=== PATIENT | female | born 1965 | race Caucasian/White ===

== ENCOUNTER 2017-03-02 12:41 | Emergency (ER) | payer OTHER ==
[~2017-03-02] VITALS: Ht 154.9 cm; Wt 59.0 kg
[~2017-03-02 12:41] MED LIST: ALBUAER19 INH; BENZ100C84 PO; LVQ500 PO
[2017-03-02 12:48] VITALS: TEMP 36.6; Ht 154.9 cm; Wt 59.0 kg
[2017-03-02] MEDS ORDERED: PRM625 PO (13:09)
[2017-03-02] MEDS ORDERED: HYDROCODONE/ACETAMOPHEN 5/325MG TAB PO ONE (14:00)
[2017-03-02] MEDS ORDERED: HYDR-5688 PO (14:25)
[2017-03-02] MEDS ORDERED: CYCL10TA6 PO (14:25)
[2017-03-02 14:40] VITALS: BP 118/82; PULSE 69; O2SAT 96
--- NOTE | 2017-03-02 21:21 | EMERGENCY ROOM VISIT NOTE ---
ED Visit Note First contact with patient: 13:39 Chief Complaint: Left shoulder pain. History of Present Illness: Ms. Yin is a 51-year-old white female who ambulates into the ED complaining of left shoulder pain over the scapular area. Patient reports she has been having posterior left shoulder pain for approximately 2-3 days. 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 She reports initially she was developing mild discomfort throughout the trapezius over the scapula. Her discomfort gradually increased in intensity. She reports last evening she was seen at a local urgent care center and reported x-rays were done and was reported as normal and was referred to physical therapy. Currently she describes her pain as a sharp and cramping discomfort. She rates her discomfort 7/10. Her pain is nonradiating. Her pain worsens with palpation throughout the trapezius muscle and movement of the shoulder. She has not identified any alleviating factors related to the pain. She has not taken any medications for pain prior to arrival at the hospital. She denies any associated headache, dizziness, lightheadedness, recent direct trauma, neck pain, thoracic back pain, upper respiratory tract symptoms, cough, wheezing, shortness of breath, abdominal pain, nausea, vomiting, upper extremity weakness/ numbness/tingling. Review of Systems: As noted above in history of present illness. 8 body systems were reviewed and found to be negative as noted above. Past Medical History: (1) Bipolar 1 disorder (2) Borderline personality disorder (3) Bronchitis (4) Crohn's disease, unspecified, without complications (5) External hemorrhoids (6) Hypothyroidism (7) Hypoxia Surgical Problems: (1) History of appendectomy (2) History of section (3) History of hysterectomy (4) History of tubal ligation Social History Problems: (1) Tobacco use Current Medications: Medications Dose Route/Sig Max Daily Dose Days Date Category Dose Instructions Ventolin Hfa (Albuterol) 200 Puffs/86865 Mcg Aers 2 Puffs INH Q4H PRN 03/02/17 Reported Premarin (Estrogens Conjugated) Unknown Strength Tab 1 Tab PO DAILY 03/02/17 Reported Singulair (Montelukast Sodium) 10 Mg Tab 10 Mg PO DAILY 03/02/17 Reported Naprosyn (Naproxen) 500 Mg Tab 500 Mg PO DAILY PRN 03/02/17 Reported Levofloxacin 500 Mg Tab 500 Mg PO DAILY@11 7 07/01/16 Rx Tessalon Perles (Benzonatate) 100 Mg Cap 1 Cap PO TID PRN 10 07/01/16 Rx Hydrochlorothiazide 25 Mg Tab 25 Mg PO DAILY PRN 06/28/16 Reported Lomotil (Diphenoxylate W/ Atropine) 1 Tab Tab 1 Tab PO DAILY PRN 06/28/16 Reported Symbicort 160/4.5 Inhaler (Budesonide/Formoterol Fumarate) 120 Puffs/ Aero 2 Puffs INH Q12 06/28/16 Reported Protonix (Pantoprazole Sodium) 40 Mg Tab 40 Mg PO DAILY PRN 04/16/16 Reported Bupropion HCl Xl (Bupropion HCl) 150 Mg Tabcr 150 Mg PO QPM 03/28/16 Reported Advil (Ibuprofen) 200 Mg Tab 400 Mg PO QPM PRN 03/28/16 Reported Levothyroxine Sodium 75 Mcg Tab 1 Tab PO DAILY 90 02/28/16 Reported Humira Pen (Adalimumab) 40 Mg/0.8 Ml Kit 1 Dose INJ Q2WKS 01/29/16 Reported Allergies to Medications: Oxycodone. Social History: Patient is currently employed; she feels safe in her home environment; she admits to tobacco use. Physical Examination: Vital Signs: Date Time Temp Pulse Resp B/P Pulse Ox O2 Delivery O2 Flow Rate FiO2 03/02/17 14:40 69 18 118/82 96 03/02/17 12:48 36.6 75 16 120/87 95 Room Air GENERAL: 51-year-old female in moderate distress due to pain, nontoxic-appearing , afebrile and hemodynamically stable. NEUROLOGICAL: Awake, alert and oriented to person, place and time. Answering questions appropriately and following commands. Normal gait. Good hand eye coordination. No focal motor or sensory deficits. SKIN: Warm, dry and pink. No soft tissue eruptions or trauma noted. HEENT: Atraumatic and normocephalic. BACK: No tenderness over the bony cervical and thoracic spine. Moderate tenderness over the mid left trapezius with palpable spasm. No CVA tenderness. THORAX: Lungs sounds are clear to auscultation and equal bilaterally with symmetrical chest wall. ABDOMEN: Flat, soft and nontender. Positive bowel sounds in all quadrants. No guarding, rigidity or organomegaly. LEFT UPPER EXTREMITY: No gross bony deformity. No bony tenderness, swelling or ecchymosis of the shoulder girdle or shoulder joint. As previously noted moderate tenderness throughout the trapezius associated with muscle spasm. She refused to do range of motion exercises due to pain. With the shoulder stabilize she does have full range of motion in flexion and extension of the elbow, pronation and supination of forearm and flexion, extension and radial and ulnar deviation of the wrist against resistance. pose. Distal sensation, distal pulses and capillary refill intact. Was not able to elicit deep tendon reflexes bilaterally. ED Course: Patient is assessed as noted above. Patient was given ice and one [place] 5/325 mg tablet by mouth for pain. Patient was offered additional x-rays or imaging studies and refused. Patient was placed in a sling. Patient was educated about tonight's findings and instructed on her treatment plan; she verbalizes understanding and agreement with this plan. Clinical Impression: Left shoulder pain. Left trapezius muscle spasm. Disposition: Patient discharged home in stable condition accompanied by male friend; prior to departure she was reassessed and subjectively reported she was feeling the same. Plan: Comfort measures were discussed with the patient including rest, sling use, ice , muscle relaxants; Flexeril, and a sliding pain medication scale including narcotics. Patient was given appropriate precautions for narcotic use. Additionally her name was reviewed in this state database and no red flags were noted. Patient was encouraged to follow-up with orthopedics if no better in 7-10 days. Patient was encouraged return the ED for worsening/uncontrolled pain, arm weakness/numbness/tingling or any new/concerning symptoms.
[2017-03-11] MEDS ORDERED: SYMIN160 INH (07:45)
[2017-09-16] MEDS ORDERED: NAPR-1169 PO (13:05)
[2017-09-16] MEDS ORDERED: MONT1TAB3 PO (13:09)
[2017-09-16] MEDS ORDERED: VNTHFA/IN INH (13:11)
[2017-09-16] MEDS ORDERED: LEVO75TA5 PO (13:57)
[2017-09-16] MEDS ORDERED: ESTR1TAB2 PO (14:40)
[2017-09-16] MEDS ORDERED: DPH/ PO (16:21)
[2017-09-16] MEDS ORDERED: PANT40TA PO (16:53)
[2017-09-19] MEDS ORDERED: FLVHFA44 INH (10:27)
[2017-09-19] MEDS ORDERED: AZIT500T3 PO (10:27)
[2017-09-19] MEDS ORDERED: PRED10TA PO (10:27)
== END 2017-03-02 14:42 | disposition home or self-care (01) ==
LOC: C.EDB 12:42 → C.EDD 14:42
DX: M25.512 Pain in left shoulder (principal); M62.838 Other muscle spasm; Z72.0 Tobacco use; F31.9 Bipolar disorder, unspecified; F60.3 Borderline personality disorder; K50.90 Crohn's disease, unspecified, without complications; E03.9 Hypothyroidism, unspecified; Z79.899 Other long term (current) drug therapy

== ENCOUNTER 2017-03-11 13:49 | Emergency (ER) | payer OTHER ==
[~2017-03-11] VITALS: Ht 154.9 cm; Wt 60.6 kg
[~2017-03-11 13:49] MED LIST changes: -ALBUAER19 INH; +CYCL10TA6 PO; +HYDR-5688 PO; +PRM625 PO; +SYMIN160 INH
[2017-03-11 13:51] VITALS: TEMP 36.6; Ht 154.9 cm; Wt 60.6 kg
--- NOTE | 2017-03-11 15:17 | DIAGNOSTIC IMAGING REPORT ---
CERVICAL SPINE 7 VIEWS HISTORY: Pain. Neuropathy. LEFT NECK PAIN RADIATING INTO L ARM, WEAKNESS COMPARISON: None. FINDINGS: The cervical spine is visualized from C1 through the superior endplate of T1. Evidence for an anterior fusion from C5 through C7. Disc spaces are present. Moderate reversal of normal cervical curvature presumably due to muscular spasm. Disc spaces are preserved. Prevertebral soft tissues and the atlantodens interval are intact. IMPRESSION: Moderate degenerative and postoperative change consistent with a fusion from C5 through C7. Reversal of cervical curvature presumably due to muscular spasm. Electronically signed by: Pacheco Gaitan M.D. 03/11/2017 3:16 PM Dictated Date/Time: 03/11/2017 3:14 PM
[2017-03-11] MEDS ORDERED: HYDR25TA5 PO (16:21)
[2017-03-11] MEDS ORDERED: WLLXL150 PO (19:00)
--- NOTE | 2017-03-11 19:01 | DIAGNOSTIC IMAGING REPORT ---
MRI OF THE CERVICAL SPINE WITHOUT IV CONTRAST CLINICAL HISTORY: Left neck pain radiating into the left upper extremity. Left arm weakness. COMPARISON STUDY: Radiographs of the cervical spine dated 03/11/2017. TECHNIQUE: MRI of the cervical spine is performed using various T1 and T2-weighted sequences in the axial and sagittal planes. IV contrast was not administered for this examination. Susceptibility artifact from spinal fusion hardware degrades the examination. FINDINGS: Cervical spine: Vertebral body height and alignment are maintained throughout the cervical spine. There is straightening of the cervical lordosis with reversal centered at C6. There are postoperative changes from anterior fusion seen from C5 to C7. The spinous processes are grossly intact. The atlantodental articulation appears maintained. No destructive bony lesion is seen. Intervertebral discs: There is evidence of discectomy at C5-C6 and C6-C7. Mild degenerative disc desiccation is seen in the remaining cervical levels. Mild to moderate disc space narrowing is seen at C7-T1. Spinal cord: The cervical spinal cord is normal in morphology and signal intensity. C2-C3: Facet arthropathy causes mild right greater than left neural foraminal stenosis. The central canal is clear. C3-C4: A posterior disc osteophyte complex effaces the ventral subarachnoid space. Uncovertebral and facet arthropathy cause mild to moderate right and minimal left neural foraminal stenosis. C4-C5: A posterior disc osteophyte complex abuts the ventral cord. Facet arthropathy causes minimal right sided neural foraminal stenosis. C5-C6: A posterior disc osteophyte complex effaces the ventral cord. The neural foramina are grossly clear. C6-C7: The central canal and neural foramina are grossly clear. C7-T1: A posterior disc bulge is seen eccentric to the left. This minimally effaces the ventral left aspect of the subarachnoid space and interrupts the left-sided neural frontal stenosis. This may impinge on the exiting C8 nerve root. Soft tissues: The prevertebral and paraspinous soft tissues are within normal limits. Brain parenchyma: Partially visualized brain parenchyma at the skull base is within normal limits. IMPRESSION: 1. There are postoperative changes from anterior fusion from C5 to C7. No destructive bony lesion is seen. 2. The cervical spinal cord is normal in morphology and signal intensity. 3. A posterior disc bulge eccentric to the left is seen at C7-T1. This mildly effaces the ventral subarachnoid space and contributes to left-sided neural foraminal stenosis. This may impinge on the exiting left C8 nerve root. 4. Multilevel cervical spondylosis at additional levels as detailed above. See discussion for level by level analysis. Dictated: 03/11/2017 6:45 PM Transcribed: 03/11/2017 7:00 PM [email or web address] Electronically signed by: Rc Lorenzo M.D. 03/11/2017 7:03 PM Dictated Date/Time: 03/11/2017 6:45 PM
--- NOTE | 2017-03-11 19:32 | EMERGENCY ROOM VISIT NOTE ---
History First contact with patient: 14:07 Chief Complaint: SHOULDER PAIN Stated Complaint: PAIN DOWN NECK INTO SHOULDER, WEAKNESS IN L ARM History of Present Illness Patient is a [id number] 51-year-old white female with past medical history significant for Crohn's disease, hypothyroidism, COPD, asthma/depression /anxiety and GERD, and status post C5 through C7 a CT/S in 2008, presents emergency department for evaluation of left-sided neck pain radiating into the left arm. She's had symptoms for almost 3 weeks. Patient reports that she began noticing pain in the posterior aspect of her left shoulder that radiated slightly to her neck and to her left upper arm about 2-1/2 weeks ago. On the fifth of this month she went to a walk-in facility in [place] and has shoulder x-rays which were reportedly unremarkable and physical therapy was recommended. The following day she presented here to our emergency department where it was felt that she was suffering from a spasm, and was prescribed Flexeril and [place]. Patient states that she tried using the Flexeril and the [place], but they did not help, so she stopped them. She had follow-up with her primary care provider on 03/08, who prescribed steroids, but the patient only took one dose because she could not tolerate the side effects. She states that the provider did not know if she could get an MRI authorized by her insurance. The patient now notes more severe pain in the midline of her neck, radiating into the posterior right shoulder and down the left arm below the elbow. She then reports a "funny feeling" in her hands and her fingers, and notes that she is having difficulty with fine movements like holding things and picking up small items like her medications. She states that her hand feels weak. She states that certain movements, including looking to the left exacerbates the pain and make it more sharp in nature. Her surgeon from [address] Luna. She has not tried to get into see him. She presently rates her pain a 3/10. She cannot relate any specific injury or direct trauma, but does state that she is active, cares for her young grandchildren, and rides horses. Review of Systems Review of systems as per HPI. All other systems reviewed were negative. 10 systems reviewed. Past Medical/Surgical History Medical Problems: (1) Acute allergic reaction (2) Allergic reaction, urticaria (3) Anxiety Disorder, Unspecified (4) Bipolar 1 disorder (5) Borderline personality disorder (6) Bronchitis (7) Bronchitis (8) COPD (chronic obstructive pulmonary disease) (9) COPD exacerbation (10) Crohn's disease, unspecified, without complications (11) Depression (12) External hemorrhoids (13) Failure of outpatient treatment (14) GERD (gastroesophageal reflux disease) (15) Hives (16) Hypothyroidism (17) Hypoxia (18) Left shoulder pain (19) Urticaria Surgical Problems: (1) H/O cervical spinal arthrodesis (2) History of appendectomy (3) History of section (4) History of hysterectomy (5) History of tubal ligation Social History Problems: (1) Tobacco use Electronic medical records are reviewed and summarized as above/below. See Problem List. Family History Diabetes mellitus FH: heart disease FHx: lung disease Hypertension Kidney stones Social History Smoking Status: Current Every Day Smoker Alcohol Use: occasionally Drug Use: none Marital Status: in relationship Housing Status: lives with family Occupation Status: unemployed Current/Historical Medications Scheduled Adalimumab (Humira Pen), 1 DOSE INJ Q2WKS Budesonide/Formoterol Fumarate (Symbicort 160/4.5 Inhaler), 2 PUFFS INH Q12 Bupropion HCl (Bupropion HCl Xl), 150 MG PO QPM Estradiol (Estrace), Unknown Dose PO DAILY Levothyroxine Sodium (Levothyroxine Sodium), 1 TAB PO DAILY Montelukast Sodium (Singulair), 10 MG PO DAILY Scheduled PRN Albuterol Hfa (Ventolin Hfa), 2 PUFFS INH Q4H PRN for SOB/Wheezing Benzonatate (Tessalon Perles), 1 CAP PO TID PRN for Cough Cyclobenzaprine Hcl (Flexeril), 10 MG PO Q8 PRN for Muscle Spasms Diphenoxylate W/ Atropine (Lomotil), 1 TAB PO DAILY PRN for Diarrhea Hydrochlorothiazide (Hydrochlorothiazide), 25 MG PO DAILY PRN for edema Ibuprofen (Advil), 400 MG PO QPM PRN for Pain Naproxen (Naprosyn), 500 MG PO DAILY PRN for Pain Pantoprazole (Protonix), 40 MG PO DAILY PRN for ACID REFLUX Allergies Coded Allergies: Oxycodone (Verified Allergy, Severe, FACE ITCHY, 03/11/17) 04/18/16: pt lists oxy-ir as home med? she presents with allergy sxs on [id number]. dr saldana is holding oxy-ir at this time. aj Physical Exam Vital Signs Date Time Temp Pulse Resp B/P Pulse Ox O2 Delivery O2 Flow Rate FiO2 03/11/17 19:43 74 20 118/75 98 03/11/17 17:53 75 20 125/87 96 Room Air 03/11/17 15:30 62 18 124/74 97 Room Air 03/11/17 13:51 36.6 77 18 120/81 99 Room Air Physical Exam CONSTITUTIONAL: Patient is an uncomfortable-appearing 51-year-old white female who is awake and alert and in no acute distress. EYES: Pupils equal, round, reactive to light and accommodation. EOMs intact without nystagmus. Sclera are anicteric. ENT: Tympanic membranes intact, with normal landmarks. External canals are clear. Oral and nasopharynx are clear. Mucous membranes are moist, no lesions , tongue and gums appear normal. NECK: No bruits auscultated. Supple without lymphadenopathy. No thyromegaly. No meningeal signs. Full active range of motion without discomfort. CARDIOVASCULAR: Regular rate and rhythm, with normal S1 and S2, no murmur or gallop or rub is heard. No carotid bruits auscultated. No JVD. Peripheral pulses easily palpable. RESPIRATORY: Breath sounds equal and clear to auscultation without wheezes, rales, or rhonchi heard. Full and equal chest expansion without accessory muscle use or retractions. INTEGUMENTARY: No lesions or rash, normal skin turgor. LYMPH: No lymphadenopathy. SPINE: Patient has a well-healed anterior neck surgical incision. She has mild discomfort over the spinous processes of the lower cervical spine, no paraspinous muscle tenderness or spasm, no spasm in the trapezius distribution. She has full cervical spine range of motion. There is no pain over the thoracic spinous processes or the rhomboid muscles. EXTREMITIES: Examination of the left arm does not demonstrate any obvious deformity, no erythema, swelling or discoloration. Radial and ulnar pulses are equal bilaterally. She has diminished solutions specialist strength, intrinsic hand strength and thumb opposition on the left, when compared to the right. Elbow flexion and extension and shoulder flexion and abduction are equal and symmetrical bilaterally. Biceps, triceps and brachioradialis DTRs are equal and symmetrical bilaterally. Medical Decision & Procedures ER Provider Diagnostic Interpretation: MRI OF THE CERVICAL SPINE WITHOUT IV CONTRAST CLINICAL HISTORY: Left neck pain radiating into the left upper extremity. Left arm weakness. COMPARISON STUDY: Radiographs of the cervical spine dated 03/11/2017. TECHNIQUE: MRI of the cervical spine is performed using various T1 and T2-weighted sequences in the axial and sagittal planes. IV contrast was not administered for this examination. Susceptibility artifact from spinal fusion hardware degrades the examination. FINDINGS: Cervical spine: Vertebral body height and alignment are maintained throughout the cervical spine. There is straightening of the cervical lordosis with reversal centered at C6. There are postoperative changes from anterior fusion seen from C5 to C7. The spinous processes are grossly intact. The atlantodental articulation appears maintained. No destructive bony lesion is seen. Intervertebral discs: There is evidence of discectomy at C5-C6 and C6-C7. Mild degenerative disc desiccation is seen in the remaining cervical levels. Mild to moderate disc space narrowing is seen at C7-T1. Spinal cord: The cervical spinal cord is normal in morphology and signal intensity. C2-C3: Facet arthropathy causes mild right greater than left neural foraminal stenosis. The central canal is clear. C3-C4: A posterior disc osteophyte complex effaces the ventral subarachnoid space. Uncovertebral and facet arthropathy cause mild to moderate right and minimal left neural foraminal stenosis. C4-C5: A posterior disc osteophyte complex abuts the ventral cord. Facet arthropathy causes minimal right sided neural foraminal stenosis. C5-C6: A posterior disc osteophyte complex effaces the ventral cord. The neural foramina are grossly clear. C6-C7: The central canal and neural foramina are grossly clear. C7-T1: A posterior disc bulge is seen eccentric to the left. This minimally effaces the ventral left aspect of the subarachnoid space and interrupts the left-sided neural frontal stenosis. This may impinge on the exiting C8 nerve root. Soft tissues: The prevertebral and paraspinous soft tissues are within normal limits. Brain parenchyma: Partially visualized brain parenchyma at the skull base is within normal limits. IMPRESSION: 1. There are postoperative changes from anterior fusion from C5 to C7. No destructive bony lesion is seen. 2. The cervical spinal cord is normal in morphology and signal intensity. 3. A posterior disc bulge eccentric to the left is seen at C7-T1. This mildly effaces the ventral subarachnoid space and contributes to left-sided neural foraminal stenosis. This may impinge on the exiting left C8 nerve root. 4. Multilevel cervical spondylosis at additional levels as detailed above. See discussion for level by level analysis. CERVICAL SPINE 7 VIEWS HISTORY: Pain. Neuropathy. LEFT NECK PAIN RADIATING INTO L ARM, WEAKNESS COMPARISON: None. FINDINGS: The cervical spine is visualized from C1 through the superior endplate of T1. Evidence for an anterior fusion from C5 through C7. Disc spaces are present. Moderate reversal of normal cervical curvature presumably due to muscular spasm. Disc spaces are preserved. Prevertebral soft tissues and the atlantodens interval are intact. IMPRESSION: Moderate degenerative and postoperative change consistent with a fusion from C5 through C7. Reversal of cervical curvature presumably due to muscular spasm. ED Course The patient was seen and evaluated as above. Her old records were reviewed. She had driven herself to the emergency department and did not have a ride and therefore declined any medication needs well in the emergency department. Given her history of fusion, cervical spine x-rays are obtained and were as noted above. Because of her radicular symptoms and left upper extremity weakness, MRI of the cervical spine was obtained. Findings were reviewed with the patient. Continued conservative care measures were discussed. The patient has narcotics at home that she can use. She is also provided a prescription for prednisone which she states that she only took one dose of because she could not tolerate the side effects. She was encouraged to finish the prednisone if she could tolerate it as it may provide her with some additional benefit to treat the radicular symptoms. She was advised that she would need to follow-up with her surgeon for further care and evaluation. The patient expressed understanding of this and was agreeable. She is discharged home in good condition. She rated her pain a 5/10 at discharge. MEDICAL DECISION MAKING: I do not suspect acute compression syndrome, diskitis , epidural abscess, hematoma or neurovascular compromise. Medical Decision See ED course Impression Primary Impression: Left cervical radiculopathy Departure Information Referrals Wade Gonzáles M.D. (PCP) Tu Luna M.D. Patient Instructions [facility] Additional Instructions Resume prednisone. Continue hydrocodone as prescribed. Use Benadryl if needed for itching. Ibuprofen(Motrin, Advil) may be used for fever or pain. Use 600mg every six hours as needed. Take with food. Avoid using more than 2400mg in a 24 hour period. Do not use 2400mg per day for more than three consecutive days without physician direction. Prolonged inappropriate use can lead to stomach upset or ulcers. This medication can be taken if you need to drive, work, or perform activities which may be dangerous when taking narcotic pain medication. (AND/OR) Acetaminophen(Tylenol) may be used for fever or pain. Use 1000mg every six hours as needed. Avoid using more than 3000mg in a 24 hour period. This medication can be taken if you need to drive, work, or perform activities which may be dangerous when taking narcotic pain medication. Continue current medications. Return to the ER immediately for any numbness, tingling, severe pain, loss of control of your bowels or bladder, inability to walk, or as needed. Follow up with Dr. Luna this week for recheck. Call tomorrow morning to make an appointment.
[2017-03-11 19:43] VITALS: BP 118/75; PULSE 74; O2SAT 98
[2017-09-16] MEDS ORDERED: NAPR-1169 PO (13:05)
[2017-09-16] MEDS ORDERED: MONT1TAB3 PO (13:09)
[2017-09-16] MEDS ORDERED: VNTHFA/IN INH (13:11)
[2017-09-16] MEDS ORDERED: LEVO75TA5 PO (13:57)
[2017-09-16] MEDS ORDERED: ESTR1TAB2 PO (14:40)
[2017-09-16] MEDS ORDERED: DPH/ PO (16:21)
[2017-09-16] MEDS ORDERED: PANT40TA PO (16:53)
[2017-09-19] MEDS ORDERED: PRED10TA PO (10:27)
[2017-09-19] MEDS ORDERED: FLVHFA44 INH (10:27)
[2017-09-19] MEDS ORDERED: AZIT500T3 PO (10:27)
== END 2017-03-11 19:44 | disposition home or self-care (01) ==
LOC: C.EDB 13:51
DX: M47.22 Other spondylosis with radiculopathy, cervical region (principal); M50.23 Other cervical disc displacement, cervicothoracic region; K50.90 Crohn's disease, unspecified, without complications; E03.9 Hypothyroidism, unspecified; J44.9 Chronic obstructive pulmonary disease, unspecified; J45.909 Unspecified asthma, uncomplicated; F32.9 Major depressive disorder, single episode, unspecified; F41.9 Anxiety disorder, unspecified; K21.9 Gastro-esophageal reflux disease without esophagitis; F31.9 Bipolar disorder, unspecified; F60.3 Borderline personality disorder; F17.200 Nicotine dependence, unspecified, uncomplicated; K64.4 Residual hemorrhoidal skin tags; Z90.710 Acquired absence of both cervix and uterus; Z83.3 Family history of diabetes mellitus; Z82.49 Family history of ischemic heart disease and other diseases of the circulatory system; Z84.1 Family history of disorders of kidney and ureter

== ENCOUNTER → 2017-05-07 | Outpatient (CLI) | payer OTHER ==
[~2017-05-07] MED LIST changes: +ADAL40KI INJ; -CYCL10TA6 PO; +DPH/ PO; +ESTR1TAB2 PO; -HYDR-5688 PO; +HYDR25TA5 PO; +IBUP-1050 PO; +LEVO75TA5 PO; -LVQ500 PO; +MONT1TAB3 PO; +NAPR-1169 PO; +PANT40TA PO; -PRM625 PO; +VNTHFA/IN INH; +WLLXL150 PO
--- NOTE | 2017-05-07 15:31 | DIAGNOSTIC IMAGING REPORT ---
TWO VIEW CHEST CLINICAL HISTORY: Cough. FINDINGS: PA and lateral chest radiographs are compared to study dated 08/16/2016. Correlation is made with chest CT dated 06/27/2016. The cardiomediastinal silhouette is unremarkable. The lungs and pleural spaces are clear. There is no pneumothorax. The bony thorax appears intact. Fusion hardware is seen in the lower cervical spine. IMPRESSION: No active disease in the chest. Electronically signed by: Rc Lorenzo M.D. 05/07/2017 3:29 PM Dictated Date/Time: 05/07/2017 3:28 PM
== END | disposition home or self-care (01) ==
LOC: C.RAD 15:11
PROVIDERS: ATTEND Physician Assistant
DX: R05 Cough (principal)

== ENCOUNTER 2017-09-16 17:01 | Inpatient (IN) | payer OTHER ==
[~2017-09-16] VITALS: Ht 157.5 cm; Wt 59.6 kg
[~2017-09-16 17:01] MED LIST changes: -ADAL40KI INJ; -IBUP-1050 PO
[2017-09-16] MEDS ORDERED: SODIUM CHLORIDE 0.9% 1000ML 1,000 ML IV STA (17:21)
[2017-09-16] MEDS ORDERED: ACETAMINOPHEN 500 MG TAB PO STA (17:21)
[2017-09-16] MEDS ORDERED: ALBUT/IPRATROP 3MG/0.5MG NEB 3 ML VIAL INH STA (17:21)
--- NOTE | 2017-09-16 17:31 | EMERGENCY ROOM VISIT NOTE ---
History Report prepared by Kourtneyibmaida: Chayito Cyr Under the Supervision of: Dr. Onesimo Elmore D.O. First contact with patient: 17:15 Chief Complaint: ILLNESS Stated Complaint: HEADACHE, HARD BREATHING, PAIN IN RIGHT SIDE,TEETH History of Present Illness The patient is a 52 year old female who presents to the Emergency Room with complaints of a persistent illness for the past few days. She reports she had her right upper and lower teeth extracted this past Saturday, 3 days MARINA PORTER. Since then, she has developed a headache, pain in the right side of her abdomen and difficulty breathing. She rates her discomfort as an 8/10 in severity. She admits to a history of COPD and chronic bronchitis, and follows with Uma Nelson of [facility]. She notes she saw Uma Nelson last week, and she called in an antibiotic for the patient as she found "some gunk in her lungs", but she has not started the antibiotic yet. She has been using her inhalers as needed for her breathing issues. The patient also admits to a history of Crohn' s disease and a bulging disc in her neck, for which she follows with Dr. Bernal of [facility]. She denies any recent rhinorrhea, nausea, vomiting , diarrhea or urinary symptoms. Source of History: patient Onset: past few days MARINA PORTER Position: other (global) Timing: other (persistent) Associated Symptoms: + headache, + SOB, + abdominal pain, No nausea, No vomiting, No diarrhea, No urinary symptoms Review of Systems See HPI for pertinent positives & negatives. A total of 10 systems reviewed and were otherwise negative. Past Medical & Surgical Medical Problems: (1) Acute allergic reaction (2) Allergic reaction, urticaria (3) Anxiety Disorder, Unspecified (4) Bipolar 1 disorder (5) Bipolar disorder (6) Borderline personality disorder (7) Bronchitis (8) Bronchitis (9) COPD (chronic obstructive pulmonary disease) (10) COPD exacerbation (11) Crohn's disease, unspecified, without complications (12) Crohns disease (13) Depression (14) External hemorrhoids (15) Failure of outpatient treatment (16) GERD (gastroesophageal reflux disease) (17) History of neck pain (18) Hives (19) Hypothyroidism (20) Hypothyroidism (21) Hypoxia (22) Left shoulder pain (23) Urticaria Surgical Problems: (1) H/O cervical spinal arthrodesis (2) History of appendectomy (3) History of bronchoscopy (4) History of section (5) History of hysterectomy (6) History of tubal ligation (7) Hx of colonoscopy (8) Hx of fusion of cervical spine (9) Hx of hysterectomy Social History Problems: (1) Tobacco use Family History Diabetes mellitus FH: heart disease FHx: lung disease Hypertension Kidney stones Social History Smoking Status: Current Every Day Smoker Alcohol Use: occasionally Drug Use: none Marital Status: in relationship Housing Status: lives with family Occupation Status: disabled Current/Historical Medications Scheduled Adalimumab (Humira Pen), 40 MG SC Q2WKS Bupropion HCl (Bupropion HCl Sr), 150 MG PO DAILY Cyclobenzaprine Hcl (Flexeril), 10 MG PO TID Estradiol (Estrace), 1 MG PO DAILY Ipratropium [place] (Atrovent Hfa), 2 PUFFS INH QID Levothyroxine Sodium (Levothyroxine Sodium), 75 MCG PO DAILY Mesalamine (Lialda), 4 TAB PO DAILY Montelukast Sodium (Singulair), 10 MG PO DAILY Pantoprazole (Protonix), 40 MG PO DAILY Tiotropium [place] (Spiriva Respimat), 2 PUFF INH DAILY Scheduled PRN Albuterol Hfa (Ventolin Hfa), 2 PUFFS INH Q4H PRN for SOB/Wheezing Diphenoxylate W/ Atropine (Lomotil), 1 TAB PO DAILY PRN for Diarrhea Ibuprofen (Advil), 400 MG PO Q6H PRN for Pain Lorazepam (Ativan), 0.5 MG PO TID PRN for Anxiety Naproxen (Naprosyn), 500 MG PO BID PRN for Pain Allergies Coded Allergies: Oxycodone (Verified Allergy, Severe, FACE ITCHY, 03/11/17) 04/18/16: pt lists oxy-ir as home med? she presents with allergy sxs on [id number]. dr saldana is holding oxy-ir at this time. aj Physical Exam Vital Signs Date Time Temp Pulse Resp B/P (MAP) Pulse Ox O2 Delivery O2 Flow Rate FiO2 09/16/17 19:03 93 22 122/56 94 Nasal Cannula 3.0 09/16/17 17:57 96 09/16/17 17:51 96 Room Air 09/16/17 17:07 39.1 103 20 129/80 92 Room Air Physical Exam GENERAL: Patient is awake, alert, in no acute distress, patient is resting comfortably and showing no signs of anxiety EYES: The conjunctivae are clear. The pupils are round and reactive. EARS, NOSE, MOUTH AND THROAT: The nose is without any evidence of any deformity. Mucous membranes are moist tongue is midline NECK: The neck is nontender and supple. RESPIRATORY: Lung sounds diminished throughout, expiratory wheezing in all lung jacques, no conversational dyspnea CARDIOVASCULAR: Regular rate and rhythm noted there no murmurs rubs or gallops normal S1 normal S2 GASTROINTESTINAL: The abdomen is soft. Bowel sounds are present in all quadrants. Abdomen is nontender MUSCULOSKELETAL/EXTREMITIES: There is no evidence of gross deformity full range of motion is noted in the hips and shoulders SKIN: There is no obvious evidence of any rash. There are no petechiae, pallor or cyanosis noted. NEUROLOGIC: Patient is awake alert and oriented x3 Medical Decision & Procedures ER Provider Diagnostic Interpretation: See HPI for pertinent positives & negatives. A total of 10 systems reviewed and were otherwise negative. CHEST ONE VIEW PORTABLE CLINICAL HISTORY: Evaluate Fever/Sepsis dyspnea COMPARISON STUDY: 05/07/2017 FINDINGS: The bones soft tissues and hemidiaphragms are normal. The cardiomediastinal silhouette is normal. The lungs are clear. The pulmonary vasculature is normal. IMPRESSION: Negative chest. The above report was generated using voice recognition software. It may contain grammatical, syntax or spelling errors. Electronically signed by: Pacheco Gaitan M.D. 09/16/2017 5:34 PM Laboratory Results 09/16/17 17:35 Red Blood Count 3.82, Mean Corpuscular Volume 93.2, Mean Corpuscular Hemoglobin 32.5, Mean Corpuscular Hemoglobin Concent 34.8, Mean Platelet Volume 9.9, Neutrophils (%) (Auto) 68.0, Lymphocytes (%) (Auto) 22.2, Monocytes (%) (Auto) 9.2, Eosinophils (%) (Auto) 0.2, Basophils (%) (Auto) 0.2, Neutrophils # (Auto) 8.46, Lymphocytes # (Auto) 2.76, Monocytes # (Auto) 1.15, Eosinophils # (Auto) 0.03, Basophils # (Auto) 0.03 Test 09/16/17 17:35 09/16/17 18:48 09/16/17 19:00 09/16/17 19:20 White Blood Count 12.46 K/uL (4.8-10.8) Red Blood Count 3.82 M/uL (4.2-5.4) Hemoglobin 12.4 g/dL (12.0-16.0) Hematocrit 35.6 % (37-47) Mean Corpuscular Volume 93.2 fL (80-100) Mean Corpuscular Hemoglobin 32.5 pg (25-34) Mean Corpuscular Hemoglobin Concent 34.8 g/dl (32-36) Platelet Count 250 K/uL (130-400) Mean Platelet Volume 9.9 fL (7.4-10.4) Neutrophils (%) (Auto) 68.0 % Lymphocytes (%) (Auto) 22.2 % Monocytes (%) (Auto) 9.2 % Eosinophils (%) (Auto) 0.2 % Basophils (%) (Auto) 0.2 % Neutrophils # (Auto) 8.46 K/uL (1.4-6.5) Lymphocytes # (Auto) 2.76 K/uL (1.2-3.4) Monocytes # (Auto) 1.15 K/uL (0.11-0.59) Eosinophils # (Auto) 0.03 K/uL (0-0.5) Basophils # (Auto) 0.03 K/uL (0-0.2) RDW Standard Deviation 44.0 fL (36.4-46.3) RDW Coefficient of Variation 12.9 % (11.5-14.5) Immature Granulocyte % (Auto) 0.2 % Immature Granulocyte # (Auto) 0.03 K/uL (0.00-0.02) Erythrocyte Sedimentation Rate 21 mm/hr (0-21) Est Creatinine Clear Calc Drug Dose 53.1 ml/min Troponin I < 0.015 ng/ml (0-0.045) C-Reactive Protein 3.15 mg/dl (0-0.29) Bedside Lactic Acid Venous 0.52 mmol/L (0.90-1.70) Urine Color YELLOW Urine Appearance CLEAR (CLEAR) Urine pH 7.0 (4.5-7.5) Urine Specific [place] 1.010 (1.000-1.030) Urine Protein NEG (NEG) Urine Glucose (UA) NEG (NEG) Urine Ketones NEG (NEG) Urine Occult Blood NEG (NEG) Urine Nitrite NEG (NEG) Urine Bilirubin NEG (NEG) Urine Urobilinogen NEG (NEG) Urine Leukocyte Esterase NEG (NEG) Test 09/16/17 19:34 Laboratory results per my review. Medications Administered Medications (Trade) Dose Ordered Sig/Nando Route Start Time Stop Time Status Last Admin Dose Admin Sodium Chloride 1,000 ml @ 999 mls/hr Q1H1M STAT IV 09/16/17 17:21 09/16/17 18:21 DC 09/16/17 19:02 999 MLS/HR Albuterol/ Ipratropium (Duoneb) 3 ml NOW STAT INH 09/16/17 17:21 09/16/17 17:25 DC 09/16/17 17:46 3 ML Acetaminophen (Tylenol Tab) 1,000 mg NOW STAT PO 09/16/17 17:21 09/16/17 17:25 DC 09/16/17 17:47 1,000 MG Ceftriaxone Sodium (Rocephin Inj) 1 gm NOW STAT IV 09/16/17 18:29 09/16/17 18:30 DC 09/16/17 19:01 1 GM Azithromycin 500 mg/Dextrose 255 ml @ 125 mls/hr ONE ONCE IV 09/16/17 18:30 09/16/17 20:32 09/16/17 19:23 125 MLS/HR Methylprednisolone Sodium Succinate (Solu-Medrol IV) 125 mg NOW STAT IV 09/16/17 18:29 09/16/17 18:30 DC 09/16/17 19:01 125 MG ECG Indication: SOB/dyspnea Rate (beats per minute): 100 Rhythm: normal sinus Findings: no ectopy, other (No acute ST segments) Change: no significant change (No change from June 28, 2016) ED Course 1718: The patient was evaluated in room B11. A complete history and physical examination were performed. 1721: Acetaminophen 1000 mg PO, DuoNeb 3 ml INH, NSS 1000 ml @ 999 mls/hr IV. 1829: Solu-Medrol 125 mg IM, Rocephin 1 gm IV. 1830: Azithromycin 500 mg/Dextrose 255 ml @ 125 mls/hr IV. 1830: Nursing informed me the patients Oxygen saturation has dropped after a DuoNeb. 1841: I discussed the patients case with Winsome Pitts. The patient will be further evaluated. Medical Decision Prior records/ancillary studies reviewed. Triage Nursing notes reviewed. Additional history obtained from the family. The patient's history was concerning for respiratory difficulties. Differential diagnosis: Etiologies such as infections, reactive airway disease, pneumonia, pneumothorax , COPD, CHF, cardiac ischemia, pulmonary embolism, musculoskeletal, gastrointestinal, as well as others were entertained. The patient is a 52-year-old female who presented to the emergency department for evaluation of cough. The patient had a fever. The patient's chest x-ray did not show any definite pneumonia however her history and physical exam could be consistent with a COPD exacerbation with a clinical pneumonia or a bronchitis. The patient was treated with Dilantin therapy as well as IV fluids IV steroids and IV antibiotics. I discussed the patient's laboratory and radiographic studies with her. On subsequent reevaluation she was feeling better but her oxygen saturation started to drop. She was placed on supplemental oxygen. It significantly improved her condition. I [facility] his [facility] They've agreed to evaluate the patient in the emergency department for further management and disposition. Medication Reconcilliation Current Medication List: was personally reviewed by me Blood Pressure Screening Patient's blood pressure: Normal blood pressure Blood pressure disposition: Did not require urgent referral Consults Time Called: 1839 Consulting Physician: Winsome Pitts Returned Call: 1841 I discussed the patients case with Winsome Pitts. The patient will be further evaluated. Impression Primary Impression: Bronchitis Additional Impressions: Fever Hypoxia Scribe Attestation The scribe's documentation has been prepared under my direction and personally reviewed by me in its entirety. I confirm that the note above accurately reflects all work, treatment, procedures, and medical decision making performed by me. Departure Information Dispostion Being Evaluated By Hospitalist Referrals Wade Gonzáles M.D. (PCP) Patient Instructions My [facility] Problem Qualifiers Additional Impressions: Fever Fever type: unspecified Qualified Codes: R50.9 - Fever, unspecified
--- NOTE | 2017-09-16 17:35 | DIAGNOSTIC IMAGING REPORT ---
CHEST ONE VIEW PORTABLE CLINICAL HISTORY: Evaluate Fever/Sepsis dyspnea COMPARISON STUDY: 05/07/2017 FINDINGS: The bones soft tissues and hemidiaphragms are normal. The cardiomediastinal silhouette is normal. The lungs are clear. The pulmonary vasculature is normal. IMPRESSION: Negative chest. The above report was generated using voice recognition software. It may contain grammatical, syntax or spelling errors. Electronically signed by: Pacheco Gaitan M.D. 09/16/2017 5:34 PM Dictated Date/Time: 09/16/2017 5:34 PM
[2017-09-16] MEDS ORDERED: SPRIN/30 INH (17:57)
[2017-09-16] MEDS ORDERED: ATRIN INH (17:57)
[2017-09-16] MEDS ORDERED: LORA-741 PO (17:57)
[2017-09-16] MEDS ORDERED: WLLSR150 PO (17:57)
[2017-09-16 17:58] LABS: BASO % 0.2 %; BASO ABS # 0.03 K/uL (0-0.2); COMPLETE YES; EOS % 0.2 %; HEMATOCRIT 35.6 % (37-47); IG% 0.2 %; LYMPH % 22.2 %; LYMPH ABS # 2.76 K/uL (1.2-3.4); MEAN CELL VOLUME 93.2 fL (80-100); MEAN CORPUSCULAR HEMOGLOBIN 32.5 pg (25-34); MEAN CORPUSCULAR HGB CONC 34.8 g/dl (32-36); MEAN PLATELET VOLUME 9.9 fL (7.4-10.4); MONO % 9.2 %; PLATELET COUNT 250 K/uL (130-400); RED BLOOD COUNT 3.82 M/uL (4.2-5.4); WHITE BLOOD COUNT 12.46 K/uL (4.8-10.8)
[2017-09-16] MEDS ORDERED: BENZ100C84 PO (18:00)
[2017-09-16] MEDS ORDERED: ADAL40KI SC (18:22)
[2017-09-16 18:26] LABS: BLOOD UREA NITROGEN 13 mg/dl (7-18); BUN/CREATININE RATIO 13.4 (10-20); CALCIUM 8.3 mg/dl (8.5-10.1); CARBON DIOXIDE 26 mmol/L (21-32); CHLORIDE 104 mmol/L (98-107); CREATININE 0.97 mg/dl (0.60-1.20); GLUCOSE 96 mg/dl (70-99); SODIUM 138 mmol/L (136-145)
[2017-09-16] MEDS ORDERED: CEFTRIAXONE SOD INJ 1 GM ADDVIAL IV STA (18:29)
[2017-09-16] MEDS ORDERED: METHYLPREDNISOLONE 125 MG VIAL IV STA (18:29)
[2017-09-16] MEDS ORDERED: AZITHROMYCIN IV 500 MG in DEXTROSE 5% 250ML 250 ML IV ONE (18:30)
[2017-09-16 18:33] LABS: C-REACTIVE PROTEIN 3.15 mg/dl (0-0.29)
[2017-09-16] MEDS ORDERED: IBUP-1050 PO (18:58)
[2017-09-16 19:21] LABS: MANUAL MICROSCOPIC REQUIRED? NO; URINE APPEARANCE CLEAR (CLEAR); URINE BILIRUBIN NEG (NEG); URINE COLOR YELLOW; URINE NITRITE NEG (NEG); UROBILINOGEN NEG (NEG)
[2017-09-16 19:24] LABS: REVIEW REQ? NO
[2017-09-16] MEDS ORDERED: ONDANSETRON INJ 2 MG/ML 2 ML VIAL IV PRN (19:45)
[2017-09-16] MEDS ORDERED: MESA1.2T PO (19:54)
[2017-09-16] MEDS ORDERED: TIOT1SPR INH (19:54)
[2017-09-16] MEDS ORDERED: CYCL10TA6 PO (19:54)
[2017-09-16] MEDS: ALBUT/IPRATROP 3MG/0.5MG NEB 3 ML VIAL INH SCH (20:00)
--- NOTE | 2017-09-16 20:41 | History and Physical ---
History & Physical Date & Time of Service: Sep 16, 2017 at 19:39 Chief Complaint: Headache, Hard Breathing, Pain In Right Side,Teeth Primary Care Physician: Wade Gonzáles M.D. History of Present Illness Source: patient Pt is 52 y/o F with PMH COPD, Crohn's on Humira Q 2 wks, bipolar, anxiety, chronic neck pain, hypothyroidism who presented to ER with c/o cough, SOB, illness. C/O generalized myalgias, [place], chills and sweats past 2-3 days. Hasn't taken temperature. Also c/o cough "but can't cough anything out". Hx COPD on spiriva and uses albuterol and atrovent inhaler prn. States past 2 days needing to use albuterol 2-3 times a day. Denies recent steroid use. Pt states had routine f/u with [facility] last week and pt reports "junk in lungs" and was instructed to start using nebulizer however pt states didn't as that usually causes her palpitations. She reports was also given antibiotic to use if no improvement of symptoms but pt did not use. Denies influenza vaccine this season. Reports side effect from pneumonia vaccine in past and since hasn't gotten influenza vaccines. Pt reports 3 days ago had R upper and lower molar extractions. States areas seem to be healing well, still a little discomfort. Denies gingival discharge or bleeding or facial edema. Reports took Roxicodone after extraction for pain and past 2 days with constipation. Hx Crohn's - follows with Dr King. States in past when taken pain meds has gotten some abdominal discomfort. Reports some mild intermittent abdominal aching. Denies N/ V/D, melena, hematochezia, dizziness, syncope, vision changes, CP, orthopnea, hemoptysis, sore throat, choking, otalgia, rhinorrhea, paresthesias, weakness, extremity weakness, extremity edema, rashes, urinary symptoms. In ER: Temp: 39.1C. WBC: 12.4. Negative troponin. Negative CXR. Reported after duoneb pt had desat to 85% on RA. Started on O2 NC. Given Rocephin and azithromycin. Past Medical/Surgical History Medical Problems: (1) Acute allergic reaction Status: Resolved (2) Allergic reaction, urticaria Status: Resolved (3) Anxiety Disorder, Unspecified Status: Chronic (4) Bipolar disorder Status: Chronic (5) Borderline personality disorder Status: Chronic (6) Bronchitis Status: Resolved (7) COPD (chronic obstructive pulmonary disease) Status: Chronic (8) COPD exacerbation Status: Resolved (9) Crohn's disease, unspecified, without complications Status: Chronic (10) Crohns disease Status: Chronic (11) Depression Status: Chronic (12) External hemorrhoids Status: Chronic (13) Failure of outpatient treatment Status: Resolved (14) GERD (gastroesophageal reflux disease) Status: Chronic (15) History of neck pain Status: Chronic (16) Hives Status: Resolved (17) Hypothyroidism Status: Chronic (18) Hypothyroidism Status: Chronic (19) Hypoxia Status: Resolved (20) Left cervical radiculopathy Status: Chronic (21) Left shoulder pain Status: Resolved (22) Urticaria Status: Resolved Surgical Problems: (1) H/O cervical spinal arthrodesis Status: Resolved (2) History of appendectomy Status: Resolved (3) History of bronchoscopy Permanent Comment: 2016 for hypoxia Status: Resolved (4) History of section Status: Resolved (5) History of hysterectomy Status: Resolved (6) History of tubal ligation Status: Resolved (7) Hx of colonoscopy Permanent Comment: 2017 - Dr King - non-thrombosed hemorrhoids, normal colon Status: Resolved Social History Problems: (1) Tobacco use Status: Chronic Family History Diabetes mellitus FATHER MOTHER GRANDFATHER FH: heart disease MOTHER ([place] in 60's) FHx: lung disease Hypertension FATHER MOTHER Kidney stones Social History Smoking Status: Current Every Day Smoker (1ppd x 31 years) Smokeless Tobacco Use: No Alcohol Use: none (sober since 2012, hx DUI 2010) Drug Use: none Marital Status: in relationship Housing status: lives with significant other Occupational Status: disabled Immunizations History of Influenza Vaccine: No History of Tetanus Vaccine?: Yes History of Pneumococcal: No History of Hepatitis B Vaccine: Yes Allergies Coded Allergies: Oxycodone (Verified Allergy, Severe, FACE ITCHY, 03/11/17) 04/18/16: pt lists oxy-ir as home med? she presents with allergy sxs on [id number]. dr saldana is holding oxy-ir at this time. aj Home Medications Scheduled Adalimumab (Humira Pen), 40 MG SC Q2WKS Bupropion HCl (Bupropion HCl Sr), 150 MG PO DAILY Cyclobenzaprine Hcl (Flexeril), 10 MG PO TID Estradiol (Estrace), 1 MG PO DAILY Ipratropium [place] (Atrovent Hfa), 2 PUFFS INH QID Levothyroxine Sodium (Levothyroxine Sodium), 75 MCG PO DAILY Mesalamine (Lialda), 4 TAB PO DAILY Montelukast Sodium (Singulair), 10 MG PO DAILY Pantoprazole (Protonix), 40 MG PO DAILY Tiotropium [place] (Spiriva Respimat), 2 PUFF INH DAILY Scheduled PRN Albuterol Hfa (Ventolin Hfa), 2 PUFFS INH Q4H PRN for SOB/Wheezing Diphenoxylate W/ Atropine (Lomotil), 1 TAB PO DAILY PRN for Diarrhea Ibuprofen (Advil), 400 MG PO Q6H PRN for Pain Lorazepam (Ativan), 0.5 MG PO TID PRN for Anxiety Naproxen (Naprosyn), 500 MG PO BID PRN for Pain Review of Systems Constitutional: + problem reported (See HPI), No weight loss Eyes: No eye pain, No redness, No discharge ENT: No unusual epistaxis, No nasal symptoms, No tinnitus Respiratory: + problem reported (see HPI) Cardiovascular: + problem reported (See HPI), No edema Abdomen: + problem reported (see HPI) Musculoskeletal: + problem reported (See HPI) Neurologic: No weakness, No numbness/tingling, No vertigo Endocrine: No excessive thirst, No excessive urination Integumentary: No rash Physical Exam Vital Signs Date Time Temp Pulse Resp B/P (MAP) Pulse Ox O2 Delivery O2 Flow Rate FiO2 09/16/17 19:03 93 22 122/56 94 Nasal Cannula 3.0 09/16/17 17:57 96 09/16/17 17:51 96 Room Air 09/16/17 17:07 39.1 103 20 129/80 92 Room Air General Appearance: WD/WN, no apparent distress Head: normocephalic, atraumatic Eyes: normal inspection, PERRL, EOMI, sclerae normal ENT: hearing grossly normal, TMs normal, pharynx normal, + pertinent finding ( no rhinorrhea, mucous membranes moist, right upper molar and right lower molar extraction sites without discharge/bledding or ginigval edema. no facial swelling) Neck: supple, no JVD, trachea midline, + adenopathy present (R submandibular adenopathy, tender to palpation ) Respiratory/Chest: no respiratory distress, no accessory muscle use, + decreased breath sounds (throughout), + rhonchi (bases bilaterally), + wheezing (scattered throughout), + pertinent finding (speaks in full sentences. ) Cardiovascular: regular rate, rhythm, no murmur, normal peripheral pulses Abdomen/GI: normal bowel sounds, soft, + tenderness (mild tenderness to palpation LLQ without rebound or guarding) Extremities/Musculoskelatal: normal inspection, normal capillary refill, no pedal edema, normal range of motion, non-tender Neurologic/Psych: alert, normal mood/affect, oriented x 3 Skin: normal color, warm/dry, no rash Diagnostics Laboratory Results Results Past 24 Hours Test 09/16/17 17:35 09/16/17 18:48 09/16/17 19:00 09/16/17 19:20 Range/Units White Blood Count 12.46 4.8-10.8 K/uL Red Blood Count 3.82 4.2-5.4 M/uL Hemoglobin 12.4 12.0-16.0 g/dL Hematocrit 35.6 37-47 % Mean Corpuscular Volume 93.2 80-100 fL Mean Corpuscular Hemoglobin 32.5 25-34 pg Mean Corpuscular Hemoglobin Concent 34.8 32-36 g/dl Platelet Count 250 130-400 K/uL Mean Platelet Volume 9.9 7.4-10.4 fL Neutrophils (%) (Auto) 68.0 % Lymphocytes (%) (Auto) 22.2 % Monocytes (%) (Auto) 9.2 % Eosinophils (%) (Auto) 0.2 % Basophils (%) (Auto) 0.2 % Neutrophils # (Auto) 8.46 1.4-6.5 K/uL Lymphocytes # (Auto) 2.76 1.2-3.4 K/uL Monocytes # (Auto) 1.15 0.11-0.59 K/uL Eosinophils # (Auto) 0.03 0-0.5 K/uL Basophils # (Auto) 0.03 0-0.2 K/uL RDW Standard Deviation 44.0 36.4-46.3 fL RDW Coefficient of Variation 12.9 11.5-14.5 % Immature Granulocyte % (Auto) 0.2 % Immature Granulocyte # (Auto) 0.03 0.00-0.02 K/uL Erythrocyte Sedimentation Rate 21 0-21 mm/hr Sodium Level 138 136-145 mmol/L Potassium Level 3.5-5.1 mmol/L Chloride Level 104 98-107 mmol/L Carbon Dioxide Level 26 21-32 mmol/L Anion Gap 8.0 3-11 mmol/L Blood Urea Nitrogen 13 7-18 mg/dl Creatinine 0.97 0.60-1.20 mg/dl Est Creatinine Clear Calc Drug Dose 53.1 ml/min Estimated GFR () 77.3 Estimated GFR (Non- 66.7 BUN/Creatinine Ratio 13.4 10-20 Random Glucose 96 70-99 mg/dl Calcium Level 8.3 8.5-10.1 mg/dl Troponin I < 0.015 0-0.045 ng/ml C-Reactive Protein 3.15 0-0.29 mg/dl Bedside Lactic Acid Venous 0.52 0.90-1.70 mmol/L Urine Color YELLOW Urine Appearance CLEAR CLEAR Urine pH 7.0 4.5-7.5 Urine Specific [place] 1.010 1.000-1.030 Urine Protein NEG NEG Urine Glucose (UA) NEG NEG Urine Ketones NEG NEG Urine Occult Blood NEG NEG Urine Nitrite NEG NEG Urine Bilirubin NEG NEG Urine Urobilinogen NEG NEG Urine Leukocyte Esterase NEG NEG Test 09/16/17 19:34 Range/Units Microbiology Results 09/16/17 Blood Culture, Received Pending 09/16/17 Blood Culture, Received Pending Diagnostic Radiology CXR: IMPRESSION: Negative chest. EKG EKG: rate 100, sinus, no ST changes noted Impression Assessment and Plan HYPOXIA/BRONCHITIS HX COPD Pt febrile, myalgias, cough, SOB, hypoxia noted in ER to 85% on RA. Pulse:103. Pt with hx COPD and is not home O2 dependent. Negative CXR. WBC: 12.4. negative POC lactate. DDX: influenza, CAP although none seen on CXR at this time, COPD exacerbation -will continue Rocephin and Azithromycin at this time -pending influenza swab -pending blood cultures -sputum culture -NSS 100ml/hr -solumedrol 125mg IV Q8H -O2 per protocol -continue singulair -continue spiriva -duonebs Q4H and Q2H prn -cbc, prp in am -repeat CXR in am -may consider pulmonology consult if needed CROHN'S Hx Humira Q 2 weeks. Pt with constipation past 2 days s/p narcotic use after dental extraction. Pt reports passing gas. no signs of bowel obstruction at this time. No melena/hematochezia -Will continue to monitor -may consider bowel regimen if constipation continues -consider abdominal imaging if worsening/continue abdominal pain -continue mesalamine HYPOTHYROIDISM -TSH ordered -continue levothyroxine BIPOLAR/ANXIETY -continue Wellbutrin -continue Ativan prn CHRONIC NECK PAIN -continue naproxen prn GERD -continue protonix DVT PROPHYLAXIS -Lovenox SQ DISPOSITION -admit med/surg -Full Code as per discussion with pt -Follows with Dr Hernandez for routine care Pt was seen with Dr Marroquin. See addendum Attending Physician Dr. Marroquin, addendum I have seen and examined the patient with out hospitalist team physician medical receptionist medical assistant and agree with her assessment and plan as above and would like to comment Lung physical exam without crackles or wheezing. Breathing on nasal cannula. Presence of cough. Tachycardiac without irregular beats. No gross exudates from nose or oropharynx. No cervical lymph nodes appreciated. Abdomen soft, nontender , + bowel sounds. Lower extremities nontender and no edema. Patient awake and alert and speaking comfortably in full sentences. This is is a 52 year old who meets SIRS criteria with respiratory symptoms and cough however no clear signs of infiltrates on the chest x rays . Possible fever from upper respiratory source such as a bronchitis. Flu swab ordered as patient reports that she does not get annual flu vaccinations. Will give ceftriaxone and azithromycin to empirically treat for possible underlying pneumonia. Will order CXR in the morning with procalcitonin levels and if these tests are negative and if patient clinically stable or improves then would suggest that antibiotics be de-escalated. Level of Care Med/Surg Resuscitation Status FULL RESUSCITATION VTE Prophylaxis VTE Risk Assessment Done? Y/N: Yes Risk Level: Moderate Given or contraindicated: Enoxaparin (Lovenox)SQ Additional Copies To Wade Gonzáles M.D.
[2017-09-16 21:00] VITALS: BP 109/55; PULSE 83; TEMP 37; O2SAT 93; Ht 157.5 cm; Wt 59.6 kg
[2017-09-16 21:24] LABS: INFLUENZA A PCR Neg for Influ A (NEG); INFLUENZA B PCR Neg for Influ B (NEG)
[2017-09-16] MEDS: SODIUM CHLORIDE 0.9% 1000ML 1,000 ML IV SCH (21:30)
[2017-09-16] MEDS: MONTELUKAST SOD 10 MG TAB PO SCH (21:37)
[2017-09-16] MEDS: NAPROXEN 250 MG TAB PO PRN (21:38)
[2017-09-16] MEDS ORDERED: hydrOXYzine HCL 25 MG TAB PO STA (22:02)
[2017-09-16 22:13] LABS: PROTHROMBIN TIME (PATIENT) 10.5 SECONDS (9.0-12.0)
[2017-09-16 22:20] LABS: BUN/CREATININE RATIO 9.4 (10-20); CALCIUM 8.3 mg/dl (8.5-10.1); CREATININE 1.09 mg/dl (0.60-1.20); POTASSIUM 3.3 mmol/L (3.5-5.1)
[2017-09-16] MEDS ORDERED: POTASSIUM CHLORIDE 20 MEQ TABCR PO STA (22:23)
[2017-09-16] MEDS: LORAZEPAM 0.5 MG TAB PO PRN (23:33)
[2017-09-16 23:40] VITALS: BP 100/63; PULSE 76; TEMP 36.9; O2SAT 94
[2017-09-17] VITALS (7 sets, daily range): BP systolic 108–114; BP diastolic 62–67; PULSE 72–103; TEMP 36.6–37.1; O2SAT 93–97
[2017-09-17] MEDS: METHYLPREDNISOLONE IV 125 MG in SYRINGE 0 ML IV SCH ×2 (02:18→06:00)
[2017-09-17] MEDS: LEVOTHYROXINE 75 MCG TAB PO SCH (06:00)
[2017-09-17] MEDS: ALBUT/IPRATROP 3MG/0.5MG NEB 3 ML VIAL INH SCH ×3 (07:15→15:29)
[2017-09-17 07:28] LABS: COMPLETE YES; HEMATOCRIT 33.8 % (37-47); IG% 0.3 %; LYMPH % 10.4 %; LYMPH ABS # 0.81 K/uL (1.2-3.4); MEAN CELL VOLUME 94.2 fL (80-100); MEAN CORPUSCULAR HEMOGLOBIN 32.3 pg (25-34); MEAN CORPUSCULAR HGB CONC 34.3 g/dl (32-36); MEAN PLATELET VOLUME 9.6 fL (7.4-10.4); MONO % 0.6 %; NEUT % 88.7 %; PLATELET COUNT 213 K/uL (130-400); RED BLOOD COUNT 3.59 M/uL (4.2-5.4); WHITE BLOOD COUNT 7.79 K/uL (4.8-10.8)
[2017-09-17] MEDS: BuPROPion SR 150 MG TABCR PO SCH (07:49)
[2017-09-17] MEDS: PANTOprazole SOD 40 MG TAB PO SCH (07:50)
[2017-09-17] MEDS: SODIUM CHLORIDE 0.9% 1000ML 1,000 ML IV SCH (07:51)
[2017-09-17] MEDS: ENOXAPARIN 40 MG/0.4 ML SYR SQ SCH (07:51)
[2017-09-17] MEDS: TIOTROPIUM BROMIDE 5 PUFF/90 MCG INH INH SCH (07:53)
[2017-09-17 08:23] LABS: BUN/CREATININE RATIO 17.6 (10-20); CALCIUM 8.2 mg/dl (8.5-10.1); CREATININE 0.78 mg/dl (0.60-1.20)
--- NOTE | 2017-09-17 09:20 | DIAGNOSTIC IMAGING REPORT ---
CHEST 2 VIEWS ROUTINE CLINICAL HISTORY: SOB, fever COMPARISON STUDY: 09/16/2017 FINDINGS: The cardiac and mediastinal contours remain stable. There is no lobar consolidation. There is no failure. There are no pleural effusions. There is an 11 mm left infrahilar soft tissue nodule. This appears to localize to the lingula on the lateral view. There are postsurgical changes present within the cervical spine. There is an old right clavicular fracture. IMPRESSION: 11 mm nodule within the lingula. Given the history of fever, this may be inflammatory. Short-term radiographic follow-up subsequent to antibiotic therapy is recommended. Electronically signed by: Isreal Miller M.D. 09/17/2017 9:19 AM Dictated Date/Time: 09/17/2017 9:16 AM
[2017-09-17] MEDS ORDERED: METHYLPREDNISOLONE IV 125 MG in SYRINGE 0 ML IV SCH (10:00)
--- NOTE | 2017-09-17 10:59 | Progress Note ---
Medicine Progress Note Date & Time of Visit: Sep 17, 2017 at 10:59 . Subjective No documented fever during the night, but had some sweats. Persistent cough and dyspnea. No chest pain. No nausea, vomiting, diarrhea. No urinary symptoms. . Objective Last 8 Hrs Date Time Temp Pulse Resp B/P (MAP) Pulse Ox O2 Delivery O2 Flow Rate FiO2 09/17/17 09:33 Nasal Cannula 2.0 09/17/17 08:01 36.7 77 18 114/67 (83) 93 2.0 09/17/17 07:17 72 12 93 Nasal Cannula 2.0 Physical Exam: General- lying in bed, somewhat tachypneic Neck- no JVD Lungs- scattered rhonchi, diffuse wheezing Heart- RRR, no murmur or gallop appreciated Abdomen- + BS, soft, nontender Extremities- no pretibial edema or calf tenderness Neuro- alert Skin- warm and dry . Laboratory Results: Last 24 Hours Test 09/16/17 17:35 09/16/17 18:48 09/16/17 19:00 09/16/17 19:35 White Blood Count 12.46 K/uL Red Blood Count 3.82 M/uL Hemoglobin 12.4 g/dL Hematocrit 35.6 % Mean Corpuscular Volume 93.2 fL Mean Corpuscular Hemoglobin 32.5 pg Mean Corpuscular Hemoglobin Concent 34.8 g/dl Platelet Count 250 K/uL Mean Platelet Volume 9.9 fL Neutrophils (%) (Auto) 68.0 % Lymphocytes (%) (Auto) 22.2 % Monocytes (%) (Auto) 9.2 % Eosinophils (%) (Auto) 0.2 % Basophils (%) (Auto) 0.2 % Neutrophils # (Auto) 8.46 K/uL Lymphocytes # (Auto) 2.76 K/uL Monocytes # (Auto) 1.15 K/uL Eosinophils # (Auto) 0.03 K/uL Basophils # (Auto) 0.03 K/uL RDW Standard Deviation 44.0 fL RDW Coefficient of Variation 12.9 % Immature Granulocyte % (Auto) 0.2 % Immature Granulocyte # (Auto) 0.03 K/uL Erythrocyte Sedimentation Rate 21 mm/hr Sodium Level 138 mmol/L Potassium Level mmol/L Chloride Level 104 mmol/L Carbon Dioxide Level 26 mmol/L Anion Gap 8.0 mmol/L Blood Urea Nitrogen 13 mg/dl Creatinine 0.97 mg/dl Est Creatinine Clear Calc Drug Dose 53.1 ml/min Estimated GFR () 77.3 Estimated GFR (Non- 66.7 BUN/Creatinine Ratio 13.4 Random Glucose 96 mg/dl Calcium Level 8.3 mg/dl Troponin I < 0.015 ng/ml C-Reactive Protein 3.15 mg/dl Bedside Lactic Acid Venous 0.52 mmol/L Urine Color YELLOW Urine Appearance CLEAR Urine pH 7.0 Urine Specific [place] 1.010 Urine Protein NEG Urine Glucose (UA) NEG Urine Ketones NEG Urine Occult Blood NEG Urine Nitrite NEG Urine Bilirubin NEG Urine Urobilinogen NEG Urine Leukocyte Esterase NEG Influenza Type A (RT-PCR) Neg for Influ A Influenza Type A Antigen Neg for Influ A Influenza Type B Antigen Neg for Influ B Influenza Type B (RT-PCR) Neg for Influ B Test 09/16/17 21:36 09/17/17 07:18 Prothrombin Time 10.5 SECONDS Prothromb Time International Ratio 1.0 Sodium Level 138 mmol/L 143 mmol/L Potassium Level 3.3 mmol/L 4.0 mmol/L Chloride Level 104 mmol/L 110 mmol/L Carbon Dioxide Level 25 mmol/L 25 mmol/L Anion Gap 9.0 mmol/L 8.0 mmol/L Blood Urea Nitrogen 10 mg/dl 14 mg/dl Creatinine 1.09 mg/dl 0.78 mg/dl Est Creatinine Clear Calc Drug Dose 47.2 ml/min 66.0 ml/min Estimated GFR () 67.1 100.6 Estimated GFR (Non- 57.9 86.8 BUN/Creatinine Ratio 9.4 17.6 Random Glucose 219 mg/dl 163 mg/dl Calcium Level 8.3 mg/dl 8.2 mg/dl Thyroid Stimulating Hormone (TSH) 0.815 uIu/ml White Blood Count 7.79 K/uL Red Blood Count 3.59 M/uL Hemoglobin 11.6 g/dL Hematocrit 33.8 % Mean Corpuscular Volume 94.2 fL Mean Corpuscular Hemoglobin 32.3 pg Mean Corpuscular Hemoglobin Concent 34.3 g/dl Platelet Count 213 K/uL Mean Platelet Volume 9.6 fL Neutrophils (%) (Auto) 88.7 % Lymphocytes (%) (Auto) 10.4 % Monocytes (%) (Auto) 0.6 % Eosinophils (%) (Auto) 0.0 % Basophils (%) (Auto) 0.0 % Neutrophils # (Auto) 6.91 K/uL Lymphocytes # (Auto) 0.81 K/uL Monocytes # (Auto) 0.05 K/uL Eosinophils # (Auto) 0.00 K/uL Basophils # (Auto) 0.00 K/uL RDW Standard Deviation 43.3 fL RDW Coefficient of Variation 12.6 % Immature Granulocyte % (Auto) 0.3 % Immature Granulocyte # (Auto) 0.02 K/uL Procalcitonin < 0.05 ng/ml Date/Time Source Procedure Growth Status 09/16/17 18:37 Blood Blood Culture Pending Received 09/16/17 17:35 Blood Blood Culture Pending Received Assessment & Plan EXACERBATION OF COPD Presented with fever, cough, dyspnea. No infiltrates on chest x-ray. [employer] swab for influenza A/B per PCR negative. Probable exacerbation of COPD secondary to bronchitis. Treated with IV steroids, azithromycin, ceftriaxone, nebs. Transition from IV methylprednisolone to oral prednisone Transition from IV azithromycin to oral. PULMONARY NODULE 11 mm nodule noted in lingula. Significant smoking history. Followed by Uma Avila PA-C and Dr. Noland for Pulmonary Medicine. Consult Pulmonary for recommendations. CROHN'S DISEASE Quiescent. Hold adalimumab until current infection resolves. VTE PROPHYLAXIS SQ enoxaparin Ambulate. DISPOSITION Expected discharge to home. Family Medicine follow-up with Dr. Gonzáles. Pulmonary Medicine follow-up with Uma Avila PA-C and Dr. Noland. . Current Inpatient Medications: Current Inpatient Medications Medications (Trade) Dose Ordered Sig/Nando Route Start Time Stop Time Status Last Admin Dose Admin Enoxaparin Sodium (Lovenox Inj) 40 mg Q24H SQ 09/17/17 09:00 10/17/17 08:59 09/17/17 07:51 40 MG Acetaminophen (Tylenol Tab) 650 mg Q4H PRN PO 09/16/17 19:45 10/16/17 19:44 Ondansetron HCl (Zofran Inj) 4 mg Q6H PRN IV 09/16/17 19:45 10/16/17 19:44 Albuterol/ Ipratropium (Duoneb) 3 ml QIDR INH 09/16/17 20:00 10/16/17 19:59 09/17/17 07:15 3 ML Sodium Chloride 1,000 ml @ 100 mls/hr Q10H IV 09/16/17 21:00 09/17/17 16:59 09/17/17 07:51 100 MLS/HR Bupropion HCl (Wellbutrin-Sr Tab) 150 mg DAILY PO 09/17/17 09:00 10/17/17 08:59 09/17/17 07:49 150 MG Levothyroxine Sodium (Synthroid Tab) 75 mcg DAILYBB PO 09/17/17 06:30 10/17/17 06:59 09/17/17 06:00 75 MCG Lorazepam (Ativan Tab) 0.5 mg TID PRN PO 09/16/17 20:00 10/16/17 19:59 09/16/17 23:33 0.5 MG Montelukast Sodium (Singulair Tab) 10 mg HS PO 09/16/17 21:00 10/16/17 20:59 09/16/17 21:37 10 MG Pantoprazole Sodium (Protonix Tab) 40 mg DAILY PO 09/17/17 09:00 10/17/17 08:59 09/17/17 07:50 40 MG Miscellaneous Information (Order Awaiting Action) 1 ea QS N/A 09/16/17 22:45 10/16/17 22:44 Tiotropium [place] (Spiriva Handihaler Inhaler) 1 puff DAILY INH 09/17/17 09:00 10/17/17 08:59 09/17/17 07:53 1 PUFF Ceftriaxone Sodium 1 gm/ Dextrose 50 ml @ 100 mls/hr Q24H IV 09/17/17 18:00 09/23/17 17:59 Azithromycin 500 mg/Dextrose 255 ml @ 125 mls/hr Q24H IV 09/17/17 19:00 09/23/17 18:59 Naproxen (Naprosyn Tab) 500 mg BID PRN PO 09/16/17 20:45 10/16/17 20:44 09/16/17 21:38 500 MG Methylprednisolone Sodium Succinate 125 mg/Syringe 2 ml @ 1.5 mls/min Q8H IV 09/17/17 10:00 10/17/17 02:59 09/17/17 10:18 1.5 MLS/MIN
[2017-09-17] MEDS ORDERED: GUAIFENESIN 600 MG TABCR PO ONE (11:15)
[2017-09-17] MEDS: AZITHROMYCIN 250 MG TAB PO SCH (15:34)
[2017-09-17] MEDS: NAPROXEN 250 MG TAB PO PRN (16:46)
[2017-09-17] MEDS ORDERED: LEVALBUTEROL 0.63MG/3 ML NEB INH PRN (17:15)
[2017-09-17] MEDS: CEFTRIAXONE SOD INJ 1 GM in DEXTROSE 5% ADD-VANTAGE 50ML 50 ML IV SCH (18:19)
[2017-09-17] MEDS ORDERED: AZITHROMYCIN IV 500 MG in DEXTROSE 5% 250ML 250 ML IV SCH (19:00)
[2017-09-17] MEDS: IPRATROPIUM BROMIDE NEB SOLN 0.02% 2.5 ML VIAL INH SCH (19:32)
[2017-09-17] MEDS: LEVALBUTEROL 1.25MG/0.5ML NEB INH SCH (19:32)
[2017-09-17] MEDS: POLYETHYLENE (MIRALAX) 17 GM PACK PO SCH (20:35)
[2017-09-17] MEDS: MONTELUKAST SOD 10 MG TAB PO SCH (20:35)
[2017-09-17] MEDS: GUAIFENESIN 600 MG TABCR PO SCH (20:35)
[2017-09-17] MEDS: ACETAMINOPHEN 325 MG TAB PO PRN (20:39)
[2017-09-17] MEDS: LORAZEPAM 0.5 MG TAB PO PRN (21:38)
[2017-09-17] MEDS ORDERED: METHYLPREDNISOLONE IV 20 MG in SYRINGE 0 ML IV ONE (22:00)
[2017-09-17] MEDS ORDERED: NURSING VERBAL MED ORDER ONE (23:30)
[2017-09-17] MEDS ORDERED: hydrOXYzine HCL 25 MG TAB PO ONE (23:45)
[2017-09-18] VITALS (9 sets, daily range): BP systolic 111–112; BP diastolic 65–69; PULSE 78–89; TEMP 36.8–36.9; O2SAT 90–97
[2017-09-18] MEDS: LEVOTHYROXINE 75 MCG TAB PO SCH (06:18)
[2017-09-18] MEDS: LEVALBUTEROL 1.25MG/0.5ML NEB INH SCH ×4 (07:26→19:40)
[2017-09-18] MEDS: IPRATROPIUM BROMIDE NEB SOLN 0.02% 2.5 ML VIAL INH SCH ×4 (07:26→19:40)
[2017-09-18 08:00] LABS: CALCIUM 8.3 mg/dl (8.5-10.1); CREATININE 0.79 mg/dl (0.60-1.20); POTASSIUM 3.8 mmol/L (3.5-5.1)
[2017-09-18] MEDS: ACETAMINOPHEN 325 MG TAB PO PRN ×3 (08:31→20:50)
[2017-09-18] MEDS: TIOTROPIUM BROMIDE 5 PUFF/90 MCG INH INH SCH (08:31)
[2017-09-18] MEDS: BuPROPion SR 150 MG TABCR PO SCH (08:31)
[2017-09-18] MEDS: POLYETHYLENE (MIRALAX) 17 GM PACK PO SCH ×2 (08:32→20:50)
[2017-09-18] MEDS: PANTOprazole SOD 40 MG TAB PO SCH (08:33)
[2017-09-18] MEDS: ENOXAPARIN 40 MG/0.4 ML SYR SQ SCH (08:33)
[2017-09-18] MEDS: GUAIFENESIN 600 MG TABCR PO SCH ×2 (08:33→20:51)
[2017-09-18] MEDS: AZITHROMYCIN 250 MG TAB PO SCH (08:33)
--- NOTE | 2017-09-18 13:44 | Pulmonary Consultation ---
History General Date of Service: Sep 18, 2017. Stated Complaint: Bronchitis, Hypoxia HPI The patient is a 52 year old female who presents to [facility] with complaints of Bronchitis, Hypoxia. The patient's primary care provider is Wade Gonzáles M.D.. Ms. Yin is a 51-year-old female with past medical history of asthma/COPD overlap syndrome, current tobacco use disorder, hypothyroidism, esophageal reflux disease, hypothyroidism, Crohn's disease on Humira who presented to the ER on 09/16/2017 with 1 week history of lethargy and fatigue. She states on she had teeth extracted. Since then she has not been feeling herself. She had headache, chills, sore throat, mild abdominal pain, nonproductive cough , shortness of breath, generalized weakness and fatigue. She states that over the weekend, tried to rest but her symptoms persisted and drove herself to the hospital on 09/16/2017 for further evaluation. She denies any episodes of nausea, vomiting and diarrhea or genitourinary symptoms. She has occasional nonproductive dry cough she denies any hemoptysis or weight loss. She does have history of allergic rhinitis and GERD. She takes Flonase nasal spray as well as Singulair and PPI for GERD. She denies any dyspnea on exertion or at rest, she denies any lower extremity edema, paroxysmal nocturnal dyspnea or orthopnea. She denies any changes in exercise tolerance and is able to perform all activities of daily living. She is a current tobacco user of about three- quarter pack to 1 pack daily for the last 50 years. She states that she usually has respiratory symptoms mainly at night associated with chest tightness or wheezing. She also notes that she smokes morning and night as well. She follows up with Dr. Bautista and Uma Nelson at the [facility]. Last seen in August and was prescribed azithromycin and prednisone taper. Her respiratory medications include Symbicort 160/4.52 puffs twice a day, ipratropium/albuterol nebulizer every 4 hours, Combivent Respimat 20/100 g one puff 4 times a day and Spiriva Respimat 2 puffs once daily. Albuterol has caused palpitations. Her respiratory symptoms initially started in April 2016, and associated with a yearly bronchitis. Her course was complicated by hypoxemic respiratory failure secondary to pneumonia and C. difficile colitis. CT chest from February 2016 showed tree-in-bud changes with mucus plugging. Later in May 2016 she had persistent cough associated with fever and dyspnea. A repeat CT chest at that time showed right upper lobe opacities with progressive opacities in the right middle lobe with right lower lobe and lingula mucus plugging. Bronchoscopy was performed in June 2016. The BAL was positive for Haemophilus influenza as well as strep pneumo. Postprocedure was complicated by hypoxemia with a PO2 of 55 mmHg. At that time she was discharged on a steroid taper, Levaquin PPI Combivent and Symbicort 160/4.5. PFT was done post hospital discharge in 06/27/2016 : FVC: 2.13/74% (8% change), FEV1: 1.26/53% (12% change), FEV1/FVC: 70%, FEF 25-75%: 0.56/21% (23% change), VC: 2.13/74%, T.82/128%, RV: 3.69/229%, DLCO: 64%. Vital signs on arrival to the ER were temperature 39.1, pulse 103, respiratory rate of 20, blood pressure 129/80 saturating 92% on room air. Laboratory data showed a white blood cell count of 12, hemoglobin of 12. Chemistry was significant for potassium 3.3. Troponin was less than 0.015. CRP 3.15, ESR 21. Influenza A and B PCR is negative. Chest x-ray showed cardiopulmonary disease. Patient condition. Episode of hypoxia in ER with desaturations to about 85%. She was started on 2 L nasal cannula and ceftriaxone and azithromycin were as he is he is given. She was admitted for COPD exacerbation and started on IV steroids, azithromycin , ceftriaxone and Xopenex/ipratropium nebulizers every 4-6 hours. Blood cultures from 09/16/2017 are negative to date, sputum cultures from 1121 are pending. She had a repeat chest x-ray which was done on 09/17/2017 which showed a new 1.1 cm nodule in the lingula, which was not seen on chest x-ray 1 day prior. Pulmonary was consulted for evaluation of pulmonary nodule with history of significant smoking. Historian: patient Review of Systems Constitutional: reports: as stated in HPI Eyes: reports: as stated in HPI ENT: reports: as stated in HPI Cardiovascular: reports: as stated in HPI Respiratory: reports: as stated in HPI Gastrointestinal: reports: as stated in HPI Genitourinary - Female: reports: as stated in HPI Musculoskeletal: reports: as stated in HPI Integumentary: reports: as stated in HPI Neurologic: reports: as stated in HPI Psychiatric: reports: as stated in HPI Endocrine: as stated in HPI Hematologic / Lymphatic: as stated in HPI Allergic / Immunologic: as stated in HPI All Other Symptoms All Other Systems: Reviewed and Negative Past Medical History Past Medical History: Active Problems 1. Abnormal CAT scan (R93.8) 2. Alcohol abuse (F10.10) 3. Asthma (J45.909) 4. Benign neoplasm of colon (D12.6) 5. Bipolar disorder (F31.9) 6. Bronchiolitis (J21.9) 7. Chronic pain (G89.29) 8. COPD, moderate (J44.9) 9. Cough (R05) 10. Hypothyroidism (E03.9) 11. Pharyngitis (J02.9) 12. Pneumonia (J18.9) 13. Regional enteritis (K50.90) 14. Tobacco use disorder (F17.200) Past Medical History 1. History of restrictive lung disease (Z87.09) 2. 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 History of Anal Fissurectomy 2. History of Appendectomy 3. History of Arthrodesis Cervical 4. History of Section 5. History of Hysterectomy 6. History of Neuroplasty Decompression Median Nerve At Carpal Tunnel 7. History of Tubal Ligation Family History Diabetes mellitus FATHER MOTHER GRANDFATHER FH: heart disease MOTHER ([place] in 60's) FHx: lung disease Hypertension FATHER MOTHER Kidney stones Family History 1. Family history of chronic obstructive pulmonary disease (Z82.5) She has 2 daughters and 3 grandchildren Social History Social History Current every day smoker (F17.200) No alcohol use Hx Tobacco Use In Past Year?: Yes Smoking Status: Current Every Day Smoker Marital status: in relationship Housing status: lives with significant other Occupational Status: disabled Immunizations History of Influenza Vaccine: No History of Tetanus Vaccine?: Yes History of Pneumococcal: No History of Hepatitis B Vaccine: Yes Allergies Coded Allergies: Oxycodone (Verified Allergy, Severe, FACE ITCHY, 03/11/17) 04/18/16: pt lists oxy-ir as home med? she presents with allergy sxs on [id number]. dr saldana is holding oxy-ir at this time. aj Current Medications Reported Home Medications Medications Dose Route/Sig Max Daily Dose Days Date Category Dose Instructions Lialda (Mesalamine) 1.2 Gm Tab 4 Tab PO DAILY 30 09/16/17 Reported Flexeril (Cyclobenzaprine Hcl) 10 Mg Tab 10 Mg PO TID 09/16/17 Reported Spiriva Respimat (Tiotropium [place]) 2.5 Mcg/Act Spr 2 Puff INH DAILY 09/16/17 Reported Atrovent Hfa (Ipratropium [place]) 200 Puffs/3400 Mcg Aers 2 Puffs INH QID 09/16/17 Reported Ativan (Lorazepam) 0.5 Mg Tab 0.5 Mg PO TID PRN 09/16/17 Reported Bupropion HCl Sr (Bupropion HCl) 150 Mg Tabcr 150 Mg PO DAILY 09/16/17 Reported Estrace (Estradiol) 1 Mg Tab 1 Mg PO DAILY 03/11/17 Reported TAKE ONE TABLET DAILY FOR 21 DAYS THEN STOP FOR 7 DAYS AND RESTART DIRECTED Ventolin Hfa (Albuterol) 200 Puffs/74929 Mcg Aers 2 Puffs INH Q4H PRN 03/02/17 Reported Singulair (Montelukast Sodium) 10 Mg Tab 10 Mg PO DAILY 03/02/17 Reported Naprosyn (Naproxen) 500 Mg Tab 500 Mg PO BID PRN 03/02/17 Reported TAKE THIS MEDICATION WITH FOOD Lomotil (Diphenoxylate W/ Atropine) 1 Tab Tab 1 Tab PO DAILY PRN 06/28/16 Reported Protonix (Pantoprazole Sodium) 40 Mg Tab 40 Mg PO DAILY 04/16/16 Reported Advil (Ibuprofen) 200 Mg Tab 400 Mg PO Q6H PRN 03/28/16 Reported Levothyroxine Sodium 75 Mcg Tab 75 Mcg PO DAILY 02/28/16 Reported Humira Pen (Adalimumab) 40 Mg/0.8 Ml Kit 40 Mg SC Q2WKS 01/29/16 Reported Physical Physical Exam Vital Signs: Date Time Temp Pulse Resp B/P (MAP) Pulse Ox O2 Delivery O2 Flow Rate FiO2 09/18/17 11:17 80 16 97 Room Air 2.0 09/18/17 09:45 96 Room Air 09/18/17 09:00 Nasal Cannula 2.0 09/18/17 08:45 90 Room Air 09/18/17 07:31 36.9 78 18 112/65 (81) 97 2.0 09/18/17 07:26 89 16 95 Room Air 2.0 09/18/17 00:00 Nasal Cannula 2.0 09/17/17 23:50 36.6 94 20 108/62 (77) 93 Room Air 09/17/17 19:32 103 16 96 Nasal Cannula 2.0 09/17/17 15:45 37.1 96 16 111/62 (78) 97 Nasal Cannula 2.0 09/17/17 15:35 Nasal Cannula 2.0 Humidified Oxygen 09/17/17 15:29 103 16 95 Nasal Cannula 2.0 General Appearance: WELL-APPEARING, WD/WN, NO APPARENT DISTRESS Head: NORMOCEPHALIC, ATRAUMATIC Eyes: PERRLA, NO DISCHARGE, EOMI, SCLERAE NORMAL ENT: poor dentition Neck: NORMAL RANGE OF MOTION, TRACHEA MIDLINE, NO STRIDOR, midline tenderness Respiratory: BREATH SOUNDS NORMAL, CLEAR TO AUSCULTATION, CLEAR TO PERCUSSION Cardiovasular: REGULAR RATE/RHYTHM, NORMAL S1S2, NO M/G/R Abdomen: NON TENDER, NORMAL BOWEL SOUNDS, other (mildly tender to palpation) Back: NORMAL INSPECTION, NO MIDLINE TENDERNESS, other (tattoos on back) Upper Extremities: NO EDEMA, NO DEFORMITY, NORMAL ROM Lower Extremities: NO EDEMA, NO DEFORMITY, NORMAL ROM, other (tattoos a right lower extremity) Pulses: dorsalis pedis (R), dorsalis pedis (L) (2+) Neuro: ALERT, ORIENTED x 3, NORMAL MOTOR EXAM Psychiatric: NORMAL AFFECT, NO SUICIDAL IDEATION, CONTRACTS FOR SAFETY Diagnostics Labs Results Past 24 Hours Test 09/18/17 07:01 Range/Units Sodium Level 144 136-145 mmol/L Potassium Level 3.8 3.5-5.1 mmol/L Chloride Level 111 98-107 mmol/L Carbon Dioxide Level 26 21-32 mmol/L Anion Gap 7.0 3-11 mmol/L Blood Urea Nitrogen 17 7-18 mg/dl Creatinine 0.79 0.60-1.20 mg/dl Est Creatinine Clear Calc Drug Dose 65.2 ml/min Estimated GFR () 99.1 Estimated GFR (Non- 85.5 BUN/Creatinine Ratio 22.0 10-20 Random Glucose 125 70-99 mg/dl Calcium Level 8.3 8.5-10.1 mg/dl Microbiology Results 09/17/17 Gram Stain - Final, Resulted 09/17/17 Sputum Culture, Resulted Pending Diagnostic Radiology CHEST 2 VIEWS ROUTINE 09/17/2017 CLINICAL HISTORY: SOB, fever COMPARISON STUDY: 09/16/2017 FINDINGS: The cardiac and mediastinal contours remain stable. There is no lobar consolidation. There is no failure. There are no pleural effusions. There is an 11 mm left infrahilar soft tissue nodule. This appears to localize to the lingula on the lateral view. There are postsurgical changes present within the cervical spine. There is an old right clavicular fracture. IMPRESSION: 11 mm nodule within the lingula. Given the history of fever, this may be inflammatory. Short-term radiographic follow-up subsequent to antibiotic therapy is recommended. CHEST ONE VIEW PORTABLE 09/16/2017 CLINICAL HISTORY: Evaluate Fever/Sepsis dyspnea COMPARISON STUDY: 05/07/2017 FINDINGS: The bones soft tissues and hemidiaphragms are normal. The cardiomediastinal silhouette is normal. The lungs are clear. The pulmonary vasculature is normal. IMPRESSION: Negative chest. Impression Assessment and Plan Asthma/COPD overlap syndrome Pulmonary nodule Tobacco use disorder Ms. Yin is a 52-year-old female with past medical history of COPD/asthma overlap syndrome. She is a current tobacco user who presents with several day history of fever, generalized fatigue and malaise associated with worsening shortness of breath and intermittent cough. Initial chest x-ray was negative for any cardiopulmonary disease however on repeat showed a 1.1 cm density area within the lingula. This density/nodule most likely around presents a inflammatory versus infectious etiology. Less likely represents malignancy as it was not seen in prior imaging. On review of previous CT she does have episodes of groundglass opacities which have resolved with antibiotic therapy. Sputum cultures negative to date. She does have some mild mucus plugging, but this is most likely secondary to underlying asthma. Recommendations At the current time I feel that she should have a repeat CT to evaluate this new lingular nodule. Continue with antibiotic therapy as well as prednisone taper, bronchodilators and inhaled corticosteroids. We can repeat a CT in about 6-8 weeks to assess for interval resolution. If this nodule persists, further workup may be warranted. Continue with flutter valve. Continue with Flonase for rhinitis as well as PPI for GERD. She is on Humira which is a biologic and put her can put her at risk for developing mycobacteria. I feel that TB is less likely in this situation, I will send B 1,3 D- glucan and galactomannan. Smoking cessation counseling given. Nicotine patch offered however she declined. I am patient is currently refusing Lovenox for anticoagulation. Encouraged ambulation. I appreciate the consult. She should follow-up with Dr. Bautista/Uma Nelson in 1-2 weeks post hospital discharge. Please contact me any further questions or concerns.
--- NOTE | 2017-09-18 14:58 | DIAGNOSTIC IMAGING REPORT ---
(CHEST) THORAX WITHOUT CLINICAL HISTORY: Pulmonary nodule COMPARISON STUDY: 06/27/2016 , chest x-ray dated 09/17/2017 CT DOSE: 609.79 mGycm TECHNIQUE: CT of the thorax was performed from the thoracic inlet to the lung bases. Images are reviewed in the axial, sagittal, and coronal planes. IV contrast was not administered for this examination. A dose lowering technique was utilized adhering to the principles of ALARA. FINDINGS: Thyroid: Imaged portions of the thyroid gland are normal in appearance. Thoracic aorta: The thoracic aorta is normal in course and caliber, noting standard 3 vessel arch anatomy. Heart: The heart is normal in size and configuration, without pericardial effusion. Lungs and pleural spaces: No pleural effusions are visualized. There is a 6 mm right lower lobe opacity, similar to the preceding study favoring an area of postinflammatory scarring. There is tree-in-bud nodularity within the right lung apex, likely secondary to a bronchiolitis. There is an 18 mm right lingular opacity with adjacent micronodularity.. This is likely inflammatory/atelectatic. As was stated on the chest x-ray report, short-term follow-up subsequent antibiotic therapy is recommended. Mediastinum: There is no mediastinal lymphadenopathy. Diana: There is no evidence of pathologic hilar adenopathy given the limitations of a noncontrast study Axilla: There is no evidence of pathologic axillary lymphadenopathy Upper abdomen: Partially visualized upper abdominal viscera is within normal limits. Skeletal structures: There are no lytic or blastic osseous lesions. IMPRESSION: 1. Interval resolution of (when compared the prior May 2016 study) of the multifocal mucous plugging and multifocal airspace opacities 2. Residual 6 mm right lower lobe opacity, likely representing postinflammatory scarring 3. Tree-in-bud opacities within the right lung apex, likely secondary to a bronchiolitis 4. 18 mm lingular opacity with associated micronodularity. This is likely inflammatory/atelectatic. As was stated the prior chest x-ray report, short-term follow-up subsequent antibiotic therapy is recommended. 5. No evidence of pathologic adenopathy on this noncontrast study Electronically signed by: Isreal Miller M.D. 09/18/2017 2:57 PM Dictated Date/Time: 09/18/2017 2:47 PM
--- NOTE | 2017-09-18 15:00 | DIAGNOSTIC IMAGING REPORT ---
CERVICAL SPINE CT CT DOSE: 419.41 mGycm HISTORY: neck pain TECHNIQUE: Multiaxial CT images of the cervical spine were performed and reformatted in the sagittal and coronal plane without the use of contrast. A dose lowering technique was utilized adhering to the principles of ALARA. COMPARISON: None. FINDINGS: There is anterior cervical discectomy and fusion from C5 through C7. The hardware appears intact. There is reversal of the normal lordotic curvature of the cervical spine. Disc spaces are preserved for age. No fracture or subluxation. Prevertebral soft tissues and the C1-C2 interval are intact. Mild left-sided neural foraminal narrowing at C5-C6. IMPRESSION: 1. No fractures within the cervical spine. 2. Reversal of the normal lordotic curvature. 3. C5-C7 ACDF. The hardware appears intact. Electronically signed by: Sergei Hill M.D. 09/18/2017 2:59 PM Dictated Date/Time: 09/18/2017 2:53 PM
--- NOTE | 2017-09-18 17:30 | Progress Note ---
Medicine Progress Note Date & Time of Visit: Sep 18, 2017 at 17:30 . Subjective Persistent cough, wheezing, dyspnea. No fever. No chest pain. No nausea, vomiting, diarrhea. No urinary symptoms. Ambulating. . Objective Last 8 Hrs Date Time Temp Pulse Resp B/P (MAP) Pulse Ox O2 Delivery O2 Flow Rate FiO2 09/18/17 15:44 36.8 88 18 111/69 (83) 93 Room Air 09/18/17 15:17 87 16 94 Room Air 09/18/17 11:17 80 16 97 Room Air 2.0 09/18/17 09:45 96 Room Air Physical Exam: General- lying in bed, no distress ENT- no oral thrush Neck- no JVD Lungs- scattered rhonchi, diffuse wheezing Heart- RRR, no murmur or gallop appreciated Abdomen- + BS, soft, nontender Extremities- no pretibial edema or calf tenderness Neuro- alert Skin- warm and dry . Laboratory Results: Last 24 Hours Test 09/18/17 07:01 09/18/17 14:08 Sodium Level 144 mmol/L Potassium Level 3.8 mmol/L Chloride Level 111 mmol/L Carbon Dioxide Level 26 mmol/L Anion Gap 7.0 mmol/L Blood Urea Nitrogen 17 mg/dl Creatinine 0.79 mg/dl Est Creatinine Clear Calc Drug Dose 65.2 ml/min Estimated GFR () 99.1 Estimated GFR (Non- 85.5 BUN/Creatinine Ratio 22.0 Random Glucose 125 mg/dl Calcium Level 8.3 mg/dl Assessment & Plan EXACERBATION OF COPD Presented with fever, cough, dyspnea. No infiltrates on chest x-ray. ECOLOGY PROFESSOR swab for influenza A/B per PCR negative. Probable exacerbation of COPD secondary to bronchitis. Treated with IV steroids, azithromycin, ceftriaxone, nebs. Transitioned from IV methylprednisolone to oral prednisone Transitioned from IV azithromycin to oral. PULMONARY NODULE 11 mm nodule noted in lingula. Significant smoking history. Followed by Uma Avila PA-C and Dr. Noland for Pulmonary Medicine. Pulmonary Medicine consulted for recommendations. CT impression: 1. Interval resolution of (when compared the prior May 2016 study) of the multifocal mucous plugging and multifocal airspace opacities 2. Residual 6 mm right lower lobe opacity, likely representing postinflammatory scarring 3. Tree-in-bud opacities within the right lung apex, likely secondary to a bronchiolitis 4. 18 mm lingular opacity with associated micronodularity. This is likely inflammatory/atelectatic. As was stated the prior chest x-ray report, short- term follow-up subsequent antibiotic therapy is recommended. 5. No evidence of pathologic adenopathy on this noncontrast study Will need f/u with Pulmonary Medicine. CROHN'S DISEASE Quiescent. Hold adalimumab until current infection resolves. VTE PROPHYLAXIS SQ enoxaparin Ambulate. DISPOSITION Expected discharge to home. Family Medicine follow-up with Dr. Gonzáles. Pulmonary Medicine follow-up with Uma Avila PA-C and Dr. Noland. . Current Inpatient Medications: Current Inpatient Medications Medications (Trade) Dose Ordered Sig/Nando Route Start Time Stop Time Status Last Admin Dose Admin Enoxaparin Sodium (Lovenox Inj) 40 mg Q24H SQ 09/17/17 09:00 10/17/17 08:59 09/17/17 07:51 40 MG Acetaminophen (Tylenol Tab) 650 mg Q4H PRN PO 09/16/17 19:45 10/16/17 19:44 09/18/17 15:26 650 MG Ondansetron HCl (Zofran Inj) 4 mg Q6H PRN IV 09/16/17 19:45 10/16/17 19:44 Bupropion HCl (Wellbutrin-Sr Tab) 150 mg DAILY PO 09/17/17 09:00 10/17/17 08:59 09/18/17 08:31 150 MG Levothyroxine Sodium (Synthroid Tab) 75 mcg DAILYBB PO 09/17/17 06:30 10/17/17 06:59 09/18/17 06:18 75 MCG Lorazepam (Ativan Tab) 0.5 mg TID PRN PO 09/16/17 20:00 10/16/17 19:59 09/17/17 21:38 0.5 MG Montelukast Sodium (Singulair Tab) 10 mg HS PO 09/16/17 21:00 10/16/17 20:59 09/17/17 20:35 10 MG Pantoprazole Sodium (Protonix Tab) 40 mg DAILY PO 09/17/17 09:00 10/17/17 08:59 09/18/17 08:33 40 MG Miscellaneous Information (Order Awaiting Action) 1 ea QS N/A 09/16/17 22:45 10/16/17 22:44 Tiotropium [place] (Spiriva Handihaler Inhaler) 1 puff DAILY INH 09/17/17 09:00 10/17/17 08:59 09/18/17 08:31 1 PUFF Ceftriaxone Sodium 1 gm/ Dextrose 50 ml @ 100 mls/hr Q24H IV 09/17/17 18:00 09/23/17 17:59 09/17/17 18:19 100 MLS/HR Naproxen (Naprosyn Tab) 500 mg BID PRN PO 09/16/17 20:45 10/16/17 20:44 09/17/17 16:46 500 MG Guaifenesin (Mucinex Contr Rel Tab) 600 mg Q12 PO 09/17/17 21:00 10/17/17 20:59 09/18/17 08:33 600 MG Azithromycin (Zithromax Tab) 500 mg QAM PO 09/17/17 16:00 09/23/17 08:59 09/18/17 08:33 500 MG Prednisone (PredniSONE TAB) 40 mg DAILY PO 09/18/17 09:00 10/18/17 08:59 09/18/17 08:32 40 MG Polyethylene (Miralax Powder Packet) 17 gm BID PO 09/17/17 21:00 10/17/17 20:59 09/18/17 08:32 17 GM Ipratropium [place] (Atrovent 0.02% 0.5MG/2.5ML Neb) 0.5 mg QIDR INH 09/17/17 20:00 10/17/17 19:59 09/18/17 15:16 0.5 MG Levalbuterol (Xopenex 1.25MG/ 0.5ML Neb) 1.25 mg QIDR INH 09/17/17 20:00 10/17/17 19:59 09/18/17 15:16 1.25 MG Levalbuterol (Xopenex 0.63 Mg/ 3 Ml Neb) 0.63 mg Q2H PRN INH 09/17/17 17:15 10/17/17 17:14
[2017-09-18] MEDS: CEFTRIAXONE SOD INJ 1 GM in DEXTROSE 5% ADD-VANTAGE 50ML 50 ML IV SCH (18:14)
[2017-09-18] MEDS ORDERED: NURSING VERBAL MED ORDER ONE (20:00)
[2017-09-18] MEDS ORDERED: hydrOXYzine HCL 25 MG TAB PO ONE (20:00)
[2017-09-18] MEDS: MONTELUKAST SOD 10 MG TAB PO SCH (20:51)
[2017-09-18] MEDS: LORAZEPAM 0.5 MG TAB PO PRN (22:21)
[2017-09-19 01:22] VITALS: BP 115/70; PULSE 84; TEMP 37; O2SAT 97
[2017-09-19] MEDS: LEVOTHYROXINE 75 MCG TAB PO SCH (06:22)
[2017-09-19 07:16] VITALS: PULSE 77; O2SAT 97
[2017-09-19] MEDS: LEVALBUTEROL 1.25MG/0.5ML NEB INH SCH (07:16)
[2017-09-19] MEDS: IPRATROPIUM BROMIDE NEB SOLN 0.02% 2.5 ML VIAL INH SCH (07:16)
[2017-09-19 07:33] VITALS: BP 144/80; PULSE 80; TEMP 36.7; O2SAT 94
[2017-09-19] MEDS: ENOXAPARIN 40 MG/0.4 ML SYR SQ SCH (09:00)
[2017-09-19] MEDS: POLYETHYLENE (MIRALAX) 17 GM PACK PO SCH (09:00)
[2017-09-19] MEDS: BuPROPion SR 150 MG TABCR PO SCH (09:08)
[2017-09-19] MEDS: PANTOprazole SOD 40 MG TAB PO SCH (09:08)
[2017-09-19] MEDS: GUAIFENESIN 600 MG TABCR PO SCH (09:08)
[2017-09-19] MEDS: AZITHROMYCIN 250 MG TAB PO SCH (09:09)
[2017-09-19] MEDS: TIOTROPIUM BROMIDE 5 PUFF/90 MCG INH INH SCH (09:10)
[2017-09-19] MEDS: ACETAMINOPHEN 325 MG TAB PO PRN (09:15)
--- NOTE | 2017-09-19 10:18 | Progress Note ---
Medicine Progress Note Date & Time of Visit: Sep 19, 2017 at 10:17 . Subjective Doing well. Cough and dyspnea improved No nausea, vomiting, diarrhea. Ambulating. Oxygenating well on RA. . Objective Last 8 Hrs Date Time Temp Pulse Resp B/P (MAP) Pulse Ox O2 Delivery O2 Flow Rate FiO2 09/19/17 07:37 Nasal Cannula 2.0 09/19/17 07:33 36.7 80 20 144/80 (101) 94 Room Air 09/19/17 07:16 77 16 97 Room Air Physical Exam: General- no distress Neck- no JVD Lungs- few scattered rhonchi, diffuse mild wheezing Heart- RRR, no murmur or gallop appreciated Abdomen- + BS, soft, nontender Extremities- no pretibial edema or calf tenderness Neuro- alert Skin- warm and dry . Laboratory Results: Last 24 Hours Test 09/18/17 14:08 Assessment & Plan EXACERBATION OF COPD Presented with fever, cough, dyspnea. No infiltrates on chest x-ray. HAND TUBE BENDER swab for influenza A/B per PCR negative. Probable exacerbation of COPD secondary to bronchitis. Treated with IV steroids, azithromycin, ceftriaxone, nebs. Transitioned from IV methylprednisolone to oral prednisone Transitioned from IV azithromycin to oral. Discharge on azithromycin and prednisone to complete courses of therapy. Flovent added to pulmonary regimen. PULMONARY NODULE 11 mm nodule noted in lingula on chest x-ray. Significant smoking history. Followed by Uma Avila PA-C and Dr. Noland for Pulmonary Medicine. Pulmonary Medicine consulted for recommendations. CT impression: 1. Interval resolution of (when compared the prior May 2016 study) of the multifocal mucous plugging and multifocal airspace opacities 2. Residual 6 mm right lower lobe opacity, likely representing postinflammatory scarring 3. Tree-in-bud opacities within the right lung apex, likely secondary to a bronchiolitis 4. 18 mm lingular opacity with associated micronodularity. This is likely inflammatory/atelectatic. As was stated the prior chest x-ray report, short- term follow-up subsequent antibiotic therapy is recommended. 5. No evidence of pathologic adenopathy on this noncontrast study Will need f/u with Pulmonary Medicine. CROHN'S DISEASE Quiescent. Continue adalimumab. VTE PROPHYLAXIS SQ enoxaparin Ambulate. DISPOSITION Discharge to home. Family Medicine follow-up with Dr. Pilgram. Pulmonary Medicine follow-up with Uma Avila PA-C and Dr. Bautista. . Current Inpatient Medications: Current Inpatient Medications Medications (Trade) Dose Ordered Sig/Nando Route Start Time Stop Time Status Last Admin Dose Admin Enoxaparin Sodium (Lovenox Inj) 40 mg Q24H SQ 09/17/17 09:00 10/17/17 08:59 09/17/17 07:51 40 MG Acetaminophen (Tylenol Tab) 650 mg Q4H PRN PO 09/16/17 19:45 10/16/17 19:44 09/19/17 09:15 650 MG Ondansetron HCl (Zofran Inj) 4 mg Q6H PRN IV 09/16/17 19:45 10/16/17 19:44 Bupropion HCl (Wellbutrin-Sr Tab) 150 mg DAILY PO 09/17/17 09:00 10/17/17 08:59 09/19/17 09:08 150 MG Levothyroxine Sodium (Synthroid Tab) 75 mcg DAILYBB PO 09/17/17 06:30 10/17/17 06:59 09/19/17 06:22 75 MCG Lorazepam (Ativan Tab) 0.5 mg TID PRN PO 09/16/17 20:00 10/16/17 19:59 09/18/17 22:21 0.5 MG Montelukast Sodium (Singulair Tab) 10 mg HS PO 09/16/17 21:00 10/16/17 20:59 09/18/17 20:51 10 MG Pantoprazole Sodium (Protonix Tab) 40 mg DAILY PO 09/17/17 09:00 10/17/17 08:59 09/19/17 09:08 40 MG Miscellaneous Information (Order Awaiting Action) 1 ea QS N/A 09/16/17 22:45 10/16/17 22:44 Tiotropium [place] (Spiriva Handihaler Inhaler) 1 puff DAILY INH 09/17/17 09:00 10/17/17 08:59 09/19/17 09:10 1 PUFF Ceftriaxone Sodium 1 gm/ Dextrose 50 ml @ 100 mls/hr Q24H IV 09/17/17 18:00 09/23/17 17:59 09/18/17 18:14 100 MLS/HR Naproxen (Naprosyn Tab) 500 mg BID PRN PO 09/16/17 20:45 10/16/17 20:44 09/17/17 16:46 500 MG Guaifenesin (Mucinex Contr Rel Tab) 600 mg Q12 PO 09/17/17 21:00 10/17/17 20:59 09/19/17 09:08 600 MG Azithromycin (Zithromax Tab) 500 mg QAM PO 09/17/17 16:00 09/23/17 08:59 09/19/17 09:09 500 MG Prednisone (PredniSONE TAB) 40 mg DAILY PO 09/18/17 09:00 10/18/17 08:59 09/19/17 09:08 40 MG Polyethylene (Miralax Powder Packet) 17 gm BID PO 09/17/17 21:00 10/17/17 20:59 09/18/17 08:32 17 GM Ipratropium [place] (Atrovent 0.02% 0.5MG/2.5ML Neb) 0.5 mg QIDR INH 09/17/17 20:00 10/17/17 19:59 09/19/17 07:16 0.5 MG Levalbuterol (Xopenex 1.25MG/ 0.5ML Neb) 1.25 mg QIDR INH 09/17/17 20:00 10/17/17 19:59 09/19/17 07:16 1.25 MG Levalbuterol (Xopenex 0.63 Mg/ 3 Ml Neb) 0.63 mg Q2H PRN INH 09/17/17 17:15 10/17/17 17:14
[2017-09-19] MEDS ORDERED: AZIT500T3 PO (10:27)
[2017-09-19] MEDS ORDERED: FLVHFA44 INH (10:27)
[2017-09-19] MEDS ORDERED: PRED10TA PO (10:27)
--- NOTE | 2017-09-19 10:35 | Discharge Instructions ---
Discharge Instructions Date of Service Sep 19, 2017. Admission Reason for Admission: cough, trouble breathing . Discharge Discharge Diagnosis / Problem: worsening COPD, bronchitis Discharge Goals Goal(s): Improve disease control Activity Recommendations Activity Limitations: resume your previous activity . Instructions / Follow-Up Instructions / Follow-Up APPOINTMENTS: FAMILY MEDICINE Office will contact you with appointment to see Dr. Gonzáles or one of his colleagues next week. PULMONARY MEDICINE Please call [facility] Pulmonary Medicine for follow-up appointment with Uma Avila PA-C in about 2 weeks. ORTHOPEDICS Please call Dr. Beranl's office for follow-up appointment. Report for your CT of the neck will be faxed to his office. OTHER INSTRUCTIONS: Take azithromycin (Zithromax) 500 mg daily for 4 days. Take prednisone 40 mg daily for 4 days (no need to taper). Take your usual inhalers as before. Start Flovent inhaler 2 puffs twice a day. Please do not smoke. Discuss further with Dr. Gonzáles or Uma Avila if you need assistance. Pulmonary Medicine will schedule follow-up CT scan of your chest to follow the small spots in your lungs. Seek medical attention if you have: * temperature above 101 * chest pain or trouble breathing * abdominal pain, nausea, vomiting * diarrhea, dark stools or bloody stools * any unanswered questions or concerns Call 911 if symptoms are severe. Call if you have any questions or problems. My cell # is [phone]. You can also reach a [facility] hospitalist on duty at [facility] 24 hours a day by calling [phone]. Please take good care of yourself. Víctor Tirado . Current Hospital Diet Patient's current hospital diet: Regular Diet Discharge Diet Recommended Diet: Regular Diet Procedures Procedures Performed: CT chest- very small spot in right lung, small spot in left lung CT neck Pending Studies Studies pending at discharge: no Medical Emergencies . Who to Call and When: Medical Emergencies: If at any time you feel your situation is an emergency, please call 911 immediately. . Non-Emergent Contact Non-Emergency issues call your: Primary Care Provider, Hospital Doctor, L D Rn . . "Provider Documentation" section prepared by Víctor Tirado. . VTE Core Measure Inpt VTE Proph given/why not?: Enoxaparin (Lovenox)SQ
[2017-09-19 11:00] VITALS: BP 144/80; PULSE 80; TEMP 36.7; O2SAT 94
--- NOTE | 2017-09-20 15:03 | Discharge Summary ---
Discharge Summary Date of Service Sep 20, 2017. Discharge Summary Admission Date: Sep 16, 2017 at 19:34 Discharge Date: Sep 19, 2017 Discharge Disposition: Home Principal Diagnosis: exacerbation of COPD secondary to bronchitis OTHER ACUTE DIAGNOSES: 18 mm density lingula . Secondary Diagnoses/Problems: Chronic and Resolved Medical Problems: Allergic reaction, urticaria Anxiety Disorder, Unspecified Bipolar disorder Borderline personality disorder COPD (chronic obstructive pulmonary disease) Crohns disease Depression GERD (gastroesophageal reflux disease) Hypothyroidism Left cervical radiculopathy Urticaria Status: Resolved Surgical Problems: (1) H/O cervical spinal arthrodesis Status: Resolved (2) History of appendectomy Status: Resolved (3) History of bronchoscopy Permanent Comment: 2015 for hypoxia Status: Resolved (4) History of section Status: Resolved (5) History of hysterectomy Status: Resolved (6) History of tubal ligation Status: Resolved (7) Hx of colonoscopy Permanent Comment: 2016 - Dr King - non-thrombosed hemorrhoids, normal colon Status: Resolved . Procedures: IV meds CT chest CT cervical spine . Consultations: Pulmonary Medicine Dr. Bustillo. . Pending Studies/Follow-Up: Follow-up pulmonary nodule to be arranged by Pulmonary Medicine. . Medication Reconciliation New Medications: Azithromycin (Azithromycin) 500 Mg Tab 500 MG PO DAILY, #4 TAB Fluticasone Propionate (Flovent Hfa) 120 Puffs/5280 Mcg Aero 2 PUFFS INH BID, #1 INHALER 5 Refills Prednisone Tab (Prednisone) 10 Mg Tab 40 MG PO DAILY, #16 TAB Continued Medications: Adalimumab (Humira Pen) 40 Mg/0.8 Ml Kit 40 MG SC Q2WKS Albuterol Hfa (Ventolin Hfa) 200 Puffs/11146 Mcg Aers 2 PUFFS INH Q4H PRN for SOB/Wheezing, INHALER Bupropion HCl (Bupropion HCl Sr) 150 Mg Tabcr 150 MG PO DAILY Cyclobenzaprine Hcl (Flexeril) 10 Mg Tab 10 MG PO TID for Muscle Spasms, #21 TAB Diphenoxylate W/ Atropine (Lomotil) 1 Tab Tab 1 TAB PO DAILY PRN for Diarrhea, TAB Estradiol (Estrace) 1 Mg Tab 1 MG PO DAILY, TAB TAKE ONE TABLET DAILY FOR 21 DAYS THEN STOP FOR 7 DAYS AND RESTART DIRECTED Ibuprofen (Advil) 200 Mg Tab 400 MG PO Q6H PRN for Pain, TAB Ipratropium [place] (Atrovent Hfa) 200 Puffs/3400 Mcg Aers 2 PUFFS INH QID, GM Levothyroxine Sodium (Levothyroxine Sodium) 75 Mcg Tab 75 MCG PO DAILY, TAB Lorazepam (Ativan) 0.5 Mg Tab 0.5 MG PO TID PRN for Anxiety, TAB Mesalamine (Lialda) 1.2 Gm Tab 4 TAB PO DAILY for 30 Days, #120 TAB 11 Refills Montelukast Sodium (Singulair) 10 Mg Tab 10 MG PO DAILY, TAB Naproxen (Naprosyn) 500 Mg Tab 500 MG PO BID PRN for Pain, TAB TAKE THIS MEDICATION WITH FOOD Pantoprazole (Protonix) 40 Mg Tab 40 MG PO DAILY, TAB Tiotropium [place] (Spiriva Respimat) 2.5 Mcg/Act Spr 2 PUFF INH DAILY, INHALER Admission Information HPI (per Admitting provider): Pt is 52 y/o F with PMH COPD, Crohn's on Humira Q 2 wks, bipolar, anxiety, chronic neck pain, hypothyroidism who presented to ER with c/o cough, SOB, illness. C/O generalized myalgias, LECHUGA, chills and sweats past 2-3 days. Hasn't taken temperature. Also c/o cough "but can't cough anything out". Hx COPD on spiriva and uses albuterol and atrovent inhaler prn. States past 2 days needing to use albuterol 2-3 times a day. Denies recent steroid use. Pt states had routine f/u with [facility] pulm last week and pt reports "junk in lungs" and was instructed to start using nebulizer however pt states didn't as that usually causes her palpitations. She reports was also given antibiotic to use if no improvement of symptoms but pt did not use. Denies influenza vaccine this season. Reports side effect from pneumonia vaccine in past and since hasn't gotten influenza vaccines. Pt reports 3 days ago had R upper and lower molar extractions. States areas seem to be healing well, still a little discomfort. Denies gingival discharge or bleeding or facial edema. Reports took Roxicodone after extraction for pain and past 2 days with constipation. Hx Crohn's - follows with Dr King. States in past when taken pain meds has gotten some abdominal discomfort. Reports some mild intermittent abdominal aching. Denies N/ V/D, melena, hematochezia, dizziness, syncope, vision changes, CP, orthopnea, hemoptysis, sore throat, choking, otalgia, rhinorrhea, paresthesias, weakness, extremity weakness, extremity edema, rashes, urinary symptoms. In ER: Temp: 39.1C. WBC: 12.4. Negative troponin. Negative CXR. Reported after duoneb pt had desat to 85% on RA. Started on O2 NC. Given Rocephin and azithromycin. Physical Exam (per Admitting): General Appearance: WD/WN, no apparent distress Head: normocephalic, atraumatic Eyes: normal inspection, PERRL, EOMI, sclerae normal ENT: hearing grossly normal, TMs normal, pharynx normal, + pertinent finding (no rhinorrhea, mucous membranes moist, right upper molar and right lower molar extraction sites without discharge/bledding or ginigval edema. no facial swelling) Neck: supple, no JVD, trachea midline, + adenopathy present (R submandibular adenopathy, tender to palpation ) Respiratory/Chest: no respiratory distress, no accessory muscle use, + decreased breath sounds (throughout), + rhonchi (bases bilaterally), + wheezing (scattered throughout), + pertinent finding (speaks in full sentences. ) Cardiovascular: regular rate, rhythm, no murmur, normal peripheral pulses Abdomen/GI: normal bowel sounds, soft, + tenderness (mild tenderness to palpation LLQ without rebound or guarding) Extremities/Musculoskelatal: normal inspection, normal capillary refill, no pedal edema, normal range of motion, non-tender Neurologic/Psych: alert, normal mood/affect, oriented x 3 Skin: normal color, warm/dry, no rash Hospital Course EXACERBATION OF COPD Presented with fever, cough, dyspnea. No infiltrates on chest x-ray. LEAD PERFORMANCE SUPPORT ANALYST swab for influenza A/B per PCR negative. Probable exacerbation of COPD secondary to bronchitis. Treated with IV steroids, azithromycin, ceftriaxone, nebs. Transitioned from IV methylprednisolone to oral prednisone Transitioned from IV azithromycin to oral. Discharge on azithromycin and prednisone to complete courses of therapy. Flovent added to pulmonary regimen. PULMONARY NODULE 11 mm nodule noted in lingula on chest x-ray. Significant smoking history. Followed by Uma Avila PA-C and Dr. Noland for Pulmonary Medicine. Pulmonary Medicine consulted for recommendations. CT impression: 1. Interval resolution of (when compared the prior May 2016 study) of the multifocal mucous plugging and multifocal airspace opacities 2. Residual 6 mm right lower lobe opacity, likely representing postinflammatory scarring 3. Tree-in-bud opacities within the right lung apex, likely secondary to a bronchiolitis 4. 18 mm lingular opacity with associated micronodularity. This is likely inflammatory/atelectatic. As was stated the prior chest x-ray report, short- term follow-up subsequent antibiotic therapy is recommended. 5. No evidence of pathologic adenopathy on this noncontrast study Will need f/u with Pulmonary Medicine. CROHN'S DISEASE Quiescent. Continue adalimumab. VTE PROPHYLAXIS SQ enoxaparin Ambulate. DISPOSITION Discharge to home. Family Medicine follow-up with Dr. Gonzáles. Pulmonary Medicine follow-up with Uma Avila PA-C and Dr. Bautista. . Total time spent on discharge = 40 min. This includes examination of the patient, discharge planning, medication reconciliation, and communication with other providers. . Discharge Instructions Date of Service Sep 19, 2017. Admission Reason for Admission: cough, trouble breathing . Discharge Discharge Diagnosis / Problem: worsening COPD, bronchitis Discharge Goals Goal(s): Improve disease control Activity Recommendations Activity Limitations: resume your previous activity . Instructions / Follow-Up Instructions / Follow-Up APPOINTMENTS: FAMILY MEDICINE Office will contact you with appointment to see Dr. Gonzáles or one of his colleagues next week. PULMONARY MEDICINE Please call [facility] Pulmonary Medicine for follow-up appointment with Uma Avila PA-C in about 2 weeks. ORTHOPEDICS Please call Dr. Bernal's office for follow-up appointment. Report for your CT of the neck will be faxed to his office. OTHER INSTRUCTIONS: Take azithromycin (Zithromax) 500 mg daily for 4 days. Take prednisone 40 mg daily for 4 days (no need to taper). Take your usual inhalers as before. Start Flovent inhaler 2 puffs twice a day. Please do not smoke. Discuss further with Dr. Gonzáles or Uma Avila if you need assistance. Pulmonary Medicine will schedule follow-up CT scan of your chest to follow the small spots in your lungs. Seek medical attention if you have: * temperature above 101 * chest pain or trouble breathing * abdominal pain, nausea, vomiting * diarrhea, dark stools or bloody stools * any unanswered questions or concerns Call 911 if symptoms are severe. Call if you have any questions or problems. My cell # is [phone]. You can also reach a [facility] hospitalist on duty at [facility] 24 hours a day by calling [phone]. Please take good care of yourself. Víctor Tirado . Current Hospital Diet Patient's current hospital diet: Regular Diet Discharge Diet Recommended Diet: Regular Diet Procedures Procedures Performed: CT chest- very small spot in right lung, small spot in left lung CT neck Pending Studies Studies pending at discharge: no Medical Emergencies . Who to Call and When: Medical Emergencies: If at any time you feel your situation is an emergency, please call 911 immediately. . Non-Emergent Contact Non-Emergency issues call your: Primary Care Provider, Hospital Doctor, Shopfitter . . "Provider Documentation" section prepared by Víctor Tirado. . VTE Core Measure Inpt VTE Proph given/why not?: Enoxaparin (Lovenox)SQ . Additional Copies To Uma Avila PA-C; Wade Gonzáles M.D.; Onesimo Bautista M.D.
== END 2017-09-19 11:15 | disposition home or self-care (01) | DRG 191 ==
LOC: C.EDB 17:03 → C.MS2W 19:34 → ENRESERV 20:17
PROVIDERS: ADMIT Hospitalist; ATTEND Hospitalist
DX: J44.1 Chronic obstructive pulmonary disease with (acute) exacerbation (principal); K50.90 Crohn's disease, unspecified, without complications; J40 Bronchitis, not specified as acute or chronic; K21.9 Gastro-esophageal reflux disease without esophagitis; E03.9 Hypothyroidism, unspecified; F31.9 Bipolar disorder, unspecified; M54.2 Cervicalgia; G89.29 Other chronic pain; R91.1 Solitary pulmonary nodule; F17.200 Nicotine dependence, unspecified, uncomplicated; Z79.899 Other long term (current) drug therapy; Z82.5 Family history of asthma and other chronic lower respiratory diseases

== ENCOUNTER → 2017-11-11 | Outpatient (CLI) | payer OTHER ==
[~2017-11-11] MED LIST changes: +ADAL40KI SC; +ALBINS/ INH; +ATRIN INH; +BACITRACIN 50000 UNIT VIAL ONE; +BENZ100C18 PO; -BENZ100C84 PO; +BUPIVACAINE/EPINEPHRINE 0.5% MPF 1:200,000 30 ML VIAL ONE; +FLVHFA44 INH; +GELATIN SPONGE SZ 100 ONE; +HYDR-4383 PO; -HYDR25TA5 PO; +IBUP1TAB55 PO; +IPRA1AER2 INH; +LORA-741 PO; +MESA1.2T PO; +PRENTAB26 PO; -SYMIN160 INH; +THROMBIN FOR SOLN 20000 UNIT KIT ONE; +TIOT1SPR INH; +WLLSR150 PO; -WLLXL150 PO
--- NOTE | 2017-11-11 13:32 | DIAGNOSTIC IMAGING REPORT ---
(CHEST) THORAX WITHOUT CT DOSE: 190.38 mGy.cm CLINICAL HISTORY: 52 years-old Female with PULMONARY NODULE. Follow-up study to assess pulmonary nodule TECHNIQUE: Multiaxial CT images of the chest were performed without contrast. A dose lowering technique was utilized adhering to the principles of ALARA. COMPARISON: Chest CT 09/18/2017, 02/28/2016. FINDINGS: No dominant thyroid nodule or pathologic adenopathy identified. Heart is normal in size without pericardial effusion. Coronary arterial calcifications are present. Thoracic aorta appears normal in both course and caliber. No pneumothorax, pleural effusion or focal airspace consolidation. There is resolution of the previously described bibasilar bronchial wall thickening with associated tree-in-bud and groundglass opacities. 2 mm calcified granuloma is seen within the lateral basal segment left lower lobe. No suspicious pulmonary nodules identified. Minimal groundglass opacities noted within the inferior segment lingula within the area of prior 1.8 cm consolidation suggesting possible residual scarring/atelectasis The central airways are patent. No acute abnormality of the imaged upper abdomen. Fusion hardware of the lower cervical spine partially imaged. Bones appear intact. IMPRESSION: 1. Resolution of the previously noted bilateral bronchial wall thickening, tree-in-bud and groundglass opacities. Minimal residual groundglass opacity noted within the inferior segment lingula in the area of prior focal consolidation suggesting area of scarring/atelectasis. No suspicious pulmonary nodules identified. 2. Coronary arterial disease. 3. No pathologic adenopathy. Electronically signed by: Konrad Hunter M.D. 11/11/2017 1:31 PM Dictated Date/Time: 11/11/2017 1:22 PM
== END | disposition home or self-care (01) ==
LOC: C.CTS 13:05
PROVIDERS: ATTEND Physician Assistant
DX: R91.1 Solitary pulmonary nodule (principal); I25.10 Atherosclerotic heart disease of native coronary artery without angina pectoris; R93.8 Abnormal findings on diagnostic imaging of other specified body structures

== ENCOUNTER 2017-11-14 05:17 | Observation (INO) | payer OTHER ==
[2017-10-30 10:03] VITALS: BMI 24.0
--- NOTE | 2017-10-30 10:38 | PAT Medication Instructions ---
Service Date Oct 30, 2017. Current Home Medication List Adalimumab (Humira Pen), 40 MG SC Q2WKS Albuterol Hfa (Ventolin Hfa), 2 PUFFS INH Q4H PRN for SOB/Wheezing Albuterol Sulf (Proventil 0.083% 2.5MG/3ML), 2.5 MG INH QID PRN for PRN Benzonatate (Tessalon Perles), 100 MG PO BID PRN for RN Bupropion HCl (Bupropion HCl Sr), 150 MG PO QPM Diphenoxylate W/ Atropine (Lomotil), 1 TAB PO DAILY PRN for Diarrhea Estradiol (Estrace), 1 MG PO QAM Fluticasone Propionate (Flovent Hfa), 2 PUFFS INH BID Ibuprofen-Diphenhydramine Citr (Ibuprofen Pm), 2 TAB PO HS Ipratropium [place] (Atrovent Hfa), 2 PUFFS INH QID Ipratropium-Albuterol (Combivent Respimat), 2 PUFFS INH BID Levothyroxine Sodium (Levothyroxine Sodium), 75 MCG PO QAM Lorazepam (Ativan), 0.5 MG PO TID PRN for Anxiety Mesalamine (Lialda), 2 TAB PO BID Montelukast Sodium (Singulair), 10 MG PO HS Multivit/Min/Iron/Fol Ac/Pren ( Vitamin), 1 TAB PO QAM Naproxen (Naprosyn), 500 MG PO BID PRN for Pain Pantoprazole (Protonix), 40 MG PO QAM Tiotropium [place] (Spiriva Respimat), 2 PUFF INH QAM Medication Instructions For Your Scheduled Surgery - Check with surgeon for instructions: Naproxen (Naprosyn), 500 MG PO BID PRN for Pain Ibuprofen-Diphenhydramine Citr (Ibuprofen Pm), 2 TAB PO HS Estradiol (Estrace), 1 MG PO QAM - Check with prescribing physician for instructions: Mesalamine (Lialda), 2 TAB PO BID Adalimumab (Humira Pen), 40 MG SC Q2WKS - Hold the following medications the morning of surgery: Benzonatate (Tessalon Perles), 100 MG PO BID PRN for RN Diphenoxylate W/ Atropine (Lomotil), 1 TAB PO DAILY PRN for Diarrhea Multivit/Min/Iron/Fol Ac/Pren ( Vitamin), 1 TAB PO QAM - Take the following medications the morning of surgery with a sip of water: Tiotropium [place] (Spiriva Respimat), 2 PUFF INH QAM Pantoprazole (Protonix), 40 MG PO QAM Ipratropium-Albuterol (Combivent Respimat), 2 PUFFS INH BID Levothyroxine Sodium (Levothyroxine Sodium), 75 MCG PO QAM Lorazepam (Ativan), 0.5 MG PO TID PRN for Anxiety (if needed) Ipratropium [place] (Atrovent Hfa), 2 PUFFS INH QID Fluticasone Propionate (Flovent Hfa), 2 PUFFS INH BID Albuterol Hfa (Ventolin Hfa), 2 PUFFS INH Q4H PRN for SOB/Wheezing (if needed) Albuterol Sulf (Proventil 0.083% 2.5MG/3ML), 2.5 MG INH QID PRN for PRN (if needed) - Take the following medications as scheduled the night before surgery: Montelukast Sodium (Singulair), 10 MG PO HS Ipratropium-Albuterol (Combivent Respimat), 2 PUFFS INH BID Lorazepam (Ativan), 0.5 MG PO TID PRN for Anxiety (if needed) Ipratropium [place] (Atrovent Hfa), 2 PUFFS INH QID Fluticasone Propionate (Flovent Hfa), 2 PUFFS INH BID Diphenoxylate W/ Atropine (Lomotil), 1 TAB PO DAILY PRN for Diarrhea (if needed) Bupropion HCl (Bupropion HCl Sr), 150 MG PO QPM Benzonatate (Tessalon Perles), 100 MG PO BID PRN for RN (if needed) Albuterol Hfa (Ventolin Hfa), 2 PUFFS INH Q4H PRN for SOB/Wheezing (if needed) Albuterol Sulf (Proventil 0.083% 2.5MG/3ML), 2.5 MG INH QID PRN for PRN (if needed) If you have any questions please call us at [phone] or [phone] or [phone]
--- NOTE | 2017-10-30 11:19 | DIAGNOSTIC IMAGING REPORT ---
CHEST 2 VIEWS ROUTINE CLINICAL HISTORY: Preoperative chest COMPARISON STUDY: 09/17/2017 FINDINGS: The cardiac and mediastinal contours are normal. There is no evidence of focal pulmonary consolidation. There is no evidence of failure. No pleural effusions are visualized.[ The previously identified lingular nodule is no longer visualized. There is an old right clavicular deformity. Postsurgical changes are present within the cervical spine. IMPRESSION: No active disease in the chest. Electronically signed by: Isreal Miller M.D. 10/30/2017 11:18 AM Dictated Date/Time: 10/30/2017 11:17 AM
[2017-10-30 11:35] LABS: PTT PATIENT 25.6 SECONDS (21.0-31.0)
--- NOTE | 2017-11-13 12:02 | HISTORY & PHYSICAL EXAMINATION ---
DATE OF ADMISSION: 11/14/2017 The procedure will be an anterior cervical discectomy at C4-5, revision arthrodesis C5-C6, removable plate C5-6 - C6-C7 with right iliac crest bone graft. CHIEF COMPLAINT: Neck pain, arm pain, trapezius pain, associated weakness. HISTORY OF PRESENT ILLNESS: Adriel is a pleasant young lady. She is fairly compromised here today with her neck and upper extremities. She has been worked up for spinal cord compression along with nerve root compression. PAST MEDICAL HISTORY: Positive for chronic cough, early COPD, anxiety, numbness. No cardiac issues. Hypothyroidism, some GI issues. SOCIAL HISTORY: One-half a day cigarette smoker for 30 years. Alcohol negative. Drugs negative. PAST SURGICAL HISTORY: , carpal tunnel, rectal surgery, hysterectomy, appendectomy. ALLERGIES: PERCOCET. MEDICATIONS: Are numerous. They are in the patient inquiry. To be concise I am holding off on the dictation of all these medicines as they are tabulated. REVIEW OF SYSTEMS: Denies any blurred vision, double vision, tinnitus, vertigo. Does have neck pain, trapezius pain, upper arm pain. No chest pain, shortness of breath. Does have some asthma, wheezing and occasional nausea, no vomiting. No urgency, frequency or loss of bowel or bladder function. Her major complaint is neck and upper extremity difficulties, numbness, tingling. OBJECTIVE: VITAL SIGNS: Blood pressure, pulse, all taken at the hospital. HEAD, EYES, EARS, NOSE, AND THROAT: Examination is essentially normal. Vascular structures intact. Pupils react to light and accommodation. No apparent adenopathy. CARDIAC: Normal S1, S2. LUNGS: Clear. ABDOMEN: Soft, nontender. MUSCULOSKELETAL: She has a positive Spurling maneuver with rotation and side bending causing her pain. No gross deficits. Adequate strength to the extremities. Slight weakness of biceps function, deltoid function. Triceps and ordnance engineer satisfactory. Images were evaluated. 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 PLAN: Includes an ACDF cervical spine C4-C5, revision arthrodesis C5-C6, removal of plate C5-C7 with iliac crest bone graft on the right.
[~2017-11-14] VITALS: Ht 157.5 cm; Wt 61.2 kg
[2017-11-14] VITALS (16 sets, daily range): BP systolic 104–127; BP diastolic 61–74; PULSE 65–87; TEMP 36.4–36.7; O2SAT 96–100; Ht 157.5 cm; Wt 61.2 kg
[~2017-11-14 05:17] MED LIST changes: -BACITRACIN 50000 UNIT VIAL ONE; -BUPIVACAINE/EPINEPHRINE 0.5% MPF 1:200,000 30 ML VIAL ONE; -GELATIN SPONGE SZ 100 ONE; -HYDR-4383 PO; -THROMBIN FOR SOLN 20000 UNIT KIT ONE
[2017-11-14] MEDS ORDERED: NSS 1000ML IV SCH (06:00)
[2017-11-14] MEDS ORDERED: LACTATED RINGER'S 1000ML 1,000 ML IV SCH ×2 (06:00)
[2017-11-14] MEDS ORDERED: CEFAZOLIN 2000MG IV PUSH 10 ML IV SCH (06:00)
[2017-11-14] MEDS ORDERED: MIDAZOLAM HCL 1 MG/ML 2ML VIAL ONE (06:35)
[2017-11-14] MEDS ORDERED: FENTANYL CITRATE INJ 50 MCG/1 ML 2 ML VIAL ONE ×5 (06:35→09:36)
--- NOTE | 2017-11-14 07:11 | History & Physical Bridge Note ---
H&P Re-Evaluation Bridge Note: I have examined the patient, reviewed the History & Physical and in the interval since the performance of the History & Physical I have noted the following changes of clinical significance: No changes noted
[2017-11-14] MEDS ORDERED: BUPIVACAINE/EPINEPHRINE 0.5% MPF 1:200,000 30 ML VIAL ONE ×2 (07:30→08:56)
[2017-11-14] MEDS ORDERED: HYDROmorphone INJ 2 MG/ML SYR/VIAL ONE ×2 (08:15→10:03)
[2017-11-14] MEDS ORDERED: GELATIN SPONGE SZ 100 ONE (08:54)
[2017-11-14] MEDS ORDERED: THROMBIN FOR SOLN 20000 UNIT KIT ONE (08:55)
[2017-11-14] MEDS ORDERED: BACITRACIN 50000 UNIT VIAL ONE (08:55)
[2017-11-14] MEDS ORDERED: FLUMAZENIL 0.1 MG/1 ML 10 ML VIAL IV PRN (09:30)
[2017-11-14] MEDS ORDERED: HYDROmorphone INJ 1 MG/ML SYR IV PRN (09:30)
[2017-11-14] MEDS ORDERED: ATROPINE SULFATE 0.1 MG/ML 5ML SYR IV PRN (09:30)
[2017-11-14] MEDS ORDERED: LABETALOL HCL IV 5 MG/ML 20ML IV PRN (09:30)
[2017-11-14] MEDS ORDERED: EpHEDrine SULFATE INJ 50 MG/ML AMP IV PRN (09:30)
[2017-11-14] MEDS ORDERED: PROMETHAZINE HCL INJ 12.5 MG in SODIUM CHLORIDE 0.9% 50ML 50 ML IV PRN (09:30)
[2017-11-14] MEDS ORDERED: NALOXONE HCL 0.4 MG/1 ML VIAL/CARP IV PRN ×2 (09:30→10:15)
[2017-11-14] MEDS ORDERED: ONDANSETRON INJ 2 MG/ML 2 ML VIAL IV PRN ×2 (09:30→10:15)
[2017-11-14] MEDS ORDERED: ROCURONIUM BROMIDE 10 MG/ML 5 ML VIAL IV ONE (09:58)
[2017-11-14] MEDS ORDERED: DEXAMETHASONE SOD INJ 4 MG/ML VIAL ONE (09:58)
[2017-11-14] MEDS ORDERED: PROPOFOL IV EMULSION 10 MG/ML 20 ML VIAL IV ONE (09:58)
[2017-11-14] MEDS ORDERED: LIDOCAINE HCL 2% 2 ML VIAL (20MG/ML) ONE (09:58)
[2017-11-14] MEDS ORDERED: ONDANSETRON INJ 2 MG/ML 2 ML VIAL ONE (10:05)
[2017-11-14] MEDS ORDERED: NEOSTIGMINE METHYLSULFATE 1 MG/ML 10ML VIAL ONE (10:05)
[2017-11-14] MEDS ORDERED: GLYCOPYRROLATE INJ 0.2 MG/ML VIAL ONE (10:05)
[2017-11-14] MEDS ORDERED: EpHEDrine SULFATE 50MG/5ML SYR ONE (10:05)
[2017-11-14] MEDS ORDERED: DIPHENOXYLATE/ATROPINE 2.5/0.025MG TAB PO PRN (10:15)
[2017-11-14] MEDS ORDERED: RACEPINEPHRINE 2.25% NEBU SOLN 0.5 ML VIAL INH PRN (10:15)
[2017-11-14] MEDS ORDERED: ALBUTEROL 0.083% NEBU SOLN 3 ML VIAL INH PRN (10:15)
[2017-11-14] MEDS ORDERED: LORAZEPAM 0.5 MG TAB PO PRN (10:15)
[2017-11-14] MEDS ORDERED: ACETAMINOPHEN IV 1,000 MG in EMPTY BAG 0 ML IV PRN (10:15)
[2017-11-14] MEDS ORDERED: BENZONATATE 100MG CAP PO PRN (10:15)
[2017-11-14] MEDS ORDERED: ALBUTEROL HFA 8 GM INHALER INH PRN (10:15)
[2017-11-14] MEDS ORDERED: MAGNESIUM HYDROXIDE SUSP 30 ML UDC PO PRN (10:15)
[2017-11-14] MEDS ORDERED: LORAZEPAM INJ 0.5 MG in SYRINGE 0.75 ML IV PRN (10:15)
[2017-11-14] MEDS ORDERED: HYDROmorphone INJ 0.5 MG/0.5 ML SYR IV PRN (10:15)
[2017-11-14] MEDS ORDERED: DEXAMETHASONE INJ 8 MG in SYRINGE 0 ML IV PRN (10:15)
--- NOTE | 2017-11-14 10:19 | [facility] Post Operative Brief Note ---
Immediate Operative Summary Operative Date Nov 14, 2017. Pre-Operative Diagnosis CERVICAL DISC HERNIATION AND INSTABILITY C4-C5 CERVICAL SPINE, NONUNION C5-C6 CERVICAL SPINE Post-Operative Diagnosis SAME PREOP Procedure(s) Performed ANTERIOR CERVICAL DISCECTOMY AND FUSION C4-C7, REVISION ARTHRODEDSIS C5-C6, REMOVAL PLATE C5-C6, C6-C7, WITH RIGHT ILLIAC CREST BONE GRAFT Surgeon DR. Anne-Marie MUÑIZ Child Nutrition Assistant Surgeon(s) CORWIN HARPER Estimated Blood Loss 10ml Findings instability and compression Specimens REMOVED CERVICAL HARDWARE Complication(s) None Disposition Recovery Room / PACU
--- NOTE | 2017-11-14 10:22 | DIAGNOSTIC IMAGING REPORT ---
SPINE ONE VIEW, ANY LEVEL HISTORY: 52 years-old Female C4-C5 ACDF, C5-C6 Revision arthordesis history of prior anterior plate and screw fusion and discectomy at C5-C7. COMPARISON: Cervical spine CT 09/18/2017 TECHNIQUE: 3 spot fluoroscopic images of the cervical spine were obtained utilizing 10.3 seconds fluoroscopy time FINDINGS: The lower cervical spine levels are not well-seen secondary to overlying soft tissue. Anterior plate and screw fusion hardware is seen extending from what appears to be the C4-C7 levels. Discectomy changes are seen at C6-C7. Follow-up dedicated radiographs of the cervical spine recommended to confirm exact vertebral body levels. Anterior soft tissue romana are noted. IMPRESSION: Fluoroscopic assistance as above. Please see operative report for further details. The above report was generated using voice recognition software. It may contain grammatical, syntax or spelling errors. Electronically signed by: Konrad Hunter M.D. 11/14/2017 10:21 AM Dictated Date/Time: 11/14/2017 10:17 AM
--- NOTE | 2017-11-14 10:31 | OPERATIVE REPORT ---
DATE OF OPERATION: 11/14/2017 PREOPERATIVE DIAGNOSIS: Instability cervical spine, nonunion cervical spine, C5-C6, instability at C4-5, disc herniation C4-5. POSTOPERATIVE DIAGNOSIS: Same. PROCEDURE: 1. Anterior cervical approach to the cervical spine, removal of an old plate that spanned from cervical 5 down to cervical 7. 2. Removal of the implant between 5 and 6 of the cervical spine, it was a PEEK implant. This was removed in the C5-C6 interspace. 3. Complete discectomy C4-C5 of the cervical spine. 4. Anterior plating from 4-7 of the cervical spine. 5. Right iliac crest bone graft. SURGEON: Víctor Bernal DO. MAT ROLLER: Jim Krishnan PA-C. COMPLICATIONS: Zero. BLOOD LOSS: Less than 15 mL. DESCRIPTION OF PROCEDURE: The patient was taken to the operating room and general intubated anesthetic provided to the patient, kept supine, scrubbed and prepped, draped sterile. We prepped out her right iliac crest. We made a transverse skin incision in the cervical spine region, a classic approach roughly over the C5-C6 interspace. We dissected the soft tissue and came down on the anterior plate from the old surgery. We dissected this free of obstruction. We removed the old plate with relative ease. In my opinion, there was a fairly good union at the C6-C7 interval. I felt that there was a nonunion at C5-C6 and I felt there was a disc herniation at C4-5 cervical spine. We took down the nonunion first removing the iliac bone using osteotomes and curets getting this free of obstruction and then this was removed. We then went up to the C4-C5 interval, did a complete discectomy. We were back to the PLL with good foraminotomies, partial facetectomies cleaning all conceivably disc material. We then went to the right iliac crest. I was able to make a skin incision, fascial incision, harvested 2 nice pieces of structural autograft for the vacated discectomy sites. The bones measured approximately 7 mm in height tapered to 6 and approximately 14 mm in length and approximately 12-13 mm left to right. These were placed into the discectomy areas at C4-C5 and C5-6 of the cervical spine. I then plated the construct. I was able to safely get a plate up 4 down to 7, fixed with varied size cortical screws. Some rescue screws from the Fonix, some regular screws varied buried in size from 14 mm to 12 mm. We irrigated both areas thoroughly. We closed the right iliac crest with #1 Vicryl, 2-0 and 3-0 nylon. The cervical spine was closed in the routine sterile manner. Steri-Strips applied. Sterile dressings applied. A collar applied. The patient returned to PACU stable. Sponge and needle count correct at the close of the procedure. IMPLANTS USED: By the Fonix. No apparent complications. I attest to the content of the Intraoperative Record and any orders documented therein. Any exceptions are noted below. [facility]
--- NOTE | 2017-11-14 11:36 | Anesthesiology Progress Note ---
Anesthesia Post Op Note Date & Time Nov 14, 2017 at 11:35 Vital Signs Pain Intensity: 3 Vital Signs Past 12 Hours Date Time Temp Pulse Resp B/P (MAP) Pulse Ox O2 Delivery O2 Flow Rate FiO2 11/14/17 11:30 36.2 77 12 126/92 100 Nasal Cannula 4 11/14/17 11:20 81 18 137/77 100 Nasal Cannula 4 11/14/17 11:10 80 12 130/75 98 Nasal Cannula 4 11/14/17 11:00 77 17 144/73 100 Nasal Cannula 4 11/14/17 10:50 77 11 143/70 100 Nasal Cannula 4 11/14/17 10:40 100 13 139/74 98 Nasal Cannula 4 11/14/17 10:30 99 25 140/71 91 Nasal Cannula 4 11/14/17 10:22 36.0 96 16 128/70 99 Nasal Cannula 4 11/14/17 05:40 36.6 66 18 123/69 97 Room Air Notes Mental Status: alert / awake / arousable, participated in evaluation Pt Amnestic to Procedure: Yes Nausea / Vomiting: adequately controlled Pain: adequately controlled Airway Patency, RR, SpO2: stable & adequate BP & HR: stable & adequate Hydration State: stable & adequate Anesthetic Complications: no major complications apparent neurologically intact
[2017-11-14] MEDS ORDERED: IPRATROPIUM BROMIDE HFA INHALER INH PRN (13:00)
[2017-11-14] MEDS: HYDROmorphone INJ 1 MG/ML SYR IV PRN ×3 (13:18→22:48)
[2017-11-14] MEDS ORDERED: NURSING VERBAL MED ORDER ONE (14:45)
[2017-11-14] MEDS ORDERED: IV FLUIDS COMPLETED PRN (15:15)
[2017-11-14] MEDS: CEFAZOLIN IV 1,000 MG in SYRINGE 0 ML IV SCH ×2 (16:48→23:38)
[2017-11-14] MEDS: NICOTINE 21 MG/24 HR TDSY TD SCH (16:50)
[2017-11-14] MEDS: DEXAMETHASONE INJ 6 MG in SYRINGE 0 ML IV SCH (21:14)
[2017-11-14] MEDS: FLUTICASONE PROP HFA INH 44 MCG INHALER INH SCH (21:15)
[2017-11-14] MEDS: DOCUSATE SODIUM 100 MG CAP PO SCH (21:18)
[2017-11-14] MEDS: MONTELUKAST SOD 10 MG TAB PO SCH (21:18)
[2017-11-14] MEDS: BuPROPion SR 150 MG TABCR PO SCH (21:18)
[2017-11-14] MEDS: IPRATROPIUM BROMIDE/ALBUTEROL respimat INH INH SCH (21:19)
[2017-11-14] MEDS ORDERED: COUGH DROP (SUGAR FREE) LOZ 24 LOZ/1 BOX LOZ PRN (23:00)
[2017-11-15] VITALS (16 sets, daily range): BP systolic 101–124; BP diastolic 57–73; PULSE 70–91; TEMP 36.8–37; O2SAT 92–99
[2017-11-15] MEDS: SODIUM CHLORIDE 0.9% 1000ML 1,000 ML IV SCH ×2 (00:09→01:45)
[2017-11-15] MEDS: HYDROmorphone INJ 1 MG/ML SYR IV PRN ×2 (01:48→13:05)
[2017-11-15] MEDS: DEXAMETHASONE INJ 6 MG in SYRINGE 0 ML IV SCH ×2 (01:51→09:32)
[2017-11-15] MEDS ORDERED: NURSING VERBAL MED ORDER ONE (02:15)
[2017-11-15] MEDS: LEVOTHYROXINE 75 MCG TAB PO SCH (05:47)
[2017-11-15] MEDS: CEFAZOLIN IV 1,000 MG in SYRINGE 0 ML IV SCH (07:52)
--- NOTE | 2017-11-15 08:02 | Anesthesiology Progress Note ---
Anesthesia Post Op Note Date & Time Nov 15, 2017 at 08:01 Vital Signs Vital Signs Past 12 Hours Date Time Temp Pulse Resp B/P (MAP) Pulse Ox O2 Delivery O2 Flow Rate FiO2 11/15/17 07:40 36.9 77 16 103/66 94 Room Air 11/15/17 07:17 83 16 97 Nasal Cannula 11/15/17 05:40 Room Air 11/15/17 05:40 36.9 91 16 113/65 (81) 94 Room Air 11/15/17 03:40 71 16 94 Nasal Cannula 1.0 11/15/17 03:40 37.0 86 15 102/61 (75) 96 Nasal Cannula 1.0 Humidified Oxygen 11/15/17 01:40 36.8 84 15 101/57 (72) 97 Nasal Cannula 1.0 Humidified Oxygen 11/14/17 23:40 Nasal Cannula 1.0 Humidified Oxygen 11/14/17 23:40 36.7 82 15 117/71 (86) 96 Nasal Cannula 1.0 Humidified Oxygen 11/14/17 23:22 73 14 98 Nasal Cannula 2.0 11/14/17 21:40 36.5 75 15 120/74 98 Nasal Cannula 3.0 Humidified Oxygen Notes Mental Status: alert / awake / arousable, participated in evaluation Pt Amnestic to Procedure: Yes Nausea / Vomiting: adequately controlled Pain: adequately controlled Airway Patency, RR, SpO2: stable & adequate BP & HR: stable & adequate Hydration State: stable & adequate Anesthetic Complications: no major complications apparent
--- NOTE | 2017-11-15 08:11 | ORTHOPEDICS PROGRESS NOTE ---
DATE: 11/15/2017 DATE: 11/15/2017 SUBJECTIVE: Adriel is doing well today. No shortness of breath, chest pain and/or confusion. OBJECTIVE: Vital signs stable, afebrile. Moves all extremities, some hoarseness, mild shortness of breath, mild anxiety. ASSESSMENT: Reconstructive cervical spine surgery, now out 20 hours. DISPOSITION: Instructions, precautions given today and education to her and nursing staff. Will get her up and ambulatory, change her dressing tomorrow. Hopefully, home tomorrow.
[2017-11-15] MEDS: IPRATROPIUM BROMIDE/ALBUTEROL respimat INH INH SCH ×2 (09:00→22:04)
[2017-11-15] MEDS: TIOTROPIUM BROMIDE 5 PUFF/90 MCG INH INH SCH (09:03)
[2017-11-15] MEDS: NICOTINE 21 MG/24 HR TDSY TD SCH (09:04)
[2017-11-15] MEDS: DOCUSATE SODIUM 100 MG CAP PO SCH ×2 (09:05→22:05)
[2017-11-15] MEDS: PANTOprazole SOD 40 MG TAB PO SCH (09:05)
[2017-11-15] MEDS: PRENATAL VITAMIN TAB PO SCH (09:05)
[2017-11-15] MEDS: FLUTICASONE PROP HFA INH 44 MCG INHALER INH SCH ×2 (09:06→22:04)
[2017-11-15] MEDS: ESTRADIOL 1 MG TAB PO SCH (09:06)
[2017-11-15] MEDS: HYDROCODONE/ACETAMOPHEN 5/325MG TAB PO PRN ×4 (09:07→22:12)
[2017-11-15] MEDS: BuPROPion SR 150 MG TABCR PO SCH (22:05)
[2017-11-15] MEDS: MONTELUKAST SOD 10 MG TAB PO SCH (22:05)
[2017-11-16] VITALS (7 sets, daily range): BP systolic 98–109; BP diastolic 58–71; PULSE 69–84; TEMP 36.6–36.8; O2SAT 92–96
[2017-11-16] MEDS ORDERED: BISACODYL 10 MG SUPP PR PRN (06:00)
[2017-11-16] MEDS ORDERED: BISACODYL 5 MG TABEC PO PRN (06:00)
[2017-11-16] MEDS: LEVOTHYROXINE 75 MCG TAB PO SCH (06:37)
[2017-11-16] MEDS: FLUTICASONE PROP HFA INH 44 MCG INHALER INH SCH (08:27)
[2017-11-16] MEDS: IPRATROPIUM BROMIDE/ALBUTEROL respimat INH INH SCH (08:27)
[2017-11-16] MEDS: TIOTROPIUM BROMIDE 5 PUFF/90 MCG INH INH SCH (08:28)
[2017-11-16] MEDS: ESTRADIOL 1 MG TAB PO SCH (08:29)
[2017-11-16] MEDS: PANTOprazole SOD 40 MG TAB PO SCH (08:29)
[2017-11-16] MEDS: NICOTINE 21 MG/24 HR TDSY TD SCH (08:30)
[2017-11-16] MEDS: DOCUSATE SODIUM 100 MG CAP PO SCH (09:17)
[2017-11-16] MEDS: PRENATAL VITAMIN TAB PO SCH (09:17)
[2017-11-16] MEDS ORDERED: HYDR-4383 PO ×2 (09:40)
--- NOTE | 2017-11-16 10:20 | DISCHARGE SUMMARY ---
DATE OF DISCHARGE: 11/16/2017 SUBJECTIVE: She is alert, oriented. Minimal complaints of pain, no chest pain, shortness of breath or confusion. OBJECTIVE: Vital signs stable. Wound clean. ASSESSMENT: Two days post major reconstructive spinal surgery, doing well, still short run. DISPOSITION: Instructions, precautions today. Discharged home today. Follow up in the office in approximately 10 days. A prescription is on her chart. Instructions have been given here and from the office.
[2017-11-16] MEDS: HYDROCODONE/ACETAMOPHEN 5/325MG TAB PO PRN (10:58)
== END 2017-11-16 12:43 | disposition home or self-care (01) ==
LOC: C.ACU 05:17 → C.3E 07:00 → EDBEDREQ 11:09 → ENRESERV 12:16
PROVIDERS: ADMIT Orthopaedic Surgery Orthopaedic Surgery of the Spine; ATTEND Orthopaedic Surgery Orthopaedic Surgery of the Spine
DX: M50.222 Other cervical disc displacement at C5-C6 level (principal); M50.221 Other cervical disc displacement at C4-C5 level; S12.4 Fracture of fifth cervical vertebra; S12.500K Unspecified displaced fracture of sixth cervical vertebra, subsequent encounter for fracture with nonunion; X58.XXXD Exposure to other specified factors, subsequent encounter; J44.9 Chronic obstructive pulmonary disease, unspecified; K21.9 Gastro-esophageal reflux disease without esophagitis; E03.9 Hypothyroidism, unspecified; F17.210 Nicotine dependence, cigarettes, uncomplicated; Z90.49 Acquired absence of other specified parts of digestive tract; Z90.710 Acquired absence of both cervix and uterus

== ENCOUNTER 2018-01-04 12:00 | Emergency (ER) | payer OTHER ==
[~2018-01-04] VITALS: Ht 157.5 cm; Wt 62.0 kg
[~2018-01-04 12:00] MED LIST changes: +HYDR-4383 PO
[2018-01-04 12:05] VITALS: Ht 157.5 cm; Wt 62.0 kg
[2018-01-04] MEDS ORDERED: SODIUM CHLORIDE 0.9% 1000ML 1,000 ML IV STA (12:17)
[2018-01-04] MEDS ORDERED: LEVALBUTEROL 1.25MG/0.5ML NEB INH STA (12:17)
[2018-01-04] MEDS ORDERED: IPRATROPIUM BROMIDE NEB SOLN 0.02% 2.5 ML VIAL INH STA (12:17)
[2018-01-04] MEDS ORDERED: ONDANSETRON INJ 2 MG/ML 2 ML VIAL IV STA (12:17)
[2018-01-04 12:34] VITALS: PULSE 92; O2SAT 93
--- NOTE | 2018-01-04 12:42 | DIAGNOSTIC IMAGING REPORT ---
CHEST ONE VIEW PORTABLE HISTORY: 52 years-old Female EVALUATE RESPIRATORY DISTRESS.DYSPNEA acute respiratory distress COMPARISON: Chest radiographs 10/30/2017, chest CT 09/18/2017 TECHNIQUE: AP view of the chest FINDINGS: Cardiomediastinal and hilar silhouettes are within normal limits. No pneumothorax, pleural effusion, focal airspace consolidation or overt pulmonary edema. The bones of the chest appear grossly intact. Fusion hardware of the lower cervical spine is noted. IMPRESSION: No acute process. The above report was generated using voice recognition software. It may contain grammatical, syntax or spelling errors. Electronically signed by: Konrad Hunter M.D. 01/04/2018 12:41 PM Dictated Date/Time: 01/04/2018 12:40 PM
[2018-01-04 12:43] VITALS: O2SAT 96
[2018-01-04] MEDS ORDERED: OPTIRAY 320 IV PRN (12:45)
--- NOTE | 2018-01-04 12:50 | EMERGENCY ROOM VISIT NOTE ---
History Report prepared by Marika: Kellee Dela Cruz Under the Supervision of: Dr. Rc Hudson M.D. First contact with patient: 12:10 Chief Complaint: COUGH Stated Complaint: TIGHT CHEST,ABDOMINAL PAIN, PAIN IN THE UPPER BACK Nursing Triage Summary: pt to the ED with c/o cough and conestion and feeling sick since saturday, she also c/o lower abd pain, back pain and chest pain History of Present Illness The patient is a 52 year old female who presents to the Emergency Room with complaints of constant generalized illness beginning five days ago. The patient reports body aches, chest tightness, back pain, abdominal pain, abdominal bloating, chills, cough, sore throat, and a decreased appetite. She denies any fever, vomiting, or nasal congestion. The patient reports no recent sick contact. She did not get a flu shot this year. The patient used her nebulizer last night with no relief. The patient has a history of Crohn's disease, COPD, neck surgery, appendectomy, bronchitis, and pneumonia. She denies having surgery for her Crohn's. She denies any cardiac disease history. The patient reports an adverse reaction to steroids. The patient states she started taking a round of Zithromax last night. Source of History: patient Onset: five days ago Position: other (generalized) Quality: other (illness) Timing: constant Associated Symptoms: + chills, + sorethroat, + cough, + chest pain, + abdominal pain, No fevers, No vomiting Review of Systems See HPI for pertinent positives & negatives. A total of 10 systems reviewed and were otherwise negative. Past Medical & Surgical Medical Problems: (1) Acute allergic reaction (2) Allergic reaction, urticaria (3) Anxiety Disorder, Unspecified (4) Bipolar disorder (5) Borderline personality disorder (6) Bronchitis (7) Cervical spinal cord compression (8) COPD (chronic obstructive pulmonary disease) (9) COPD exacerbation (10) Crohn's disease, unspecified, without complications (11) Crohns disease (12) Depression (13) External hemorrhoids (14) Failure of outpatient treatment (15) GERD (gastroesophageal reflux disease) (16) History of neck pain (17) Hives (18) Hypothyroidism (19) Hypoxia (20) Left cervical radiculopathy (21) Left shoulder pain (22) Urticaria Surgical Problems: (1) H/O cervical spinal arthrodesis (2) History of appendectomy (3) History of bronchoscopy (4) History of section (5) History of hysterectomy (6) History of tubal ligation (7) Hx of colonoscopy Social History Problems: (1) Tobacco use Family History Diabetes mellitus FATHER MOTHER GRANDFATHER FH: heart disease MOTHER ([place] in 60's) FHx: lung disease Hypertension FATHER MOTHER Kidney stones Social History Smoking Status: Current Every Day Smoker Alcohol Use: occasionally Drug Use: none Marital Status: in relationship Housing Status: lives with family Occupation Status: disabled Current/Historical Medications Scheduled Adalimumab (Humira Pen), 40 MG SC Q2WKS Bupropion HCl (Bupropion HCl Sr), 150 MG PO QPM Doxycycline Hyclate (Vibramycin), 100 MG PO BID Estradiol (Estrace), 1 MG PO QAM Fluticasone Propionate (Flovent Hfa), 2 PUFFS INH BID Ibuprofen-Diphenhydramine Citr (Ibuprofen Pm), 2 TAB PO HS Ipratropium [place] (Atrovent Hfa), 2 PUFFS INH QID Ipratropium-Albuterol (Combivent Respimat), 2 PUFFS INH BID Levothyroxine Sodium (Levothyroxine Sodium), 75 MCG PO QAM Montelukast Sodium (Singulair), 10 MG PO HS Multivit/Min/Iron/Fol Ac/Pren ( Vitamin), 1 TAB PO QAM Pantoprazole (Protonix), 40 MG PO QAM Tiotropium [place] (Spiriva Respimat), 2 PUFF INH QAM Scheduled PRN Albuterol Hfa (Ventolin Hfa), 2 PUFFS INH Q4H PRN for SOB/Wheezing Albuterol Sulf (Proventil 0.083% 2.5MG/3ML), 2.5 MG INH QID PRN for PRN Benzonatate (Tessalon Perles), 100 MG PO BID PRN for RN Diphenoxylate W/ Atropine (Lomotil), 1 TAB PO DAILY PRN for Diarrhea Lorazepam (Ativan), 0.5 MG PO TID PRN for Anxiety Naproxen (Naprosyn), 500 MG PO BID PRN for Pain Allergies Coded Allergies: Oxycodone (Verified Allergy, Intermediate, FACE ITCHY, 01/04/18) 04/18/16: pt lists oxy-ir as home med? she presents with allergy sxs on [id number]. dr saldana is holding oxy-ir at this time. aj Physical Exam Vital Signs Date Time Temp Pulse Resp B/P (MAP) Pulse Ox O2 Delivery O2 Flow Rate FiO2 01/04/18 15:54 37.3 87 22 105/59 95 01/04/18 15:03 87 22 105/59 95 Room Air 01/04/18 12:46 85 01/04/18 12:43 96 Room Air 01/04/18 12:34 92 18 93 Room Air 01/04/18 12:05 37.3 97 16 115/74 94 Room Air Physical Exam GENERAL: Patient is in no acute distress. HEENT: No acute trauma, normocephalic atraumatic, mucous membranes moist, no nasal congestion, no scleral icterus. NECK: No stridor, no adenopathy, no meningismus, trachea is midline. LUNGS: Scattered wheezing, moist cough noted, equal breath sounds bilaterally, crackles at right base. HEART: Without murmurs gallops or rubs, regular rate and rhythm. ABDOMEN: Tender to both lower quadrants but more so on the left. Soft, bowel sounds positive, no hernias, no peritonitis. EXTREMITIES: No cyanosis or edema, full range of motion of all the joints without pain or difficulty, no signs for acute trauma. NEUROLOGIC: Oriented x 3, no acute motor or sensory deficits, no focal weakness. SKIN: No rash, no jaundice, no diaphoresis. Medical Decision & Procedures ER Provider Diagnostic Interpretation: Radiology results as stated below per my review and radiologist interpretation: CHEST ONE VIEW PORTABLE FINDINGS: Cardiomediastinal and hilar silhouettes are within normal limits. No pneumothorax, pleural effusion, focal airspace consolidation or overt pulmonary edema. The bones of the chest appear grossly intact. Fusion hardware of the lower cervical spine is noted. IMPRESSION: No acute process. The above report was generated using voice recognition software. It may contain grammatical, syntax or spelling errors. Electronically signed by: Konrad Hunter M.D. ABDOMEN AND PELVIS CT WITH IV AND ORAL CONTRAST FINDINGS: Moderate bronchial wall thickening with areas of mucous plugging and subsegmental tree-in-bud nodularity within the imaged basal lower lobes. Linear subsegmental associated atelectasis without lobar airspace consolidation identified. There is no pneumatosis or pneumoperitoneum identified. Imaged inferior cardiac chambers are unremarkable. Gallbladder, liver, spleen, pancreas and adrenal glands are within normal limits. Kidneys, ureters and urinary bladder are within normal limits. Prior hysterectomy. No adnexal mass lesions. Mild to moderate atherosclerosis of the aorta without aneurysm. No pathologic adenopathy identified. Small sliding-type hiatal hernia. No bowel obstruction or focal bowel wall thickening. Nondistention of the sigmoid and descending colon. Mural fibrofatty changes of the terminal ileum redemonstrated. Prior appendectomy. Soft tissues are unremarkable. Bones appear intact. IMPRESSION: 1. No acute intra-abdominal or intrapelvic abnormality identified, no bowel obstruction or focal bowel wall thickening. 2. Partially imaged moderate bronchial wall thickening with areas of mucous plugging and subsegmental tree-in-bud nodularity within the imaged basal lower lobes is compatible with infectious or inflammatory bronchitis and bronchiolitis. 3. Prior appendectomy. Electronically signed by: Konrad Hunter M.D. Laboratory Results 01/04/18 12:35 Red Blood Count 4.21, Mean Corpuscular Volume 92.2, Mean Corpuscular Hemoglobin 31.4, Mean Corpuscular Hemoglobin Concent 34.0, Mean Platelet Volume 9.6, Neutrophils (%) (Auto) 64.0, Lymphocytes (%) (Auto) 30.0, Monocytes (%) (Auto) 5.6, Eosinophils (%) (Auto) 0.0, Basophils (%) (Auto) 0.2, Neutrophils # (Auto) 3.98, Lymphocytes # (Auto) 1.86, Monocytes # (Auto) 0.35, Eosinophils # (Auto) 0.00, Basophils # (Auto) 0.01 01/04/18 12:35 Test 01/04/18 12:30 01/04/18 12:35 01/04/18 14:20 Influenza Type A (RT-PCR) Neg for Influ A (NEG) Influenza Type B (RT-PCR) Neg for Influ B (NEG) White Blood Count 6.21 K/uL (4.8-10.8) Red Blood Count 4.21 M/uL (4.2-5.4) Hemoglobin 13.2 g/dL (12.0-16.0) Hematocrit 38.8 % (37-47) Mean Corpuscular Volume 92.2 fL (80-100) Mean Corpuscular Hemoglobin 31.4 pg (25-34) Mean Corpuscular Hemoglobin Concent 34.0 g/dl (32-36) Platelet Count 170 K/uL (130-400) Mean Platelet Volume 9.6 fL (7.4-10.4) Neutrophils (%) (Auto) 64.0 % Lymphocytes (%) (Auto) 30.0 % Monocytes (%) (Auto) 5.6 % Eosinophils (%) (Auto) 0.0 % Basophils (%) (Auto) 0.2 % Neutrophils # (Auto) 3.98 K/uL (1.4-6.5) Lymphocytes # (Auto) 1.86 K/uL (1.2-3.4) Monocytes # (Auto) 0.35 K/uL (0.11-0.59) Eosinophils # (Auto) 0.00 K/uL (0-0.5) Basophils # (Auto) 0.01 K/uL (0-0.2) RDW Standard Deviation 42.9 fL (36.4-46.3) RDW Coefficient of Variation 12.7 % (11.5-14.5) Immature Granulocyte % (Auto) 0.2 % Immature Granulocyte # (Auto) 0.01 K/uL (0.00-0.02) Anion Gap 7.0 mmol/L (3-11) Est Creatinine Clear Calc Drug Dose 55.8 ml/min Estimated GFR () 73.6 Estimated GFR (Non- 63.5 BUN/Creatinine Ratio 10.4 (10-20) Calcium Level 8.2 mg/dl (8.5-10.1) Total Bilirubin 0.2 mg/dl (0.2-1) Aspartate Amino Transf (AST/SGOT) 25 U/L (15-37) Alanine Aminotransferase (ALT/SGPT) 26 U/L (12-78) Alkaline Phosphatase 68 U/L (45-117) Troponin I < 0.015 ng/ml (0-0.045) Total Protein 7.1 gm/dl (6.4-8.2) Albumin 3.7 gm/dl (3.4-5.0) Globulin 3.4 gm/dl (2.5-4.0) Albumin/Globulin Ratio 1.1 (0.9-2) Urine Color YELLOW Urine Appearance CLEAR (CLEAR) Urine pH 5.0 (4.5-7.5) Urine Specific [place] 1.009 (1.000-1.030) Urine Protein NEG (NEG) Urine Glucose (UA) NEG (NEG) Urine Ketones NEG (NEG) Urine Occult Blood NEG (NEG) Urine Nitrite NEG (NEG) Urine Bilirubin NEG (NEG) Urine Urobilinogen NEG (NEG) Urine Leukocyte Esterase NEG (NEG) Laboratory results reviewed by me. Medications Administered Medications (Trade) Dose Ordered Sig/Nando Route Start Time Stop Time Status Last Admin Dose Admin Ondansetron HCl (Zofran Inj) 4 mg NOW STAT IV 01/04/18 12:17 01/04/18 12:20 DC 01/04/18 12:41 4 MG Sodium Chloride 1,000 ml @ 999 mls/hr Q1H1M STAT IV 01/04/18 12:17 01/04/18 13:17 DC 01/04/18 12:41 999 MLS/HR Levalbuterol (Xopenex 1.25MG/ 0.5ML Neb) 1.25 mg NOW STAT INH 01/04/18 12:17 01/04/18 12:20 DC 01/04/18 12:33 1.25 MG Ipratropium [place] (Atrovent 0.02% 0.5MG/2.5ML Neb) 0.5 mg NOW STAT INH 01/04/18 12:17 01/04/18 12:20 DC 01/04/18 12:34 0.5 MG Doxycycline Hyclate (Vibramycin Cap) 100 mg ONE ONCE PO 01/04/18 15:45 01/04/18 15:46 DC 01/04/18 15:47 100 MG ECG Per My Interpretation Indication: chest pain Rate (beats per minute): 86 Rhythm: normal sinus Findings: other (NO PVC no ST elevation) ED Course 1214: The patient was evaluated in room B9. A complete history and physical exam was performed. 1217: Ordered Ipratropium [place] 0.5 mg INH, Levalbuterol 1.25 mg INH, Sodium Chloride 1000 ml @ 999 mls/hr IV, Zofran Inj 4 mg IV. 1535: I updated the patient on her test results. She is resting comfortably. 1545: Ordered Vibramycin Cap 100 mg PO. 1552: Reevaluated the patient. Discussed results and discharge instructions: She verbalized understanding and agreement. The patient is ready for discharge. Medical Decision Differential diagnoses include: Bronchitis or pneumonia, CHF, influenza or flu like illness, dehydration, electrolyte imbalance, diverticulitis, colitis, hernia. There is no leukocytosis or concerning anemia. No significant electrolyte abnormality, kidney failure or hepatitis. EKG shows a normal sinus rhythm, no acute ischemia. Cardiac enzyme testing 1 is not consistent with acute cardiac injury. Chest film does not show pneumonia, mediastinal widening or pneumothorax. Urinalysis does not show infection. Influenza testing is negative. Abdominal and pelvis CT does not show diverticulitis or any acute surgical process. Bronchitis was suspected though as the lower portion of the lungs was visualized. Patient was given a Xopenex and Atrovent neb, she received IV saline, IV Zofran and oral doxycycline. The patient is not hypoxic or febrile, she is not toxic in appearance. She does have an acute bronchitis with a flare of her COPD. She can go home. She will be on doxycycline. Frequent albuterol use was suggested. She is to follow with her doctor in a few days for a recheck and return here for any worsening breathing or worsening symptoms. I suspect the lower abdominal pain is from coughing. The pain is likely musculoskeletal. Medication Reconcilliation Current Medication List: was personally reviewed by me Blood Pressure Screening Patient's blood pressure: Normal blood pressure Impression Primary Impression: Acute bronchitis Additional Impressions: COPD exacerbation Lower abdominal pain Scribe Attestation The scribe's documentation has been prepared under my direction and personally reviewed by me in its entirety. I confirm that the note above accurately reflects all work, treatment, procedures, and medical decision making performed by me. Departure Information Dispostion Home / Self-Care Prescriptions Doxycycline Hyclate (VIBRAMYCIN) 100 Mg Cap 100 MG PO BID for 10 Days, #20 CAP Prov: Rc Hudson M.D. 01/04/18 Referrals Wade Gonzáles M.D. (PCP) Forms HOME CARE DOCUMENTATION FORM, IMPORTANT VISIT INFORMATION Patient Instructions [facility] Additional Instructions nebulizer or albuterol MDI every 4 hours doxycycline 2x per day for 10 days stop the zithromax rest see klaus ly this week for a recheck return for worsening breathing or worsening symptoms otc pain meds as needed Problem Qualifiers
[2018-01-04 12:51] LABS: BASO % 0.2 %; BASO ABS # 0.01 K/uL (0-0.2); HEMATOCRIT 38.8 % (37-47); HEMOGLOBIN 13.2 g/dL (12.0-16.0); IG# 0.01 K/uL (0.00-0.02); LYMPH ABS # 1.86 K/uL (1.2-3.4); MEAN CELL VOLUME 92.2 fL (80-100); MEAN CORPUSCULAR HEMOGLOBIN 31.4 pg (25-34); MEAN PLATELET VOLUME 9.6 fL (7.4-10.4); MONO % 5.6 %; MONO ABS # 0.35 K/uL (0.11-0.59); NEUT ABS # 3.98 K/uL (1.4-6.5); PLATELET COUNT 170 K/uL (130-400); RED CELL DISTRIBUTION WIDTH CV 12.7 % (11.5-14.5); RED CELL DISTRIBUTION WIDTH SD 42.9 fL (36.4-46.3); WHITE BLOOD COUNT 6.21 K/uL (4.8-10.8)
[2018-01-04 13:07] LABS: ALBUMIN 3.7 gm/dl (3.4-5.0); ALT/SGPT 26 U/L (12-78); BLOOD UREA NITROGEN 11 mg/dl (7-18); CALCIUM 8.2 mg/dl (8.5-10.1); CARBON DIOXIDE 26 mmol/L (21-32); CREATININE 1.01 mg/dl (0.60-1.20); GLUCOSE 125 mg/dl (70-99); POTASSIUM 3.7 mmol/L (3.5-5.1); SODIUM 137 mmol/L (136-145)
[2018-01-04 13:12] LABS: ALKALINE PHOSPHATASE 68 U/L (45-117); AST/SGOT 25 U/L (15-37); TOTAL PROTEIN 7.1 gm/dl (6.4-8.2)
[2018-01-04 14:10] LABS: INFLUENZA A PCR Neg for Influ A (NEG); INFLUENZA B PCR Neg for Influ B (NEG)
--- NOTE | 2018-01-04 15:17 | DIAGNOSTIC IMAGING REPORT ---
ABDOMEN AND PELVIS CT WITH IV AND ORAL CONTRAST CT DOSE: 280.81 mGy.cm HISTORY: Acute generalized abdominal pain ABDOMINAL PAIN/GI--?DIVERTICULITIS--GIVE PO AND IV CONTRAST TECHNIQUE: Multiaxial CT images of the abdomen and pelvis were performed following the use of intravenous and oral contrast. A dose lowering technique was utilized adhering to the principles of ALARA. COMPARISON STUDY: CT abdomen and pelvis 02/28/2016 FINDINGS: Moderate bronchial wall thickening with areas of mucous plugging and subsegmental tree-in-bud nodularity within the imaged basal lower lobes. Linear subsegmental associated atelectasis without lobar airspace consolidation identified. There is no pneumatosis or pneumoperitoneum identified. Imaged inferior cardiac chambers are unremarkable. Gallbladder, liver, spleen, pancreas and adrenal glands are within normal limits. Kidneys, ureters and urinary bladder are within normal limits. Prior hysterectomy. No adnexal mass lesions. Mild to moderate atherosclerosis of the aorta without aneurysm. No pathologic adenopathy identified. Small sliding-type hiatal hernia. No bowel obstruction or focal bowel wall thickening. Nondistention of the sigmoid and descending colon. Mural fibrofatty changes of the terminal ileum redemonstrated. Prior appendectomy. Soft tissues are unremarkable. Bones appear intact. IMPRESSION: 1. No acute intra-abdominal or intrapelvic abnormality identified, no bowel obstruction or focal bowel wall thickening. 2. Partially imaged moderate bronchial wall thickening with areas of mucous plugging and subsegmental tree-in-bud nodularity within the imaged basal lower lobes is compatible with infectious or inflammatory bronchitis and bronchiolitis. 3. Prior appendectomy. Electronically signed by: Konrad Hunter M.D. 01/04/2018 3:16 PM Dictated Date/Time: 01/04/2018 3:09 PM
[2018-01-04] MEDS ORDERED: DOXYCYCLINE HYCLATE 100 MG CAP PO ONE (15:45)
[2018-01-04] MEDS ORDERED: DOXY100C PO (15:50)
[2018-01-04 15:54] VITALS: BP 105/59; PULSE 87; TEMP 37.3; O2SAT 95
== END 2018-01-04 15:55 | disposition home or self-care (01) ==
LOC: C.EDB 12:02
DX: J44.0 Chronic obstructive pulmonary disease with (acute) lower respiratory infection (principal); J20.9 Acute bronchitis, unspecified; J44.1 Chronic obstructive pulmonary disease with (acute) exacerbation; R10.30 Lower abdominal pain, unspecified; K50.90 Crohn's disease, unspecified, without complications; F17.200 Nicotine dependence, unspecified, uncomplicated; F31.9 Bipolar disorder, unspecified; K21.9 Gastro-esophageal reflux disease without esophagitis; E03.9 Hypothyroidism, unspecified; Z79.51 Long term (current) use of inhaled steroids; Z88.6 Allergy status to analgesic agent; Z83.3 Family history of diabetes mellitus; Z82.49 Family history of ischemic heart disease and other diseases of the circulatory system; Z84.1 Family history of disorders of kidney and ureter

== ENCOUNTER 2024-10-19 09:01 | Inpatient (IN) ==
[2024-10-19 10:02] LABS: Basophils # (auto) 0.02 K/uL (0.00-0.20); Basophils % (auto) 0.3 %; Eosinophils # (auto) 0.01 K/uL (0.00-0.50); Eosinophils % (auto) 0.2 %; Hematocrit (blood only) 41.3 % (37.0-47.0); Hemoglobin 13.4 g/dl (12.0-16.0); Immature Granulocytes # (auto) 0.02 K/uL (0.01-0.20); Immature Granulocytes % (auto) 0.3 %; Lymphocytes # (auto) 0.81 K/uL (1.20-3.40); Lymphocytes % (auto) 13.1 %; Mean Corpuscular Hemoglobin 30.6 pg (25.0-34.0); Mean Corpuscular Hgb Conc 32.4 g/dL (32.0-36.0); Mean Corpuscular Volume 94.3 fL (80.0-100.0); Mean Platelet Volume 9.5 fL (9.4-12.4); Monocytes # (auto) 0.46 K/uL (0.11-0.59); Monocytes % (auto) 7.4 %; Neutrophils # (auto) 4.87 K/uL (1.40-6.50); Neutrophils % (auto) 78.7 %; Platelet Count 250 K/uL (130-400); RDW Coefficient of Variation 12.8 % (11.5-14.5); RDW Standard Deviation 44.3 fL (36.4-46.3); Red Blood Count 4.38 M/uL (4.20-5.40); White Blood Count 6.19 K/ul (4.8-10.8)
--- NOTE | 2024-10-19 10:05 | XRay Report ---
XR chest 1V portable CLINICAL HISTORY: weakness COMPARISON STUDY: Chest CT March 24, 2020. Chest radiograph September 29, 2023. FINDINGS: Postoperative findings within the spine are incidentally noted. Lung volumes are normal. [place] ngs are clear. There is no pneumothorax or pleural effusion. Cardiac size is normal. Mediastinal cont ours are normal. There is no evidence for pulmonary edema. IMPRESSION: No acute cardiopulmonary findings. ACT 112: Negative or not required by law. Electronically signed by: Enio Tolliver M.D. 10/19/2024 10:04 AM
[2024-10-19 10:09] LABS: Albumin Globulin Ratio 1.3 (0.9-2); Albumin Level 4.3 gm/dl (3.4-5.0); Bilirubin,Total 0.3 mg/dl (0.2-1.0); Calcium 8.8 mg/dl (8.6-10.3); Creatinine Clr Calc Pharmacy 48.3 ml/min; Globulin 3.4 gm/dl (2.5-4.0); Magnesium 1.9 mg/dl (1.7-2.4); Potassium 3.9 mmol/L (3.5-5.1); Total Protein 7.7 gm/dl (6.0-8.3)
[2024-10-19 10:16] LABS: Troponin I High Sensitivity 3.5 pg/ml (0-14)
[2024-10-19 10:25] LABS: Thyroid Stimulating Hormone 0.737 uIu/ml (0.300-4.500)
[2024-10-19] MEDS: methylPREDNISolone 125 MG/2 ML VIAL IV STA (10:29)
[2024-10-19] MEDS: ALBUT/IPRATROP 3MG/0.5MG NEB 3 ML VIAL NEB STA (10:29)
--- NOTE | 2024-10-19 10:34 | CT Scan Report ---
CT lumbar spine wo con CLINICAL HISTORY: L low back pain, L sciatica TECHNIQUE: Multidetector row helical CT of the lumbar spine was performed without administration of i ntravenous contrast. Coronal and sagittal reformations were obtained. Automated dose lowering techniq ues and/or adjustment according to patient size were utilized for this exam. CT DOSE: 742.73 mGy.cm Comparison: None available at the time of this dictation. FINDINGS: For counting purposes, the last complete intervertebral disc space is considered L5-S1. No acute fractures are identified. Vertebral body heights and disk spaces are well maintained. Verteb ral body alignment is within normal limits. Surrounding soft tissues are unremarkable. IMPRESSION: No evidence of acute bony injury. ACT 112: Negative or not required by law. Electronically signed by: Jerardo Hsu M.D. 10/19/2024 10:32 AM
[2024-10-19 10:41] LABS: Adenovirus PCR Not Detected (NotDetected); Bordetella parapertussis PCR Not Detected (NotDetected); Bordetella pertussis PCR Not Detected (NotDetected); Chlamydia pneumoniae PCR Not Detected (NotDetected); Coronavirus 229E PCR Not Detected (NotDetected); Coronavirus CoV-2 (COVID19)PCR DETECTED (NotDetected); Coronavirus HKU1 PCR Not Detected (NotDetected); Coronavirus NL63 PCR Not Detected (NotDetected); Coronavirus OC43PCR Not Detected (NotDetected); Human Metapneumovirus PCR Not Detected (NotDetected); Influenza A (H3) PCR DETECTED (NotDetected); Influenza B PCR Not Detected (NotDetected); Mycoplasma pneumoniae PCR Not Detected (NotDetected); Parainfluenza Virus 1 PCR Not Detected (NotDetected); Parainfluenza Virus 2 PCR Not Detected (NotDetected); Parainfluenza Virus 3 PCR Not Detected (NotDetected); Parainfluenza Virus 4 PCR Not Detected (NotDetected); Respiratory Syncytial VirusPCR Not Detected (NotDetected); Rhinovirus/Enterovirus PCR Not Detected (NotDetected)
--- OUTSIDE RECORDS SUMMARY | 2024-10-19 10:50 | External Medical Summary | Summary of Care ---
Author Name Unknown Organization [facility] Address [address] [place] [address] Phone [phone] Care Team Providers Care Mathematics Instructor Name Role Phone Smiley Travis MD Primary Care Pr ovider Reason for Visit * Reason Onset Date Comments Advice 10/13/2024 Encounter Details Date Type Department Care Team (Late st Contact Info) Description 10/13/2024 Telephone Hematology/Oncology [facility] [place] [address] [facility] [place] [address] Services, Scheduling [address] [place] [address] Advice Allergies Active Allergy Reactions Criticality Noted Date Comments Kiwi Extract High 01/05/2020 Almost anaphylaxis Other reaction(s): hives, rash, swelling of throat and lips Other Reaction(s): Shortness of Breath Gastrointestinal, Shortness of Breath Gastrointestinal Oxycodone High 08/08/2021 Other reaction(s): FACE ITCHY Oxycodone-Acetaminophen High 01/03/2016 Other reaction(s): itchy Oxycodone-Acetaminophen 02/28/2009 itchy Pneumococcal Vaccine 08/08/2021 Other reaction(s): unknown Pneumococcal 13-Carey Conj Vacc 12/16/2017 Sore arm,"deathly sick" Had all the side effects documented as of this encounter (statuses as of 10/13/2024) Medications EPINEPHrine 0.15 MG/0.3ML Injection Solution Auto-injector Inject 0.15 mg into a large muscle as needed for Anaphylaxis (severe allergic reaction). For a severe reaction: Inject in outer thigh following instructions on package and go to the Emergency room. Active Cyanocobalamin (VITAMIN B-12) 1000 MCG Tablet Take 1 Tab by mouth daily. 30 Tab 5 03/03/20 20 Active Cholecalciferol (VITAMIN D-3) 25 MCG (1000 UT) Capsule Take 3 Capsules by mouth in the morning. Active Aspirin 81 MG Oral Tablet Delayed Release Take 1 Tablet by mouth at bedtime. Active inFLIXimab 100 MG Intravenous Solution Reconstituted (Remicade) Infuse 160mg via IV weeks 0, 2, 6, then every 8 weeks. 2 Each 7 09/20/20 21 Active Ondansetron HCl 4 MG Oral Tablet Take 1 Tablet by mouth every 6 hours as needed for Nausea. 30 Tablet 11/15/19 24 Active Ventolin HFA 108 (90 Base) MCG/ACT Inhalation Aerosol Solution Inhale 2 Puffs by mouth every 4 hours as needed for Cough, Shortness of Breath or Wheezing. 18 g 3 01/02/20 24 Active Levothyroxine Sodium 75 MCG Oral Tablet (Levoxyl)Indicatio ns:Acquired hypothyroidism TAKE ONE TABLET BY MOUTH EVERY DAY at least 30 minutes before breakfast or other medications 90 Tablet 3 06/25/20 24 Active Pantoprazole Sodium 40 MG Oral Tablet Delayed Release (Protonix)Indicati ons:GERD (gastroesophageal reflux disease) TAKE ONE TABLET BY MOUTH EVERY DAY 90 Tablet 3 07/09/20 24 Active Montelukast Sodium 10 MG Oral Tablet (Singulair)Indicat ions:Postinflammat ory pulmonary fibrosis (HCC) TAKE ONE TABLET BY MOUTH AT BEDTIME 90 Tablet 3 07/14/20 24 Active Spiriva Respimat 2.5 MCG/ACT Inhalation Aerosol SolutionIndication s:COPD, severity to be determined (HCC) Inhale 2 Puffs by mouth daily. 4 g 5 08/05/20 24 Active Fluticasone Furoate-Vilanterol 100-25 MCG/ACT Inhalation Aerosol Powder Breath Activated (BREO ellipta) Inhale 1 Puff by mouth in the morning. 60 Blister Dosing Unit 2 08/24/20 24 Active Cyclobenzaprine HCl 5 MG Oral Tablet (Flexeril)Indicati ons:Acute left-sided low back pain with left-sided sciatica Take 1 Tablet by mouth 3 times a day as needed for Pain or Muscle spasms. 30 Tablet 08/24/20 24 Active Fluticasone Propionate 50 MCG/ACT Nasal Suspension (Flonase)Indicatio ns:Nasal obstruction Administer 2 Sprays into each nostril in the morning. 9.9 mL 1 08/24/20 Active Naproxen 500 MG Oral Tablet (Naprosyn)Indicati ons:Acute left-sided low back pain with left-sided sciatica TAKE ONE TABLET BY MOUTH TWICE A DAY NEEDED FOR PAIN. TAKE WITH FOOD. 90 Tablet 08/24/20 Active buPROPion HCl ER (SR) 150 MG Oral Tablet Extended Release 12 Hour (Wellbutrin SR)Indications:Bip olar 1 disorder (HCC) take 1 tablet by mouth in the morning and before bedtime. 60 Tablet 1 09/02/20 Active ALPRAZolam 0.5 MG Oral Tablet (xaNAX)Indications :Persistent insomnia,Anxiety Take 1 Tablet by mouth at bedtime as needed for Sleep. 30 Tablet 09/23/20 Active Estradiol 1 MG Oral Tablet (Estrace)Indicatio ns:Menopause TAKE ONE TABLET BY MOUTH IN THE MORNING 90 Tablet 10/05/20 Active documented as of this encounter (statuses as of 10/13/2024) Active Problems Problem Noted Date Diagnosed Date Gastroesophageal reflux disease 09/14/2024 Left cervical radiculopathy 09/14/2024 Cervical spinal cord compression 09/14/2024 Hot flash, menopausal 04/20/2024 COPD, group B, by GOLD 2017 classification 03/09 Overview: Per COPD GOLD Classification Crohn's disease of small intestine without compl ication 09/20/2021 Stage 3a chronic kidney disease 09/05/2020 Overview: Per CKD protocol - Per CKD protocol Persistent insomnia 07/23/2016 Alcohol abuse, in remission 05/05/2015 Menopause 01/07/2014 Bipolar 1 disorder 09/10/2005 Overview (10/23/2005): Dr Castro, on Lamictal, Seroquel, Zoloft Thrombosed external hemorrhoids 07/20/2003 Hypoactive sexual desire disorder 02/12/2001 REG ENTERIT SM-LG INTEST Postinflammatory pulmonary fibrosis Acquired hypothyroidism Tobacco use disorder Tattoo Overview (12/07/2013): low back Borderline personality disorder Nasal polyps documented as of this encounter (statuses as of 10/13/2024) Resolved Problems Problem Noted Date Diagnosed Date Resolved Date COPD, group A, by GOLD 2017 classification 03/04/2023 03/11/2024 Overview: Per COPD GOLD Classification Digital mucinous cyst of finger of left hand 2 06/25/2022 Acute bronchitis 04/14/2021 06/25/2022 Kidney disease, chronic, sta ge III (GFR 30-59 ml/min) 08/08/2020 09/08/2020 Overview: Per CKD protocol Encounter for medication refill 11/04/2018 06/25/2022 COPD exacerbation 07/30/2018 03/02/2020 COPD (chronic obstructive pulmonary disease) 6 03/06/2023 Overview: Per COPD GOLD Classification Benign neoplasm of colon 11/12/201303/2020 Overview (11/13/2013): 3 mm rectal sessile polyp Alcohol abuse, episodic 03/28/2011 07/0 06/2015 Overview (08/20/2011): DUI Asthma with severity to be determined 04/20/2010 10/14/2013 Overview (02/06/2016): Per Asthma Taxonomy ICD-10 update of inactive term Anal fissure 07/20/2003 12/16/2017 Asthma exacerbation 04/20/20 10 Regional enteritis 4 documented as of this encounter (statuses as of 10/13/2024) Immunizations Name Administration Dates Next Due PPD 10/07/2021,08/01/2016,02/05/2014 Pneumococcal Polysaccharide PPV23 (Pneumovax) 05/04/2015 TDAP, Age 7 and older, IM (Adacel) 05/12/2020, documented as of this encounter Social History Tobacco Use Types Packs/Day Years Used Date Smoking Tobacco: Every Day Cigarettes 1 49 Started: 1975 Smokeless Tobacco: Never Comments:18. Less than 1 ppd 09/20 Alcohol Use Standard Drinks/Week Comments No 0 (1 standard drink = 0.6 oz pure alcohol) had DUI 03/2011. 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 * Telephone Encounter - Luisa Montez OSA - 10/13/2024 9:46 AM EST Patient needs treatment for 10/26 rescheduled for a Saturday late morning. Asks that you just notify her via MyG documented in this encounter Plan of Treatment Upcoming Encounters Date Type Department Care Team (Late st Contact Info) Description 11/02/2024 9:30 AM EST Hem/Onc Treatment Hematology/Oncology Treatment, [address] [place] [phone] Tamia, Chair 7 Hem Onc [facility] [address] [facility] [place] [address] 11/09/2024 2:30 PM EST Imaging Radiology [address] [place] [address] 12/14/2024 12:40 PM EST Office Visit Family Medicine [address] [place] [phone] Randal Franco MD [address] [place] [address] [place] [address] 12/21/2024 2:40 PM EST Office Visit Family Medicine [address] [place] [phone] Smiley Travis MD [address] [place] [address] [place] [phone] 01/27/2025 2:30 PM EDT Office Visit Gynecology/Obstetrics [facility] [address] [facility] [place] [address] Faby Peralta CRNP [address] [place] [address] 03/08/2025 12:40 PM EDT Office Visit Pulmonary Medicine, [facility] [address] [facility] [place] [address] Mason Petersen MD [address] [place] [address] Scheduled Procedures Name Priority Associated Diagnoses Date/Ti me COLONOSCOPY FLEXIBLE PROXIMAL DIAGNOSTIC Recall Crohn's colitis (HCC) Health Maintenance Due Date Last Done Comments DISCUSS TOBACCO CESSATION (REFER TO SMARTSET #9190) 1964 COVID-19 Vaccine (#1) 1969 Zoster Vaccines (1 of 2) 1983 Cologuard 2009 Fecal Occult Blood Test 2009 Sigmoidoscopy 2009 Pneumococcal Vaccine: Pediatrics (0 to 5 Years) and At-Risk Patients (6 to 64 Years) (2 of 2 - PCV) 05/04/2016 05/04/2015 Colonoscopy 12/05/2022 12/05/2020, 0205/2021, 11/28/2018, Additional history exists Colorectal Cancer Screening 12/05/2022 Influenza Vaccine (FLU shot) (#1) 2024 Mammogram 09/30/2024 09/30/2023, 0 01/2023, 11/02/2021, Additional history exists GFR 10/20/2024 04/20/2024, 03/2023, 09/24/2022, Additional history exists Albumin/Creatinine Ratio 04/20/2025 024, 09/02/2023, 12/25/2021 TSH 04/20/2025 04/20/2024, 03/2023, 10/30/2021, Additional history exists CKD HGB USE SMARTSET 90180 09/14/202509/14, 09/14/2024, 09/02/2023, Additional history exists CKD PHOS USE SMARTSET 17100 09/14/202508/28, 09/02/2023, 04/26/2021 O2 ASSESSMENT COMPLETED IN PAST YEAR FOR COPD 09/14/2025 09/14/2024 Lipid Panel 04/20/2029 04/20/2024, 05/2019, 04/09/2014, Additional history exists DTap/Tdap Vaccines (3 - Td or Tdap) 05/12/2030 05/12/2020, 08/28/2007 RETIRED - COLONOSCOPY-EVERY 2 YRS AGES 18-100 Discontinued 12/05/2020, 12/05/2020, 11/28/2018, Additional history exists Lung Cancer Screening Completed 03/02/2024 , 10/08/2022, 03/17/2021, Additional history exists Alpha-1 Antitrypsin Completed 09/14/2024 HPV (Gardasil) Vaccine Aged Out No lo nger eligible based on patient's age to complete this topic MENINGOCOCCAL (MENACTRA/MENVEO) Aged Out No longer eligible based on patient's age to complete this topic documented as of this encounter Medical Devices Not on filedocumented as of this encounter Advance Directives Documents on File Type Date Recorded Patient Print Line Supervisor Expl anation Advance Directives and Living Will 04/02/2017 ADVANCE DIRECTIVE RELEASE OF RECS TO [employer] - Care Teams Mathematics Instructor Relationship Specialty Start Date End Date Smiley Travis MD [address] [place] [address] [place] [phone] PCP - General Family Medicine 08/24/24 documented as of this encounter
--- OUTSIDE RECORDS SUMMARY | 2024-10-19 10:50 | External Medical Summary | Summary of Care ---
Author Name Unknown Organization [facility] Address [address] [place] [address] Phone [phone] Care Team Providers Care Professor Of Theatre Name Role Phone Smiley Travis MD Primary Care Pr ovider Reason for Visit * Reason Onset Date Comments Scheduling 10/12/2024 Encounter Details Date Type Department Care Team (Late st Contact Info) Description 10/12/2024 Telephone Hematology/Oncology Treatment, [place] [address] [place] [address] Services, Scheduling [address] [place] [address] Scheduling Allergies Active Allergy Reactions Criticality Noted Date [...] as of this encounter (statuses as of 10/12/2024) Medications EPINEPHrine 0.15 MG/0.3ML Injection Solution Auto-injector [...] Pain or Muscle spasms. 30 Tablet 08/24/20 Active Fluticasone Propionate 50 MCG/ACT Nasal Suspension [...] as of this encounter (statuses as of 10/12/2024) Active Problems Problem Noted Date Diagnosed Date [...] as of this encounter (statuses as of 10/12/2024) Resolved Problems Problem Noted Date Diagnosed Date [...] as of this encounter (statuses as of 10/12/2024) Immunizations Name Administration Dates Next Due PPD [...] encounter Miscellaneous Notes * Telephone Encounter - Cole Garcia OSA - 10/12/2024 9:32 AM EST Left message * Telephone Encounter - Laurie Gray RN - 10/12/2024 9:27 AM EST Patient is scheduled for avsola ordered by Dr King. Ok to move back appt. * Telephone Encounter - Maylin Pereira OSA - 10/12/2024 9:16 AM EST Patient calling to reschedule infusion on 10/26 to be the week after. Patient would like late morning. Please advise and contact patient. Thank you documented in this encounter Plan of Treatment Upcoming Encounters Date Type Department Care Team (Late st Contact Info) Description 10/26/2024 10:30 AM EST Hem/Onc Treatment Hematology/Oncology Treatment, [place] [address] [place] [phone] Tamia, Chair 4 Hem Onc [facility] [address] [facility] [place] [address] 11/09/2024 2:30 PM EST Imaging Radiology [address] [place] [address] 12/14/2024 12:40 PM EST Office Visit Family Medicine [address] [place] [phone] Randal Franco MD [address] [place] [address] [place] [address] 12/21/2024 2:40 PM EST Office Visit [address] [place] [phone] Smiley [place] MD [address] [place] [address] [place] [phone] 01/27/2025 2:30 PM EDT Office Visit Gynecology/Obstetrics [facility] [address] [facility] [place] [address] Faby Peralta CRNP [address] [place] [address] 03/08/2025 12:40 PM EDT Office Visit Pulmonary Medicine, [facility] [address] [place] [address] [facility] [address] [facility] [address] Scheduled Procedures Name Priority Associated Diagnoses Date/Ti me COLONOSCOPY FLEXIBLE PROXIMAL DIAGNOSTIC Recall Crohn's colitis (HCC) Health Maintenance Due Date Last Done Comments DISCUSS TOBACCO CESSATION (REFER TO SMARTSET #5881) 1965 COVID-19 Vaccine (#1) 1969 Zoster Vaccines (1 of 2) 1983 Cologuard 2009 Fecal Occult Blood Test 2009 Sigmoidoscopy 2009 Pneumococcal Vaccine: Pediatrics (0 to 5 Years) and At-Risk Patients (6 to 64 Years) (2 of 2 - PCV) 05/04/2016 05/04/2015 Colonoscopy 12/05/2022 12/05/2020, 05/2021, 11/28/2018, Additional history exists Colorectal Cancer Screening 12/05/2022 Influenza Vaccine (FLU shot) (#1) 2024 Mammogram 09/30/2024 09/30/2023, 01/2023, 11/02/2021, Additional history exists GFR 10/20/2024 04/20/2024, 03/2023, 09/24/2022, Additional history exists Albumin/Creatinine Ratio 04/20/2025 024, 09/02/2023, 12/25/2021 TSH 04/20/2025 04/20/2024, 03/2023, 10/30/2021, Additional history exists CKD HGB USE SMARTSET 84162 09/14/202509/14, 09/14/2024, 09/02/2023, Additional history exists CKD PHOS USE SMARTSET 25797 09/14/202508/28, 09/02/2023, 04/26/2021 O2 ASSESSMENT COMPLETED IN [...] Documents on File Type Date Recorded Patient Ripsaw Operator Expl anation Advance Directives and Living Will 04/02/2017 ADVANCE DIRECTIVE RELEASE OF RECS TO [employer] - Care Teams Professor Of Theatre Relationship Specialty Start Date End Date Smiley Travis MD [address] [place] [address] [place] [phone] PCP - General Family Medicine 08/24/24 documented as of this encounter
--- OUTSIDE RECORDS SUMMARY | 2024-10-19 10:50 | External Medical Summary | Summary of Care ---
Author Name Unknown Organization [facility] Address [address] [place] [address] Phone [phone] Care Team Providers Care Stripper And Printer Name Role Phone Smiley [place] MD Primary Care Pr ovider Reason for Visit * Reason Onset Date Comments Scheduling 10/12/2024 Encounter Details Date Type Department Care Team (Late st Contact Info) Description 10/12/2024 Telephone Hematology/Oncology Treatment, [place] [address] [place] [address] Services, Scheduling [address] [place] [address] Scheduling Allergies Active Allergy Reactions Criticality Noted [...] as of this encounter (statuses as of 10/14/2024) Medications EPINEPHrine 0.15 MG/0.3ML Injection Solution Auto-injector [...] as of this encounter (statuses as of 10/14/2024) Active Problems Problem Noted Date Diagnosed Date [...] as of this encounter (statuses as of 10/14/2024) Resolved Problems Problem Noted Date Diagnosed Date [...] as of this encounter (statuses as of 10/14/2024) Immunizations Name Administration Dates Next Due PPD [...] encounter Miscellaneous Notes * Telephone Encounter - Gricel Sparrow OSA - 10/14/2024 8:40 AM EST Pt moved apt yesterday over to 11/02 * Telephone Encounter - Cole Garcia OSA - 10/13/2024 9:22 AM EST Left message x2 & MyG sent * Telephone Encounter - Cole Garcia OSA [...] 9:30 AM EST Hem/Onc Treatment H[facility]ology[facility]cology [facility] [place] [address] [facility] [phone] Tamia, Chair 7 Hem Onc [place] [address] [facility] [place] [address] 11/09/2024 2:30 PM EST Imaging Radiology [address] [place] [address] 12/14/2024 12:40 PM EST Office Visit Family Medicine [address] [place] [phone] Randal Franco MD [address] [place] [address] [place] [address] 12/21/2024 2:40 PM EST Office Visit Family Medicine [address] [place] [phone] Smiley [place] MD [address] [place] [address] [place] [phone] 01/27/2025 2:30 PM EDT Office Visit [facility]ne[facility] [place] [address] Faby Peralta CRNP [address] [place] [address] 03/08/2025 12:40 PM EDT Office Visit Pulmonary Medicine, [facility] [address] [place] [address] Mason Petersen MD [address] [facility] [place] [address] Scheduled Procedures Name Priority Associated Diagnoses Date/Ti me COLONOSCOPY FLEXIBLE PROXIMAL DIAGNOSTIC Recall Crohn's colitis (HCC) Health Maintenance Due Date Last Done Comments DISCUSS TOBACCO CESSATION (REFER TO SMARTSET #1616) 1964 COVID-19 Vaccine (#1) 1969 Zoster Vaccines [...] 11/02/2021, Additional history exists GFR 10/20/2024 04/20/2024, 0 03/2023, 09/24/2022, Additional history exists Albumin/Creatinine Ratio 04/20/2025 024, 09/02/2023, 12/25/2021 TSH 04/20/2025 04/20/2024, 0 03/2023, 10/30/2021, Additional history exists CKD HGB USE SMARTSET 67166 09/14/202509/14, 09/14/2024, 09/02/2023, Additional history exists CKD PHOS USE SMARTSET 13326 09/14/202508/28, 09/02/2023, 04/26/2021 O2 ASSESSMENT COMPLETED IN PAST YEAR FOR COPD 09/14/2025 09/14/2024 Lipid Panel 04/20/2029 04/20/2024, 07/0 05/2019, 04/09/2014, Additional history exists DTap/Tdap Vaccines [...] Documents on File Type Date Recorded Patient Stone Splitter Expl anation Advance Directives and Living Will 04/02/2017 ADVANCE DIRECTIVE RELEASE OF RECS TO [employer] - Care Teams Stripper And Printer Relationship Specialty Start Date End Date Smiley [place] MD [address] [place] [address] [place] [phone] PCP - General Family Medicine 08/24/24 documented as of this encounter
--- OUTSIDE RECORDS SUMMARY | 2024-10-19 10:50 | External Medical Summary | Summary of Care ---
Author Name Unknown Organization [facility] Address [address] [address] Phone [phone] Care Team Providers Care Stretcher Drier Operator Name Role Phone Smiley Travis MD Primary Care Pr ovider Reason for Visit * Reason Comments IV Therapy Avsola * Episode Based Medications (Routine) - Authorized Specialty Diagnoses / Procedures Referred By Ange young Referred To Contact Diagnoses Crohn's disease of small intestine without complication (HCC) Procedures [place] [facility] AVSOL[facility], 10 MG Ramoan King, DO [address] [place] [address] Phone: tel: fax: Hematology/Oncology Treatment, [place] DEPT CLOSED - [facility]10[facility]23 [address] [facility] [address] Phone: tel: fax: Referral ID Status Reason Start Date Expiration Date V isits Requested Visits Authorized [id number] Authorized 08/14/2024 08/14/2025 99 99 Encounter Details Date Type Department Care Team (Latest Contact Info) Description 08/31/2024 11:30 AM EST Hem/Onc Treatment Hematology/Oncology Treatment, [place] [address] [place] [address] Crohn's disease of small intestine without complication (HCC)* Allergies Active Allergy Reactions Criticality Noted Date [...] as of this encounter (statuses as of 10/07/2024) Medications EPINEPHrine 0.15 MG/0.3ML Injection Solution Auto-injector Inject 0.15 mg into a large muscle as needed for Anaphylaxis (severe allergic reaction). For a severe reaction: Inject in outer thigh following instructions on package and go to the Emergency room. Active Cyanocobalamin (VITAMIN B-12) 1000 MCG Tablet Take 1 Tab by mouth daily. 30 Tab 5 020 Active Cholecalciferol (VITAMIN D-3) 25 MCG (1000 UT) Capsule Take 3 Capsules by mouth in the morning. Active Aspirin 81 MG Oral Tablet Delayed Release Take 1 Tablet by mouth at bedtime. Active inFLIXimab 100 MG Intravenous Solution Reconstituted (Remicade) Infuse 160mg via IV weeks 0, 2, 6, then every 8 weeks. 2 Each 7 021 Active Ondansetron HCl 4 MG Oral Tablet Take 1 Tablet by mouth every 6 hours as needed for Nausea. 30 Tablet 024 Active Ventolin HFA 108 (90 Base) MCG/ACT Inhalation Aerosol Solution Inhale 2 Puffs by mouth every 4 hours as needed for Cough, Shortness of Breath or Wheezing. 18 g 3 024 Active Levothyroxine Sodium 75 MCG Oral Tablet (Levoxyl)Indicati ons:Acquired hypothyroidism TAKE ONE TABLET BY MOUTH EVERY DAY at least 30 minutes before breakfast or other medications 90 Tablet 3 024 Active Pantoprazole Sodium 40 MG Oral Tablet Delayed Release (Protonix)Indicat ions:GERD (gastroesophageal reflux disease) TAKE ONE TABLET BY MOUTH EVERY DAY 90 Tablet 3 024 Active Montelukast Sodium 10 MG Oral Tablet (Singulair)Indica tions:Postinflamm atory pulmonary fibrosis (HCC) TAKE ONE TABLET BY MOUTH AT BEDTIME 90 Tablet 3 Active Spiriva Respimat 2.5 MCG/ACT Inhalation Aerosol SolutionIndicatio ns:COPD, severity to be determined ([facility]) Inhale 2 Puffs by mouth daily. 4 g 5 Active Fluticasone Furoate-Vilantero l 100-25 MCG/ACT Inhalation Aerosol Powder Breath Activated (BREO ellipta) Inhale 1 Puff by mouth in the morning. 60 Blister Dosing Unit 2 Active Cyclobenzaprine HCl 5 MG Oral Tablet (Flexeril)Indicat ions:Acute left-sided low back pain with left-sided sciatica Take 1 Tablet by mouth 3 times a day as needed for Pain or Muscle spasms. 30 Tablet Active Fluticasone Propionate 50 MCG/ACT Nasal Suspension (Flonase)Indicati ons:Nasal obstruction Administer 2 Sprays into each nostril in the morning. 9.9 mL 1 Active Naproxen 500 MG Oral Tablet (Naprosyn)Indicat ions:Acute left-sided low back pain with left-sided sciatica TAKE ONE TABLET BY MOUTH TWICE A DAY NEEDED FOR PAIN. TAKE WITH FOOD. 90 Tablet Active buPROPion HCl ER (SR) 150 MG Oral Tablet Extended Release 12 Hour (Wellbutrin SR)Indications:Bi polar 1 disorder (HCC) take 1 tablet by mouth in the morning and before bedtime. 60 Tablet 3 024 2023 Discontinued Estradiol 1 MG Oral Tablet (Estrace)Indicati ons:Menopause TAKE ONE TABLET BY MOUTH IN THE MORNING 90 Tablet 024 2023 Discontinued ALPRAZolam 0.5 MG Oral Tablet (xaNAX)Indication s:Persistent insomnia,Anxiety TAKE ONE TABLET BY MOUTH AT BEDTIME NEEDED FOR SLEEP 30 Tablet 024 2023 Discontinued(R efill) documented as of this encounter (statuses as of 10/07/2024) Active Problems Problem Noted Date Diagnosed Date Hot flash, menopausal 04/20/2024 COPD, group B, [...] as of this encounter (statuses as of 10/07/2024) Resolved Problems Problem Noted Date Diagnosed Date [...] as of this encounter (statuses as of 10/07/2024) Immunizations Name Administration Dates Next Due PPD 10/07/2021,08/01/2016,02/05/2014 Pneumococcal Polysaccharide PPV23 (Pneumovax) 05/04/2015 TDAP, Age 7 and older, IM (Adacel) 05/12/2020, documented as of this encounter Social History Tobacco Use Types Packs/Day Years Used Date Smoking Tobacco: Every Day Cigarettes 1 46 Smokeless Tobacco: Never Comments:18. Less than 1 ppd 03/02/24. Alcohol Use Standard Drinks/Week Comments No 0 [...] on file Sexual Orientation Not on file documented as of this encounter Last Filed Vital Signs Vital Sign Reading Time Taken Comments Blood Pressure 122/80 08/31/2024 11:24 AM EST Pulse 77 08/31/2024 11:24 AM EST Temperature 36.2 C (97.1 F) 08/31/2024 1 1:24 AM EST Respiratory Rate 16 08/31/2024 11:2 4 AM EST Oxygen Saturation 90% 08/31/2024 11: 24 AM EST pt states this is baseline for her, denies SOB, no oxygen use at home Inhaled Oxygen Concentration - - Weight - - Height - - Body Mass Index - - documented in this encounter Nursing Notes * Chelsea Nguyen RN - 08/31/2024 2:48 PM EST Goals: Patient will remain free from injury. Possible barriers to meeting goals: ambulating with IV pole Stability of the patient: Moderately stable - low risk of patient condition declining or worsening Summary regarding today's goals: Met: patient remained free of harm today Patient tolerated treatment well without any acute issues or problems. Patient did not wish to stayfor 30 minute observation but is clinically stable. Patient left facility in stable condition and denied any further needs. * Chelsea Nguyen RN - 08/31/2024 11:25 AM EST Chair 8. IV inserted, no issues. Patient is feeling well today, no acute issues or complaints. Tolerating infusions without problemsor complications. Patient instructed on use of heat and massage functions where applicable. Patient shown how to operate the heat function of the chair and to alert nursing staff if the chair feels too warm. Patient instructed on the risk of potential perez while using the heat function. Safety and Risk for Injury Patient will remain free from injury. Ensure appropriate safety devices are available. Provide and maintain safe environment. documented in this encounter Plan of Treatment Upcoming Encounters Date Type Department Care Team (Late st Contact Info) Description 10/26/2024 10:30 AM EST Hem/Onc Treatment Hematology/Oncology Treatment, [place] [address] [facility] [phone] Tamia, Chair 4 Hem Onc Scenery [address] [place] [address] 11/09/2024 2:30 PM EST Imaging Radiology [address] [place] [address] 12/14/2024 12:40 PM EST Office Visit Family [address] [place] [phone] Randal Franco MD [address] [place] [address] [place] [address] 12/21/2024 2:40 PM EST Office Visit Family [address] [place] [phone] Smiley Travis MD [address] [place] [address] [place] [phone] 01/27/2025 2:30 PM EDT Office Visit Gynecology/Obstetrics [facility] [address] [facility] [place] [address] Faby Peralta CRNP [address] [facility] [address] 03/08/2025 12:40 PM EDT Office Visit Pulmonary Medicine, [facility] [address] [place] [address] Mason Petersen MD [address] [place] [address] Scheduled Procedures Name Priority Associated Diagnoses Date/Ti me COLONOSCOPY FLEXIBLE PROXIMAL DIAGNOSTIC Recall Crohn's colitis (HCC) Health Maintenance Due Date Last Done Comments DISCUSS TOBACCO CESSATION (REFER TO SMARTSET #3292) 1964 COVID-19 Vaccine (#1) 1969 Zoster Vaccines [...] 04/20/2025 024, 09/02/2023, 12/25/2021 TSH 04/20/2025 04/20/2024, 1103/2023, 10/30/2021, Additional history exists CKD HGB USE SMARTSET 65383 09/14/202509/14, 09/14/2024, 09/02/2023, Additional history exists CKD PHOS USE SMARTSET 40282 09/14/202508/28, 09/02/2023, 04/26/2021 O2 ASSESSMENT COMPLETED IN [...] Not on filedocumented as of this encounter Visit Diagnoses Diagnosis Crohn's disease of small intestine without complication (HCC)- [facility] enteritis of small intestine Screening mammogram for breast cancer documented in this encounter Administered Medications Inactive Administered Medications - up to 3 most recent administrations Medication Order MAR Action Action Date Dose Rate Site Acetaminophen (Tylenol) tab 650 mg 650 mg, Oral, ONCE, On 08/31/24 at 1230, For 1 dose, Maximum of 4 grams (4000 mg) per day.Indications:Crohn's disease of small intestine without complication (HCC) Given 08/31/2024 11:49 AM EST 650 mg inFLIXimab-axxq (Avsola) 270 mg in NSS 250 mL infusion 270 mg (rounded from 271 mg = 5 mg/kg 54.2 kg Treatment plan Recorded weight), Intravenous, Administer over 120 Minutes, 166.7% of original dose 3 mg/kg MUST BE INFUSED THROUGH A 0.22 MICRON FILTER Recommended Infusion Rates: Start at 10 mL/hr x 15 minutes VTBI = 2.5 mL Then 20 mL/hr x 15 minutes VTBI = 5 mL Then 40 mL/hr x 15 minutes VTBI = 10 mL Then 80 mL/hr x 15 minutes VTBI = 20 mL Then 150 mL/hr x 30 minutes VTBI = 75 mL Then 250 mL/hr for the remainder of infusion if tolerated VTBI = remaining volume, ONCE, 1 dose, On Sat08/31/24 at 1300Indications:Crohn's disease of small intestine without complication (HCC) Rate Change 08/31/2024 1:35 PM EST 250 mL/hr Rate Change 08/31/2024 1:06 PM EST 150 mL/hr Rate Change 08/31/2024 12:50 PM EST 80 mL/hr NSS infusion 500 mL, Intravenous, at 50 mL/hr, CONTINUOUS, Starting on Sat08/31/24 at 1230, Until Sat08/31/24 at 1854Indications:Crohn's disease of small intestine without complication (HCC) Start Infusion 08/31/2024 11:50 AM EST 500 mL 50 mL/hr documented in this encounter Advance Directives Documents on File Type Date Recorded 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
--- OUTSIDE RECORDS SUMMARY | 2024-10-19 10:50 | External Medical Summary | Summary of Care ---
Author Name Unknown Organization [facility] Address [address] [place] [address] Phone [phone] Care Team Providers Care Long Winder Tender Name Role Phone Smiley Travis MD Primary Care Pr ovider Reason for Visit * Reason Onset Date Comments Scheduling 10/12/2024 Encounter Details Date Type Department Care Team (Late st Contact Info) Description 10/12/2024 Telephone Hematology/Oncology Treatment, [place] [address] [place] [address] Services, Scheduling [address] [place] [address] Scheduling Allergies Active Allergy Reactions Criticality Noted [...] 10:30 AM EST Hem/Onc Treatment Hematology/Oncology Treatment, [place] [address] [facility] [place] [phone] Park, Chair 4 Hem Onc Scene [address] [facility] [address] 11/09/2024 2:30 PM EST Imaging Radiology [address] [place] [address] 12/14/2024 12:40 PM EST Office Visit Family [address] [phone] Randal Franco MD [address] [place] [address] [place] [address] 12/21/2024 2:40 PM EST Office Visit Family [address] [phone] Smiley Travis MD [address] [place] [address] [place] [phone] 01/27/2025 2:30 PM EDT Office Visit Gynecology/Obstetrics [facility] [address] [place] [address] Faby Peralta CRNP [address] [place] [address] 03/08/2025 12:40 PM EDT Office Visit [facility] [place] [address] Mason Petersen MD [address] [place] [address] Scheduled Procedures Name Priority Associated Diagnoses Date/Ti me COLONOSCOPY FLEXIBLE PROXIMAL DIAGNOSTIC Recall Crohn's colitis (HCC) Health Maintenance Due Date Last Done Comments DISCUSS TOBACCO CESSATION (REFER TO SMARTSET #3291) 1965 COVID-19 Vaccine (#1) 1969 Zoster Vaccines (1 of 2) 1983 Cologuard 2009 Fecal Occult Blood Test 2009 Sigmoidoscopy 2009 Pneumococcal Vaccine: Pediatrics (0 to 5 Years) and At-Risk Patients (6 to 64 Years) (2 of 2 - PCV) 05/04/2016 05/04/2015 Colonoscopy 12/05/2022 12/05/2020, 0 05/2021, 11/28/2018, Additional history exists Colorectal Cancer Screening 12/05/2022 Influenza Vaccine (FLU shot) (#1) 2024 Mammogram 09/30/2024 09/30/2023, 120 01/2023, 11/02/2021, Additional history exists GFR 10/20/2024 04/20/2024, 0 03/2023, 09/24/2022, Additional history exists Albumin/Creatinine Ratio 04/20/2025 024, 09/02/2023, 12/25/2021 TSH 04/20/2025 04/20/2024, 110 03/2023, 10/30/2021, Additional history exists CKD HGB USE SMARTSET 32044 09/14/202509/14, 09/14/2024, 09/02/2023, Additional history exists CKD PHOS USE SMARTSET 52360 09/14/202508/28, 09/02/2023, 04/26/2021 O2 ASSESSMENT COMPLETED IN [...] Documents on File Type Date Recorded Patient Ms Sql Server Developer Expl anation Advance Directives and Living Will 04/02/2017 ADVANCE DIRECTIVE RELEASE OF RECS TO [employer] - Care Teams Long Winder Tender Relationship Specialty Start Date End Date Smiley Travis MD [address] [place] [address] [place] [phone] PCP - General Family Medicine 08/24/24 documented as of this encounter
--- OUTSIDE RECORDS SUMMARY | 2024-10-19 10:51 | External Medical Summary | Summary of Care ---
Author Name Unknown Organization [facility] Address [address] [place] [address] Phone [phone] Care Team Providers Care Lease Administration Analyst Name Role Phone Smiley Travis MD Primary Care Pr ovider Reason for Referral * Ancillary Services (Within 10 days (routine)) - Authorized Specialty Diagnoses / Procedures Referred By Ange young Referred To Contact Gastroenterology Diagnoses Screen for colon cancer Smiley Travis MD [address] [place] [address] [place] [phone] Phone: tel: fax: Referral ID Status Reason Start Date Expiration Date Visits Requested Visits Authorized [id number] Authorized Ancillary Services Required 4 [phone] Question Answer Referral Priority Within 10 days (routine) Where should this appointment be scheduled? [facility] Comments ALERT: Do not order for pediatric patients (18 years or younger). Cancel off screen and order PEDS GASTROENTEROLOGY CONSULT (Type: 1 visit only-Evaluate and Treat) The following Pt. Instructions are available: - Gastro Colonoscopy Prep Instructions [[id number]] - Gastro Colonoscopy Prep Instructions (Angolan Version) [[id number]] Go to the Pt. Instructions section within the Visit Navigator to access. Colonoscopy ASGE Guidelines: Average risk screening (begin at age 50, 10 year intervals) and Management of inflammatory bowel disease ADDITIONAL INFORMATION 1. Is the patient on Coumadin? No 2. Is the patient on Pradaxa? No Reason for Visit * Reason Comments NEW PATIENT Former pt of Dr. Danya gimenez. Pt denies any concerns. Encounter Details Date Type Department Care Team (Latest Contact Info) Description 09/14/2024 2:40 PM EST Office Visit Family Medicine [facility] [place] [phone] Smiley Travis MD [address] [place] [address] [place] [phone] Crohn's disease of both small and large intestine without complication (HCC)*; COPD, group B, by GOLD 2017 classification (HCC); Stage 3a chronic kidney disease (HCC); Persistent insomnia; Screen for colon cancer; Encounter for screening mammogram for breast cancer; COVID-19 vaccination refused; Flu vaccine refused; Pneumococcal vaccination declined; Tobacco use disorder Allergies Active Allergy Reactions Criticality Noted Date [...] as of this encounter (statuses as of 09/14/2024) Medications EPINEPHrine 0.15 MG/0.3ML Injection Solution Auto-injector [...] medications 90 Tablet 3 06/25/20 24 Active Estradiol 1 MG Oral Tablet (Estrace)Indicatio ns:Menopause TAKE ONE TABLET BY MOUTH IN THE MORNING 90 Tablet 07/10/20 24 Active Pantoprazole Sodium 40 MG Oral [...] daily. 4 g 5 08/05/20 24 Active ALPRAZolam 0.5 MG Oral Tablet (xaNAX)Indications :Persistent insomnia,Anxiety TAKE ONE TABLET BY MOUTH AT BEDTIME NEEDED FOR SLEEP 30 Tablet 08/24/20 24 Active Fluticasone Furoate-Vilanterol 100-25 MCG/ACT Inhalation [...] before bedtime. 60 Tablet 1 09/02/20 Active documented as of this encounter (statuses as of 09/14/2024) Active Problems Problem Noted Date Diagnosed Date [...] as of this encounter (statuses as of 09/14/2024) Resolved Problems Problem Noted Date Diagnosed Date [...] as of this encounter (statuses as of 09/14/2024) Immunizations Name Administration Dates Next Due PPD 10/07/2021,08/01/2016,02/05/2014 Pneumococcal Polysaccharide PPV23 (Pneumovax) 05/04/2015 TDAP, Age 7 and older, IM (Adacel) 05/12/2020, documented as of this encounter Social History Tobacco Use Types Packs/Day Years Used Date Smoking Tobacco: Every Day Cigarettes 1 48.9 Started: 1975 Smokeless Tobacco: Never Tobacco Cessation:Ready to Q uit: No; Counseling Given: No Comments:18. Less than 1 ppd 09/20 Alcohol [...] Sign Reading Time Taken Comments Blood Pressure 132/70 09/14/2024 2:34 PM EST Pulse 76 09/14/2024 2:34 PM EST Temperature - - Respiratory Rate - - Oxygen Saturation 95% 09/14/2024 2:34 PM EST Inhaled Oxygen Concentration - - Weight 58.5 kg (129 lb) 09/14/2024 2:34 PM EST Height - - Body Mass Index 23.59 03/02/2024 2:51 PM EDT documented in this encounter Progress Notes * Smiley Travis MD - 09/14/2024 2:40 PM EST Images from the original note were not included. History of Present Illness Adriel Yin is a 59 year old female that presents for NEW PATIENT (Former pt of Dr. Ortiz. Pt denies any concerns.) Ascvd score (reviewed lipids, A1c, tsh, bmp) Crohns- on remicade, gets it every 8 weeks. Has kept it controlled. Declines vaccines as she didn't do well with the prevnar in the past. L middle finger had a cyst, now has some swelling. Takes xanax every night to go bed. If she doesn't have it, does feel sick. Discussed The 10-year ASCVD risk score (Moraima VENTURA, et al., 2019) is: 7.5% Values used to calculate the score: Age: 59 years Sex: Female Is Non- : No Diabetic: No Tobacco smoker: Yes Systolic Blood Pressure: 132 mmHg Is BP treated: No HDL Cholesterol: 62 mg/dL Total Cholesterol: 231 mg/dL Physical Exam BP 132/70 | Pulse 76 | Wt 58.5 kg (129 lb) | SpO2 95% | BMI 23.59 kg/m | BSA 1.6 m Physical Exam Vitals and nursing note reviewed. Constitutional: General: She is not in acute distress. HENT: Head: Normocephalic and atraumatic. Mouth/Throat: Mouth: Mucous membranes are moist. Eyes: Extraocular Movements: Extraocular movements intact. Neck: Thyroid: No thyromegaly. Comments: No supraclavicular adenopathy appreciated Cardiovascular: Rate and Rhythm: Normal rate and regular rhythm. Pulmonary: Breath sounds: Normal breath sounds. No wheezing or rhonchi. Abdominal: General: Bowel sounds are normal. There is no distension. Palpations: Abdomen is soft. Tenderness: There is no abdominal tenderness. Musculoskeletal: General: Normal range of motion. Right hand: Swelling and deformity (DIP joint swelling and nodules bilaterally) present. Left hand: Swelling and deformity present. Cervical back: Normal range of motion and neck supple. Right lower leg: No edema. Left lower leg: No edema. Lymphadenopathy: Cervical: No cervical adenopathy. Skin: General: Skin is warm and dry. Findings: No lesion or rash. Neurological: General: No focal deficit present. Mental Status: She is alert and oriented to person, place, and time. Psychiatric: Mood and Affect: Mood normal. Behavior: Behavior normal. I have reviewed most recent labs BMP results Recent Labs Units 04/20/24 1023 09/02/23 1426 09/24/22 1047 SODIUM - [facility] mmol/L 140 140 140 POTASSIUM - [facility] mmol/L 4.2 4.3 4.1 CHLORIDE - [facility] mmol/L 104 101 101 CO2 - [facility] mmol/L 26 30 31 CREATININE - [facility] mg/dL 1.1* 1.2* 1.1* BUN - [facility] mg/dL 22* 18 21* Lipid panel results Recent Labs Units 04/20/24 1023 CHOLESTEROL - [facility] mg/dL 231* HDL CHOLESTEROL - [facility] mg/dL 62 TRIGLYCERIDES - [facility] mg/dL 99 HbA1c results Recent Labs Units 04/20/24 1023 HEMOGLOBIN A1C - [facility] % 5.5 TSH results Recent Labs Units 04/20/24 1023 09/02/23 1426 TSH - [facility] uIU/mL 2.25 2.72 Assessment and Plan Crohn's disease of both small and large intestine without complication (HCC) On Remicade, controlled per patient. Follows with GI. Is due for colonoscopy for monitoring and colon cancer screening, ordered today - CBC WITH WBC DIFFERENTIAL; Future - PHOSPHORUS; Future COPD, group B, by GOLD 2017 classification (HCC) On albuterol, breo, and Spiriva. Check alpha-1 antitrypsin level as well. - [id number], QN; Future - CBC WITH WBC DIFFERENTIAL; Future Stage 3a chronic kidney disease (HCC) Check CBC and phosphorus at this time. Recent EGFR less than 60 - CBC WITH WBC DIFFERENTIAL; Future - PHOSPHORUS; Future Persistent insomnia Currently takes Xanax every night for sleep. Discussed returning for discussion of insomnia and alternative medications, as Xanax is not a great chronic medication Screen for colon cancer Screening colonoscopy Ordered - COLONOSCOPY, GI REFERRAL OP Encounter for screening mammogram for breast cancer Patient has an order for a mammogram, encouraged to schedule COVID-19 vaccination refused; Flu vaccine refused; Pneumococcal vaccination declined Patient declines all vaccinations that are recommended due to a history of poor reaction to a prevnar in the past Tobacco use disorder Significant smoking history. Patient declines cessation counseling at this time. Wrap-Up Follow Up: Return in about 3 months (around 12/15/2024) for discuss sleep. | For: discuss sleep | Check-out note: Please cancel her upcoming ENT appointment per pt request; Please help schedule mammo Time: I spent a total of 30-39 minutes (exact time 32 mins) on the date of service in preparation, delivery, and documentation of the care provided to Adriel Yin excluding any time spent in the performance of separately billed services. documented in this encounter Plan of Treatment Upcoming Encounters Date Type Department Care Team (Late st Contact Info) Description 10/26/2024 10:30 AM EST Hem/Onc Treatment Hematology/Oncology Treatment, [place] [address] [facility] [place] [phone] Tamia, Chair 4 Hem Onc Scene [address] [facility] [place] [address] 11/09/2024 2:30 PM EST Imaging Radiology [address] [place] [address] 12/14/2024 12:40 PM EST Office Visit Family [address] [place] [phone] Randal Franco MD [address] [place] [address] [place] [address] 12/21/2024 2:40 PM EST Office Visit [address] [place] [phone] Smiley Travis MD [address] [place] [address] [place] [phone] 01/27/2025 2:30 PM EDT Office Visit Gynecology/Obstetrics [facility] [place] [address] BackFaby patterson CRNP [address] [facility] [place] [address] 03/08/2025 12:40 PM EDT Office Visit Pulmonary Medicine, [facility] [address] [facility] [place] [address] Mason Petersen MD [facility] S Counts Include [facility] [address] Pending Results Name Type Priority Associated Diagnoses Date /Time [id number], QN Lab Routine COPD, group B, by GOLD 2017 classification ([facility]) 09/14/2024 3:08 PM EST CBC WITH WBC DIFFERENTIAL Lab Routine Crohn's disease of both small and large intestine without complication (HCC) COPD, group B, by GOLD 2017 classification ([facility]) Stage 3a chronic kidney disease ([facility]) 09/14/2024 3:08 PM EST PHOSPHORUS Lab Routine Crohn's disease of both small and large intestine without complication (HCC) Stage 3a chronic kidney disease ([facility]) 09/14/2024 3:08 PM EST Scheduled Orders Name Type Priority Associated Diagnoses Orde r Schedule [id number], QN Lab Routine COPD, group B, by GOLD 2017 classification (HCC) Expected: 09/14/2024 (Approximate), Expires: 09/14/2025 CBC WITH WBC DIFFERENTIAL Lab Routine Crohn's disease of both small and large intestine without complication (HCC) COPD, group B, by GOLD 2017 classification (HCC) Stage 3a chronic kidney disease (HCC) Expected: 09/14/2024 (Approximate), Expires: 09/14/2025 PHOSPHORUS Lab Routine Crohn's disease of both small and large intestine without complication (HCC) Stage 3a chronic kidney disease (HCC) Expected: 09/14/2024 (Approximate), Expires: 09/14/2025 Scheduled Procedures Name Priority Associated Diagnoses Date/Ti me COLONOSCOPY FLEXIBLE PROXIMAL DIAGNOSTIC Recall Crohn's colitis (HCC) Scheduled Referrals Name Type Priority Associated Diagnoses Orde r Schedule COLONOSCOPY, GI REFERRAL OP Referral Within 10 days (routine) Screen for colon cancer Ordered: 09/14/2024 Health Maintenance Due Date Last Done Comments DISCUSS TOBACCO CESSATION (REFER TO SMARTSET #3291) 1964 COVID-19 Vaccine (#1) 1969 Alpha-1 Antitrypsin 1982 Zoster Vaccines (1 of 2) 1983 Cologuard 2009 Fecal Occult Blood Test 2009 Sigmoidoscopy 2009 Pneumococcal Vaccine: Pediatrics (0 to 5 Years) and At-Risk Patients (6 to 64 Years) (2 of 2 - PCV) 05/04/2016 05/04/2015 Colonoscopy 12/05/2022 12/05/2020, 05/2021, 11/28/2018, Additional history exists Colorectal Cancer Screening 12/05/2022 Influenza Vaccine (FLU shot) (#1) 2024 CKD HGB USE SMARTSET 64094 09/02/202409/02, 09/24/2022, 09/24/2022, Additional history exists CKD PHOS USE SMARTSET 10740 09/02/2024 09/02/2023, 0 04/26/2021 Mammogram 09/30/2024 09/30/2023, 01/2023, 11/02/2021, Additional history exists GFR 10/20/2024 04/20/2024, 03/2023, 09/24/2022, Additional history exists Albumin/Creatinine Ratio 04/20/2025 024, 09/02/2023, 12/25/2021 TSH 04/20/2025 04/20/2024, 03/2023, 10/30/2021, Additional history exists O2 ASSESSMENT COMPLETED IN PAST YEAR FOR COPD 09/14/2025 09/14/2024 Lipid Panel 04/20/2029 04/20/2024, 05/2019, 04/09/2014, Additional history exists DTap/Tdap Vaccines (3 - Td or Tdap) 05/12/2030 05/12/2020, 08/28/2007 RETIRED - COLONOSCOPY-EVERY 2 YRS AGES 18-100 Discontinued 12/05/2020, 12/05/2020, 11/28/2018, Additional history exists Lung Cancer Screening Completed 03/02/2024 , 10/08/2022, 03/17/2021, Additional history exists HPV (Gardasil) Vaccine Aged Out No lo nger eligible based on patient's age to complete this topic MENINGOCOCCAL (MENACTRA/MENVEO) Aged Out No longer eligible based on patient's age to complete this topic documented as of this encounter Medical Devices Not on filedocumented as of this encounter Visit Diagnoses Diagnosis Crohn's disease of both small and large intestine without complication (HCC)- Primary Regional enteritis of small intestine with large intestine COPD, group B, by GOLD 2017 classification (HCC) Stage 3a chronic kidney disease (HCC) Persistent insomnia Persistent disorder of initiating or maintaining sleep Screen for colon cancer Special screening for malignant neoplasms, colon Encounter for screening mammogram for breast cancer COVID-19 vaccination refused Flu vaccine refused Pneumococcal vaccination declined Tobacco use disorder Screening mammogram for breast cancer documented in this encounter Advance Directives Documents on File Type Date Recorded Patient Manager Of Software Expl anation Advance Directives and Living Will 04/02/2017 ADVANCE DIRECTIVE RELEASE OF RECS TO [employer] - Care Teams Lease Administration Analyst Relationship Specialty Start Date End Date Smiley Travis MD [address] [place] [address] [place] [phone] PCP - General Family Medicine 08/24/24 documented as of this encounter
--- OUTSIDE RECORDS SUMMARY | 2024-10-19 10:51 | External Medical Summary ---
Author Name Unknown Address Unknown Organization K01:[facility] [place] [address] [facility] [place] [address] Laboratory Report Ordering Provider Test Date Status FCO GUPTA 09/14/2024 15:08:20 Final Observation Date Value Abnormality Reference (Units ) Status SYNC LEUKOCYTES IN BLOOD BY AUTOMATED COUNT 09/14/2024 15:08:20 8.24 4.00-10.80 (K/uL) Final Segs 09/14/2024 15:08:20 49.8 40.0-75.0 (%) Final Lymphs % 09/14/2024 15:08:20 40.9 18.0-42.0 (%) Final Monos 09/14/2024 15:08:20 7.3 1.0-11.0 (%) Final Eosinophils 09/14/2024 15:08:20 1.1 0.0-6.0 (%) Final Basos 09/14/2024 15:08:20 0.7 0.0-2.0 (%) Final Immature Granulocyte, Percent 09/14/2024 15:08:20 0.2 0.0-2.0 (%) Final Absolute Segs 09/14/2024 15:08:20 4.10 1.80-7.70 (K/uL) Final Lymphs, absolute 09/14/2024 15:08:20 3.37 1.00-4.80 (K/ul) Final Monos, Abs 09/14/2024 15:08:20 0.60 0.00-1.10 (K/uL) Final Eos, Abs 09/14/2024 15:08:20 0.09 0.00-0.70 (K/uL) Final Basos, Abs 09/14/2024 15:08:20 0.06 0.00-0.20 (K/uL) Final Immature Granulocytes, Number 09/14/2024 15:08:20 0.02 0.00-0.20 (K/uL) Final Performing Location [facility] [place] [address] [facility] [address]
--- OUTSIDE RECORDS SUMMARY | 2024-10-19 10:51 | External Medical Summary | Summary of Care ---
Author Name Unknown Organization [facility] Address [address] [place] [address] Phone [phone] Care Team Providers Care Social Media Marketing Analyst Name Role Phone Candy Travis MD Primary Care Pr ovider Reason for Visit * Reason Comments eRx-Medication Refill Encounter Details Date Type Department Care Team (Late st Contact Info) Description 10/03/2024 Refill Family Medicine [address] [phone] Candy Travis MD [address] [place] [phone] Menopause Allergies Active Allergy Reactions Criticality Noted Date [...] as of this encounter (statuses as of 10/05/2024) Medications EPINEPHrine 0.15 MG/0.3ML Injection Solution Auto-injector [...] BY MOUTH AT BEDTIME 90 Tablet 3 024 Active Spiriva Respimat 2.5 MCG/ACT Inhalation Aerosol SolutionIndicatio ns:COPD, severity to be determined (HCC) Inhale 2 Puffs by mouth daily. 4 g 5 024 Active Fluticasone Furoate-Vilantero l 100-25 MCG/ACT Inhalation Aerosol Powder Breath Activated (BREO ellipta) Inhale 1 Puff by mouth in the morning. 60 Blister Dosing Unit 2 024 Active Cyclobenzaprine HCl 5 MG Oral Tablet (Flexeril)Indicat ions:Acute left-sided low back pain with left-sided sciatica Take 1 Tablet by mouth 3 times a day as needed for Pain or Muscle spasms. 30 Tablet 024 Active Fluticasone Propionate 50 MCG/ACT Nasal Suspension (Flonase)Indicati ons:Nasal obstruction Administer 2 Sprays into each nostril in the morning. 9.9 mL 1 024 Active Naproxen 500 MG Oral Tablet (Naprosyn)Indicat ions:Acute left-sided low back pain with left-sided sciatica TAKE ONE TABLET BY MOUTH TWICE A DAY NEEDED FOR PAIN. TAKE WITH FOOD. 90 Tablet 024 Active buPROPion HCl ER (SR) 150 MG Oral Tablet Extended Release 12 Hour (Wellbutrin SR)Indications:Bi polar 1 disorder (HCC) take 1 tablet by mouth in the morning and before bedtime. 60 Tablet 1 024 Active ALPRAZolam 0.5 MG Oral Tablet (xaNAX)Indication s:Persistent insomnia,Anxiety Take 1 Tablet by mouth at bedtime as needed for Sleep. 30 Tablet 024 Active Estradiol 1 MG Oral Tablet (Estrace)Indicati ons:Menopause TAKE ONE TABLET BY MOUTH IN THE MORNING 90 Tablet 024 Active Estradiol 1 MG Oral Tablet (Estrace)Indicati ons:Menopause TAKE ONE TABLET BY MOUTH IN THE MORNING 90 Tablet 024 2023 Discontinued documented as of this encounter (statuses as of 10/05/2024) Active Problems Problem Noted Date Diagnosed Date [...] as of this encounter (statuses as of 10/05/2024) Resolved Problems Problem Noted Date Diagnosed Date [...] as of this encounter (statuses as of 10/05/2024) Immunizations Name Administration Dates Next Due PPD 10/07/2021,08/01/2016,02/05/2014 Pneumococcal Polysaccharide PPV23 (Pneumovax) 05/04/2015 TDAP, Age 7 and older, IM (Adacel) 05/12/2020, documented as of this encounter Social History Tobacco Use Types Packs/Day Years Used Date Smoking Tobacco: Every Day Cigarettes 1 48.9 Started: 1975 Smokeless Tobacco: Never Comments:18. Less [...] encounter Miscellaneous Notes * Telephone Encounter - Candy Travis MD - 10/05/2024 1:08 PM ESTSigned Prescriptions: Disp Refills Estradiol 1 MG Oral Tablet (Estrace) 90 Tab*0 Sig: TAKE ONE TABLET BY MOUTH IN THE MORNING Authorizing Provider: CANDY TRAVIS * Telephone Encounter - Narda Ugarte [facility] - 10/05/2024 9:45 AM EST Pending Prescriptions: Disp Refills Estradiol 1 MG Oral Tablet [Pharmacy Med N*90 Tab*0 Sig: TAKE ONE TABLET BY MOUTH IN THE MORNING * Telephone Encounter - Narda Ugarte [facility] - 10/05/2024 9:45 AM EST Unable to authorize medication refills for pended medication(s) at this time. Part of the protocol criteria used for refill authorization was not satisfied. Patient needs mammogram; open order on file. Please approve if appropriate. Thank you, Elda PrakashD, FANTA Clinical Pharmacist [facility] ([facility]) 10/05/24 9:45 AM [phone] * Telephone Encounter - Interface, [facility] Inbound - 10/05/2024 6:04 AM EST Pending Prescriptions: Disp Refills Estradiol 1 MG Oral Tablet [Pharmacy Med N*90 Tab*0 Sig: TAKE ONE TABLET BY MOUTH IN THE MORNING documented in this encounter Plan of Treatment Upcoming Encounters Date Type Department Care Team (Late st Contact Info) Description 10/26/2024 10:30 AM EST Hem/Onc Treatment Hematology[facility] [place] [address] [facility] [phone] Tamia, Chair [address] [place] [address] 11/09/2024 2:30 PM EST Imaging Radiology [address] [place] [phone] 12/14/2024 12:40 PM EST Office Visit Family Medicine [address] [place] [phone] Randal Franco MD [address] [place] [address] [place] [address] 12/21/2024 2:40 PM EST Office Visit Family [address] [place] [phone] Candy Travis MD [address] [place] [address] [place] [phone] 01/27/2025 2:30 PM EDT Office Visit Gynecology/Obstetrics [facility] [address] [facility] [place] [address] Faby Peralta CRNP [address] [facility] [place] [address] 03/08/2025 12:40 PM EDT Office Visit [facility] [place] [address] Mason Petersen [facility] [address] [facility] [place] [address] Scheduled Procedures Name Priority Associated Diagnoses Date/Ti [...] Additional history exists CKD HGB USE SMARTSET 67874 09/14/202509/14, 09/14/2024, 09/02/2023, Additional history exists CKD PHOS USE SMARTSET 63068 09/14/202508/28, 09/02/2023, 04/26/2021 O2 ASSESSMENT COMPLETED IN [...] as of this encounter Visit Diagnoses Diagnosis Menopause Asymptomatic postmenopausal status (age-related) (natural) Screening mammogram for breast cancer documented in this encounter Advance Directives Documents on File Type Date Recorded Patient Data Modeling Architect Expl anation Advance Directives and Living Will 04/02/2017 ADVANCE DIRECTIVE RELEASE OF RECS TO [employer] - Care Teams Social Media Marketing Analyst Relationship Specialty Start Date End Date Candy Travis MD [address] [place] [address] [place] [phone] PCP - General Family Medicine 08/24/24 documented as of this encounter
--- OUTSIDE RECORDS SUMMARY | 2024-10-19 10:51 | External Medical Summary | Summary of Care ---
Author Name Unknown Organization [facility] Address [address] [facility] [address] Phone [phone] Care Team Providers Care Coyote Hunter Name Role Phone Smiley Travis MD Primary Care Pr ovider Reason for Visit * Reason Comments IV Therapy Avsola * Episode Based Medications (Routine) - Authorized Specialty Diagnoses / Procedures Referred By Ange young Referred To Contact Diagnoses Crohn's disease of small intestine without complication (HCC) Procedures UT INJ. AVSOLA, 10 MG Ramona King, DO [address] [place] [address] Phone: tel: fax: Hematology/Oncology Treatment, [place] DEPT CLOSED - 09/10/23 [facility] [address] Phone: tel: fax: Referral ID Status Reason Start Date Expiration Date V isits Requested Visits Authorized [id number] Authorized 08/14/2024 08/14/2025 99 99 Encounter Details Date Type Department Care Team (Latest Contact Info) Description 08/31/2024 11:30 AM EST Hem/Onc Treatment Hematology/Oncology Treatment, [place] [address] [place] [address] Crohn's disease of small intestine without [...] Aerosol SolutionIndicatio ns:COPD, severity to be determined ([facility]) Inhale 2 Puffs by mouth daily. 4 [...] 10:30 AM EST Hem/Onc Treatment Hematology/Oncology Treatment, [place] [facility] [phone] Tamia, Chair 4 Hem Onc Scenery [address] [place] [address] 11/09/2024 2:30 PM EST Imaging Radiology [address] [place] [address] 12/14/2024 12:40 PM EST Office Visit Family [address] [place] [phone] Randal Franco MD [address] [place] [address] [place] [address] 12/21/2024 2:40 PM EST Office Visit Family [address] [place] [phone] Smiley Travis MD [address] [place] [address] [place] [phone] 01/27/2025 2:30 PM EDT Office Visit Gynecology/Obstetrics [facility] [address] [facility] [place] [address] Faby Peralta CRNP [address] [place] [address] 03/08/2025 12:40 PM EDT Office Visit Pulmonary Medicine, [facility] [address] [place] [address] Mason Petersen MD [address] [place] [address] Scheduled Procedures Name Priority Associated Diagnoses Date/Ti me COLONOSCOPY FLEXIBLE PROXIMAL DIAGNOSTIC Recall Crohn's colitis (HCC) Health Maintenance Due Date Last Done Comments DISCUSS TOBACCO CESSATION (REFER TO SMARTSET #3299) 1964 COVID-19 Vaccine (#1) 1969 Zoster Vaccines [...] Additional history exists CKD HGB USE SMARTSET 69103 09/14/202509/14, 09/14/2024, 09/02/2023, Additional history exists CKD PHOS USE SMARTSET 97781 09/14/202508/28, 09/02/2023, 04/26/2021 O2 ASSESSMENT COMPLETED IN [...] Documents on File Type Date Recorded Patient Periodontist Expl anation Advance Directives and Living Will 04/02/2017 ADVANCE DIRECTIVE RELEASE OF RECS TO [employer] [employer] - Care Teams Coyote Hunter Relationship Specialty Start Date End Date Smiley Travis MD [address] [place] [address] [place] [phone] PCP - General Family Medicine 08/24/24 documented as of this encounter
--- OUTSIDE RECORDS SUMMARY | 2024-10-19 10:51 | External Medical Summary ---
Author Name Unknown Address Unknown Organization : Laboratory Report Ordering Provider Test Date Status FCO GUPTA LUIGI 09/14/2024 15:08:20 Final Observation Date Value Abnormality Reference (Units ) Status Alpha-1 antitrypsin 09/14/2024 15:08:20 134 83-199 (mg/dL) Final Test Performed at:
[facility]
[address] [facility]
[place] [address]
Sergei Solorzano M.D., Ph.D.,Director of Laboratories Performing Location
--- OUTSIDE RECORDS SUMMARY | 2024-10-19 10:51 | External Medical Summary | Summary of Care ---
Author Name Unknown Organization [facility] Address [address] [place] [address] Phone [phone] Care Team Providers Care Time Study Analyst Name Role Phone Smiley Travis MD Primary Care Pr ovider Reason for Visit * Reason Onset Date Comments Appointment 09/15/2024 Colonoscopy Encounter Details Date Type Department Care Team (Late st Contact Info) Description 09/15/[address] [phone] Smiley Travis MD [address] [place] [phone] Appointment (Colonoscopy ) Allergies Active Allergy Reactions Criticality Noted Date [...] as of this encounter (statuses as of 09/15/2024) Medications EPINEPHrine 0.15 MG/0.3ML Injection Solution Auto-injector [...] BEDTIME NEEDED FOR SLEEP 30 Tablet 08/24/20 Active Fluticasone Furoate-Vilanterol 100-25 MCG/ACT Inhalation Aerosol Powder Breath Activated (BREO ellipta) Inhale 1 Puff by mouth in the morning. 60 Blister Dosing Unit 2 08/24/20 Active Cyclobenzaprine HCl 5 MG Oral Tablet [...] as of this encounter (statuses as of 09/15/2024) Active Problems Problem Noted Date Diagnosed Date [...] as of this encounter (statuses as of 09/15/2024) Resolved Problems Problem Noted Date Diagnosed Date [...] as of this encounter (statuses as of 09/15/2024) Immunizations Name Administration Dates Next Due PPD [...] encounter Miscellaneous Notes * Telephone Encounter - Parul Vargas OSA - 09/15/2024 9:32 AM EST Lm for pt to return call to schedule the colonoscopy. * Telephone Encounter - Rafaela Jason OSA - 09/15/2024 8:44 AM EST Adriel menjivar scheduled for colonoscopy for: Screen for colon cancer [Z12.11] documented in this encounter Plan of Treatment Upcoming Encounters Date Type Department Care Team (Late st Contact Info) Description 10/26/2024 10:30 AM EST Hem/Onc Treatment Hematology/Oncology Treatment, [place] [address] [place] [phone] Park, Chair 4 Hem Onc Scenery [address] [place] [address] 11/09/2024 2:30 PM EST Imaging Radiology [address] [place] [address] 12/14/2024 12:40 PM EST Office Visit Family Medicine [address] [phone] Randal Franco MD [address] [place] [address] [place] [address] 12/21/2024 2:40 PM EST Office Visit Family [address] [place] [phone] Smiley Travis MD [address] [place] [address] [place] [phone] 01/27/2025 2:30 PM EDT Office Visit Gynecology/Obstetrics [facility] [address] [facility] [place] [address] ThomaserFaby CRNP [address] [facility] [place] [address] 03/08/2025 12:40 PM EDT Office Visit Pulmonary Medicine, [facility] [place] [address] Mason Petersen MD [address] [facility] [address] Scheduled Procedures Name Priority Associated Diagnoses Date/Ti me COLONOSCOPY FLEXIBLE PROXIMAL DIAGNOSTIC Recall Crohn's colitis (HCC) Health Maintenance Due Date Last Done Comments DISCUSS TOBACCO CESSATION (REFER TO SMARTSET #1662) 1964 COVID-19 Vaccine (#1) 1969 Alpha-1 Antitrypsin [...] Additional history exists CKD HGB USE SMARTSET 49202 09/14/202509/14, 09/14/2024, 09/02/2023, Additional history exists CKD PHOS USE SMARTSET 63813 09/14/202508/28, 09/02/2023, 04/26/2021 O2 ASSESSMENT COMPLETED IN [...] Documents on File Type Date Recorded Patient Compliance Field Technician Expl anation Advance Directives and Living Will 04/02/2017 ADVANCE DIRECTIVE RELEASE OF RECS TO [employer] - Care Teams Time Study Analyst Relationship Specialty Start Date End Date Smiley Travis MD [address] [place] [address] [place] [phone] PCP - General Family Medicine 08/24/24 documented as of this encounter
--- OUTSIDE RECORDS SUMMARY | 2024-10-19 10:51 | External Medical Summary ---
Author Name Unknown Address Unknown Organization K01:[facility] - [address] [place] [address] Laboratory Report Ordering Provider Test Date Status CANDYKAROLRUIZ CAMPOSLUIGI 09/14/2024 15:08:20 Final Observation Date Value Abnormality Reference (Units ) Status Phosphate 09/14/2024 15:08:20 3.3 2.5-4.8 (m g/dL) Final Performing Location [facility] - [address] [place] [address]
--- OUTSIDE RECORDS SUMMARY | 2024-10-19 10:51 | External Medical Summary | Summary of Care ---
Author Name Unknown Organization [facility] Address [address] [facility] [address] Phone [phone] Care Team Providers Care Developmental Education Instructor Name Role Phone Smiley Travis MD Primary Care Pr ovider Reason for Visit * Reason Comments IV Therapy Avsola * Episode Based Medications (Routine) - Authorized Specialty Diagnoses / Procedures Referred By Ange young Referred To Contact Diagnoses Crohn's disease of small intestine without complication (HCC) Procedures NE INJ. AVSOLA, 10 MG Ramona King, DO [address] [place] [address] Phone: tel: fax: Hematology/Oncology Treatment, [place] DEPT CLOSED - 09/10/23 [facility] [address] Phone: tel: fax: Referral ID Status Reason Start Date Expiration Date V isits Requested Visits Authorized [id number] Authorized 08/14/2024 08/14/2025 99 99 Encounter Details Date Type Department Care Team (Latest Contact Info) Description 08/31/2024 11:30 AM EST Hem/Onc Treatment Hematology/Oncology Treatment, [place] [address] [place] [address] Crohn's disease of small intestine without [...] Aerosol SolutionIndicatio ns:COPD, severity to be determined ([facility]) Inhale 2 Puffs by mouth daily. [...] 10:30 AM EST Hem/Onc Treatment Hematology/Oncology Treatment, [place] [facility] [phone] Tamia, Chair 4 Hem Onc Scenery [address] [place] [address] 11/09/2024 2:30 PM EST Imaging Radiology [address] [place] [address] 12/14/2024 12:40 PM EST Office Visit Family [address] [place] [phone] Randal Franco MD [address] [place] [address] [place] [address] 12/21/2024 2:40 PM EST Office Visit Family [address] [place] [phone] Smiley Travis MD [address] [place] [address] [place] [phone] 01/27/2025 2:30 PM EDT Office Visit Gynecology/Obstetrics [facility] [address] [facility] [place] [address] Faby Peralta CRNP [address] [facility] [place] [address] 03/08/2025 12:40 PM EDT Office Visit Pulmonary Medicine, [facility] [address] [place] [address] Mason Petersen MD [address] [place] [address] Scheduled Procedures Name Priority Associated Diagnoses Date/Ti me COLONOSCOPY FLEXIBLE PROXIMAL DIAGNOSTIC Recall Crohn's colitis (HCC) Health Maintenance Due Date Last Done Comments DISCUSS TOBACCO CESSATION (REFER TO SMARTSET #3290) 1964 COVID-19 Vaccine (#1) 1969 Zoster Vaccines [...] Additional history exists CKD HGB USE SMARTSET 32913 09/14/202509/14, 09/14/2024, 09/02/2023, Additional history exists CKD PHOS USE SMARTSET 69175 09/14/202508/28, 09/02/2023, 04/26/2021 O2 ASSESSMENT COMPLETED IN [...] Documents on File Type Date Recorded Patient Second Officer Expl anation Advance Directives and Living Will 04/02/2017 ADVANCE DIRECTIVE RELEASE OF RECS TO [employer] - Care Teams Developmental Education Instructor Relationship Specialty Start Date End Date Smiley Travis MD [address] [place] [address] [place] [phone] PCP - General Family Medicine 08/24/24 documented as of this encounter
--- OUTSIDE RECORDS SUMMARY | 2024-10-19 10:51 | External Medical Summary | Summary of Care ---
Author Name Unknown Organization [facility] Address [address] [place] [address] Phone [phone] Care Team Providers Care Grants Administrator Name Role Phone Candy Travis MD Primary Care Pr ovider Reason for Visit * Reason Onset Date Comments Medication Refill 09/21/2024 Encounter Details Date Type Department Care Team (Late st Contact Info) Description 09/21/2024 Refill Family Medicine [address] [phone] Randal Franco MD [address] [place] [phone] Persistent insomnia; Anxiety Allergies Active Allergy Reactions Criticality Noted Date [...] as of this encounter (statuses as of 09/23/2024) Medications EPINEPHrine 0.15 MG/0.3ML Injection Solution Auto-injector [...] in the morning. 9.9 mL 1 08/24/20 24 Active Naproxen 500 MG Oral Tablet (Naprosyn)Indicati ons:Acute left-sided low back pain with left-sided sciatica TAKE ONE TABLET BY MOUTH TWICE A DAY NEEDED FOR PAIN. TAKE WITH FOOD. 90 Tablet 08/24/20 24 Active buPROPion HCl ER (SR) 150 MG Oral Tablet Extended Release 12 Hour (Wellbutrin SR)Indications:Bip olar 1 disorder (HCC) take 1 tablet by mouth in the morning and before bedtime. 60 Tablet 1 09/02/20 24 Active ALPRAZolam 0.5 MG Oral Tablet (xaNAX)Indications :Persistent insomnia,Anxiety Take 1 Tablet by mouth at bedtime as needed for Sleep. 30 Tablet 09/23/20 24 Active ALPRAZolam 0.5 MG Oral Tablet (xaNAX)Indications :Persistent insomnia,Anxiety TAKE ONE TABLET BY MOUTH AT BEDTIME NEEDED FOR SLEEP 30 Tablet 08/24/20 24 024 Discontin ued(Refil l) documented as of this encounter (statuses as of 09/23/2024) Active Problems Problem Noted Date Diagnosed Date [...] as of this encounter (statuses as of 09/23/2024) Resolved Problems Problem Noted Date Diagnosed Date [...] as of this encounter (statuses as of 09/23/2024) Immunizations Name Administration Dates Next Due PPD [...] Telephone Encounter - Candy Travis MD - 09/23/2024 7:36 AM ESTSigned Prescriptions: Disp Refills ALPRAZolam 0.5 MG Oral Tablet (xaNAX) 30 Tab*0 Sig: Take 1 Tablet by mouth at bedtime as needed for Sleep.Authorizing Provider: CANDY TRAVIS-------- * Telephone Encounter - Candy Travis MD - 09/23/2024 7:33 AM EST Reviewed PDMP, consistent with regular refills of the alprazolam by our office, no red flags. Sent refill. * Telephone Encounter - Jim Grimm [facility] - 09/22/2024 5:58 PM ESTPending Prescriptions: Disp Refills ALPRAZolam 0.5 MG Oral Tablet (xaNAX) 30 Tab*0 Sig: Take 1 Tablet by mouth at bedtime as needed for Sleep. * Telephone Encounter - Jim Grimm [facility] - 09/22/2024 5:57 PM EST I have reviewed the patients controlled substance dispensing history in the Prescription Drug Monitoring Program in compliance with the [facility] regulations before prescribing a controlled substance. PDMP checked on 09/22/2024. Pending Prescriptions: Disp Refills ALPRAZolam 0.5 MG Oral Tablet (xaNAX) 30 Tab*0 Sig: Take 1 Tablet by mouth at bedtime as needed for Sleep. Last Visit: 09/14/2024 (in office), 08/15/2021 (telemedicine) Next Visit: 12/14/2024 Date medication was last filled: 08-24-24 Date medication is due for refill: 09-22-24 Pharmacy: [id number] [address] [facility] Is this request for a controlled substance? Yes and Urine Drug Screen Not completed Toxicology results: No results found. However, due to the size of the patient record, not all encounters were searched.Please check Results Review for a complete set of results. Please approve if appropriate. Damion Viveros.Ph. Clinical Pharmacist [facility] ([facility]) [address] [place] [address], [address]: [phone] 09/22/2024,5:57 PM documented in this encounter Plan of Treatment Upcoming Encounters Date Type Department Care Team (Late st Contact Info) Description 10/26/2024 10:30 AM EST Hem/Onc Treatment Hematology/Oncology Treatment, [place] [address] [facility] [phone] Park, Chair 4 Hem Onc Scenery [address] [facility] [address] 11/09/2024 2:30 PM EST Imaging Radiology [address] [place] [address] 12/14/2024 12:40 PM EST Office Visit Family Medicine [address] [place] [phone] Randal Franco MD [address] [place] [address] [place] [address] 12/21/2024 2:40 PM EST Office Visit Family Medicine [address] [phone] Candy Travis MD [address] [place] [address] [place] [phone] 01/27/2025 2:30 PM EDT Office Visit Gynecology/Obstetrics [facility] [place] [address] Faby Peralta CRNP [address] [place] [address] 03/08/2025 12:40 PM EDT Office Visit Pulmonary Medicine, [facility] [place] [address] Mason Petersen MD [address] [facility] [place] [address] Scheduled Procedures Name Priority Associated Diagnoses Date/Ti me COLONOSCOPY FLEXIBLE PROXIMAL DIAGNOSTIC Recall Crohn's colitis (HCC) Health Maintenance Due Date Last Done Comments DISCUSS TOBACCO CESSATION (REFER TO SMARTSET #4858) 1965 COVID-19 Vaccine (#1) 1969 Zoster Vaccines [...] Additional history exists CKD HGB USE SMARTSET 39260 09/14/202509/14, 09/14/2024, 09/02/2023, Additional history exists CKD PHOS USE SMARTSET 40033 09/14/202508/28, 09/02/2023, 04/26/2021 O2 ASSESSMENT COMPLETED IN [...] as of this encounter Visit Diagnoses Diagnosis Persistent insomnia Persistent disorder of initiating or maintaining sleep Anxiety Anxiety state, unspecified Screening mammogram for breast cancer documented in this encounter Advance Directives Documents on File Type Date Recorded Patient Ointment Mill Tender Expl anation Advance Directives and Living Will 04/02/2017 ADVANCE DIRECTIVE RELEASE OF RECS TO [employer] - Care Teams Grants Administrator Relationship Specialty Start Date End Date Candy Travis MD [address] [place] [address] [place] [phone] PCP - General Family Medicine 08/24/24 documented as of this encounter
--- OUTSIDE RECORDS SUMMARY | 2024-10-19 10:51 | External Medical Summary ---
Author Name Unknown Address Unknown Organization K01:LABORATORY [facility] - [address] [facility] [address] [facility] [address] Laboratory Report Ordering Provider Test Date Status FCO GUPTA 09/14/2024 15:08:20 Final Observation Date Value Abnormality Reference (Units ) Status WBC, Total 09/14/2024 15:08:20 8.24 4.00-10.80 (K/uL) Final RBC 09/14/2024 15:08:20 4.04 3.85-5.15 (M/uL) Final Hemoglobin 09/14/2024 15:08:20 12.7 12.0-15.3 (g/dL) Final HCT 09/14/2024 15:08:20 39.6 36.0-45.2 (%) Final MCV 09/14/2024 15:08:20 98.0 81.5-97.5 (fL) Final MCH 09/14/2024 15:08:20 31.4 27.0-34.0 (pg) Final MCHC 09/14/2024 15:08:20 32.1 32.0-36.0 (g/dL) Final RDW 09/14/2024 15:08:20 12.4 11.5-15.5 (%) Final Platelets 09/14/2024 15:08:20 289 140-400 (K/uL) Final MPV 09/14/2024 15:08:20 10.6 6.6-11.1 (fL) Final Nucleated erythrocytes/100 leukocytes [Ratio] in Blood by Automated count 09/14/2024 15:08:20 0 <=0 (/100 WBCs) Final Performing Location LABORATORY [facility] - [address] [facility] [address]
--- OUTSIDE RECORDS SUMMARY | 2024-10-19 10:51 | External Medical Summary | Summary of Care ---
Author Name Unknown Organization [facility] Address [address] [place] [place] [address] Phone [phone] Care Team Providers Care Casting Supervisor Name Role Phone Smiley Travis MD Primary Care Pr ovider Reason for Visit * Reason Comments Outpatient Testing Encounter Details Date Type Department Care Team (Late st Contact Info) Description 09/14/2024 3:20 PM EST Laboratory Laboratory [address] [place] [phone] [place] [address] COPD, group B, by GOLD 2017 classification ([facility]); Crohn's disease of both small and large intestine without complication (HCC); Stage 3a chronic kidney disease ([facility]) Allergies Active Allergy Reactions Criticality Noted Date [...] on file documented as of this encounter Plan of Treatment Upcoming Encounters Date Type Department Care Team (Late st Contact Info) Description 10/26/2024 10:30 AM EST Hem/Onc Treatment Hematology/Oncology Treatment, [place] [address] [facility] [place] [phone] Park, Chair 4 Hem Onc Scenery [facility] [address] 11/09/2024 2:30 PM EST Imaging Radiology [address] [place] [address] 12/14/2024 12:40 PM EST Office Visit Family Medicine [address] [place] [phone] Randal Franco MD [address] [place] [address] [place] [address] 12/21/2024 2:40 PM EST Office Visit Family Medicine [address] [place] [phone] Smiley Travis MD [address] [place] [address] [place] [phone] 01/27/2025 2:30 PM EDT Office Visit Gynecology/Obstetrics [facility] [address] [place] [address] Faby Peralta CRNP [address] [place] [address] 03/08/2025 12:40 PM EDT Office Visit Pulmonary Medicine, [facility] [address] [place] [address] Mason Petersen MD [address] [place] [address] Pending Results Name Type Priority Associated Diagnoses Date /Time [id number], QN Lab Routine COPD, group B, by GOLD 2017 classification (HCC) 09/14/2024 3:08 PM EST CBC WITH WBC DIFFERENTIAL Lab Routine Crohn's disease of both small and large intestine without complication (HCC) COPD, group B, by GOLD 2017 classification (HCC) Stage 3a chronic kidney disease (HCC) 09/14/2024 3:08 PM EST PHOSPHORUS Lab Routine Crohn's disease of both small and large intestine without complication (HCC) Stage 3a chronic kidney disease (HCC) 09/14/2024 3:08 PM EST CBC Lab Routine Crohn's disease of both small and large intestine without complication (HCC) COPD, group B, by GOLD 2017 classification (HCC) Stage 3a chronic kidney disease (HCC) 09/14/2024 3:08 PM EST DIFFERENTIAL, AUTOMATED Lab Routine Crohn's disease of both small and large intestine without complication (HCC) COPD, group B, by GOLD 2017 classification (HCC) Stage 3a chronic kidney disease (HCC) 09/14/2024 3:08 PM EST Scheduled Procedures Name Priority Associated Diagnoses Date/Ti me COLONOSCOPY FLEXIBLE PROXIMAL DIAGNOSTIC Recall Crohn's colitis (HCC) Health Maintenance Due Date Last Done Comments DISCUSS TOBACCO CESSATION (REFER TO SMARTSET #3782) 1965 COVID-19 Vaccine (#1) 1969 Alpha-1 Antitrypsin [...] shot) (#1) 2024 CKD HGB USE SMARTSET 56841 09/02/202409/02, 09/24/2022, 09/24/2022, Additional history exists CKD PHOS USE SMARTSET 58147 09/02/2024 09/02/2023, 0 04/26/2021 Mammogram 09/30/2024 09/30/2023, 1201/2023, 11/02/2021, Additional history exists GFR 10/20/2024 04/20/2024, 110 03/2023, 09/24/2022, Additional history exists Albumin/Creatinine Ratio 04/20/2025 024, 09/02/2023, 12/25/2021 TSH 04/20/2025 04/20/2024, 110 03/2023, 10/30/2021, Additional history exists O2 ASSESSMENT [...] as of this encounter Visit Diagnoses Diagnosis COPD, group B, by GOLD 2017 classification (HCC) Crohn's disease of both small and large intestine without complication (HCC) Regional enteritis of small intestine with large intestine Stage 3a chronic kidney disease (HCC) Screening mammogram for breast cancer documented in this encounter Advance Directives Documents on File Type Date Recorded Patient Laborer Hide House Expl 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
--- OUTSIDE RECORDS SUMMARY | 2024-10-19 10:51 | External Medical Summary | Summary of Care ---
Author Name Unknown Organization [facility] Address [address] [place] [address] Phone [phone] Care Team Providers Care Theater Usher Name Role Phone Smiley Travis MD Primary Care Pr ovider Reason for Visit * Reason Onset Date Comments Health Maintenance 09/10/2024 Encounter Details Date Type Department Care Team (Late st Contact Info) Description 09/10/[address] [phone] Smiley Travis MD [address] [place] [phone] Health Maintenance Allergies Active Allergy Reactions Criticality Noted Date Comments Kiwi Extract High 01/05/2020 Almost anaphylaxis Other reaction(s): hives, rash, swelling of throat and lips Oxycodone High 08/08/2021 Other reaction(s): FACE ITCHY Oxycodone-Acetaminophen High 01/03/2016 Other reaction(s): itchy Oxycodone-Acetaminophen 02/28/2009 itchy Pneumococcal Vaccine 08/08/2021 Other reaction(s): unknown Pneumococcal 13-Carey Conj Vacc 12/16/2017 Sore arm,"deathly sick" Had all the side effects documented as of this encounter (statuses as of 09/10/2024) Medications EPINEPHrine 0.15 MG/0.3ML Injection Solution Auto-injector [...] AT BEDTIME NEEDED FOR SLEEP 30 Tablet 10/28/20 24 Active Fluticasone Furoate-Vilanterol 100-25 MCG/ACT Inhalation [...] as of this encounter (statuses as of 09/10/2024) Active Problems Problem Noted Date Diagnosed Date [...] REG ENTERIT SM-LG INTEST Postinflammatory pulmonary fibrosis Regional enteritis Acquired hypothyroidism Tobacco use disorder Tattoo Overview (12/07/2013): low back Borderline personality disorder Nasal polyps documented as of this encounter (statuses as of 09/10/2024) Resolved Problems Problem Noted Date Diagnosed Date [...] fissure 07/20/2003 12/16/2017 Asthma exacerbation 04/20/20 10 documented as of this encounter (statuses as of 09/10/2024) Immunizations Name Administration Dates Next Due PPD [...] encounter Miscellaneous Notes * Telephone Encounter - Indira Huerta LPN - 09/10/2024 9:25 AM EST Care Gaps Comprehensive Care Outreach Last Office/Telemedicine Visit: 08/24/2024 (in office), 08/15/2021 (telemedicine) Next Office Visit: 09/14/2024 Hemoglobin AIC Results: Lab Results Component Value Date/Time HEMOGLOBIN A1C - [facility] 5.5 04/20/2024 10:23 AM BP Readings from Last 1 Encounters: 08/31/24 122/80 Reviewed Health Maintenance below: Health Maintenance Topic Date Due DISCUSS TOBACCO CESSATION (REFER TO SMARTSET #8389) Never done COVID-19 Vaccine (1) Never done Alpha-1 Antitrypsin Never done Zoster Vaccines (1 of 2) Never done Pneumococcal Vaccine: Pediatrics (0 to 5 Years) and At-Risk Patients (6 to 64 Years) (2 of 2 - PCV)05/04/2016 Colorectal Cancer Screening 12/05/2022 Influenza Vaccine (FLU shot) (1) Never done CKD HGB USE SMARTSET 64332 09/02/2024 CKD PHOS USE SMARTSET 43247 09/02/2024 Mammogram 09/30/2024 GFR 10/20/2024 Labs Colon Mamm dec 4 Care Gap Outreach Action Taken: Left message documented in this encounter Plan of Treatment Upcoming Encounters Date Type Department Care Team (Late st Contact Info) Description 09/14/2024 2:40 PM EST Office Visit Family Medicine [address] [phone] Smiley Travis MD [address] [place] [address] [place] [phone] 09/21/2024 12:30 PM EST Office Visit Otolaryngology [facility] [address] [place] [address] Vance Araiza DO [address] [place] [address] 10/26/2024 10:30 AM EST Hem/Onc Treatment Hematology/Oncology Treatment, [place] [facility] [phone] Tamia, Chair 4 Hem Onc [facility] [address] 12/14/2024 12:40 PM EST Office Visit Family Medicine [address] [place] [phone] Randal Franco MD [address] [place] [address] [place] [address] 01/27/2025 2:30 PM EDT Office Visit Gynecology/Obstetrics [facility] [address] [place] [address] Faby Peralta CRNP [address] [place] [address] 03/08/2025 12:40 PM EDT Office Visit Pulmonary Medicine, [facility] [address] [place] [address] Mason Petersen MD [address] [place] [address] Scheduled Procedures Name Priority Associated Diagnoses Date/Ti [...] shot) (#1) 2024 CKD HGB USE SMARTSET 26367 09/02/202409/02, 09/24/2022, 09/24/2022, Additional history exists CKD PHOS USE SMARTSET 43558 09/02/2024 09/02/2023, 0 04/26/2021 Mammogram 09/30/2024 09/30/2023, 120 01/2023, 11/02/2021, Additional history exists GFR 10/20/2024 04/20/2024, 110 03/2023, 09/24/2022, Additional history exists Albumin/Creatinine Ratio 04/20/2025 024, 09/02/2023, 12/25/2021 TSH 04/20/2025 04/20/2024, 110 03/2023, 10/30/2021, Additional history exists O2 ASSESSMENT COMPLETED IN PAST YEAR FOR COPD 08/31/2025 08/31/2024 Lipid Panel 04/20/2029 04/20/2024, 07/0 05/2019, 04/09/2014, [...] Documents on File Type Date Recorded Patient Mold Maker Apprentice Expl anation Advance Directives and Living Will 04/02/2017 ADVANCE DIRECTIVE RELEASE OF RECS TO [employer] - Care Teams Theater Usher Relationship Specialty Start Date End Date Smiley Travis MD [address] [place] [address] [place] [phone] PCP - General Family Medicine 08/24/24 documented as of this encounter
--- OUTSIDE RECORDS SUMMARY | 2024-10-19 10:51 | External Medical Summary | Summary of Care ---
Author Name Unknown Organization [facility] Address [address] [place] [address] Phone [phone] Care Team Providers Care Appliquer Name Role Phone Smiley Travis MD Primary Care Pr ovider Reason for Visit * Reason Onset Date Comments Appointment 09/15/2024 Colonoscopy Encounter Details Date Type Department Care Team (Late st Contact Info) Description 09/15/[address] [phone] Smiley Travis MD [address] [place] [phone] Appointment (Colonoscopy ) Allergies Active Allergy [...] encounter Miscellaneous Notes * Telephone Encounter - Rafaela Jason OSA - 09/15/2024 8:44 AM EST Adriel menjivar scheduled for colonoscopy for: Screen for colon cancer [Z12.11] documented in this encounter Plan of Treatment Upcoming Encounters Date Type Department Care Team (Late st Contact Info) Description 10/26/2024 10:30 AM EST Hem/Onc Treatment Hematology/Oncology Treatment, [address] [place] [phone] Tamia, Chair 4 Hem Onc [address] [place] [address] 11/09/2024 2:30 PM EST Imaging Radiology [address] [place] [address] 12/14/2024 12:40 PM EST Office Visit Family Medicine [address] [place] [phone] Randal Franco MD [address] [place] [address] [place] [address] 12/21/2024 2:40 PM EST Office Visit Family Medicine [address] [place] [phone] Smiley Travis MD [address] [place] [address] [place] [phone] 01/27/2025 2:30 PM EDT Office Visit Gynecology/Obstetrics [facility] [address] [facility] [place] [address] BackerFaby CRNP [address] [place] [address] 03/08/2025 12:40 PM EDT Office Visit Pulmonary Medicine, [facility] [address] [place] [address] Mason Petersen MD [address] [facility] [phone] Scheduled Procedures Name Priority Associated Diagnoses Date/Ti me COLONOSCOPY FLEXIBLE PROXIMAL DIAGNOSTIC Recall Crohn's colitis (HCC) Health Maintenance Due Date Last Done Comments DISCUSS TOBACCO CESSATION (REFER TO SMARTSET #6655) 1964 COVID-19 Vaccine (#1) 1969 Alpha-1 Antitrypsin [...] Additional history exists CKD HGB USE SMARTSET 71786 09/14/202509/14, 09/14/2024, 09/02/2023, Additional history exists CKD PHOS USE SMARTSET 18954 09/14/202508/28, 09/02/2023, 04/26/2021 O2 ASSESSMENT COMPLETED IN [...] Documents on File Type Date Recorded Patient Hvac Controls Technician Expl anation Advance Directives and Living Will 04/02/2017 ADVANCE DIRECTIVE RELEASE OF RECS TO [employer] - Care Teams Appliquer Relationship Specialty Start Date End Date Smiley Travis MD [address] [place] [address] [place] [phone] PCP - General Family Medicine 08/24/24 documented as of this encounter
--- OUTSIDE RECORDS SUMMARY | 2024-10-19 10:52 | External Medical Summary | Summary of Care ---
Author Name Unknown Organization [facility] Address [address] [place] [address] Phone [phone] Care Team Providers Care Branch Director Name Role Phone Smiley Travis MD Primary Care Pr ovider Reason for Referral * Evaluate & Treat - Unlimited Visits (Within 30 days (routine)) - Authorized Specialty Diagnoses / Procedures Referred By Ange young Referred To Contact Otolaryngology Diagnoses Nasal obstruction Fletcher Alexandra CRNP [address] [place] [address] [place] [id number] Referral ID Status Reason Start Date Expiration Date Visits Requested Visits Authorized [id number] Authorized Specialty Services Required 4 [phone] Question Answer Referral Priority Within 30 days (routine) Where should this appointment be scheduled? [facility] Reason for Referral Nasal/Sinus/Allergy Conditions Specific Condition: Nasal Congestion/Obstruction Reason for Visit * Reason Comments Acute Encounter Details Date Type Department Care Team (Late st Contact Info) Description 08/24/2024 3:40 PM EDT Office Visit Family Medicine [address] [place] [phone] Fletcher Alexandra CRNP [address] [place] [address] [place] [address] Acute left-sided low back pain with left-sided sciatica*; Nasal obstruction Allergies Active Allergy Reactions Criticality Noted Date Comments Kimariluz Extract High 01/05/2020 Almost anaphylaxis Other reaction(s): hives, rash, swelling of throat and lips Oxycodone High 08/08/2021 Other reaction(s): FACE ITCHY Oxycodone-Acetaminophen High 01/03/2016 Other reaction(s): itchy Oxycodone-Acetaminophen 02/28/2009 itchy Pneumococcal Vaccine 08/08/2021 Other reaction(s): unknown Pneumococcal 13-Carey Conj Vacc 12/16/2017 Sore arm,"deathly sick" Had all the side effects documented as of this encounter (statuses as of 08/24/2024) Medications Medication Sig Dispensed Refills Start Date End Date Status EPINEPHrine 0.15 MG/0.3ML Injection Solution Auto-injector Inject [...] Wheezing. 18 g 3 01/02/20 24 Active buPROPion HCl ER (SR) 150 MG Oral Tablet Extended Release 12 Hour (Wellbutrin SR)Indications:Bip olar 1 disorder (HCC) take 1 tablet by mouth in the morning and before bedtime. 60 Tablet 3 05/09/20 24 Active Levothyroxine Sodium 75 MCG Oral [...] WITH FOOD. 90 Tablet 08/24/20 24 Active Naproxen 500 MG Oral Tablet (Naprosyn)Indicati ons:De Quervain's tenosynovitis, right TAKE ONE TABLET BY MOUTH TWICE A DAY NEEDED FOR PAIN. TAKE WITH FOOD. 180 Tablet 1 04/06 024 Discontinued(Re fill) Fluticasone Furoate-Vilanterol 100-25 MCG/ACT Inhalation Aerosol Powder Breath Activated (BREO ellipta) Inhale 1 Puff by mouth in the morning. 60 Blister Dosing Unit 2 03/02/20 24 024 Discontinued(Re fill) Naproxen 500 MG Oral Tablet (Naprosyn)Indicati ons:Acute left-sided low back pain with left-sided sciatica TAKE ONE TABLET BY MOUTH TWICE A DAY NEEDED FOR PAIN. TAKE WITH FOOD. 180 Tablet 1 08/24/20 024 Discontinued documented as of this encounter (statuses as of 08/24/2024) Active Problems Problem Noted Date Diagnosed Date Hot flash, menopausal 04/20/2024 COPD, group B, by GOLD 2017 classification 03/09 Overview: Per COPD GOLD Classification Crohn's disease of small intestine without compl ication 09/20/2021 Stage 3a chronic kidney disease 09/05/2020 Overview: Per CKD protocol - Per CKD protocol Persistent insomnia 07/23/2016 Alcohol abuse, in remission 05/05/2015 Menopause 01/07/2014 Bipolar 1 disorder 09/10/2005 Overview: Dr Castro, on Lamictal, Seroquel, Zoloft Thrombosed external hemorrhoids 07/20/2003 Hypoactive sexual desire disorder 02/12/2001 REG ENTERIT SM-LG INTEST Postinflammatory pulmonary fibrosis Regional enteritis Acquired hypothyroidism Tobacco use disorder Tattoo Overview: low back Borderline personality disorder Nasal polyps documented as of this encounter (statuses as of 08/24/2024) Resolved Problems Problem Noted Date Diagnosed Date [...] GOLD Classification Benign neoplasm of colon 11/12/201303/2020 Overview: 3 mm rectal sessile polyp Alcohol abuse, episodic 03/28/2011 07/0 06/2015 Overview: DUI Asthma with severity to be determined 04/20/2010 10/14/2013 Overview: Per Asthma Taxonomy ICD-10 update of inactive term Anal fissure 07/20/2003 12/16/2017 Asthma exacerbation 04/20/20 10 documented as of this encounter (statuses as of 08/24/2024) Immunizations Name Administration Dates Next Due PPD 10/07/2021,08/01/2016,02/05/2014 Pneumococcal Polysaccharide PPV23 (Pneumovax) 05/04/2015 TDAP, Age 7 and older, IM (Adacel) 05/12/2020, documented as of this encounter Social History Tobacco Use Types Packs/Day Years Used Date Smoking Tobacco: Every Day Cigarettes 1 46 Smokeless Tobacco: Never Tobacco Cessation:Ready to Q uit: Not Asked; Counseling Given: Not Answered Comments:18. Less than 1 ppd 03/02/24. Alcohol Use Standard Drinks/Week Comments No 0 (1 standard drink = 0.6 oz pure alcohol) had DUI 03/2011. has been sober for a year as of 06/01/13 PHQ-2 Answer Date Recorded PHQ-2 Score 0 03/02/2020 Sex and Gender Information Value Date Recorded Sex Assigned at Not on file Gender Identity Not on file Sexual Orientation Not on file Job Start Date Occupation Industry Not on file Not on file Not on file documented as of this encounter Last Filed Vital Signs Vital Sign Reading Time Taken Comments Blood Pressure 112/68 08/24/2024 3:42 PM EDT Pulse 72 08/24/2024 3:42 PM EDT Temperature 36.6 C (97.8 F) 08/24/2024 3:42 PM ED T Respiratory Rate - - Oxygen Saturation 97% 08/24/2024 3:42 PM EDT Inhaled Oxygen Concentration - - Weight 57.7 kg (127 lb 5 oz) 08/24/2024 3:42 PM EDT Height - - Body Mass Index 23.29 03/02/2024 2:51 PM EDT documented in this encounter Nursing Notes * Mercy Mello LPN - 08/24/2024 3:38 PM EDT Pain across left back and down back of her leg. Started on Saturday. Refill Breo Ellipta. documented in this encounter Plan of Treatment Upcoming Encounters Date Type Department Care Team (Late st Contact Info) Description 08/31/2024 11:30 AM EST Hem/Onc Treatment Hematology/Oncology Treatment, [address] [phone] 09/14/2024 2:40 PM EST Office Visit Family [address] [phone] Smiley Travis MD [address] [place] [address] [place] [phone] 09/21/2024 12:30 PM EST Office Visit Otolaryngology [facility] [address] [place] [address] Vance Araiza DO [address] [place] [address] 12/14/2024 12:40 PM EST Office Visit Family [address] [phone] Randal Franco MD [address] [place] [address] [place] [address] 01/27/2025 2:30 PM EDT Office Visit Gynecology/Obstetrics [facility] [address] [place] [address] Faby Peralta CRNP [address] [place] [address] 03/08/2025 12:40 PM EDT Office Visit Pulmonary Medicine, [facility] [address] [place] [address] Mason Petersen MD [address] [place] [phone] Scheduled Procedures Name Priority Associated Diagnoses Date/Ti me COLONOSCOPY FLEXIBLE PROXIMAL DIAGNOSTIC Recall Crohn's colitis (HCC) Scheduled Referrals Name Type Priority Associated Diagnoses Orde r Schedule ADULT/PEDS OTOLARYNGOLOGY REFERRAL OP Referral Within 30 days (routine) Nasal obstruction Ordered: 08/24/2024 Health Maintenance Due Date Last Done Comments DISCUSS TOBACCO CESSATION (REFER TO SMARTSET #3294) 1965 COVID-19 Vaccine (#1) 1969 Alpha-1 Antitrypsin 1982 Zoster Vaccines (1 of 2) 1983 Cologuard 2009 Fecal Occult Blood Test 2009 Sigmoidoscopy 2009 Pneumococcal Vaccine: Pediatrics (0 to 5 Years) and At-Risk Patients (6 to 64 Years) (2 of 2 - PCV) 05/04/2016 05/04/2015 Colonoscopy 12/05/2022 12/05/2020, 02/0 05/2021, 11/28/2018, Additional history exists Colorectal Cancer Screening 12/05/2022 Influenza Vaccine (FLU shot) (#1) 2024 CKD HGB USE SMARTSET 30931 09/02/202409/02, 09/24/2022, 09/24/2022, Additional history exists CKD PHOS USE SMARTSET 95649 09/02/2024 09/02/2023, 0 04/26/2021 Mammogram 09/30/2024 09/30/2023, 01/2023, 11/02/2021, Additional history exists GFR 10/20/2024 04/20/2024, 03/2023, 09/24/2022, Additional history exists Albumin/Creatinine Ratio 04/20/2025 024, 09/02/2023, 12/25/2021 TSH 04/20/2025 04/20/2024, 03/2023, 10/30/2021, Additional history exists O2 ASSESSMENT COMPLETED IN PAST YEAR FOR COPD 08/24/2025 08/24/2024 Lipid Panel 04/20/2029 04/20/2024, 05/2019, 04/09/2014, Additional [...] as of this encounter Visit Diagnoses Diagnosis Acute left-sided low back pain with left-sided sciatica- Primary Nasal obstruction Other diseases of nasal cavity and sinuses documented in this encounter Advance Directives Documents on File Type Date Recorded 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
--- OUTSIDE RECORDS SUMMARY | 2024-10-19 10:52 | External Medical Summary | Summary of Care ---
Author Name Unknown Organization [facility] Address [address] [facility] [address] Phone [phone] Care Team Providers Care Plasma Center Technician Name Role Phone Randal Franco MD Primary Care Provide r Reason for Visit * Reason Comments IV Therapy AVSOLA * Episode Based Medications (Routine) - Authorized Specialty Diagnoses / Procedures Referred By Ange young Referred To Contact Diagnoses Crohn's disease of small intestine without complication (HCC) Procedures PA INJ. AVSOLA, 10 MG Ramona King, DO [address] [place] [address] Anc Hem/Onc Selene Cantrell DEPT CLOSED - 09/10/23 [address] [facility] [phone] Referral ID Status Reason Start Date Expiration Date V isits Requested Visits Authorized [id number] Authorized 09/02/2023 09/02/2024 99 [phone] Encounter Details Date Type Department Care Team (Latest Contact Info) Description 07/06/2024 11:30 AM EDT Hem/Onc Treatment Hematology/Oncology Treatment, [place] [address] [place] [phone] Crohn's disease of small intestine without [...] as of this encounter (statuses as of 08/10/2024) Medications Medication Sig Dispensed Refills Start Date [...] weeks. 2 Each 7 09/20/20 21 Active Naproxen 500 MG Oral Tablet (Naprosyn)Indicati ons:De Quervain's tenosynovitis, right TAKE ONE TABLET BY MOUTH TWICE A DAY NEEDED FOR PAIN. TAKE WITH FOOD. 180 Tablet 1 02/01/20 22 Active Ondansetron HCl 4 MG Oral Tablet [...] medications 90 Tablet 3 06/25/20 24 Active Spiriva Respimat 2.5 MCG/ACT Inhalation Aerosol SolutionIndication s:COPD, severity to be determined (HCC) Inhale 2 Puffs by mouth daily. 4 g 5 01/02/20 24 024 Discontinued(Re fill) Montelukast Sodium 10 MG Oral Tablet (Singulair)Indicat ions:Postinflammat ory pulmonary fibrosis (HCC) TAKE ONE TABLET BY MOUTH AT BEDTIME 90 Tablet 1 01/29/20 24 024 Discontinued Pantoprazole Sodium 40 MG Oral Tablet Delayed Release (Protonix)Indicati ons:GERD (gastroesophageal reflux disease) TAKE ONE TABLET BY MOUTH EVERY DAY 90 Tablet 04/14/20 24 024 Discontinued Estradiol 1 MG Oral Tablet (Estrace)Indicatio ns:Menopause Take 1 Tablet by mouth in the morning. In the morning.. 90 Tablet 04/13/20 24 024 Discontinued ALPRAZolam 0.5 MG Oral Tablet (xaNAX)Indications :Persistent insomnia,Anxiety TAKE ONE TABLET BY MOUTH AT BEDTIME NEEDED FOR SLEEP 30 Tablet 06/22/20 24 024 Discontinued documented as of this encounter (statuses as of 08/10/2024) Active Problems Problem Noted Date Diagnosed Date [...] as of this encounter (statuses as of 08/10/2024) Resolved Problems Problem Noted Date Diagnosed Date [...] as of this encounter (statuses as of 08/10/2024) Immunizations Name Administration Dates Next Due PPD [...] Sign Reading Time Taken Comments Blood Pressure 149/75 07/06/2024 12:05 PM EDT Pulse 76 07/06/2024 12:05 PM EDT Temperature 36.2 C (97.1 F) 07/06/2024 12:05 PM E DT Respiratory Rate 16 07/06/2024 12:05 PM EDT Oxygen Saturation 95% 07/06/2024 12:05 PM EDT Inhaled Oxygen Concentration - - Weight 57.8 kg (127 lb 6.4 oz) 07/06/2024 12:05 PM EDT Height - - Body Mass Index 23.3 03/02/2024 2:51 PM EDT documented in this encounter Nursing Notes * India Chisholm RN - 07/06/2024 2:56 PM EDT Pt completed treatment without issues. IV removed. Goals: Pt will remain free from injury. Possible barriers to meeting goals: risk of reaction, ambulation with IV pole Stability of the patient: Moderately stable - low risk of patient condition declining or worsening Summary regarding today's goals: Met: . Pt remained free from injury during treatment today. Discharged in stable condition. * India Chisholm RN - 07/06/2024 12:06 PM EDT CHAIR 1, Karmen. Pt has no acute concerns to report since previous treatment. Pt stated she becomessymptomatic within two weeks of her scheduled treatment. PIV established; NSS infusing. Safety and Risk for Injury Patient will remain free from injury. Ensure appropriate safety devices are available. Provide and maintain safe environment. documented in this encounter Plan of Treatment Upcoming Encounters Date Type Department Care Team (Late st Contact Info) Description 08/31/2024 11:30 AM EST Hem/Onc Treatment Hematology/Oncology Treatment, [place] [address] [place] [phone] 12/14/2024 12:40 PM EST Office Visit Family Medicine [address] [place] [phone] Randal Franco MD [address] [place] [address] [place] [address] 01/27/2025 2:30 PM EDT Office Visit Gynecology/Obstetrics [facility] [address] [facility] [place] [address] Faby Peralta CRNP [address] [place] [address] 03/08/2025 12:40 PM EDT Office Visit Pulmonary Medicine, [facility] [address] [facility] [place] [address] Mason Petersen MD [address] [facility] [place] [address] Scheduled Procedures Name Priority Associated Diagnoses Date/Ti [...] shot) (#1) 2024 CKD HGB USE SMARTSET 94729 09/02/202409/02, 09/24/2022, 09/24/2022, Additional history exists CKD PHOS USE SMARTSET 83459 09/02/2024 09/02/2023, 0 04/26/2021 Mammogram 09/30/2024 09/30/2023, 120 01/2023, 11/02/2021, Additional history exists GFR 10/20/2024 04/20/2024, 11/0 03/2023, 09/24/2022, Additional history exists Albumin/Creatinine Ratio 04/20/2025 024, 09/02/2023, 12/25/2021 TSH 04/20/2025 04/20/2024, 110 03/2023, 10/30/2021, Additional history exists O2 ASSESSMENT COMPLETED IN PAST YEAR FOR COPD 07/06/2025 07/06/2024 Lipid Panel 04/20/2029 04/20/2024, 07/0 05/2019, 04/09/2014, [...] (HCC)- Primary Regional enteritis of small intestine documented in this encounter Administered Medications Inactive Administered Medications - up to 3 most recent administrations Medication Order MAR Action Action Date Dose Rate Site Acetaminophen (Tylenol) tab 650 mg 650 mg, Oral, ONCE, On 07/06/24 at 1245, For 1 dose, Maximum of 4 grams (4000 mg) per day. 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
--- OUTSIDE RECORDS SUMMARY | 2024-10-19 10:52 | External Medical Summary | Summary of Care ---
Author Name Unknown Organization [facility] Address [address] [facility] [place] [address] Phone [phone] Care Team Providers Care Svp Digital Sales Food & Cooking Name Role Phone Randal Franco MD Primary Care Provide r Reason for Visit * Reason Comments eRx-Medication Refill Encounter Details Date Type Department Care Team (Late st Contact Info) Description 07/21/2024 Refill Family Medicine [address] [phone] Randal Franco MD [address] [place] [address] [place] [address] Persistent insomnia; Anxiety Allergies Active Allergy [...] as of this encounter (statuses as of 07/22/2024) Medications Medication Sig Dispensed Refills Start Date [...] Tab by mouth daily. 30 Tab 5 0 Active Cholecalciferol (VITAMIN D-3) 25 MCG (1000 UT) Capsule Take 3 Capsules by mouth in the morning. Active Aspirin 81 MG Oral Tablet Delayed Release Take 1 Tablet by mouth at bedtime. Active inFLIXimab 100 MG Intravenous Solution Reconstituted (Remicade) Infuse 160mg via IV weeks 0, 2, 6, then every 8 weeks. 2 Each 7 1 Active Naproxen 500 MG Oral Tablet (Naprosyn)Indicati ons:De Quervain's tenosynovitis, right TAKE ONE TABLET BY MOUTH TWICE A DAY NEEDED FOR PAIN. TAKE WITH FOOD. 180 Tablet 1 2 Active Ondansetron HCl 4 MG Oral Tablet Take 1 Tablet by mouth every 6 hours as needed for Nausea. 30 Tablet 4 Active Spiriva Respimat 2.5 MCG/ACT Inhalation Aerosol SolutionIndication s:COPD, severity to be determined (HCC) Inhale 2 Puffs by mouth daily. 4 g 5 4 Active Ventolin HFA 108 (90 Base) MCG/ACT Inhalation Aerosol Solution Inhale 2 Puffs by mouth every 4 hours as needed for Cough, Shortness of Breath or Wheezing. 18 g 3 4 Active buPROPion HCl ER (SR) 150 MG Oral Tablet Extended Release 12 Hour (Wellbutrin SR)Indications:Bip olar 1 disorder (HCC) take 1 tablet by mouth in the morning and before bedtime. 60 Tablet 3 4 Active Levothyroxine Sodium 75 MCG Oral Tablet (Levoxyl)Indicatio ns:Acquired hypothyroidism TAKE ONE TABLET BY MOUTH EVERY DAY at least 30 minutes before breakfast or other medications 90 Tablet 3 4 Active Estradiol 1 MG Oral Tablet (Estrace)Indicatio ns:Menopause TAKE ONE TABLET BY MOUTH IN THE MORNING 90 Tablet 4 Active Pantoprazole Sodium 40 MG Oral Tablet Delayed Release (Protonix)Indicati ons:GERD (gastroesophageal reflux disease) TAKE ONE TABLET BY MOUTH EVERY DAY 90 Tablet 3 4 Active Montelukast Sodium 10 MG Oral Tablet (Singulair)Indicat ions:Postinflammat ory pulmonary fibrosis (HCC) TAKE ONE TABLET BY MOUTH AT BEDTIME 90 Tablet 3 4 Active ALPRAZolam 0.5 MG Oral Tablet (xaNAX)Indications :Persistent insomnia,Anxiety TAKE ONE TABLET BY MOUTH AT BEDTIME NEEDED FOR SLEEP 30 Tablet 4 Active ALPRAZolam 0.5 MG Oral Tablet (xaNAX)Indications :Persistent insomnia,Anxiety TAKE ONE TABLET BY MOUTH AT BEDTIME NEEDED FOR SLEEP 30 Tablet 4 07/22/20 24 Discontinued documented as of this encounter (statuses as of 07/22/2024) Active Problems Problem Noted Date Diagnosed Date [...] as of this encounter (statuses as of 07/22/2024) Resolved Problems Problem Noted Date Diagnosed Date [...] as of this encounter (statuses as of 07/22/2024) Immunizations Name Administration Dates Next Due PPD [...] encounter Miscellaneous Notes * Telephone Encounter - Randal Franco MD - 07/22/2024 11:35 AM EDT Signed Prescriptions: Disp Refills ALPRAZolam 0.5 MG Oral Tablet (xaNAX) 30 Tab*0 Sig: TAKE ONE TABLET BY MOUTH AT BEDTIME NEEDED FOR SLEEP Authorizing Provider: RANDAL FRANCO * Telephone Encounter - Randal Franco MD - 07/22/2024 11:35 AM EDT Signed Prescriptions: Disp Refills ALPRAZolam 0.5 MG Oral Tablet (xaNAX) 30 Tab*0 Sig: TAKE ONE TABLET BY MOUTH AT BEDTIME NEEDED FOR SLEEP Authorizing Provider: RANDAL FRANCO * Telephone Encounter - Alena Masterson [facility] - 07/22/2024 10:23 AM EDT Pending Prescriptions: Disp Refills ALPRAZolam 0.5 MG Oral Tablet [Pharmacy Me*30 Tab*0 Sig: TAKE ONE TABLET BY MOUTH AT BEDTIME NEEDED FOR SLEEP * Telephone Encounter - Alena Masterson [facility] - 07/22/2024 10:23 AM EDT Pending Prescriptions: Disp Refills ALPRAZolam 0.5 MG Oral Tablet [Pharmacy Me*30 Tab*0 Sig: TAKE ONE TABLET BY MOUTH AT BEDTIME NEEDED FOR SLEEP * Telephone Encounter - Alena Masterson [facility] - 07/22/2024 10:23 AM EDT I have reviewed the patients controlled substance dispensing history in the Prescription Drug Monitoring Program in compliance with the [facility] regulations before prescribing a controlled substance. PDMP checked on 07/22/2024. Pending Prescriptions: Disp Refills ALPRAZolam 0.5 MG Oral Tablet (xaNAX) [Ph*30 Tab*0 Sig: TAKE ONE TABLET BY MOUTH AT BEDTIME NEEDED FOR SLEEP Last Visit: 04/20/2024 (in office), 08/15/2021 (telemedicine) Next Visit: 12/14/2024 Date medication was last filled: 06/22/24 Date medication is due for refill: 07/21/24 Pharmacy: [id number] [address] [facility] Is this request for a controlled substance? Yes and Urine Drug Screen Not completed Toxicology results: No results found. However, due to the size of the patient record, not all encounters were searched.Please check Results Review for a complete set of results. Please approve if appropriate. Thanks, Alena Masterson [facility] Clinical Pharmacist Centralized Clinical Pharmacy Services (CCPS) [phone] * Telephone Encounter - Yovany Hendrickson director of cloud services - 07/22/2024 10:14 AM EDT Pt is completely out of medication Did you pend patient's preferred pharmacy and medication before forwarding?yes Pharmacy: [id number] [address] [facility] Pending Prescriptions: Disp Refills ALPRAZolam 0.5 MG Oral Tablet (xaNAX) [Ph*30 Tab*0 Sig: TAKE ONE TABLET BY MOUTH AT BEDTIME NEEDED FOR SLEEP Last Visit: 04/20/2024 (in office), 08/15/2021 (telemedicine) Next Visit: 12/14/2024 If no future appointments scheduled, and last appointment is greater than a year ago, please schedule patient for a follow-up appointment Last date the medication was ordered: 06/22/24 Is this request for a controlled substance?Yes, What was the last refill date 06/22/24 w/ quantity 30 and dosage 0.5 mg and Urine Drug Screen Not completed Urine Drug Screen:No results found. However, due to the size of the patient record, not all encounters were searched. Please check Results Review for a complete set of results. Patient Phone Numbers Labs: Lab Results Component Value Date/Time CREAT 1.1 (H) 04/20/2024 10:23 AM CREAT 1.1 (H) 07/14/2020 02:36 PM POTASSIUM 4.2 04/20/2024 10:23 AM POTASSIUM 3.5 07/14/2020 02:36 PM TSH 2.25 04/20/2024 10:23 AM TSH 0.37 03/09/2019 02:29 PM LDL 149 (H) 04/20/2024 10:23 AM LDL UNINTERPRETABLE RESULT 05/04/2019 11:26 AM LDL 140 (H) 05/04/2019 11:26 AM ALT 13 09/02/2023 02:26 PM ALT 25 07/14/2020 02:36 PM HGBA1C 5.5 04/20/2024 10:23 AM documented in this encounter Plan of Treatment Upcoming Encounters Date Type Department Care Team (Late st Contact Info) Description 08/31/2024 11:30 AM EST Hem/Onc Treatment Hematology/Oncology Treatment, [address] [phone] 12/14/2024 12:40 PM EST Office Visit Family Medicine [address] [place] [phone] Randal Franco MD [address] [place] [address] [place] [address] 01/27/2025 2:30 PM EDT Office Visit Gynecology/Obstetrics [facility] [address] [facility] [place] [address] Faby Peralta CRNP [address] [facility] [place] [address] 03/08/2025 12:40 PM EDT Office Visit [facility] [place] [address] Mason Petersen MD [address] [facility] [id number] Scheduled Procedures Name Priority Associated Diagnoses Date/Ti me COLONOSCOPY FLEXIBLE PROXIMAL DIAGNOSTIC Recall Crohn's colitis (HCC) Health Maintenance Due Date Last Done Comments DISCUSS TOBACCO CESSATION (REFER TO SMARTSET #9845) 1965 COVID-19 Vaccine (#1) 1969 Alpha-1 Antitrypsin [...] shot) (#1) 2024 CKD HGB USE SMARTSET 38400 09/02/202409/02, 09/24/2022, 09/24/2022, Additional history exists CKD PHOS USE SMARTSET 99296 09/02/2024 09/02/2023, 0 04/26/2021 Mammogram 09/30/2024 09/30/2023, 120 01/2023, 11/02/2021, Additional history exists GFR 10/20/2024 04/20/2024, 0 03/2023, 09/24/2022, Additional history exists Albumin/Creatinine Ratio 04/20/2025 024, 09/02/2023, 12/25/2021 TSH 04/20/2025 04/20/2024, 0 03/2023, 10/30/2021, Additional history exists O2 ASSESSMENT COMPLETED IN PAST YEAR FOR COPD 07/06/2025 07/06/2024 Lipid Panel 04/20/2029 04/20/2024, 05/2019, 04/09/2014, Additional [...] or maintaining sleep Anxiety Anxiety state, unspecified documented in this encounter Advance Directives Documents on File Type Date Recorded 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
--- OUTSIDE RECORDS SUMMARY | 2024-10-19 10:52 | External Medical Summary | Summary of Care ---
Author Name Unknown Organization [facility] Address [address] [facility] [address] Phone [phone] Care Team Providers Care Glue Wheel Operator Name Role Phone Randal Franco MD Primary Care Provide r Reason for Visit * Reason Comments IV Therapy AVSOLA * Episode Based Medications (Routine) - Authorized Specialty Diagnoses / Procedures Referred By Ange young Referred To Contact Diagnoses Crohn's disease of small intestine without complication (HCC) Procedures [place] INJ. AVSOLA, 10 MG Ramona King, DO [address] [place] [address] Anc Hem/Onc Selene Cantrell DEPT CLOSED - 09/10/23 [address] [facility] [address] Referral ID Status Reason Start Date Expiration Date V isits Requested Visits Authorized [id number] Authorized 09/02/2023 09/02/2024 99 99 Encounter Details Date Type Department Care Team (Latest Contact Info) Description 07/06/2024 11:30 AM EDT Hem/Onc Treatment Hematology/Oncology Treatment, [place] [address] [place] [address] Crohn's disease of small intestine without [...] 11:30 AM EST Hem/Onc Treatment Hematology/Oncology Treatment, [place] [address] [place] [phone] 12/14/2024 12:40 PM EST Office Visit Family Medicine [address] [place] [phone] Randal Franco MD [address] [place] [address] [place] [address] 01/27/2025 2:30 PM EDT Office Visit Gynecology/Obstetrics [facility] [address] [facility] [place] [address] Faby Peralta CRNP [address] [place] [address] 03/08/2025 12:40 PM EDT Office Visit Pulmonary Medicine, [facility] [address] [facility] [place] [address] Mason Petersen MD [address] [facility] [place] [address] Scheduled Procedures Name Priority Associated Diagnoses Date/Ti [...] shot) (#1) 2024 CKD HGB USE SMARTSET 45561 09/02/202409/02, 09/24/2022, 09/24/2022, Additional history exists CKD PHOS USE SMARTSET 62201 09/02/2024 09/02/2023, 0 04/26/2021 Mammogram 09/30/2024 09/30/2023, [...] Documents on File Type Date Recorded 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
--- OUTSIDE RECORDS SUMMARY | 2024-10-19 10:52 | External Medical Summary | Summary of Care ---
Author Name Unknown Organization [facility] Address [address] [facility] [address] Phone [phone] Care Team Providers Care Operations And Maintenance Technican Name Role Phone Randal Franco MD Primary Care Provide r Reason for Visit * Reason Comments IV Therapy AVSOLA * Episode Based Medications (Routine) - Authorized Specialty Diagnoses / Procedures Referred By Ange young Referred To Contact Diagnoses Crohn's disease of small intestine without complication (HCC) Procedures [place] INJ. AVSOLA, 10 MG Ramona King, DO [address] [place] [address] Anc Hem/Onc Selene Cantrell DEPT CLOSED - 09/10/23 [address] [facility] [address] Referral ID Status Reason Start Date Expiration Date V isits Requested Visits Authorized [id number] Authorized 09/02/2023 09/02/2024 99 99 Encounter Details Date Type Department Care Team (Latest Contact Info) Description 07/06/2024 11:30 AM EDT Hem/Onc Treatment Hematology/Oncology Treatment, [place] [address] [place] [address] Crohn's disease of small intestine without [...] 11:30 AM EST Hem/Onc Treatment Hematology/Oncology Treatment, [place] [address] [place] [phone] 12/14/2024 12:40 PM EST Office Visit Family Medicine [address] [place] [phone] Randal Franco MD [address] [place] [address] [place] [address] 01/27/2025 2:30 PM EDT Office Visit Gynecology/Obstetrics [facility] [address] [facility] [place] [address] Faby Peralta CRNP [address] [place] [address] 03/08/2025 12:40 PM EDT Office Visit Pulmonary Medicine, [facility] [address] [facility] [place] [address] Maosn Petersen MD [address] [facility] [place] [address] Scheduled Procedures Name Priority Associated Diagnoses Date/Ti [...] shot) (#1) 2024 CKD HGB USE SMARTSET 41019 09/02/202409/02, 09/24/2022, 09/24/2022, Additional history exists CKD PHOS USE SMARTSET 73067 09/02/2024 09/02/2023, 0 04/26/2021 Mammogram 09/30/2024 09/30/2023, [...] Documents on File Type Date Recorded 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
--- OUTSIDE RECORDS SUMMARY | 2024-10-19 10:52 | External Medical Summary | Summary of Care ---
Author Name Unknown Organization [facility] Address [address] [place] [address] Phone [phone] Care Team Providers Care Yield Loss Inspector Name Role Phone Candy Soto MD Primary Care Pr ovider Reason for Visit * Reason Comments eRx-Medication Refill Encounter Details Date Type Department Care Team (Late st Contact Info) Description 09/01/2024 Refill Family Medicine [address] [phone] Randal Franco MD [address] [place] [address] [place] [address] Bipolar 1 disorder (HCC) Allergies Active Allergy Reactions Criticality Noted Date [...] as of this encounter (statuses as of 09/02/2024) Medications Medication Sig Dispensed Refills Start Date [...] 8 weeks. 2 Each 7 1 Active Ondansetron HCl 4 MG Oral Tablet Take 1 Tablet by mouth every 6 hours as needed for Nausea. 30 Tablet 4 Active Ventolin HFA 108 (90 Base) MCG/ACT Inhalation Aerosol Solution Inhale 2 Puffs by mouth every 4 hours as needed for Cough, Shortness of Breath or Wheezing. 18 g 3 4 Active Levothyroxine Sodium 75 MCG [...] AT BEDTIME 90 Tablet 3 4 Active Spiriva Respimat 2.5 MCG/ACT Inhalation Aerosol SolutionIndication s:COPD, severity to be determined (HCC) Inhale 2 Puffs by mouth daily. 4 g 5 4 Active ALPRAZolam 0.5 MG Oral Tablet (xaNAX)Indications :Persistent insomnia,Anxiety TAKE ONE TABLET BY MOUTH AT BEDTIME NEEDED FOR SLEEP 30 Tablet 4 Active Fluticasone Furoate-Vilanterol 100-25 MCG/ACT Inhalation Aerosol Powder Breath Activated (BREO ellipta) Inhale 1 Puff by mouth in the morning. 60 Blister Dosing Unit 2 4 Active Cyclobenzaprine HCl 5 MG Oral Tablet (Flexeril)Indicati ons:Acute left-sided low back pain with left-sided sciatica Take 1 Tablet by mouth 3 times a day as needed for Pain or Muscle spasms. 30 Tablet 4 Active Fluticasone Propionate 50 MCG/ACT Nasal Suspension (Flonase)Indicatio ns:Nasal obstruction Administer 2 Sprays into each nostril in the morning. 9.9 mL 1 4 Active Naproxen 500 MG Oral Tablet (Naprosyn)Indicati ons:Acute left-sided low back pain with left-sided sciatica TAKE ONE TABLET BY MOUTH TWICE A DAY NEEDED FOR PAIN. TAKE WITH FOOD. 90 Tablet 4 Active buPROPion HCl ER (SR) 150 MG Oral Tablet Extended Release 12 Hour (Wellbutrin SR)Indications:Bip olar 1 disorder (HCC) take 1 tablet by mouth in the morning and before bedtime. 60 Tablet 1 4 Active buPROPion HCl ER (SR) 150 MG Oral Tablet Extended Release 12 Hour (Wellbutrin SR)Indications:Bip olar 1 disorder (HCC) take 1 tablet by mouth in the morning and before bedtime. 60 Tablet 3 4 09/02/20 24 Discontinued documented as of this encounter (statuses as of 09/02/2024) Active Problems Problem Noted Date Diagnosed Date [...] as of this encounter (statuses as of 09/02/2024) Resolved Problems Problem Noted Date Diagnosed Date [...] as of this encounter (statuses as of 09/02/2024) Immunizations Name Administration Dates Next Due PPD [...] Miscellaneous Notes * Telephone Encounter - Candy Soto MD - 09/02/2024 10:15 AM EST Filled for 2 months, will discuss at visit with patient. Thank you. * Telephone Encounter - Candy Soto MD - 09/02/2024 10:15 AM ESTSigned Prescriptions: Disp Refills buPROPion HCl ER (SR) 150 MG Oral Tablet E*60 Tab*1 Sig: take 1 tablet by mouth in the morning and before bedtime. Authorizing Provider: CANDY SOTO * Telephone Encounter - Briana Pickard [facility] - 09/02/2024 9:46 AM ESTPending Prescriptions: Disp Refills buPROPion HCl ER (SR) 150 MG Oral Tablet E*60 Tab*5 Sig: take 1 tablet by mouth in the morning and before bedtime. * Telephone Encounter - Briana Pickard RPh - 09/02/2024 9:44 AM EST Serum creatinine: 1.1 mg/dL (H) 04/20/24 1023 Estimated creatinine clearance: 43 mL/min (A) Per UpToDate for altered kidney function dosing: CrCl 15 to 60 mL/minute: Use with caution; consider a maximum daily dose of 150 mg/day Pt has upcoming OV on 09/14 to establish care. Please approve if appropriate. Thank you, Briana Pickard, PharmD Clinical Pharmacist [facility] Pharmacy Services ([facility]PS) [phone] 09/02/2024, 9:45 AM documented in this encounter Plan of Treatment Upcoming Encounters Date Type Department Care Team (Late st Contact Info) Description 09/14/2024 2:40 PM EST Office Visit Family Medicine [address] [phone] Candy Soto MD [address] [place] [address] [place] [phone] 09/21/2024 12:30 PM EST Office Visit Otolaryngology [facility] [address] [place] [address] Vance Araiza DO [address] [place] [address] 10/26/2024 10:30 AM EST Hem/Onc Treatment Hematology/Oncology [address], [address] [phone] Tamia, Chair 4 Hem Onc [address] [address] 12/14/2024 12:40 PM EST Office Visit Family Medicine [address] [place] [phone] Randal Franco MD [address] [place] [address] [place] [address] 01/27/2025 2:30 PM EDT Office Visit Gynecology/Obstetrics [facility] [address] [facility] [address] Faby Peralta CRNP [address] [facility] [place] [address] 03/08/2025 12:40 PM EDT Office Visit Pulmonary Medicine, [facility] [address] [facility] [place] [address] Mason Petersen MD [address] [facility] [address] Scheduled Procedures Name Priority Associated Diagnoses Date/Ti me COLONOSCOPY FLEXIBLE PROXIMAL DIAGNOSTIC Recall Crohn's colitis (HCC) Health Maintenance Due Date Last Done Comments DISCUSS TOBACCO CESSATION (REFER TO SMARTSET #9113) 1965 COVID-19 Vaccine (#1) 1969 Alpha-1 Antitrypsin [...] shot) (#1) 2024 CKD HGB USE SMARTSET 61288 09/02/202409/02, 09/24/2022, 09/24/2022, Additional history exists CKD PHOS USE SMARTSET 62992 09/02/2024 09/02/2023, 0 04/26/2021 Mammogram 09/30/2024 09/30/2023, [...] as of this encounter Visit Diagnoses Diagnosis Bipolar 1 disorder (HCC) Bipolar I disorder, most recent episode (or current) unspecified documented in this encounter Advance Directives Documents on File Type Date Recorded Patient Qualitative Researcher Expl anation Advance Directives and Living Will 04/02/2017 ADVANCE DIRECTIVE RELEASE OF RECS TO [employer] - Care Teams Yield Loss Inspector Relationship Specialty Start Date End Date Candy Soto MD [address] [place] [address] [place] [phone] PCP - General Family Medicine 08/24/24 documented as of this encounter
--- OUTSIDE RECORDS SUMMARY | 2024-10-19 10:52 | External Medical Summary | Summary of Care ---
Author Name Unknown Organization [facility] Address [address] [place] [place] [place] [address] Phone [phone] Care Team Providers Care School Counselor Name Role Phone Live Franco MD Primary Care Provide r Reason for Visit * Reason Comments eRx-Medication Refill Encounter Details Date Type Department Care Team (Late st Contact Info) Description 08/20/2024 Refill Family Medicine [address] [phone] Live Franco MD [address] [place] [address] [place] [address] Persistent insomnia; Anxiety Allergies Active Allergy [...] BEDTIME NEEDED FOR SLEEP 30 Tablet 4 08/24/20 24 Discontinued documented as of this encounter [...] encounter Miscellaneous Notes * Telephone Encounter - Live Franco MD - 08/24/2024 8:06 AM EDT Signed Prescriptions: Disp Refills ALPRAZolam 0.5 MG Oral Tablet (xaNAX) 30 Tab*0 Sig: TAKE ONE TABLET BY MOUTH AT BEDTIME NEEDED FOR SLEEP Authorizing Provider: LIVE FRANCO * Telephone Encounter - Interface, E-Rx Ss Inbound - 08/24/2024 5:32 AM EDT Pending Prescriptions: Disp Refills ALPRAZolam 0.5 MG Oral Tablet [Pharmacy Me*30 Tab*0 Sig: TAKE ONE TABLET BY MOUTH AT BEDTIME NEEDED FOR SLEEP * Telephone Encounter - Interface, E-Rx Ss Inbound - 08/22/2024 5:32 AM EDT Pending Prescriptions: Disp Refills ALPRAZolam 0.5 MG Oral Tablet [Pharmacy Me*30 Tab*0 Sig: TAKE ONE TABLET BY MOUTH AT BEDTIME NEEDED FOR SLEEP * Telephone Encounter - Lashaun Pereira [facility] - 08/21/2024 4:24 PM EDTPending Prescriptions: Disp Refills ALPRAZolam 0.5 MG Oral Tablet [Pharmacy Me*30 Tab*0 Sig: TAKE ONE TABLET BY MOUTH AT BEDTIME NEEDED FOR SLEEP * Telephone Encounter - Lashaun Pereira RPh - 08/21/2024 4:24 PM EDT I have reviewed the patients controlled substance dispensing history in the Prescription Drug Monitoring Program in compliance with the [facility] regulations before prescribing a controlled substance. PDMP checked on 08/21/2024. Pending Prescriptions: Disp Refills ALPRAZolam 0.5 MG Oral Tablet (xaNAX) [Ph*30 Tab*0 Sig: TAKE ONE TABLET BY MOUTH AT BEDTIME NEEDED FOR SLEEP Last Visit: 04/20/2024 (in office), 08/15/2021 (telemedicine) Next Visit: 12/14/2024 Date medication was last filled: 07/22/24 Date medication is due for refill: 08/20/24 Pharmacy: [facility] [id number] [place] [address] Is this request for a controlled substance? Yes and Urine Drug Screen Not completed Toxicology results: No results found. However, due to the size of the patient record, not all encounters were searched.Please check Results Review for a complete set of results. Please approve if appropriate. Thanks, Lashaun Pereira Clinical Pharmacist [facility] ([facility]) [phone] 08/21/2024, 4:24 PM documented in this encounter Plan of Treatment Upcoming Encounters Date Type Department Care Team ([facility] st Contact Info) Description 08/31/2024 11:30 AM EST Hem/Onc Treatment Hematology/Oncology Treatment, [place] [address] [place] [address] 12/14/2024 12:40 PM EST Office Visit Family [address] [phone] Live Franco MD [address] [place] [address] [place] [address] 01/27/2025 2:30 PM EDT Office Visit Gynecology/[facility] [address] [place] [address] BackerFaby CRNP [address] [place] [address] 03/08/2025 12:40 PM EDT Office Visit Pulmonary Medicine, [facility] [address] [place] [address] Mason Petersen MD [address] [facility] [place] [address] Scheduled Procedures Name Priority Associated Diagnoses Date/Ti me COLONOSCOPY FLEXIBLE PROXIMAL DIAGNOSTIC Recall Crohn's colitis (HCC) Health Maintenance Due Date Last Done Comments DISCUSS TOBACCO CESSATION (REFER TO SMARTSET #1730) 1964 COVID-19 Vaccine (#1) 1969 Alpha-1 Antitrypsin [...] shot) (#1) 2024 CKD HGB USE SMARTSET 79470 09/02/202409/02, 09/24/2022, 09/24/2022, Additional history exists CKD PHOS USE SMARTSET 32601 09/02/2024 09/02/2023, 0 04/26/2021 Mammogram 09/30/2024 09/30/2023, [...] Documents on File Type Date Recorded Patient Member Services Representative Expl anation Advance Directives and Living Will 04/02/2017 ADVANCE DIRECTIVE RELEASE OF RECS TO [employer] - Care Teams School Counselor Relationship Specialty Start Date End Date Live Fracno MD [address] [place] [address] [place] [phone] PCP - General Family Medicine 04/21/24 documented as of this encounter
--- OUTSIDE RECORDS SUMMARY | 2024-10-19 10:52 | External Medical Summary | Summary of Care ---
Author Name Unknown Organization [facility] Address [address] [facility] [place] [address] Phone [phone] Care Team Providers Care Tool Shaper Set Up Operator Name Role Phone Smiley Travis MD Primary Care Pr ovider Reason for Visit * Reason Comments IV Therapy Avsola * Episode Based Medications (Routine) - Authorized Specialty Diagnoses / Procedures Referred By Conttim t Referred To Contact Diagnoses Crohn's disease of small intestine without complication (HCC) Procedures [place] INJ. AVSOLA, 10 MG Ramona King, DO [address] [place] [address] Anc Hem/Onc Selene Cantrell DEPT CLOSED - 09/10/23 [facility] [address] Referral ID Status Reason Start Date Expiration Date V isits Requested Visits Authorized [id number] Authorized 08/14/2024 08/14/2025 99 99 Encounter Details Date Type Department Care Team (Latest Contact Info) Description 08/31/2024 11:30 AM EST Hem/Onc Treatment [facility] [place] [facility] [address] Crohn's disease of small intestine without [...] as of this encounter (statuses as of 08/31/2024) Medications Medication Sig Dispensed Refills Start Date [...] Tab by mouth daily. 30 Tab 5 03/03/2020 Active Cholecalciferol (VITAMIN D-3) 25 MCG (1000 UT) Capsule Take 3 Capsules by mouth in the morning. Active Aspirin 81 MG Oral Tablet Delayed Release Take 1 Tablet by mouth at bedtime. Active inFLIXimab 100 MG Intravenous Solution Reconstituted (Remicade) Infuse 160mg via IV weeks 0, 2, 6, then every 8 weeks. 2 Each 7 09/20/2021 Active Ondansetron HCl 4 MG Oral Tablet Take 1 Tablet by mouth every 6 hours as needed for Nausea. 30 Tablet 11/15/2023 Active Ventolin HFA 108 (90 Base) MCG/ACT Inhalation Aerosol Solution Inhale 2 Puffs by mouth every 4 hours as needed for Cough, Shortness of Breath or Wheezing. 18 g 3 01/02/2024 Active buPROPion HCl ER (SR) 150 MG Oral Tablet Extended Release 12 Hour (Wellbutrin SR)Indications:Bipol ar 1 disorder (HCC) take 1 tablet by mouth in the morning and before bedtime. 60 Tablet 3 05/09/2024 Active Levothyroxine Sodium 75 MCG Oral Tablet (Levoxyl)Indications :Acquired hypothyroidism TAKE ONE TABLET BY MOUTH EVERY DAY at least 30 minutes before breakfast or other medications 90 Tablet 3 06/25/2024 Active Estradiol 1 MG Oral Tablet (Estrace)Indications :Menopause TAKE ONE TABLET BY MOUTH IN THE MORNING 90 Tablet 07/10/2024 Active Pantoprazole Sodium 40 MG Oral Tablet Delayed Release (Protonix)Indication s:GERD (gastroesophageal reflux disease) TAKE ONE TABLET BY MOUTH EVERY DAY 90 Tablet 3 07/09/2024 Active Montelukast Sodium 10 MG Oral Tablet (Singulair)Indicatio ns:Postinflammatory pulmonary fibrosis (HCC) TAKE ONE TABLET BY MOUTH AT BEDTIME 90 Tablet 3 07/14/2024 Active Spiriva Respimat 2.5 MCG/ACT Inhalation Aerosol SolutionIndications: COPD, severity to be determined (HCC) Inhale 2 Puffs by mouth daily. 4 g 5 08/05/2024 Active ALPRAZolam 0.5 MG Oral Tablet (xaNAX)Indications:P ersistent insomnia,Anxiety TAKE ONE TABLET BY MOUTH AT BEDTIME NEEDED FOR SLEEP 30 Tablet 08/24/2024 Active Fluticasone Furoate-Vilanterol 100-25 MCG/ACT Inhalation Aerosol Powder Breath Activated (BREO ellipta) Inhale 1 Puff by mouth in the morning. 60 Blister Dosing Unit 2 08/24/2024 Active Cyclobenzaprine HCl 5 MG Oral Tablet (Flexeril)Indication s:Acute left-sided low back pain with left-sided sciatica Take 1 Tablet by mouth 3 times a day as needed for Pain or Muscle spasms. 30 Tablet 08/24/2024 Active Fluticasone Propionate 50 MCG/ACT Nasal Suspension (Flonase)Indications :Nasal obstruction Administer 2 Sprays into each nostril in the morning. 9.9 mL 1 08/24/2024 Active Naproxen 500 MG Oral Tablet (Naprosyn)Indication s:Acute left-sided low back pain with left-sided sciatica TAKE ONE TABLET BY MOUTH TWICE A DAY NEEDED FOR PAIN. TAKE WITH FOOD. 90 Tablet 08/24/2024 Active documented as of this encounter (statuses as of 08/31/2024) Active Problems Problem Noted Date Diagnosed Date [...] as of this encounter (statuses as of 08/31/2024) Resolved Problems Problem Noted Date Diagnosed Date [...] as of this encounter (statuses as of 08/31/2024) Immunizations Name Administration Dates Next Due PPD [...] 09/14/2024 2:40 PM EST Office Visit Family [address] [place] [phone] Smiley Travis MD [address] [place] [address] [place] [phone] 09/21/2024 12:30 PM EST Office Visit Otolaryngology [facility] [address] [place] [address] Vance Araiza DO [address] [place] [address] 10/26/2024 10:30 AM EST Hem/Onc Treatment Hematology/[address], [address] [phone] Chair Tamia 4 Hem Onc [address] [address] 12/14/2024 12:40 PM EST Office Visit Family [address] [place] [phone] Randal Franco MD [address] [place] [address] [place] [address] 01/27/2025 2:30 PM EDT Office Visit Gynecology/Obstetrics [facility] [address] [place] [address] Faby Peralta CRNP [address] [place] [address] 03/08/2025 12:40 PM EDT Office Visit Pulmonary Medicine, [facility] [address] [place] [address] Mason Petersen MD [address] [place] [address] Scheduled Procedures Name Priority Associated Diagnoses Date/Ti [...] shot) (#1) 2024 CKD HGB USE SMARTSET 64584 09/02/202409/02, 09/24/2022, 09/24/2022, Additional history exists CKD PHOS USE SMARTSET 86860 09/02/2024 09/02/2023, 0 04/26/2021 Mammogram 09/30/2024 09/30/2023, 1201/2023, 11/02/2021, Additional history exists GFR 10/20/2024 04/20/2024, 110 03/2023, 09/24/2022, Additional history exists Albumin/Creatinine Ratio 04/20/2025 024, 09/02/2023, 12/25/2021 TSH 04/20/2025 04/20/2024, 03/2023, 10/30/2021, Additional history exists O2 ASSESSMENT COMPLETED IN PAST YEAR FOR COPD 08/31/2025 08/31/2024 Lipid Panel 04/20/2029 04/20/2024, 05/2019, 04/09/2014, Additional [...] intestine documented in this encounter Administered Medications Active Administered Medications - up to 3 most recent administrations Medication Order MAR Action Action Date Dose Rate Site diphenhydrAMINE (Benadryl) inj 50 mg 50 mg, IV Push, ONCE PRN Other, Hypersensitivity Reaction, Starting on Sat08/31/24 at 1125, Until Sat09/01/24 at 1124, For 24 hours EPINEPHrine 1 MG/ML inj 0.3 mg 0.3 mg, Intramuscular, ONCE PRN Other, Hypersensitivity Reaction or Anaphylaxis, Starting on Sat08/31/24 at 1125, Until Sat09/01/24 at 1124, For 24 hours hEParin 100 UNIT/ML Lock Flush inj 500 Units 500 Units (5 mL), IV Lock, PRN Other, IV Flush, Starting on Sat08/31/24 at 1125, Until Sat09/01/24 at 1124, For 24 hours, Do not flush if lock, PICC, or central line not in place; IV infusing or unable to flush. Hydrocortisone Sod Suc (PF) (Solu-Cortef) inj 100 mg 100 mg, IV Push, ONCE PRN Other, Hypersensitivity Reaction, Starting on Sat08/31/24 at 1125, Until Sat09/01/24 at 1124, For 24 hours NSS infusion 500 mL, Intravenous, at 50 mL/hr, CONTINUOUS, Starting on Sat08/31/24 at 1230, Until Sat08/31/24 at 2229 Start Infusion 08/31/2024 11:50 AM EST 500 mL 50 mL/hr sodium chloride 0.9 % flush central line 10 mL 10 mL, IV Push, PRN Other, IV Flush, Starting on Sat08/31/24 at 1125, Until Sat09/01/24 at 1124, For 24 hours, Do not flush if lock, PICC, or central line not in place; IV infusing or unable to flush. Inactive Administered Medications - up to 3 most recent administrations Medication Order MAR Action Action Date Dose Rate Site Acetaminophen (Tylenol) tab 650 mg 650 mg, Oral, ONCE, On Sat08/31/24 at 1230, For 1 dose, Maximum of 4 grams (4000 mg) per day. Given 08/31/2024 11:49 AM EST 650 mg [...] volume, ONCE, 1 dose, On Sat08/31/24 at 1300 Rate Change 08/31/2024 1:35 PM EST 250 mL/hr Rate Change 08/31/2024 1:06 PM EST 150 mL/hr Rate Change 08/31/2024 12:50 PM EST 80 mL/hr documented in this encounter Advance Directives Documents on File Type Date Recorded Patient Machine Puller Expl anation Advance Directives and Living Will 04/02/2017 ADVANCE DIRECTIVE RELEASE OF RECS TO [employer] - Care Teams Tool Shaper Set Up Operator Relationship Specialty Start Date End Date Smiley Travis MD [address] [place] [address] [place] [phone] PCP - General Family Medicine 08/24/24 documented as of this encounter
--- OUTSIDE RECORDS SUMMARY | 2024-10-19 10:52 | External Medical Summary | Summary of Care ---
Author Name Unknown Organization [facility] Address [address] [place] [facility] [place] [place] [address] Phone [phone] Care Team Providers Care Specimen Boss Name Role Phone Randal Franco MD Primary Care Provide r Reason for Visit * Reason Onset Date Comments Medication Refill 07/22/2024 Encounter Details Date Type Department Care Team (Late st Contact Info) Description 07/22/2024 Refill [facility] Medicine [address] [phone] Randal Franco MD [address] [place] [address] [place] [address] Persistent insomnia; Anxiety Allergies Active Allergy [...] 8 weeks. 2 Each 7 09/20/2021 Active Naproxen 500 MG Oral Tablet (Naprosyn)Indication s:De Quervain's tenosynovitis, right TAKE ONE TABLET BY MOUTH TWICE A DAY NEEDED FOR PAIN. TAKE WITH FOOD. 180 Tablet 1 01/31/2022 Active Ondansetron HCl 4 MG Oral Tablet Take 1 Tablet by mouth every 6 hours as needed for Nausea. 30 Tablet 11/15/2023 Active Spiriva Respimat 2.5 MCG/ACT Inhalation Aerosol SolutionIndications: COPD, severity to be determined (HCC) Inhale 2 Puffs by mouth daily. 4 g 5 01/02/2024 Active Ventolin HFA 108 (90 Base) MCG/ACT [...] before bedtime. 60 Tablet 3 05/09/2024 Active ALPRAZolam 0.5 MG Oral Tablet (xaNAX)Indications:P ersistent insomnia,Anxiety TAKE ONE TABLET BY MOUTH AT BEDTIME NEEDED FOR SLEEP 30 Tablet 06/22/2024 Active Levothyroxine Sodium 75 MCG Oral Tablet [...] AT BEDTIME 90 Tablet 3 07/14/2024 Active documented as of this encounter (statuses [...] encounter Miscellaneous Notes * Telephone Encounter - Alena Masterson [facility] - 07/22/2024 10:22 AM EDT Refused Prescriptions: Disp Refills ALPRAZolam 0.5 MG Oral Tablet (xaNAX) 30 Tab*0 Sig: Take 1 Tablet by mouth at bedtime as needed. Refused By: ALENA MASTERSON Reason for Refusal: Duplicate Request * Telephone Encounter - Alena Masterson [facility] - 07/22/2024 10:22 AM EDT Refused Prescriptions: Disp Refills ALPRAZolam 0.5 MG Oral Tablet (xaNAX) 30 Tab*0 Sig: Take 1 Tablet by mouth at bedtime as needed. Refused By: ALENA MASTERSON Reason for Refusal: Duplicate Request * Telephone Encounter - Yovany Hendrickson, varnish melter helper - 07/22/2024 10:17 AM EDT Please refuse pending prescription(s) for ALPRAZolam 0.5 MG Oral Tablet (xaNAX) . Medication duplicate request Please advise. Did you pend patient's preferred pharmacy and medication before forwarding?yes Pharmacy: [facility] [id number] Pending Prescriptions: Disp Refills ALPRAZolam 0.5 MG Oral Tablet (xaNAX) 30 Tab*0 Sig: Take 1 Tablet by mouth at bedtime as needed. Last Visit: 04/20/2024 (in office), 08/15/2021 (telemedicine) [...] 02:36 PM HGBA1C 5.5 04/20/2024 10:23 AM Thank you, Yovany Hendrickson Assistant Prosecuting Attorney I [facility] ([facility]) 07/22/2024,10:17 AM documented in this encounter Plan of Treatment Upcoming Encounters Date Type Department Care Team (Late st Contact Info) Description 08/31/2024 11:30 AM EST Hem/Onc Treatment Hematology/Oncology Treatment, [place] [address] [place] [phone] 12/14/2024 12:40 PM EST Office Visit Family Medicine [address] [place] [phone] Randal Franco MD [address] [place] [address] [place] [address] 01/27/2025 2:30 PM EDT Office Visit Gynecology/Obstetrics Ariana Dominguez [address] [place] [address] Faby Peralta CRNP [address] [place] [address] 03/08/2025 12:40 PM EDT Office Visit Pulmonary Medicine, [facility] [address] [place] [address] Mason Petersen MD [address] [place] [phone] Scheduled Procedures Name Priority Associated Diagnoses Date/Ti [...] - PCV) 05/04/2016 05/04/2015 Colonoscopy 12/05/2022 12/05/2020, /0 05/2021, 11/28/2018, Additional history exists Colorectal Cancer Screening 12/05/2022 Influenza Vaccine (FLU shot) (#1) 2024 CKD HGB USE SMARTSET 08220 09/02/202409/02, 09/24/2022, 09/24/2022, Additional history exists CKD PHOS USE SMARTSET 64334 09/02/2024 09/02/2023, 0 04/26/2021 Mammogram 09/30/2024 09/30/2023, 120 01/2023, 11/02/2021, Additional history exists GFR 10/20/2024 04/20/2024, 0 03/2023, 09/24/2022, Additional history exists Albumin/Creatinine Ratio 04/20/20252 024, 09/02/2023, 12/25/2021 TSH 04/20/2025 04/20/2024, 0 [...] Documents on File Type Date Recorded Patient Saddle Tree Stitcher Expl anation Advance Directives and Living Will 04/02/2017 ADVANCE DIRECTIVE RELEASE OF RECS TO [employer] - Care Teams Specimen Boss Relationship Specialty Start Date End Date Randal Franco MD [address] [place] [address] [place] [address] PCP - General Family Medicine 04/21/24 documented as of this encounter
--- OUTSIDE RECORDS SUMMARY | 2024-10-19 10:52 | External Medical Summary | Summary of Care ---
Author Name Unknown Organization [facility] Address [address] [facility] [place] [address] Phone [phone] Care Team Providers Care Rat Trapper Name Role Phone Randal Franco MD Primary Care Provide r Reason for Visit * Reason Onset Date Comments Medication Refill 08/05/2024 Spiriva Respim at Encounter Details Date Type Department Care Team (Late st Contact Info) Description 08/05/2024 Refill Pulmonary Medicine Jeanie Edgar [address] [place] [phone] Mason Pino MD [address] [place] [phone] COPD, severity to be determined (HCC)* Allergies Active Allergy Reactions Criticality Noted [...] as of this encounter (statuses as of 08/05/2024) Medications Medication Sig Dispensed Refills Start Date [...] 09/20/2021 Active Naproxen 500 MG Oral Tablet (Naprosyn)Indicatio ns:De Quervain's tenosynovitis, right TAKE ONE TABLET BY [...] Oral Tablet Extended Release 12 Hour (Wellbutrin SR)Indications:Bipo lar 1 disorder (HCC) take 1 tablet by mouth in the morning and before bedtime. 60 Tablet 3 05/09/2024 Active Levothyroxine Sodium 75 MCG Oral Tablet (Levoxyl)Indication s:Acquired hypothyroidism TAKE ONE TABLET BY MOUTH EVERY DAY at least 30 minutes before breakfast or other medications 90 Tablet 3 06/25/2024 Active Estradiol 1 MG Oral Tablet (Estrace)Indication s:Menopause TAKE ONE TABLET BY MOUTH IN THE MORNING 90 Tablet 07/10/2024 Active Pantoprazole Sodium 40 MG Oral Tablet Delayed Release (Protonix)Indicatio ns:GERD (gastroesophageal reflux disease) TAKE ONE TABLET BY MOUTH EVERY DAY 90 Tablet 3 07/09/2024 Active Montelukast Sodium 10 MG Oral Tablet (Singulair)Indicati ons:Postinflammator y pulmonary fibrosis (HCC) TAKE ONE TABLET BY MOUTH AT BEDTIME 90 Tablet 3 07/14/2024 Active ALPRAZolam 0.5 MG Oral Tablet (xaNAX)Indications: Persistent insomnia,Anxiety TAKE ONE TABLET BY MOUTH AT BEDTIME NEEDED FOR SLEEP 30 Tablet 07/22/2024 Active Spiriva Respimat 2.5 MCG/ACT Inhalation Aerosol SolutionIndications :COPD, severity to be determined (HCC) Inhale 2 Puffs by mouth daily. 4 g 5 08/05/2024 Active Spiriva Respimat 2.5 MCG/ACT Inhalation Aerosol SolutionIndications :COPD, severity to be determined (HCC) Inhale 2 Puffs by mouth daily. 4 g 5 01/02/2024 08/05/20 Discontinu ed(Refill) documented as of this encounter (statuses as of 08/05/2024) Active Problems Problem Noted Date Diagnosed Date [...] as of this encounter (statuses as of 08/05/2024) Resolved Problems Problem Noted Date Diagnosed Date [...] mm rectal sessile polyp Alcohol abuse, episodic 03/28/2011/06/2015 Overview: DUI Asthma with severity to be determined 04/20/2010 10/14/2013 Overview: Per Asthma Taxonomy ICD-10 update of inactive term Anal fissure 07/20/2003 12/16/2017 Asthma exacerbation 04/20/20 10 documented as of this encounter (statuses as of 08/05/2024) Immunizations Name Administration Dates Next Due PPD [...] encounter Miscellaneous Notes * Telephone Encounter - Mason Pino MD - 08/05/2024 2:09 PM EDT Signed Prescriptions: Disp Refills Spiriva Respimat 2.5 MCG/ACT Inhalation Ae*4 g 5 Sig: Inhale 2 Puffs by mouth daily.Authorizing Provider: MASON PINO documented in this encounter Plan of Treatment Upcoming Encounters Date Type Department Care Team (Late st Contact Info) Description 08/31/2024 11:30 AM EST Hem/Onc Treatment Hematology/Oncology Treatment, [place] [address] [place] [phone] 12/14/2024 12:40 PM EST Office Visit Family Medicine [address] [phone] Randal Franco MD [address] [place] [address] [place] [address] 01/27/2025 2:30 PM EDT Office Visit Gynecology/Obstetrics [facility] 132 [facility] [place] [address] Faby Peralta CRNP 132 [facility] [place] [address] 03/08/2025 12:40 PM EDT Office Visit Pulmonary Medicine, [facility] 132 [facility] [place] [address] Mason Pino MD [address] [place] [address] Scheduled Procedures Name Priority Associated Diagnoses Date/Ti me COLONOSCOPY FLEXIBLE PROXIMAL DIAGNOSTIC Recall Crohn's colitis (HCC) Health Maintenance Due Date Last Done Comments DISCUSS TOBACCO CESSATION (REFER TO SMARTSET #8572) 1965 COVID-19 Vaccine (#1) 1969 Alpha-1 Antitrypsin [...] shot) (#1) 2024 CKD HGB USE SMARTSET 09524 09/02/202409/02, 09/24/2022, 09/24/2022, Additional history exists CKD PHOS USE SMARTSET 91279 09/02/2024 09/02/2023, 0 04/26/2021 Mammogram 09/30/2024 09/30/2023, [...] of this encounter Visit Diagnoses Diagnosis COPD, severity to be determined (HCC)- Primary Chronic airway obstruction, not elsewhere classified documented in this encounter Advance Directives Documents on File Type Date Recorded Patient Analytical Chemist Expl anation Advance Directives and Living Will 04/02/2017 ADVANCE DIRECTIVE RELEASE OF RECS TO [employer] - Care Teams Rat Trapper Relationship Specialty Start Date End Date Randal Franco MD [address] [place] [address] [place] [address] PCP - General Family Medicine 04/21/24 documented as of this encounter
--- OUTSIDE RECORDS SUMMARY | 2024-10-19 10:53 | External Medical Summary | Summary of Care ---
Author Name Unknown Organization [facility] Address [address] [facility] [address] Phone [phone] Care Team Providers Care Barrel Planer Name Role Phone Randal Franco MD Primary Care Provide r Reason for Visit * Reason Comments IV Therapy AVSOLA * Episode Based Medications (Routine) - Authorized Specialty Diagnoses / Procedures Referred By Ange young Referred To Contact Diagnoses Crohn's disease of small intestine without complication (HCC) Procedures [place] INJ. AVSOLA, 10 MG Ramona King, DO [address] [place] [address] Anc Hem/Onc Selene Cantrell DEPT CLOSED - 09/10/23 [address] [facility] [address] Referral ID Status Reason Start Date Expiration Date V isits Requested Visits Authorized [id number] Authorized 09/02/2023 09/02/2024 99 99 Encounter Details Date Type Department Care Team (Latest Contact Info) Description 07/06/2024 11:30 AM EDT Hem/Onc Treatment Hematology/Oncology Treatment, [place] [address] [place] [address] Crohn's disease of small intestine without [...] as of this encounter (statuses as of 07/10/2024) Medications Medication Sig Dispensed Refills Start Date [...] or Wheezing. 18 g 3 4 Active Montelukast Sodium 10 MG Oral Tablet (Singulair)Indicat ions:Postinflammat ory pulmonary fibrosis (HCC) TAKE ONE TABLET BY MOUTH AT BEDTIME 90 Tablet 1 4 Active Estradiol 1 MG Oral Tablet (Estrace)Indicatio ns:Menopause Take 1 Tablet by mouth in the morning. In the morning.. 90 Tablet 4 Active buPROPion HCl ER (SR) 150 MG Oral Tablet Extended Release 12 Hour (Wellbutrin SR)Indications:Bip olar 1 disorder (HCC) take 1 tablet by mouth in the morning and before bedtime. 60 Tablet 3 4 Active ALPRAZolam 0.5 MG Oral Tablet (xaNAX)Indications :Persistent insomnia,Anxiety TAKE ONE TABLET BY MOUTH AT BEDTIME NEEDED FOR SLEEP 30 Tablet 4 Active Levothyroxine Sodium 75 MCG Oral Tablet (Levoxyl)Indicatio ns:Acquired hypothyroidism TAKE ONE TABLET BY MOUTH EVERY DAY at least 30 minutes before breakfast or other medications 90 Tablet 3 4 Active Pantoprazole Sodium 40 MG Oral Tablet Delayed Release (Protonix)Indicati ons:GERD (gastroesophageal reflux disease) TAKE ONE TABLET BY MOUTH EVERY DAY 90 Tablet 4 07/09/20 24 Discontinued documented as of this encounter (statuses as of 07/10/2024) Active Problems Problem Noted Date Diagnosed Date [...] as of this encounter (statuses as of 07/10/2024) Resolved Problems Problem Noted Date Diagnosed Date [...] as of this encounter (statuses as of 07/10/2024) Immunizations Name Administration Dates Next Due PPD [...] 11:30 AM EST Hem/Onc Treatment Hematology/Oncology Treatment, [place] [address] [place] [address] 12/14/2024 12:40 PM EST Office Visit Family Medicine [address] [place] [phone] Randal Franco MD [address] [place] [address] [place] [address] 03/08/2025 12:40 PM EDT Office Visit Pulmonary Medicine, [facility] [address] [place] [address] Mason Petersen MD [address] [facility] [place] [phone] Scheduled Procedures Name Priority Associated Diagnoses Date/Ti [...] - PCV) 05/04/2016 05/04/2015 Colonoscopy 12/05/2022 12/05/2020, 02/05/2021, 11/28/2018, Additional history exists Colorectal Cancer Screening 12/05/2022 Influenza Vaccine (FLU shot) (#1) 2024 CKD HGB USE SMARTSET 51868 09/02/202409/02, 09/24/2022, 09/24/2022, Additional history exists CKD PHOS USE SMARTSET 53527 09/02/2024 09/02/2023, 0 04/26/2021 Mammogram 09/30/2024 09/30/2023, [...] Documents on File Type Date Recorded Patient Trial Judge Expl anation Advance Directives and Living Will 04/02/2017 ADVANCE DIRECTIVE RELEASE OF RECS TO [employer] - Care Teams Barrel Planer Relationship Specialty Start Date End Date Randal Franco MD [address] [place] [address] [place] [phone] PCP - General Family Medicine 04/21/24 documented as of this encounter
--- OUTSIDE RECORDS SUMMARY | 2024-10-19 10:53 | External Medical Summary | Summary of Care ---
Author Name Unknown Organization [facility] Address [address] [place] [address] Phone [phone] Care Team Providers Care Sound Effects Supervisor Name Role Phone Randal Franco MD Primary Care Provide r Encounter Details Date Type Department Care Team (Late st Contact Info) Description 07/14/2024 Orders Only Outcomes Research Department [address] [place] [address] Anastacia Valdovinos [employer]RA [employer] Research Other*[id number] Allergies Active Allergy Reactions Criticality Noted Date [...] as of this encounter (statuses as of 07/14/2024) Medications Medication Sig Dispensed Refills Start Date [...] or Wheezing. 18 g 3 01/02/2024 Active Montelukast Sodium 10 MG Oral Tablet (Singulair)Indicatio ns:Postinflammatory pulmonary fibrosis (HCC) TAKE ONE TABLET BY MOUTH AT BEDTIME 90 Tablet 1 01/29/2024 Active buPROPion HCl ER (SR) 150 MG [...] EVERY DAY 90 Tablet 3 07/09/2024 Active documented as of this encounter (statuses as of 07/14/2024) Active Problems Problem Noted Date Diagnosed Date [...] as of this encounter (statuses as of 07/14/2024) Resolved Problems Problem Noted Date Diagnosed Date [...] as of this encounter (statuses as of 07/14/2024) Immunizations Name Administration Dates Next Due PPD [...] 11:30 AM EST Hem/Onc Treatment Hematology/Oncology Treatment, [place] [address] [place] [phone] 12/14/2024 12:40 PM EST [facility] [address] [place] [address] [place] [phone] Randal Franco MD [address] [place] [address] [place] [address] 01/27/2025 2:30 PM EDT Office Visit Gynecology/Obstetrics [facility] [address] [place] [address] ThomaserFaby CRNP [address] [place] [address] 03/08/2025 12:40 PM EDT Office Visit Pulmonary Medicine, [facility] [address] [place] [address] Mason Petersen MD [address] [place] [address] Scheduled Orders Name Type Priority Associated Diagnoses Orde r Schedule MYCODE SUBSEQUENT ADULT Lab Routine [employer] Other*[id number] Every 6 Months for 2 Occurrences starting 07/14/2024 until 08/03/2025 Scheduled Procedures Name Priority Associated Diagnoses Date/Ti [...] shot) (#1) 2024 CKD HGB USE SMARTSET 61690 09/02/202409/02, 09/24/2022, 09/24/2022, Additional history exists CKD PHOS USE SMARTSET 75053 09/02/2024 09/02/2023, 0 04/26/2021 Mammogram 09/30/2024 09/30/2023, 01/2023, 11/02/2021, Additional history exists GFR 10/20/2024 04/20/2024, 0 03/2023, 09/24/2022, Additional history exists Albumin/Creatinine Ratio 04/20/2025 024, 09/02/2023, 12/25/2021 TSH 04/20/2025 04/20/2024, 110 03/2023, 10/30/2021, Additional history exists O2 ASSESSMENT COMPLETED IN PAST YEAR FOR COPD 07/06/2025 07/06/2024 Lipid Panel 04/20/2029 04/20/2024, 0 05/2019, 04/09/2014, Additional history exists DTap/Tdap Vaccines [...] as of this encounter Visit Diagnoses Diagnosis [employer] Other*[id number] documented in this encounter Advance Directives Documents on File Type Date Recorded Patient Pigs Feet Cleaner Expl anation Advance Directives and Living Will 04/02/2017 ADVANCE DIRECTIVE RELEASE OF RECS TO [employer] - Care Teams Sound Effects Supervisor Relationship Specialty Start Date End Date Randal Franco MD [address] [place] [address] [place] [phone] PCP - General Family Medicine 04/21/24 documented as of this encounter
--- OUTSIDE RECORDS SUMMARY | 2024-10-19 10:53 | External Medical Summary | Summary of Care ---
Author Name Unknown Organization [facility] Address [address] [facility] [address] Phone [phone] Care Team Providers Care Clinical Molecular Geneticist Name Role Phone Randal Franco MD Primary Care Provide r Reason for Visit * Reason Comments Chemotherapy Avsola. * Episode Based Medications (Routine) - Authorized Specialty Diagnoses / Procedures Referred By Ange young Referred To Contact Diagnoses Crohn's disease of small intestine without complication (HCC) Procedures [place] INJ. AVSOLA, 10 MG Ramona King, DO [address] [place] [address] Anc Hem/Onc Selene Cantrell DEPT CLOSED - 09/10/23 [address] [place] [address] Referral ID Status Reason Start Date Expiration Date V isits Requested Visits Authorized [id number] Authorized 09/02/2023 09/02/2024 99 99 Encounter Details Date Type Department Care Team (Latest Contact Info) Description 05/11/2024 11:30 AM EDT Hem/Onc Treatment Hematology/Oncology Treatment, [place] [address] [place] [address] Tamia, Chair [address] Hem [address] [place] [address] Crohn's disease of small intestine without complication [...] as of this encounter (statuses as of 06/04/2024) Medications Medication Sig Dispensed Refills Start Date [...] AT BEDTIME 90 Tablet 1 4 Active Levothyroxine Sodium 75 MCG Oral Tablet (Levoxyl)Indicatio ns:Acquired hypothyroidism TAKE ONE TABLET BY MOUTH EVERY DAY at least 30 minutes before breakfast or other medications 90 Tablet 4 Active Pantoprazole Sodium 40 MG Oral Tablet Delayed Release (Protonix)Indicati ons:GERD (gastroesophageal reflux disease) TAKE ONE TABLET BY MOUTH EVERY DAY 90 Tablet 4 Active Estradiol 1 MG Oral Tablet (Estrace)Indicatio ns:Menopause Take 1 Tablet by mouth in the morning. In the morning.. 90 Tablet 4 Active Fluticasone Furoate-Vilanterol 100-25 MCG/ACT Inhalation Aerosol Powder Breath Activated (BREO ellipta) Inhale 1 Puff by mouth in the morning. 60 Blister Dosing Unit 2 4 05/31/20 24 ALPRAZolam 0.5 MG Oral Tablet (xaNAX)Indications :Persistent insomnia,Anxiety Take 1 Tablet by mouth at bedtime as needed for Sleep or Anxiety. 30 Tablet 4 05/18/20 24 Discontinued documented as of this encounter (statuses as of 06/04/2024) Active Problems Problem Noted Date Diagnosed Date [...] as of this encounter (statuses as of 06/04/2024) Resolved Problems Problem Noted Date Diagnosed Date [...] as of this encounter (statuses as of 06/04/2024) Immunizations Name Administration Dates Next Due PPD [...] Sign Reading Time Taken Comments Blood Pressure 115/77 05/11/2024 11:25 AM EDT Pulse 72 05/11/2024 11:25 AM EDT Temperature 36.1 C (97 F) 05/11/2024 11:25 AM EDT Respiratory Rate 18 05/11/2024 11:25 AM EDT Oxygen Saturation 96% 05/11/2024 11:25 AM EDT Inhaled Oxygen Concentration - - Weight 55.6 kg (122 lb 9.6 oz) 05/11/2024 11:25 AM EDT Height - - Body Mass Index 22.42 03/02/2024 2:51 PM EDT documented in this encounter Nursing Notes * Sunshine Villalba RN - 05/11/2024 3:28 PM EDT Goals: Patient will remain free from injury. Possible barriers to meeting goals: Fall risk d/t ambulation with IV pole. Stability of the patient: Moderately stable - low risk of patient condition declining or worsening Summary regarding today's goals: Met: Patient remained free of injury. Patient tolerated infusion well. Discharged in stable condition. * Sunshine Villalba RN - 05/11/2024 11:42 AM EDT Chair 9. Patient arrived for avsola with no acute complaints. PIV established. Safety and Risk for Injury Patient will remain free from injury. Ensure appropriate safety devices are available. Provide and maintain safe environment. documented in this encounter Plan of Treatment Upcoming Encounters Date Type Department Care Team (Late st Contact Info) Description 06/08/2024 9:00 AM EDT Office Visit Family Medicine [address] [place] [phone] Demi Greene PA-C [address] [place] [address] [place] [address] 07/06/2024 11:30 AM EDT Hem/Onc Treatment Hematology/Oncology Treatment, [place] [address] [place] [address] 12/14/2024 12:40 PM EST Office Visit Family Medicine [address] [place] [phone] Randal Franco MD [address] [place] [address] [place] [address] 03/08/2025 12:40 PM EDT Office Visit Pulmonary Medicine, [facility] [address] [facility] [place] [address] Mason Petersen MD [address] [place] [address] Scheduled Procedures Name Priority Associated Diagnoses Date/Ti me COLONOSCOPY FLEXIBLE PROXIMAL DIAGNOSTIC Recall Crohn's colitis (HCC) Health Maintenance Due Date Last Done Comments DISCUSS TOBACCO CESSATION (REFER TO SMARTSET #4235) 1965 COVID-19 Vaccine (#1) 1969 Alpha-1 Antitrypsin [...] shot) (#1) 2024 CKD HGB USE SMARTSET 38005 09/02/202409/02, 09/24/2022, 09/24/2022, Additional history exists CKD PHOS USE SMARTSET 31569 09/02/2024 09/02/2023, 0 04/26/2021 Mammogram 09/30/2024 09/30/2023, 01/2023, 11/02/2021, Additional history exists GFR 10/20/2024 04/20/2024, 03/2023, 09/24/2022, Additional history exists Albumin/Creatinine Ratio 04/20/2025 024, 09/02/2023, 12/25/2021 TSH 04/20/2025 04/20/2024, 03/2023, 10/30/2021, Additional history exists O2 ASSESSMENT COMPLETED IN PAST YEAR FOR COPD 05/11/2025 05/11/2024 Lipid Panel 04/20/2029 04/20/2024, 05/2019, 04/09/2014, Additional history exists DTaP,Tdap,and Td Vaccines (3 - Td or Tdap) 05/12/2030 [...] 650 mg 650 mg, Oral, ONCE, On 05/11/24 at 1230, For 1 dose, Maximum of 4 grams (4000 mg) per day. Given 05/11/2024 11:39 AM EDT 650 mg inFLIXimab-axxq (Avsola) 270 mg in NSS 250 mL infusion 270 mg (rounded from 271 mg = 5 mg/kg 54.2 kg Treatment plan Recorded weight), Intravenous, Administer over 120 Minutes, MUST BE INFUSED THROUGH A 0.22 MICRON [...] = remaining volume, ONCE, 1 dose, On Sat05/11/24 at 1300 Rate Change 05/11/2024 1:42 PM EDT 250 mL/hr Rate Change 05/11/2024 1:12 PM EDT 150 mL/hr Rate Change 05/11/2024 12:56 PM EDT 80 mL/hr NSS infusion 500 mL, Intravenous, at 50 mL/hr, CONTINUOUS, Starting on Sat05/11/24 at 1230, Until Sat05/11/24 at 1930 Continue on Pump 05/11/2024 2:26 PM EDT 50 mL/hr Start Infusion 05/11/2024 11:37 AM EDT 500 mL 50 mL/hr documented in this encounter Advance Directives Documents on File Type Date Recorded Patient Dermatologist And Dermatopathologist Expl anation Advance Directives and Living Will 04/02/2017 ADVANCE DIRECTIVE RELEASE OF RECS TO [employer] - Care Teams Clinical Molecular Geneticist Relationship Specialty Start Date End Date Randal Franco MD [address] [place] [address] [place] [phone] PCP - General Family Medicine 04/21/24 documented as of this encounter
--- OUTSIDE RECORDS SUMMARY | 2024-10-19 10:53 | External Medical Summary | Summary of Care ---
Author Name Unknown Organization [facility] Address [address] [place] [facility] [place] [address] Phone [phone] Care Team Providers Care Delivery Architect Name Role Phone Randal Franco MD Primary Care Provide r Reason for Visit * Reason Comments eRx-Medication Refill Encounter Details Date Type Department Care Team (Late st Contact Info) Description 07/13/2024 Refill Family Medicine [address] [phone] Randal Franco MD [address] [place] [address] [place] [address] Postinflammatory pulmonary fibrosis (HCC) Allergies Active Allergy Reactions Criticality Noted [...] BY MOUTH IN THE MORNING 90 Tablet 09/13/202 4 Active Pantoprazole Sodium 40 MG Oral Tablet Delayed Release (Protonix)Indicati ons:GERD (gastroesophageal reflux disease) TAKE ONE TABLET BY MOUTH EVERY DAY 90 Tablet 3 4 Active Montelukast Sodium 10 MG Oral Tablet (Singulair)Indicat ions:Postinflammat ory pulmonary fibrosis (HCC) TAKE ONE TABLET BY MOUTH AT BEDTIME 90 Tablet 3 4 Active Montelukast Sodium 10 MG Oral Tablet (Singulair)Indicat ions:Postinflammat ory pulmonary fibrosis (HCC) TAKE ONE TABLET BY MOUTH AT BEDTIME 90 Tablet 1 4 07/14/20 24 Discontinued documented as of this encounter [...] encounter Miscellaneous Notes * Telephone Encounter - Geraldine Boles [facility] - 07/14/2024 4:10 PM EDTSigned Prescriptions: Disp Refills Montelukast Sodium 10 MG Oral Tablet (Sing*90 Tab*3 Sig: TAKE ONE TABLET BY MOUTH AT BEDTIMEAuthorizing Provider: Avani FRANCO User: ELENA BOLES documented in this encounter Plan of Treatment Upcoming Encounters Date Type Department Care Team (Late st Contact Info) Description 08/31/2024 11:30 AM EST Hem/Onc Treatment Hematology/Oncology Treatment, [place] [address] [facility] [place] [phone] 12/14/2024 12:40 PM EST Office Visit Family Medicine [address] [phone] Randal Franco MD [address] [place] [address] [place] [address] 01/27/2025 2:30 PM EDT Office Visit Gynecology/Obstetrics [facility] [address] [place] [address] Faby Peralta CRNP [address] [place] [address] 03/08/2025 12:40 PM EDT Office Visit Pulmonary Medicine, [facility] [address] [place] [address] Mason Petersen MD [address] [place] [address] Scheduled Procedures Name Priority Associated Diagnoses Date/Ti me COLONOSCOPY FLEXIBLE PROXIMAL DIAGNOSTIC Recall Crohn's colitis (HCC) Health Maintenance Due Date Last Done Comments DISCUSS TOBACCO CESSATION (REFER TO SMARTSET #0012) 1965 COVID-19 Vaccine (#1) 1969 Alpha-1 Antitrypsin [...] shot) (#1) 2024 CKD HGB USE SMARTSET 98643 09/02/202409/02, 09/24/2022, 09/24/2022, Additional history exists CKD PHOS USE SMARTSET 27386 09/02/2024 09/02/2023, 0 04/26/2021 Mammogram 09/30/2024 09/30/2023, 120 01/2023, 11/02/2021, Additional history exists GFR 10/20/2024 04/20/2024, 11/0 03/2023, 09/24/2022, Additional history exists Albumin/Creatinine Ratio 04/20/2025 024, 09/02/2023, 12/25/2021 TSH 04/20/2025 04/20/2024, 11/0 03/2023, 10/30/2021, Additional history exists O2 ASSESSMENT [...] as of this encounter Visit Diagnoses Diagnosis Postinflammatory pulmonary fibrosis (HCC) Postinflammatory pulmonary fibrosis documented in this encounter Advance Directives Documents on File Type Date Recorded 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
--- OUTSIDE RECORDS SUMMARY | 2024-10-19 10:53 | External Medical Summary | Summary of Care ---
Author Name Unknown Organization [facility] Address [address] [facility] [address] Phone [phone] Care Team Providers Care Financial Analysis Manager Name Role Phone Randal Franco MD Primary Care Provide r Reason for Visit * Reason Comments IV Therapy AVSOLA * Episode Based Medications (Routine) - Authorized Specialty Diagnoses / Procedures Referred By Ange young Referred To Contact Diagnoses Crohn's disease of small intestine without complication (HCC) Procedures [place] INJ. AVSOLA, 10 MG Ramona King, DO [address] [place] [address] Anc Hem/Onc Selene Cantrell DEPT CLOSED - 09/10/23 [address] [facility] [address] Referral ID Status Reason Start Date Expiration Date V isits Requested Visits Authorized [id number] Authorized 09/02/2023 09/02/2024 99 99 Encounter Details Date Type Department Care Team (Latest Contact Info) Description 07/06/2024 11:30 AM EDT Hem/Onc Treatment Hematology/Oncology Treatment, [place] [address] [place] [address] Crohn's disease of small intestine without [...] as of this encounter (statuses as of 07/06/2024) Medications Medication Sig Dispensed Refills Start Date [...] AT BEDTIME 90 Tablet 1 01/29/2024 Active Pantoprazole Sodium 40 MG Oral Tablet Delayed Release (Protonix)Indication s:GERD (gastroesophageal reflux disease) TAKE ONE TABLET BY MOUTH EVERY DAY 90 Tablet 04/14/2024 Active Estradiol 1 MG Oral Tablet (Estrace)Indications :Menopause Take 1 Tablet by mouth in the morning. In the morning.. 90 Tablet 04/13/2024 Active buPROPion HCl ER (SR) 150 MG [...] other medications 90 Tablet 3 06/25/2024 Active documented as of this encounter (statuses as of 07/06/2024) Active Problems Problem Noted Date Diagnosed Date [...] as of this encounter (statuses as of 07/06/2024) Resolved Problems Problem Noted Date Diagnosed Date [...] as of this encounter (statuses as of 07/06/2024) Immunizations Name Administration Dates Next Due PPD [...] 11:30 AM EST Hem/Onc Treatment Hematology/Oncology Treatment, [place] [address] [place] [address] 12/14/2024 12:40 PM EST [facility] [address] [place] [phone] Randal Franco MD [address] [facility] [place] [address] 03/08/2025 12:40 PM EDT Office Visit Pulmonary Medicine, [facility] [address] [place] [address] Mason Petersen MD [address] [place] [address] Scheduled Procedures Name Priority Associated Diagnoses Date/Ti [...] shot) (#1) 2024 CKD HGB USE SMARTSET 11242 09/02/202409/02, 09/24/2022, 09/24/2022, Additional history exists CKD PHOS USE SMARTSET 88513 09/02/2024 09/02/2023, 0 04/26/2021 Mammogram 09/30/2024 09/30/2023, 12/0 01/2023, 11/02/2021, Additional history exists GFR 10/20/2024 [...] ONCE PRN Other, Hypersensitivity Reaction, Starting on Sat07/06/24 at 1142, Until Sat07/07/24 at 1141, For 24 hours EPINEPHrine 1 MG/ML inj 0.3 mg 0.3 mg, Intramuscular, ONCE PRN Other, Hypersensitivity Reaction or Anaphylaxis, Starting on Sat07/06/24 at 1142, Until Sat07/07/24 at 1141, For 24 hours hEParin 100 UNIT/ML Lock Flush inj 500 Units 500 Units (5 mL), IV Lock, PRN Other, IV Flush, Starting on Sat07/06/24 at 1142, Until Sat07/07/24 at 1141, For 24 hours, Do not flush if lock, PICC, or central line not in place; IV infusing or unable to flush. Hydrocortisone Sod Suc (PF) (Solu-Cortef) inj 100 mg 100 mg, IV Push, ONCE PRN Other, Hypersensitivity Reaction, Starting on Sat07/06/24 at 1142, Until Sat07/07/24 at 1141, For 24 hours NSS infusion 500 mL, Intravenous, at 50 mL/hr, CONTINUOUS, Starting on Sat07/06/24 at 1245, Until Sat07/06/24 at 2244 Start Infusion 07/06/2024 11:43 AM EDT 500 mL 50 mL/hr sodium chloride 0.9 % flush central line 10 mL 10 mL, IV Push, PRN Other, IV Flush, Starting on Sat07/06/24 at 1142, Until Sat07/07/24 at 1141, For 24 hours, Do not flush if lock, PICC, or central line not in place; IV infusing or unable to flush. Inactive Administered Medications - up to 3 most recent administrations Medication Order MAR Action Action Date Dose Rate Site Acetaminophen (Tylenol) tab 650 mg 650 mg, Oral, ONCE, On Sat07/06/24 at 1245, For 1 dose, Maximum of [...] Change 07/06/2024 12:54 PM EDT 80 mL/hr documented in this encounter Advance Directives Documents on File Type Date Recorded Patient Marketing Support Manager Expl anation Advance Directives and Living Will 04/02/2017 ADVANCE DIRECTIVE RELEASE OF RECS TO [employer] - Care Teams Financial Analysis Manager Relationship Specialty Start Date End Date Randal Franco MD [address] [place] [address] [place] [phone] PCP - General Family Medicine 04/21/24 documented as of this encounter
--- OUTSIDE RECORDS SUMMARY | 2024-10-19 10:53 | External Medical Summary | Summary of Care ---
Author Name Unknown Organization [facility] Address [address] [place] [facility] [place] [address] Phone [phone] Care Team Providers Care Diver Tender Name Role Phone Randal Franco MD Primary Care Provide r Reason for Visit * Reason Comments eRx-Medication Refill Encounter Details Date Type Department Care Team (Late st Contact Info) Description 06/18/2024 Refill Family Medicine [address] [phone] Randal Franco MD [address] [place] [address] [place] [address] Persistent insomnia; Anxiety Allergies Active Allergy [...] as of this encounter (statuses as of 06/22/2024) Medications Medication Sig Dispensed Refills Start Date [...] BEDTIME NEEDED FOR SLEEP 30 Tablet 4 06/22/20 24 Discontinued documented as of this encounter (statuses as of 06/22/2024) Active Problems Problem Noted Date Diagnosed Date [...] as of this encounter (statuses as of 06/22/2024) Resolved Problems Problem Noted Date Diagnosed Date [...] as of this encounter (statuses as of 06/22/2024) Immunizations Name Administration Dates Next Due PPD [...] Telephone Encounter - Randal Franco MD - 06/22/2024 7:57 AM EDT Signed Prescriptions: Disp Refills ALPRAZolam 0.5 MG Oral Tablet (xaNAX) 30 Tab*0 Sig: TAKE ONE TABLET BY MOUTH AT BEDTIME NEEDED FOR SLEEP Authorizing Provider: RANDAL FRANCO * Telephone Encounter - Interface, E-Rx Ss Inbound - 06/20/2024 10:26 PM EDT Pending Prescriptions: Disp Refills ALPRAZolam 0.5 MG Oral Tablet [Pharmacy Me*30 Tab*0 Sig: TAKE ONE TABLET BY MOUTH AT BEDTIME NEEDED FOR SLEEP * Telephone Encounter - Jesus Hankins, [facility] - 06/20/2024 9:00 AM EDT Pending Prescriptions: Disp Refills ALPRAZolam 0.5 MG Oral Tablet [Pharmacy Me*30 Tab*0 Sig: TAKE ONE TABLET BY MOUTH AT BEDTIME NEEDED FOR SLEEP * Telephone Encounter - Jesus Hankins [facility] - 06/20/2024 8:59 AM EDT I have reviewed the patients controlled substance dispensing history in the Prescription Drug Monitoring Program in compliance with the [place] regulations before prescribing a controlled substance. PDMP checked on 06/20/2024. Pending Prescriptions: Disp Refills ALPRAZolam 0.5 MG Oral Tablet (xaNAX) [Ph*30 Tab*0 Sig: TAKE ONE TABLET BY MOUTH AT BEDTIME NEEDED FOR SLEEP Last Visit: 04/20/2024 (in office), 08/15/2021 (telemedicine) Next Visit: 12/14/2024 Date medication was last filled: 05/18/24 Date medication is due for refill: 06/16/24 Pharmacy: [id number] Is this request for a controlled substance? Yes and Urine Drug Screen Not completed Toxicology results: No results found. However, due to the size of the patient record, not all encounters were searched.Please check Results Review for a complete set of results. Please approve if appropriate. Thanks, Jesus Hankins, PharmD Clinical Pharmacist [facility] ([facility]) [phone] 06/20/2024, 8:59 AM documented in this encounter Plan of Treatment Upcoming Encounters Date Type Department Care Team (Late st Contact Info) Description 07/06/2024 11:30 AM EDT Hem/Onc Treatment Hematology/Oncology Treatment, [place] [address] [facility] [phone] 12/14/2024 12:40 PM EST Office Visit Family Medicine [address] [place] [phone] Randal Franco MD [address] [place] [address] [place] [address] 03/08/2025 12:40 PM EDT Office Visit Pulmonary Medicine, Health system [address] [facility] [place] [address] Mason Petersen MD [address] [facility] [place] [phone] Scheduled Procedures Name Priority Associated Diagnoses Date/Ti [...] shot) (#1) 2024 CKD HGB USE SMARTSET 68803 09/02/202409/02, 09/24/2022, 09/24/2022, Additional history exists CKD PHOS USE SMARTSET 41947 09/02/2024 09/02/2023, 0 04/26/2021 Mammogram 09/30/2024 09/30/2023, 120 01/2023, 11/02/2021, Additional history exists GFR 10/20/2024 04/20/2024, 11/0 03/2023, 09/24/2022, Additional history exists Albumin/Creatinine Ratio 04/20/2025 024, 09/02/2023, 12/25/2021 TSH 04/20/2025 04/20/2024, 11/0 03/2023, 10/30/2021, Additional history exists O2 ASSESSMENT COMPLETED IN PAST YEAR FOR COPD 05/11/2025 05/11/2024 Lipid Panel 04/20/2029 04/20/2024, 070 05/2019, 04/09/2014, Additional history exists DTaP,Tdap,and Td [...] Documents on File Type Date Recorded Patient Credit Collections Analyst Expl anation Advance Directives and Living Will 04/02/2017 ADVANCE DIRECTIVE RELEASE OF RECS TO [employer] - Care Teams Diver Tender Relationship Specialty Start Date End Date Randal Franco MD [address] [place] [address] [place] [address] PCP - General Family Medicine 04/21/24 documented as of this encounter
--- OUTSIDE RECORDS SUMMARY | 2024-10-19 10:53 | External Medical Summary | Summary of Care ---
Author Name Unknown Organization [facility] Address [address] [place] [address] Phone [phone] Care Team Providers Care Hydrate Control Tender Name Role Phone Live Zimmerman MD Primary Care Provide r Reason for Referral * Evaluate & Treat - Unlimited Visits (Within 30 days (routine)) - Authorized Specialty Diagnoses / Procedures Referred By Conttim t Referred To Contact Obstetrics/Gynecology / Gynecology Obstetrics Diagnoses Menopause Live Zimmerman MD [address] [place] [address] [place] [address] Referral ID Status Reason Start Date Expiration Date Visits Requested Visits Authorized [id number] Authorized Specialty Services Required 07/10/[phone] Question Answer Referral Priority Within 30 days (routine) What condition is the patient being seen for? Other Please use Ask-a-Doc if you are unsure about the referral I acknowledge Please provide more details menopausal symptoms Where should this appointment be scheduled? [facility] Comments There were no vitals taken for this visit. Reason for Visit * Reason Onset Date Comments eRx-Medication Refill 07/15/2024 Returning Call 07/07/2024 Encounter Details Date Type Department Care Team (Late st Contact Info) Description 07/07/2024 Refill Family Medicine [address] [place] [phone] Live Zimmerman MD [address] [place] [address] [place] [address] Menopause Allergies Active Allergy Reactions Criticality Noted [...] as of this encounter (statuses as of 07/15/2024) Medications Medication Sig Dispensed Refills Start Date [...] IN THE MORNING 90 Tablet 4 Active Montelukast Sodium 10 MG Oral Tablet (Singulair)Indicat ions:Postinflammat ory pulmonary fibrosis (HCC) TAKE ONE TABLET BY MOUTH AT BEDTIME 90 Tablet 1 4 07/14/20 24 Discontinued Pantoprazole Sodium 40 MG Oral Tablet Delayed Release (Protonix)Indicati ons:GERD (gastroesophageal reflux disease) TAKE ONE TABLET BY MOUTH EVERY DAY 90 Tablet 4 07/09/20 24 Discontinued Estradiol 1 MG Oral Tablet (Estrace)Indicatio ns:Menopause Take 1 Tablet by mouth in the morning. In the morning.. 90 Tablet 4 07/10/20 24 Discontinued documented as of this encounter (statuses as of 07/15/2024) Active Problems Problem Noted Date Diagnosed Date [...] as of this encounter (statuses as of 07/15/2024) Resolved Problems Problem Noted Date Diagnosed Date [...] as of this encounter (statuses as of 07/15/2024) Immunizations Name Administration Dates Next Due PPD [...] encounter Miscellaneous Notes * Telephone Encounter - Cayden Huerta manager internal - 07/15/2024 11:00 AM EDT Pt returning call. Read message to pt regarding RETAIL ADMINISTRATIVE ASSISTANT appt. Caller verbalized understanding. Thank you, Cayden Huerta Technology Analyst I [facility] ([facility]) 07/15/2024,11:01 AM * Telephone Encounter - Opal Sanchez LPN - 07/15/2024 9:17 AM EDT Pt scheduled with heavy forging machine operator on 01/27/25 * Telephone Encounter - Live Zimmerman MD - 07/10/2024 8:34 AM EDT Signed Prescriptions: Disp Refills Estradiol 1 MG Oral Tablet (Estrace) 90 Tab*0 Sig: TAKE ONE TABLET BY MOUTH IN THE MORNINGAuthorizing Provider: LIVE ZIMMERMAN * Telephone Encounter - Live Zimmerman MD - 07/10/2024 8:30 AM EDT Please inform the pt that I would like her to see heavy forging machine operator for continued refill of estrodiol * Telephone Encounter - [place], E-Rx Ss Inbound - 07/09/2024 1:34 PM EDT Pending Prescriptions: Disp Refills Estradiol 1 MG Oral Tablet (Estrace) 90 Tab*0 Sig: TAKE ONE TABLET BY MOUTH IN THE MORNING * Telephone Encounter - Kacey Alfaro [facility] - 07/09/2024 1:00 PM EDT Pending Prescriptions: Disp Refills Estradiol 1 MG Oral Tablet (Estrace) 90 Tab*0 Sig: TAKE ONE TABLET BY MOUTH IN THE MORNING * Telephone Encounter - Kacey Alfaro [facility] - 07/09/2024 12:59 PM EDT Did you pend patient's preferred pharmacy and medication before forwarding?yes Pharmacy: [facility] [id number] Pending Prescriptions: Disp Refills Estradiol 1 MG Oral Tablet (Estrace) [Pha*90 Tab*0 Sig: TAKE ONE TABLET BY MOUTH IN THE MORNING Last Visit: 04/20/2024 (in office), 08/15/2021 (telemedicine) Next Visit: 12/14/2024 If no future appointments scheduled, and last appointment is greater than a year ago, please schedule patient for a follow-up appointment Last date the medication was ordered: 04/13/24 Is this request for a controlled substance?No Urine Drug Screen:No results found. However, due [...] 11:30 AM EST Hem/Onc Treatment Hematology/Oncology Treatment, [place] [address] [facility] [phone] 12/14/2024 12:40 PM EST [facility] [address] [place] [address] [place] [phone] Live Zimmerman MD [address] [place] [address] [place] [address] 01/27/2025 2:30 PM EDT Office Visit Gynecology/Obstetrics [facility] [address] [place] [address] Faby Peralta CRNP [address] [place] [address] 03/08/2025 12:40 PM EDT Office Visit Pulmonary Medicine, [facility] [address] [place] [address] Mason Petersen MD [address] [facility] [place] [address] Scheduled Procedures Name Priority Associated Diagnoses Date/Ti me COLONOSCOPY FLEXIBLE PROXIMAL DIAGNOSTIC Recall Crohn's colitis (HCC) Scheduled Referrals Name Type Priority Associated Diagnoses Orde r Schedule RETAIL ADMINISTRATIVE ASSISTANT REFERRAL OP Referral Within 30 days (routine) Menopause Ordered: 07/10/2024 Health Maintenance Due Date Last Done Comments [...] shot) (#1) 2024 CKD HGB USE SMARTSET 50981 09/02/202409/02, 09/24/2022, 09/24/2022, Additional history exists CKD PHOS USE SMARTSET 18756 09/02/2024 09/02/2023, 0 04/26/2021 Mammogram 09/30/2024 09/30/2023, [...] Diagnosis Menopause Asymptomatic postmenopausal status (age-related) (natural) documented in this encounter Advance Directives Documents on File Type Date Recorded Patient [employer] Expl anation Advance Directives and Living Will 04/02/2017 ADVANCE DIRECTIVE RELEASE OF RECS TO [employer] - Care Teams Hydrate Control Tender Relationship Specialty Start Date End Date Live Zimmerman MD [address] [place] [address] [place] [phone] PCP - General Family Medicine 04/21/24 documented as of this encounter
--- OUTSIDE RECORDS SUMMARY | 2024-10-19 10:53 | External Medical Summary | Summary of Care ---
Author Name Unknown Organization [facility] Address [address] [place] [address] Phone [phone] Care Team Providers Care Open End Spinning Operator Name Role Phone Live rFanco MD Primary Care Provide r Reason for Referral * Evaluate & Treat - Unlimited Visits (Within 30 days (routine)) - Authorized Specialty Diagnoses / Procedures Referred By Conttim t Referred To Contact Obstetrics/Gynecology / Gynecology Obstetrics Diagnoses Menopause Live Franco MD [address] [place] [address] [place] [address] Referral ID Status Reason Start Date Expiration Date Visits Requested Visits Authorized [id number] Authorized Specialty Services Required 07/10/[phone] Question Answer Referral Priority Within 30 days (routine) What condition is the patient being seen for? Other Please use Ask-a-Doc if you are unsure about the referral I acknowledge Please provide more details menopausal symptoms Where should this appointment be scheduled? [facility] Comments There were no vitals taken for this visit. Reason for Visit * Reason Comments eRx-Medication Refill Encounter Details Date Type Department Care Team (Late st Contact Info) Description 07/07/2024 Refill Family Medicine [address] [place] [phone] Live Franco MD [address] [place] [address] [place] [address] Menopause Allergies Active Allergy Reactions Criticality Noted [...] encounter Miscellaneous Notes * Telephone Encounter - Opal Sanchez LPN - 07/15/2024 9:17 AM EDT Pt scheduled with rn gynecology on 01/27/25 * Telephone Encounter - Live Franco MD - 07/10/2024 8:34 AM EDT Signed Prescriptions: Disp Refills Estradiol 1 MG Oral Tablet (Estrace) 90 Tab*0 Sig: TAKE ONE TABLET BY MOUTH IN THE MORNINGAuthorizing Provider: LIVE FRANCO * Telephone Encounter - Live Franco MD - 07/10/2024 8:30 AM EDT Please inform the pt that I would like her to see rn gynecology for continued refill of estrodiol * Telephone Encounter - Interface, E-Rx Ss Inbound - 07/09/2024 1:34 PM EDT Pending Prescriptions: Disp Refills Estradiol 1 MG Oral Tablet (Estrace) 90 Tab*0 Sig: TAKE ONE TABLET BY MOUTH IN THE MORNING * Telephone Encounter - Kacey Alfaro, [facility] - 07/09/2024 1:00 PM EDT Pending Prescriptions: Disp Refills Estradiol 1 MG Oral Tablet (Estrace) 90 Tab*0 Sig: TAKE ONE TABLET BY MOUTH IN THE MORNING * Telephone Encounter - Kacey Alfaro, [facility] - 07/09/2024 12:59 PM EDT Did you pend patient's preferred pharmacy and medication before forwarding?yes Pharmacy: [id number] [address] [facility] Pending Prescriptions: Disp Refills Estradiol 1 MG [...] 11:30 AM EST Hem/Onc Treatment Hematology/Oncology Treatment, [place] [address] [place] [address] 12/14/2024 12:40 PM EST Office Visit Family Medicine [address] [place] [address] Live Franco MD [address] [place] [address] [place] [address] 01/27/2025 2:30 PM EDT Office Visit Gynecology/Obstetrics [facility] [address] [place] [address] Faby Peralta CRNP [address] [place] [address] 03/08/2025 12:40 PM EDT Office Visit Pulmonary Medicine, [facility] [address] [place] [address] NicolaMason arthur MD [address] [place] [address] Scheduled Procedures Name Priority Associated Diagnoses Date/Ti me COLONOSCOPY FLEXIBLE PROXIMAL DIAGNOSTIC Recall Crohn's colitis (HCC) Scheduled Referrals Name Type Priority Associated Diagnoses Orde r Schedule BEER COOLER REFERRAL OP Referral Within 30 days (routine) [...] shot) (#1) 2024 CKD HGB USE SMARTSET 11491 09/02/202409/02, 09/24/2022, 09/24/2022, Additional history exists CKD PHOS USE SMARTSET 41845 09/02/2024 09/02/2023, 0 04/26/2021 Mammogram 09/30/2024 09/30/2023, 0 01/2023, 11/02/2021, Additional [...] Documents on File Type Date Recorded 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
--- OUTSIDE RECORDS SUMMARY | 2024-10-19 10:53 | External Medical Summary | Summary of Care ---
Author Name Unknown Organization [facility] Address [address] [place] [address] Phone [phone] Care Team Providers Care Disbursing Agent Name Role Phone Randal Franco MD Primary Care Provide r Reason for Referral * Evaluate & Treat - Unlimited Visits (Within 30 days (routine)) - Authorized Specialty Diagnoses / Procedures Referred By Conttim t Referred To Contact Obstetrics/Gynecology / Gynecology Obstetrics Diagnoses Menopause Randal Franco MD [address] [place] [address] [place] [address] Referral ID Status Reason Start Date Expiration Date Visits Requested Visits Authorized [id number] Authorized Specialty Services Required 07/10/[phone] [...] Contact Info) Description 07/07/2024 Refill Family Medicine [address] [place] [phone] Randal Franco MD [address] [place] [address] [place] [address] Menopause Allergies Active Allergy Reactions Criticality Noted [...] AT BEDTIME 90 Tablet 1 4 Active buPROPion HCl ER [...] Telephone Encounter - Randal Franco MD - 07/10/2024 8:34 AM EDT Signed Prescriptions: Disp Refills Estradiol 1 MG Oral Tablet (Estrace) 90 Tab*0 Sig: TAKE ONE TABLET BY MOUTH IN THE MORNINGAuthorizing Provider: RANDAL FRANCO * Telephone Encounter - Randal Franco MD - 07/10/2024 8:30 AM EDT Please inform the pt that I would like her to see guest services coordinator for continued refill of estrodiol * Telephone Encounter - Juan, E-Rx Ss Inbound - 07/09/2024 1:34 PM EDT Pending Prescriptions: Disp Refills Estradiol 1 MG Oral Tablet (Estrace) 90 Tab*0 Sig: TAKE ONE TABLET BY MOUTH IN THE MORNING * Telephone Encounter - Kacey Alfaro, [facility] - 07/09/2024 1:00 PM EDT Pending Prescriptions: Disp Refills Estradiol 1 MG Oral Tablet (Estrace) 90 Tab*0 Sig: TAKE ONE TABLET BY MOUTH IN THE MORNING * Telephone Encounter - Kacey Alfaro, [facility] - 07/09/2024 12:59 PM EDT Did you pend patient's preferred pharmacy and medication before forwarding?yes Pharmacy: [id number] [address] [facility] Pending Prescriptions: Disp Refills Estradiol 1 [...] 11:30 AM EST Hem/Onc Treatment Hematology/Oncology Treatment, [place] [address] [place] [address] 12/14/2024 12:40 PM EST Office Visit Family Medicine [address] [phone] Randal Franco MD [address] [place] [address] [place] [address] 03/08/2025 12:40 PM EDT Office Visit Pulmonary Medicine, [facility] [address] [facility] [place] [address] Mason Petersen MD [address] [facility] [place] [phone] Scheduled Procedures Name Priority Associated Diagnoses Date/Ti me COLONOSCOPY FLEXIBLE PROXIMAL DIAGNOSTIC Recall Crohn's colitis (HCC) Scheduled Referrals Name Type Priority Associated Diagnoses Orde r Schedule MAGAZINE EDITOR REFERRAL OP Referral Within 30 days (routine) Menopause Ordered: 07/10/2024 Health Maintenance Due Date Last Done Comments DISCUSS TOBACCO CESSATION (REFER TO SMARTSET #7472) 1965 COVID-19 Vaccine (#1) 1969 Alpha-1 Antitrypsin [...] shot) (#1) 2024 CKD HGB USE SMARTSET 18741 09/02/202409/02, 09/24/2022, 09/24/2022, Additional history exists CKD PHOS USE SMARTSET 57477 09/02/2024 09/02/2023, 0 04/26/2021 Mammogram 09/30/2024 09/30/2023, 1201/2023, 11/02/2021, Additional history exists GFR 10/20/2024 04/20/2024, 0 03/2023, 09/24/2022, Additional history exists Albumin/Creatinine Ratio 04/20/2025 024, 09/02/2023, 12/25/2021 TSH 04/20/2025 04/20/2024, 0 03/2023, 10/30/2021, Additional history exists O2 ASSESSMENT COMPLETED IN PAST YEAR FOR COPD 07/06/2025 07/06/2024 Lipid Panel 04/20/2029 04/20/2024, 070 05/2019, 04/09/2014, Additional history exists DTap/Tdap Vaccines [...] Documents on File Type Date Recorded Patient Rebeamer Expl anation Advance Directives and Living Will 04/02/2017 ADVANCE DIRECTIVE RELEASE OF RECS TO [employer] - Care Teams Disbursing Agent Relationship Specialty Start Date End Date Randal Franco MD [address] [place] [address] [place] [phone] PCP - General Family Medicine 04/21/24 documented as of this encounter
--- OUTSIDE RECORDS SUMMARY | 2024-10-19 10:53 | External Medical Summary | Summary of Care ---
Author Name Unknown Organization [facility] Address [address] [facility] [place] [address] Phone [phone] Care Team Providers Care Senior Medical Transcriptionist Name Role Phone Randal Franco MD Primary Care Provide r Reason for Visit * Reason Comments eRx-Medication Refill Encounter Details Date Type Department Care Team (Late st Contact Info) Description 07/08/2024 Refill Family Medicine [address] [phone] Randal Franco MD [address] [place] [address] [place] [address] GERD (gastroesophageal reflux disease) Allergies Active Allergy Reactions Criticality Noted Date [...] as of this encounter (statuses as of 07/09/2024) Medications Medication Sig Dispensed Refills Start Date [...] EVERY DAY 90 Tablet 3 4 Active Pantoprazole Sodium 40 MG Oral Tablet Delayed Release (Protonix)Indicati ons:GERD (gastroesophageal reflux disease) TAKE ONE TABLET BY MOUTH EVERY DAY 90 Tablet 4 07/09/20 24 Discontinued documented as of this encounter (statuses as of 07/09/2024) Active Problems Problem Noted Date Diagnosed Date [...] as of this encounter (statuses as of 07/09/2024) Resolved Problems Problem Noted Date Diagnosed Date [...] as of this encounter (statuses as of 07/09/2024) Immunizations Name Administration Dates Next Due PPD [...] encounter Miscellaneous Notes * Telephone Encounter - Shaan [facility] - 07/09/2024 1:29 PM EDTSigned Prescriptions: Disp Refills Pantoprazole Sodium 40 MG Oral Tablet Lila*90 Tab*3 Sig: TAKE ONE TABLET BY MOUTH EVERY DAYAuthorizing Provider: Avani FRANCO User: SHAAN THOMAS documented in this encounter Plan of Treatment Upcoming Encounters Date Type Department Care Team (Late st Contact Info) Description 08/31/2024 11:30 AM EST Hem/Onc Treatment Hematology/Oncology Treatment, [place] [address] [place] [address] 12/14/2024 12:40 PM EST Office Visit Family Medicine [address] [phone] Randal Franco MD [address] [place] [address] [place] [address] 03/08/2025 12:40 PM EDT Office Visit Pulmonary Medicine, [facility] [address] [facility] [place] [address] Mason Petersen MD [address] [place], [place] [phone] Scheduled Procedures Name Priority Associated Diagnoses Date/Ti me COLONOSCOPY FLEXIBLE PROXIMAL DIAGNOSTIC Recall Crohn's colitis (HCC) Health Maintenance Due Date Last Done Comments DISCUSS TOBACCO CESSATION (REFER TO SMARTSET #5037) 1965 COVID-19 Vaccine (#1) 1969 Alpha-1 Antitrypsin [...] shot) (#1) 2024 CKD HGB USE SMARTSET 79351 09/02/202409/02, 09/24/2022, 09/24/2022, Additional history exists CKD PHOS USE SMARTSET 13705 09/02/2024 09/02/2023, 0 04/26/2021 Mammogram 09/30/2024 09/30/2023, [...] as of this encounter Visit Diagnoses Diagnosis GERD (gastroesophageal reflux disease) Esophageal reflux documented in this encounter Advance Directives Documents on File Type Date Recorded 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
--- OUTSIDE RECORDS SUMMARY | 2024-10-19 10:53 | External Medical Summary | Summary of Care ---
Author Name Unknown Organization [facility] Address [address] [facility] [place] [address] Phone [phone] Care Team Providers Care Facilitator Name Role Phone Randal Franco MD Primary Care Provide r Reason for Visit * Reason Comments eRx-Medication Refill Encounter Details Date Type Department Care Team (Late st Contact Info) Description 06/25/2024 Refill Family Medicine [address] [phone] Randal Franco MD [address] [place] [address] [place] [address] Acquired hypothyroidism Allergies Active Allergy Reactions Criticality Noted Date [...] as of this encounter (statuses as of 06/25/2024) Medications Medication Sig Dispensed Refills Start Date [...] AT BEDTIME 90 Tablet 1 4 Active Pantoprazole Sodium 40 MG Oral [...] other medications 90 Tablet 3 4 Active Levothyroxine Sodium 75 MCG Oral Tablet (Levoxyl)Indicatio ns:Acquired hypothyroidism TAKE ONE TABLET BY MOUTH EVERY DAY at least 30 minutes before breakfast or other medications 90 Tablet 4 06/25/20 24 Discontinued documented as of this encounter (statuses as of 06/25/2024) Active Problems Problem Noted Date Diagnosed Date [...] as of this encounter (statuses as of 06/25/2024) Resolved Problems Problem Noted Date Diagnosed Date [...] as of this encounter (statuses as of 06/25/2024) Immunizations Name Administration Dates Next Due PPD [...] encounter Miscellaneous Notes * Telephone Encounter - Devon Monzon [facility] - 06/25/2024 5:43 PM EDTSigned Prescriptions: Disp Refills Levothyroxine Sodium 75 MCG Oral Tablet (L*90 Tab*3 Sig: TAKE ONE TABLET BY MOUTH EVERY DAY at least 30 minutes before breakfast or other medicationsAuthorizing Provider: Avani FRANCO User: DEVON MONZON documented in this encounter Plan of Treatment Upcoming Encounters Date Type Department Care Team (Late st Contact Info) Description 07/06/2024 11:30 AM EDT Hem/Onc Treatment Hematology/Oncology Treatment, [place] [address] [place] [phone] 12/14/2024 12:40 PM EST Office Visit Family Medicine [address] [phone] Randal Franco MD [address] [place] [address] [place] [address] 03/08/2025 12:40 PM EDT Office Visit Pulmonary Medicine, [facility] [address] [facility] [place] [address] Mason Petersen [facility] [address] [facility] [address] Scheduled Procedures Name Priority Associated Diagnoses Date/Ti me COLONOSCOPY FLEXIBLE PROXIMAL DIAGNOSTIC Recall Crohn's colitis (HCC) Health Maintenance Due Date Last Done Comments DISCUSS TOBACCO CESSATION (REFER TO SMARTSET #0065) 1964 COVID-19 Vaccine (#1) 1969 Alpha-1 Antitrypsin [...] shot) (#1) 2024 CKD HGB USE SMARTSET 14470 09/02/202409/02, 09/24/2022, 09/24/2022, Additional history exists CKD PHOS USE SMARTSET 11262 09/02/2024 09/02/2023, 0 04/26/2021 Mammogram 09/30/2024 09/30/2023, [...] as of this encounter Visit Diagnoses Diagnosis Acquired hypothyroidism Unspecified hypothyroidism documented in this encounter Advance Directives Documents on File Type Date Recorded 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
--- OUTSIDE RECORDS SUMMARY | 2024-10-19 10:54 | External Medical Summary | Summary of Care ---
Author Name Unknown Organization [facility] Address [address] [place] [address] Phone [phone] Care Team Providers Care Supply Chain Procurement Manager Name Role Phone Randal Franco MD Primary Care Provide r Reason for Visit * Reason Onset Date Comments Advice 04/27/2024 Anderson Encounter Details Date Type Department Care Team (Late st Contact Info) Description 04/27/2024 Telephone Hematology/Oncology [facility] [place] [address] [place] [address] Services, Scheduling [address] [place] [address] Advice (Justin) Allergies Active Allergy Reactions Criticality Noted Date [...] as of this encounter (statuses as of 04/28/2024) Medications Medication Sig Dispensed Refills Start Date [...] AT BEDTIME 90 Tablet 1 01/29/2024 Active Fluticasone Furoate-Vilanterol 100-25 MCG/ACT Inhalation Aerosol Powder Breath Activated (BREO ellipta) Inhale 1 Puff by mouth in the morning. 60 Blister Dosing Unit 2 03/02/2024 Active Levothyroxine Sodium 75 MCG Oral Tablet (Levoxyl)Indications :Acquired hypothyroidism TAKE ONE TABLET BY MOUTH EVERY DAY at least 30 minutes before breakfast or other medications 90 Tablet 03/30/2024 Active buPROPion HCl ER (SR) 150 MG Oral Tablet Extended Release 12 Hour (Wellbutrin SR)Indications:Bipol ar 1 disorder (HCC) take 1 tablet by mouth in the morning and before bedtime. 60 Tablet 04/13/2024 Active Pantoprazole Sodium 40 MG Oral Tablet Delayed Release (Protonix)Indication s:GERD (gastroesophageal reflux disease) TAKE ONE TABLET BY MOUTH EVERY DAY 90 Tablet 04/14/2024 Active Estradiol 1 MG Oral Tablet (Estrace)Indications :Menopause Take 1 Tablet by mouth in the morning. In the morning.. 90 Tablet 04/13/2024 Active ALPRAZolam 0.5 MG Oral Tablet (xaNAX)Indications:P ersistent insomnia,Anxiety Take 1 Tablet by mouth at bedtime as needed for Sleep or Anxiety. 30 Tablet 04/20/2024 Active documented as of this encounter (statuses as of 04/28/2024) Active Problems Problem Noted Date Diagnosed Date [...] as of this encounter (statuses as of 04/28/2024) Resolved Problems Problem Noted Date Diagnosed Date [...] as of this encounter (statuses as of 04/28/2024) Immunizations Name Administration Dates Next Due PPD [...] Telephone Encounter - Gricel Sparrow [facility] - 04/27/2024 3:10 PM EDT Changed again and sent my g * Telephone Encounter - Gricel Sparrow [facility] - 04/27/2024 10:[address] A[address] changed and my g sent regarding * Telephone Encounter - Joan Molina [facility] - 04/27/2024 9:54 AM EDT Pt would like to reschedule her appointment on 05/04/24. She said that you can just leave a message on her MYG if you would like documented in this encounter Plan of Treatment Upcoming Encounters Date Type Department Care Team (Late st Contact Info) Description 05/15/2024 11:30 AM EDT Hem/Onc Treatment [facility]ematology[facility]cology [facility], [place] [address] [facility] [address] 06/08/2024 9:00 AM EDT Office Visit Family Medicine [address] [phone] Demi Greene PA-C [address] [place] [address] [place] [address] 12/14/2024 12:40 PM EST Office Visit Family Medicine [address] [place] [address] Randal Franco MD [address] [place] [address] [place] [address] 03/08/2025 12:40 PM EDT Office Visit Pulmonary Medicine, [facility] [address] [facility] [place] [address] Mason Petersen MD [address] [place] [phone] Scheduled Procedures Name Priority Associated Diagnoses Date/Ti me COLONOSCOPY FLEXIBLE PROXIMAL DIAGNOSTIC Recall Crohn's colitis (HCC) Health Maintenance Due Date Last Done Comments DISCUSS TOBACCO CESSATION (REFER TO SMARTSET #3571) 1965 COVID-19 Vaccine (#1) 1969 Alpha-1 Antitrypsin [...] shot) (#1) 2024 CKD HGB USE SMARTSET 80879 09/02/202409/02, 09/24/2022, 09/24/2022, Additional history exists CKD PHOS USE SMARTSET 87942 09/02/2024 09/02/2023, 0 04/26/2021 Mammogram 09/30/2024 09/30/2023, 1201/2023, 11/02/2021, Additional history exists GFR 10/20/2024 04/20/2024, 110 03/2023, 09/24/2022, Additional history exists Albumin/Creatinine Ratio 04/20/2025 024, 09/02/2023, 12/25/2021 O2 ASSESSMENT COMPLETED IN PAST YEAR FOR COPD 04/20/2025 04/20/2024 TSH 04/20/2025 04/20/2024, 110 03/2023, 10/30/2021, Additional history exists Lipid Panel 04/20/2029 04/20/2024, 0 05/2019, 04/09/2014, Additional history exists DTaP,Tdap,and Td Vaccines (3 - Td or Tdap) 05/12/2030 05/12/2020, 08/28/2007 RETIRED - COLONOSCOPY-EVERY 2 YRS AGES 18-100 Discontinued 12/05/2020, 12/05/2020, 11/28/2018, Additional history exists Lung Cancer Screening Completed 03/02/2024 , 10/08/2022, 03/17/2021, Additional history exists GARDASIL-HPV IMMUNIZATION SERIES Aged Out No longer eligible based on patient's age to complete this topic MENINGOCOCCAL (MENACTRA/MENVEO) Aged Out No longer eligible based on patient's age to complete this topic documented as of this encounter Medical Devices Not on filedocumented as of this encounter Advance Directives Documents on File Type Date Recorded Patient Chip Bin Conveyor Tender Expl anation Advance Directives and Living Will 04/02/2017 ADVANCE DIRECTIVE RELEASE OF RECS TO [employer] - Care Teams Supply Chain Procurement Manager Relationship Specialty Start Date End Date Randal Franco MD [address] [place] [address] [place] [phone] PCP - General Family Medicine 04/21/24 documented as of this encounter
--- OUTSIDE RECORDS SUMMARY | 2024-10-19 10:54 | External Medical Summary | Summary of Care ---
Author Name Unknown Organization [facility] Address [address] [facility] [place] [address] Phone [phone] Care Team Providers Care Brine Supervisor Name Role Phone Randal Franco MD Primary Care Provide r Reason for Visit * Reason Comments eRx-Medication Refill Encounter Details Date Type Department Care Team (Late st Contact Info) Description 05/08/2024 Refill Family Medicine [address] [phone] Randal Franco MD [address] [place] [address] [place] [address] Bipolar 1 disorder (HCC) Allergies Active [...] as of this encounter (statuses as of 05/09/2024) Medications Medication Sig Dispensed Refills Start Date [...] AT BEDTIME 90 Tablet 1 4 Active Fluticasone Furoate-Vilanterol 100-25 MCG/ACT Inhalation Aerosol Powder Breath Activated (BREO ellipta) Inhale 1 Puff by mouth in the morning. 60 Blister Dosing Unit 2 4 05/31/20 24 Active Levothyroxine Sodium 75 MCG Oral [...] In the morning.. 90 Tablet 4 Active ALPRAZolam 0.5 MG Oral Tablet (xaNAX)Indications :Persistent insomnia,Anxiety Take 1 Tablet by mouth at bedtime as needed for Sleep or Anxiety. 30 Tablet 4 Active buPROPion HCl ER (SR) 150 MG Oral Tablet Extended Release 12 Hour (Wellbutrin SR)Indications:Bip olar 1 disorder (HCC) take 1 tablet by mouth in the morning and before bedtime. 60 Tablet 3 4 Active buPROPion HCl ER (SR) 150 MG Oral Tablet Extended Release 12 Hour (Wellbutrin SR)Indications:Bip olar 1 disorder (HCC) take 1 tablet by mouth in the morning and before bedtime. 60 Tablet 4 05/09/20 24 Discontinued documented as of this encounter (statuses as of 05/09/2024) Active Problems Problem Noted Date Diagnosed Date [...] as of this encounter (statuses as of 05/09/2024) Resolved Problems Problem Noted Date Diagnosed Date [...] rectal sessile polyp Alcohol abuse, episodic 03/28/2011 07/06/2015 Overview: DUI Asthma with severity to be determined 04/20/2010 10/14/2013 Overview: Per Asthma Taxonomy ICD-10 update of inactive term Anal fissure 07/20/2003 12/16/2017 Asthma exacerbation 04/20/20 10 documented as of this encounter (statuses as of 05/09/2024) Immunizations Name Administration Dates Next Due PPD [...] encounter Miscellaneous Notes * Telephone Encounter - Maribell Mckeon [facility] - 05/09/2024 1:53 PM EDT Signed Prescriptions: Disp Refills buPROPion HCl ER (SR) 150 MG Oral Tablet E*60 Tab*3 Sig: take 1 tablet by mouth in the morning and before bedtime.Authorizing Provider: Avani FRANCO User: MARIBELL MCKEON documented in this encounter Plan of Treatment Upcoming Encounters Date Type Department Care Team (Late st Contact Info) Description 05/11/2024 11:30 AM EDT Hem/Onc Treatment Hematology/Oncology Treatment, [address] [phone] Park, Chair [address] [address] 06/08/2024 9:00 AM EDT Office Visit Family Medicine [address] [phone] Demi Greene PA-C [address] [place] [address] [place] [address] 12/14/2024 12:40 PM EST Office Visit Family Medicine [address] [place] [phone] Randal Franco MD [address] [place] [address] [place] [address] 03/08/2025 12:40 PM EDT Office Visit Pulmonary Medicine, [facility] [address] [place] [address] Mason Petersen MD [address] [place] [address] Scheduled Procedures Name Priority Associated Diagnoses [...] - PCV) 05/04/2016 05/04/2015 Colonoscopy 12/05/2022 12/05/2020, /05/2021, 11/28/2018, Additional history exists Colorectal Cancer Screening 12/05/2022 Influenza Vaccine (FLU shot) (#1) 2024 CKD HGB USE SMARTSET 72468 09/02/202409/02, 09/24/2022, 09/24/2022, Additional history exists CKD PHOS USE SMARTSET 41511 09/02/2024 09/02/2023, 0 04/26/2021 Mammogram 09/30/2024 09/30/2023, 120 01/2023, 11/02/2021, Additional history exists GFR 10/20/2024 04/20/2024, 110 03/2023, 09/24/2022, Additional history exists Albumin/Creatinine Ratio 04/20/2025 024, 09/02/2023, 12/25/2021 O2 ASSESSMENT COMPLETED IN PAST YEAR FOR COPD 04/20/2025 04/20/2024 TSH 04/20/2025 04/20/2024, 11/0 03/2023, 10/30/2021, Additional history exists Lipid Panel 04/20/2029 04/20/2024, 05/2019, 04/09/2014, Additional [...] Documents on File Type Date Recorded Patient Community Planner Expl anation Advance Directives and Living Will 04/02/2017 ADVANCE DIRECTIVE RELEASE OF RECS TO [employer] - Care Teams Brine Supervisor Relationship Specialty Start Date End Date Randal Franco MD [address] [place] [address] [place] [phone] PCP - General Family Medicine 04/21/24 documented as of this encounter
--- OUTSIDE RECORDS SUMMARY | 2024-10-19 10:54 | External Medical Summary | Summary of Care ---
Author Name Unknown Organization [facility] Address [address] [place] [address] Phone [phone] Care Team Providers Care Cloth Bleaching Range Tender Name Role Phone Live Franco MD Primary Care Provide r Reason for Visit * Reason Comments eRx-Medication Refill Encounter Details Date Type Department Care Team (Late st Contact Info) Description 05/12/2024 Refill Family Medicine [address] [phone] Live Franco MD [address] [place] [address] [place] [address] Persistent insomnia; Anxiety Allergies Active Allergy [...] as of this encounter (statuses as of 05/18/2024) Medications Medication Sig Dispensed Refills Start Date [...] as of this encounter (statuses as of 05/18/2024) Active Problems Problem Noted Date Diagnosed Date [...] as of this encounter (statuses as of 05/18/2024) Resolved Problems Problem Noted Date Diagnosed Date [...] as of this encounter (statuses as of 05/18/2024) Immunizations Name Administration Dates Next Due PPD [...] Telephone Encounter - Live Franco MD - 05/18/2024 8:03 AM EDT Signed Prescriptions: Disp Refills ALPRAZolam 0.5 MG Oral Tablet (xaNAX) 30 Tab*0 Sig: TAKE ONE TABLET BY MOUTH AT BEDTIME NEEDED FOR SLEEP Authorizing Provider: LVIE FRANCO * Telephone Encounter - Interface, E-Rx Ss Inbound - 05/16/2024 2:58 PM EDT Pending Prescriptions: Disp Refills ALPRAZolam 0.5 MG Oral Tablet [Pharmacy Me*30 Tab*0 Sig: TAKE ONE TABLET BY MOUTH AT BEDTIME NEEDED FOR SLEEP * Telephone Encounter - Briana Pickard [facility] - 05/16/2024 5:34 AM EDTPending Prescriptions: Disp Refills ALPRAZolam 0.5 MG Oral Tablet [Pharmacy Me*30 Tab*0 Sig: TAKE ONE TABLET BY MOUTH AT BEDTIME NEEDED FOR SLEEP * Telephone Encounter - Briana Pickard [facility] - 05/16/2024 5:33 AM EDT I have reviewed the patients controlled substance dispensing history in the Prescription Drug Monitoring Program in compliance with the [facility] regulations before prescribing a controlled substance. PDMP checked on 05/16/2024. Pending Prescriptions: Disp Refills ALPRAZolam 0.5 MG Oral Tablet (xaNAX) [Ph*30 Tab*0 Sig: TAKE ONE TABLET BY MOUTH AT BEDTIME NEEDED FOR SLEEP Last Visit: 04/20/2024 (in office), 08/15/2021 (telemedicine) Next Visit: 06/08/2024 Date medication was last filled: 04/20 Date medication is due for refill: 05/19 Pharmacy: [id number] [address] [facility] Is this request for a controlled substance? Yes and Urine Drug Screen Not completed Toxicology results: No results found. However, due to the size of the patient record, not all encounters were searched.Please check Results Review for a complete set of results. Please approve if appropriate. Thank you, Briana Pickard, PharmD Clinical Pharmacist [facility] ([facility]) [phone] 05/16/2024, 5:33 AM * Telephone Encounter - Interface, E-Rx Ss Inbound - 05/14/2024 2:58 PM EDT Pending Prescriptions: Disp Refills ALPRAZolam 0.5 MG Oral Tablet [Pharmacy Me*30 Tab*0 Sig: TAKE ONE TABLET BY MOUTH AT BEDTIME NEEDED FOR SLEEP * Telephone Encounter - Terri Younger [facility] - 05/13/2024 3:07 PM EDT Postpone until 05/16 I have reviewed the patients controlled substance dispensing history in the Prescription Drug Monitoring Program in compliance with the [facility] regulations before prescribing a controlled substance. PDMP checked on 05/13/2024. Pending Prescriptions: Disp Refills ALPRAZolam 0.5 MG Oral Tablet (xaNAX) [Ph*30 Tab*0 Sig: TAKE ONE TABLET BY MOUTH AT BEDTIME NEEDED FOR SLEEP Last Visit: 04/20/2024 (in office), 08/15/2021 (telemedicine) Next Visit: 06/08/2024 Date medication was last filled: 04/20/24 Date medication is due for refill: 05/19/24 Pharmacy: [id number] Is this request for a controlled substance? Yes and Urine Drug Screen Not completed Toxicology results: No results found. However, due to the size of the patient record, not all encounters were searched.Please check Results Review for a complete set of results. Please approve if appropriate. Thanks, Terri Younger PharmD Clinical Pharmacist [facility] ([facility]) [phone] 05/13/2024, 3:07 PM documented in this encounter Plan of Treatment Upcoming Encounters Date Type Department Care Team ([facility] st Contact Info) Description 06/08/2024 9:00 AM EDT Office Visit [address] [place] [address] Demi Greene PA-C [address] [place] [address] [place] [address] 07/06/2024 11:30 AM EDT Hem/Onc Treatment [facility]ematology[facility] [place] [address] [facility] [address] 12/14/2024 12:40 PM EST Office Visit [address] [place] [address] Live Franco MD [address] [place] [address] [place] [address] 03/08/2025 12:40 PM EDT Office Visit Pulmonary Medicine, [facility] [address] [place] [address] Mason Petersen MD [address] [place] [phone] Scheduled Procedures Name Priority Associated Diagnoses Date/Ti [...] Additional history exists Colorectal Cancer Screening 12/05/2022 *COPD SEVERITY VERIFIED BY PFT 05/10/2024 *CXR OR CT FOR COPD EVER 05/10/2024 Influenza Vaccine (FLU shot) (#1) 2024 CKD HGB USE SMARTSET 57349 09/02/202409/02, 09/24/2022, 09/24/2022, Additional history exists CKD PHOS USE SMARTSET 79082 09/02/2024 09/02/2023, 0 04/26/2021 Mammogram 09/30/2024 09/30/2023, [...] Documents on File Type Date Recorded Patient Secretary Receptionist Expl anation Advance Directives and Living Will 04/02/2017 ADVANCE DIRECTIVE RELEASE OF RECS TO [employer] - Care Teams Cloth Bleaching Range Tender Relationship Specialty Start Date End Date Live Franco MD [address] [place] [address] [place] [id number] PCP - General Family Medicine 04/21/24 documented as of this encounter
--- OUTSIDE RECORDS SUMMARY | 2024-10-19 10:54 | External Medical Summary | Summary of Care ---
Author Name Unknown Organization [facility] Address [address] [place] [address] Phone [phone] Care Team Providers Care Car Racer Name Role Phone Randal Franco MD Primary Care Provide r Reason for Visit * Reason Onset Date Comments Advice 04/27/2024 Anderson Encounter Details Date Type Department Care Team (Late st Contact Info) Description 04/27/2024 Telephone Hematology/Oncology [facility] [place] [address] [place] [address] Services, Scheduling [address] [place] [address] Advice (Justin) Allergies Active Allergy Reactions Criticality [...] Telephone Encounter - Gricel Sparrow [facility] - 04/28/2024 8:37 AM EDT Called pt to get info so that it didn't need to get changed again Changed to the date and time that pt wanted and she is aware * Telephone Encounter - Gricel Sparrow OSA [...] 11:30 AM EDT Hem/Onc Treatment Hematology/Oncology Treatment, [address] [place] [phone] [place], Chair 9 Hem [address]c [address] [address] 06/08/2024 9:00 AM EDT Office [address] [phone] Demi Greene PA-C [address] [place] [address] [place] [address] 12/14/2024 12:40 PM EST Office Visit [address] [phone] Randal Franco MD [address] [place] [address] [place] [address] 03/08/2025 12:40 PM EDT Office Visit Pulmonary Medicine, [facility] [address] [place] [address] Mason Petersen MD [address] [facility] [place] [id number] Scheduled Procedures Name Priority Associated Diagnoses Date/Ti [...] shot) (#1) 2024 CKD HGB USE SMARTSET 26319 09/02/202409/02, 09/24/2022, 09/24/2022, Additional history exists CKD PHOS USE SMARTSET 98485 09/02/2024 09/02/2023, 0 04/26/2021 Mammogram 09/30/2024 09/30/2023, 01/2023, 11/02/2021, Additional history exists GFR 10/20/2024 04/20/2024, 03/2023, 09/24/2022, Additional history exists Albumin/Creatinine Ratio 04/20/2025 024, 09/02/2023, 12/25/2021 O2 ASSESSMENT COMPLETED IN PAST YEAR FOR COPD 04/20/2025 04/20/2024 TSH 04/20/2025 04/20/2024, 03/2023, 10/30/2021, Additional history exists Lipid Panel [...] Documents on File Type Date Recorded Patient Youth Director Expl anation Advance Directives and Living Will 04/02/2017 ADVANCE DIRECTIVE RELEASE OF RECS TO [employer] - Care Teams Car Racer Relationship Specialty Start Date End Date Randal Franco MD [address] [place] [address] [place] [address] PCP - General Family Medicine 04/21/24 documented as of this encounter
--- OUTSIDE RECORDS SUMMARY | 2024-10-19 10:54 | External Medical Summary | Summary of Care ---
Author Name Unknown Organization [facility] Address [address] [place] [address] Phone [phone] Care Team Providers Care Color Television Console Monitor Name Role Phone Randal Franco MD Primary Care Provide r Reason for Visit * Reason Onset Date Comments Advice 04/27/2024 Anderson Encounter Details Date Type Department Care Team (Late st Contact Info) Description 04/27/2024 Telephone Hematology/Oncology [facility] [address] [place] [address] Services, Scheduling [address] [place] [address] Advice (Justin) Allergies Active Allergy Reactions Criticality [...] as of this encounter (statuses as of 04/27/2024) Medications Medication Sig Dispensed Refills Start Date [...] as of this encounter (statuses as of 04/27/2024) Active Problems Problem Noted Date Diagnosed Date [...] as of this encounter (statuses as of 04/27/2024) Resolved Problems Problem Noted Date Diagnosed Date [...] as of this encounter (statuses as of 04/27/2024) Immunizations Name Administration Dates Next Due PPD [...] Team (Late st Contact Info) Description 05/08/2024 11:00 AM EDT Hem/Onc Treatment Hematology/Oncology Treatment, [address] [place] [phone] Tamia, Chair 11 [address] [address] 06/08/2024 9:00 AM EDT Office Visit Family Medicine [address] [phone] Demi Greene PA-C [address] [place] [address] [place] [address] 12/14/2024 12:40 PM EST Office Visit Family Medicine [address] [phone] Randal Franco MD [address] [place] [address] [place] [address] 03/08/2025 12:40 PM EDT Office Visit Pulmonary Medicine, [facility] [place] [address] Mason Petersen MD [address] [place] [phone] Scheduled Procedures Name Priority Associated Diagnoses Date/Ti [...] shot) (#1) 2024 CKD HGB USE SMARTSET 09937 09/02/202409/02, 09/24/2022, 09/24/2022, Additional history exists CKD PHOS USE SMARTSET 35712 09/02/2024 09/02/2023, 0 04/26/2021 Mammogram 09/30/2024 09/30/2023, 1201/2023, 11/02/2021, Additional history exists GFR 10/20/2024 04/20/2024, 110 03/2023, 09/24/2022, Additional history exists Albumin/Creatinine Ratio 04/20/2025 024, 09/02/2023, 12/25/2021 O2 ASSESSMENT COMPLETED IN PAST YEAR FOR COPD 04/20/2025 04/20/2024 TSH 04/20/2025 04/20/2024, 11/0 03/2023, 10/30/2021, Additional history exists Lipid Panel 04/20/2029 04/20/2024, 07/0 05/2019, 04/09/2014, Additional history exists DTaP,Tdap,and Td [...] Documents on File Type Date Recorded Patient Dry Ice Maker Expl anation Advance Directives and Living Will 04/02/2017 ADVANCE DIRECTIVE RELEASE OF RECS TO [employer] - Care Teams Color Television Console Monitor Relationship Specialty Start Date End Date Randal Franco MD [address] [place] [address] [place] [phone] PCP - General Family Medicine 04/21/24 documented as of this encounter
--- OUTSIDE RECORDS SUMMARY | 2024-10-19 10:54 | External Medical Summary | Summary of Care ---
Author Name Unknown Organization [facility] Address [address] [place] [address] Phone [phone] Care Team Providers Care Piece Presser Name Role Phone Randal Franco MD Primary Care Provide r Reason for Visit * Reason Comments Chemotherapy Avsola. * Episode Based Medications (Routine) - Authorized Specialty Diagnoses / Procedures Referred By Ange young Referred To Contact Diagnoses Crohn's disease of small intestine without complication (HCC) Procedures [place] INJ. AVSOLA, 10 MG Ramona King, DO [address] [place] [address] Anc Hem/Onc Selene Cantrell DEPT CLOSED - 09/10/23 [address] [place] [address] Referral ID Status Reason Start Date Expiration Date V isits Requested Visits Authorized [id number] Authorized 09/02/2023 09/02/2024 99 99 Encounter Details Date Type Department Care Team (Latest Contact Info) Description 05/11/2024 11:30 AM EDT Hem/Onc Treatment Hematology/Oncology Treatment, [place] [address] [place] [address] Tamia, Chair 9 Hem Onc [address] [place] [address] Crohn's disease of small intestine without complication [...] as of this encounter (statuses as of 05/11/2024) Medications Medication Sig Dispensed Refills Start Date [...] or other medications 90 Tablet 03/30/2024 Active Pantoprazole Sodium 40 MG Oral Tablet [...] as of this encounter (statuses as of 05/11/2024) Active Problems Problem Noted Date Diagnosed Date [...] as of this encounter (statuses as of 05/11/2024) Resolved Problems Problem Noted Date Diagnosed Date [...] as of this encounter (statuses as of 05/11/2024) Immunizations Name Administration Dates Next Due PPD [...] 9:00 AM EDT Office Visit Family Medicine [address] [place] [phone] Demi Greene PA-C [address] [place] [address] [place] [address] 07/06/2024 11:30 AM EDT Hem/Onc Treatment Hematology/Oncology Treatment, [place] [address] [facility] [place] [phone] 12/14/2024 12:40 PM EST Office Visit Family Medicine [address] [place] [phone] Randal Franco MD [address] [place] [address] [place] [address] 03/08/2025 12:40 PM EDT Office Visit Pulmonary Medicine, [facility] [address] [facility] [place] [address] Mason Petersen MD [address] [facility] [address] Scheduled Procedures Name Priority Associated Diagnoses Date/Ti me COLONOSCOPY FLEXIBLE PROXIMAL DIAGNOSTIC Recall Crohn's colitis (HCC) Health Maintenance Due Date Last Done Comments DISCUSS TOBACCO CESSATION (REFER TO SMARTSET #3286) 1964 COVID-19 Vaccine (#1) 1969 Alpha-1 Antitrypsin [...] shot) (#1) 2024 CKD HGB USE SMARTSET 28422 09/02/202409/02, 09/24/2022, 09/24/2022, Additional history exists CKD PHOS USE SMARTSET 68133 09/02/2024 09/02/2023, 0 04/26/2021 Mammogram 09/30/2024 09/30/2023, 120 01/2023, 11/02/2021, Additional history exists GFR 10/20/2024 04/20/2024, 110 03/2023, 09/24/2022, Additional history exists Albumin/Creatinine Ratio 04/20/2025 024, 09/02/2023, 12/25/2021 TSH 04/20/2025 04/20/2024, 0 03/2023, 10/30/2021, Additional history exists O2 ASSESSMENT COMPLETED IN PAST YEAR FOR COPD 05/11/2025 05/11/2024 Lipid Panel 04/20/2029 04/20/2024, 07/0 05/2019, 04/09/2014, [...] ONCE PRN Other, Hypersensitivity Reaction, Starting on Sat05/11/24 at 1128, Until Sat05/12/24 at 1127, For 24 hours EPINEPHrine 1 MG/ML inj 0.3 mg 0.3 mg, Intramuscular, ONCE PRN Other, Hypersensitivity Reaction or Anaphylaxis, Starting on Sat05/11/24 at 1128, Until Sat05/12/24 at 1127, For 24 hours hEParin 100 UNIT/ML Lock Flush inj 500 Units 500 Units (5 mL), IV Lock, PRN Other, IV Flush, Starting on Sat05/11/24 at 1128, Until Sat05/12/24 at 1127, For 24 hours, Do not flush if lock, PICC, or central line not in place; IV infusing or unable to flush. Hydrocortisone Sod Suc (PF) (Solu-Cortef) inj 100 mg 100 mg, IV Push, ONCE PRN Other, Hypersensitivity Reaction, Starting on Sat05/11/24 at 1128, Until Sat05/12/24 at 1127, For 24 hours NSS infusion 500 mL, Intravenous, at 50 mL/hr, CONTINUOUS, Starting on Sat05/11/24 at 1230, Until Sat05/11/24 at 2229 Continue on Pump 05/11/2024 2:26 PM EDT 50 mL/hr Start Infusion 05/11/2024 11:37 AM EDT 500 mL 50 mL/hr sodium chloride 0.9 % flush central line 10 mL 10 mL, IV Push, PRN Other, IV Flush, Starting on Sat05/11/24 at 1128, Until Sat05/12/24 at 1127, For 24 hours, Do not flush if lock, PICC, or central line not in place; IV infusing or unable to flush. Inactive Administered Medications - up to 3 most recent administrations Medication Order MAR Action Action Date Dose Rate Site Acetaminophen (Tylenol) tab 650 mg 650 mg, Oral, ONCE, On Sat05/11/24 at 1230, For 1 dose, Maximum of [...] = remaining volume, ONCE, 1 dose, On 05/11/24 at 1300 Rate Change 05/11/2024 1:42 PM EDT 250 mL/hr Rate Change 05/11/2024 1:12 PM EDT 150 mL/hr Rate Change 05/11/2024 12:56 PM EDT 80 mL/hr documented in this encounter Advance Directives Documents on File Type Date Recorded Patient Sand Wheeler Expl anation Advance Directives and Living Will 04/02/2017 ADVANCE DIRECTIVE RELEASE OF RECS TO [employer] - Care Teams Piece Presser Relationship Specialty Start Date End Date Randal Franco MD [address] [place] [address] [place] [address] PCP - General Family Medicine 04/21/24 documented as of this encounter
--- OUTSIDE RECORDS SUMMARY | 2024-10-19 10:54 | External Medical Summary | Summary of Care ---
Author Name Unknown Organization [facility] Address [address] [facility] [address] Phone [phone] Care Team Providers Care Professor Of Rhetoric Name Role Phone Randal Franco MD Primary Care Provide r Reason for Visit * Reason Comments Chemotherapy Avsola. * Episode Based Medications (Routine) - Authorized Specialty Diagnoses / Procedures Referred By Ange young Referred To Contact Diagnoses Crohn's disease of small intestine without complication (HCC) Procedures [place] INJ. AVSOLA, 10 MG Ramona King, DO [address] [place] [address] Anc Hem/Onc Selene Cantrell DEPT CLOSED - 09/10/23 [address] [place] [address] Referral ID Status Reason Start Date Expiration Date V isits Requested Visits Authorized [id number] Authorized 09/02/2023 09/02/2024 99 99 Encounter Details Date Type Department Care Team (Latest Contact Info) Description 05/11/2024 11:30 AM EDT Hem/Onc Treatment Hematology/Oncology Treatment, [place] [address] [place] [address] Tamia, Chair 9 Hem Onc [address] [place] [address] Crohn's disease of small intestine without complication (HCC)* Allergies Active Allergy Reactions Criticality Noted Date Comments Kiwi Extract High 01/05/2020 Almost anaphylaxis Other reaction(s): hives, rash, swelling of throat and lips Oxycodone High 08/08/2021 Other reaction(s): FACE ITCHY Oxycodone-Acetaminophen High 01/03/2016 Other reaction(s): itchy Oxycodone-Acetaminophen 02/28/2009 itchy Pneumococcal Vaccine 08/08/2021 Other reaction(s): unknown Pneumococcal 13-Craey Conj Vacc 12/16/2017 Sore arm,"deathly sick" Had [...] 9:00 AM EDT Office Visit Family Medicine [address] [place] [phone] Demi Greene PA-C [address] [place] [address] [place] [address] 07/06/2024 11:30 AM EDT Hem/Onc Treatment Hematology/Oncology Treatment, [place] [address] [place] [address] 12/14/2024 12:40 PM EST Office Visit Family Medicine [address] [place] [phone] Randal Franco MD [address] [place] [address] [place] [address] 03/08/2025 12:40 PM EDT Office Visit Pulmonary Medicine, [facility] [address] [facility] [place] [address] Mason Petersen MD [address] [place] [address] Scheduled Procedures Name Priority Associated Diagnoses Date/Ti me COLONOSCOPY FLEXIBLE PROXIMAL DIAGNOSTIC Recall Crohn's colitis (HCC) Health Maintenance Due Date Last Done Comments DISCUSS TOBACCO CESSATION (REFER TO SMARTSET #9138) 1965 COVID-19 Vaccine (#1) 1969 Alpha-1 Antitrypsin [...] shot) (#1) 2024 CKD HGB USE SMARTSET 02766 09/02/202409/02, 09/24/2022, 09/24/2022, Additional history exists CKD PHOS USE SMARTSET 51010 09/02/2024 09/02/2023, 0 04/26/2021 Mammogram 09/30/2024 09/30/2023, [...] Documents on File Type Date Recorded 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
--- OUTSIDE RECORDS SUMMARY | 2024-10-19 10:54 | External Medical Summary | Summary of Care ---
Author Name Unknown Organization [facility] Address [address] [place] [address] Phone [phone] Care Team Providers Care Correspondence Coordinator Name Role Phone Randal Franco MD Primary Care Provide r Reason for Visit * Reason Onset Date Comments Advice 04/27/2024 Anderson Encounter Details Date Type Department Care Team (Late st Contact Info) Description 04/27/2024 Telephone Hematology/Oncology [facility] [place] [address] [place] [address] Services, Scheduling [address] [place] [address] Advice (Justin) Allergies Active Allergy Reactions Criticality [...] 11:30 AM EDT Hem/Onc Treatment Hematology/Oncology [facility], [place] [facility] [address] 06/08/2024 9:00 AM EDT Office Visit Family Medicine [address] [phone] Demi Greene PA-C [address] [place] [address] [place] [address] 12/14/2024 12:40 PM EST Office Visit Family Medicine [address] [place] [phone] Randal Franco MD [address] [place] [place] [address] [place] [address] 03/08/2025 12:40 PM EDT Office Visit Pulmonary Medicine, [facility] [address] [facility] [place] [address] Mason Petersen MD [address] [place] [address] [place] [phone] Scheduled Procedures Name Priority Associated Diagnoses Date/Ti me COLONOSCOPY FLEXIBLE PROXIMAL DIAGNOSTIC Recall Crohn's colitis (HCC) Health Maintenance Due Date Last Done Comments DISCUSS TOBACCO CESSATION (REFER TO SMARTSET #5821) 1965 COVID-19 Vaccine (#1) 1969 Alpha-1 Antitrypsin [...] shot) (#1) 2024 CKD HGB USE SMARTSET 57793 09/02/202409/02, 09/24/2022, 09/24/2022, Additional history exists CKD PHOS USE SMARTSET 75117 09/02/2024 09/02/2023, 0 04/26/2021 Mammogram 09/30/2024 09/30/2023, [...] Documents on File Type Date Recorded 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
--- OUTSIDE RECORDS SUMMARY | 2024-10-19 10:54 | External Medical Summary | Summary of Care ---
Author Name Unknown Organization [facility] Address [address] [place] [address] Phone [phone] Care Team Providers Care Story Editor Name Role Phone Randal Franco MD Primary Care Provide r Reason for Visit * Reason Onset Date Comments Advice 04/27/2024 Anderson Encounter Details Date Type Department Care Team (Late st Contact Info) Description 04/27/2024 Telephone Hematology/Oncology [facility] [address] [place] [address] Services, Scheduling [address] [place] [address] Advice (Justin) Allergies Active Allergy Reactions Criticality [...] 11:00 AM EDT Hem/Onc Treatment Hematology/Oncology Treatment, [address] [place] [phone] Tamia, Chair 11 Hem Onc [address] [address] 06/08/2024 9:00 AM EDT Office Visit Family Medicine [address] [phone] Demi Greene PA-C [address] [place] [address] [place] [address] 12/14/2024 12:40 PM EST Office Visit Family Medicine [address] [phone] Randal Franco MD [address] [place] [address] [place] [address] 03/08/2025 12:40 PM EDT Office Visit Pulmonary Medicine, [facility] [place] [address] Mason Petersen MD [address] [place] [phone] Scheduled Procedures Name Priority Associated Diagnoses Date/Ti me COLONOSCOPY FLEXIBLE PROXIMAL DIAGNOSTIC Recall Crohn's colitis (HCC) Health Maintenance Due Date Last Done Comments DISCUSS TOBACCO CESSATION (REFER TO SMARTSET #3299) 1965 COVID-19 Vaccine (#1) 1969 Alpha-1 Antitrypsin [...] shot) (#1) 2024 CKD HGB USE SMARTSET 65529 09/02/202409/02, 09/24/2022, 09/24/2022, Additional history exists CKD PHOS USE SMARTSET 83701 09/02/2024 09/02/2023, 0 04/26/2021 Mammogram 09/30/2024 09/30/2023, [...] Documents on File Type Date Recorded 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
[2024-10-19] MEDS: HYDROmorphone INJ 0.5 MG/0.5 ML SYR IV PRN (11:21)
[2024-10-19] MEDS: OSELTAMIVIR PHOSPHATE 75 MG CAP PO STA (11:21)
--- NOTE | 2024-10-19 11:36 | Electrocardiogram Report ---
Test Reason : Blood Pressure : */* mmHG Vent. Rate : 75 BPM Atrial Rate : 75 BPM P-R Int : 158 ms QRS Dur : 102 ms QT Int : 390 ms P-R-T Axes : 78 62 71 degrees QTcB Int : 435 ms Normal sinus rhythm Incomplete right bundle branch block Borderline ECG When compared with ECG of 29-Sep-2023 13:20, No significant change was found Confirmed by Jake Hanson ([id number]) on 10/19/2024 11:35:43 AM Referred By: REFERRED SELF Confirmed By: Jake Hanson
--- NOTE | 2024-10-19 12:12 | History & Physical Report ---
Date of Service October 19, 2024 Assessment & Plan (1) Acute respiratory failure with hypoxia: (2) COVID-19 virus infection: (3) Influenza A: Plan: 59-year-old woman with history of COPD, Crohn's disease, hypothyroidism who presents with 4 days of cough. Patient positive sick contacts Hypoxic on admission per ER. Chest x-ray did not show any acute abnormality. Labs notable for positive COVID and flu. Got Solu-Medrol in ER. Will continue dexamethasone. Continue nebs Continue tamiflu Continue oxygen supplementation and wean as tolerated (4) COPD (chronic obstructive pulmonary disease): Plan: Continue inhalers. Monitor (5) Low back pain: Plan: Reviewed epic chart with note from PCP in July noted in low back pain. Possible lumbar radiculopathy. Lumbar CT did not show any acute bony injury. Will get MRI lumbar for better assessment considering chronicity and worsening of pain. Gabapentin 300 twice daily. PT/OT (6) Hypothyroidism: Plan: Continue home levothyroxine. Code status: Full DVT ppx: hep sq I spent a total of 75 minutes coordinating, documenting and providing care for this patient excluding time spent in performance of separately billed services History of Present Illness Chief Complaint: Cough Low back pain Primary Care Provider: Smiley Brooke 59-year-old woman with history of COPD, Crohn's disease, hypothyroidism who presents with 4 days of cough. Patient reports dry cough for the past 4 days, Reports chronic intermittent low back pain radiating to his left leg that is an ongoing for over 2 months but current episode started 4 days ago and has been worsening. Reports some upper abdominal pain associated with coughing. Reports sore throat. Denies any shortness of breath or chest pain. Denies nausea, vomiting, fever or chills Reports generalized weakness. Reports sick contacts Denied lower extremity, saddle anesthesia ER physician noted she was hypoxic in 80s on room air Patient smokes about 8 cigarettes/day. Denies alcohol or illicit drug use Allergies Allergy/AdvReac Type Severity Reaction Status Date / Time kiwi Allergy Severe hives, Verified 08/08/21 15:34 rash, swelling of throat and lips oxycodone Allergy Intermediate FACE ITCHY Verified 08/08/21 15:34 pneumococcal vaccine Allergy Unknown unknown Verified 08/08/21 15:34 Home Medications Medication Instructions Recorded Confirmed Type alprazolam 0.5 mg tablet (Xanax) 0.5 mg PO HS 04/18/19 10/19/24 History bupropion HCl 150 mg tablet,12 hr 150 mg PO BID 04/18/19 10/19/24 History sustained-release estradiol 1 mg tablet (Estrace) 1 mg PO QAM 04/18/19 10/19/24 History levothyroxine 75 mcg tablet 75 mcg PO QAM 04/18/19 10/19/24 History pantoprazole 40 mg tablet,delayed 40 mg PO QAM 04/18/19 10/19/24 History release aspirin 81 mg tablet,delayed 81 mg PO QAM 09/17/20 10/19/24 History release cholecalciferol (vitamin D3) 25 25 mcg PO QAM 09/17/20 10/19/24 History mcg (1,000 unit) tablet (Vitamin D3) cyanocobalamin (vitamin B-12) 1,000 mcg PO QAM 09/17/20 10/19/24 History 1,000 mcg tablet (Vitamin B-12) tiotropium bromide 2.5 2 puff inhalation QAM 09/17/20 10/19/24 History mcg/actuation mist for inhalation (Spiriva Respimat) montelukast 10 mg tablet 10 mg PO HS 08/08/21 10/19/24 History (Singulair) Infusion 1 dose IV UD 10/19/24 10/19/24 History fluticasone furoate 100 1 inh inhalation QAM 10/19/24 10/19/24 History mcg-vilanterol 25 mcg/dose inhalation powder (Breo Ellipta) Past Med/Surg History Problem List (Updated 10/19/24 @ 12:49 by Lin Villa MD) Low back pain Influenza A Acute respiratory failure with hypoxia COVID-19 virus infection (Acute) COVID-19 (Acute) Person under investigation for COVID-19 (Acute) Dyspnea Nonproductive cough Tobacco use COPD (chronic obstructive pulmonary disease) (Acute) Bipolar disorder (Chronic) Crohns disease (Chronic) History of neck pain (Chronic) Hypothyroidism (Chronic) Cervical spinal cord compression Medical History Tobacco use disorder Snoring Sleep disorder Regional enteritis Pulmonary nodule Pneumonia Pharyngitis Fatigue COPD, moderate Cigarette smoker Cigarette nicotine dependence Chronic pain Bronchiolitis Benign neoplasm of colon Asthma Anxiety disorder, unspecified Alcohol abuse Abnormal CAT scan COVID-19 Tobacco use COPD (chronic obstructive pulmonary disease) Social History Smoking Status: Current some day smoker Tobacco Type: Cigarettes Cigarettes Per Day: 8; Second Hand Exposure: No; Do You Dip or Chew Tobacco: No; Tobacco Cessation Education Requested by Patient: No Hx Alcohol Use: No Hx Substance Use: No Preferred Language: Maori Tile Presser Required: No Beliefs That Will Affect Care: None Current Living Situation: Spouse Other Information That Helps Us Care for You: No Feels Safe at Home: Yes Safety Concerns: Feels Safe At This Time Review of Systems Review of Systems: All systems reviewed & are unremarkable except as noted in HPI & below Physical Exam Constitutional: + well hydrated; no acute distress Eyes: PERRL, conjunctivae normal, anicteric sclerae ENMT: external ear and nose normal, oropharynx normal Respiratory: On nasal cannula, not in resp distress, diminished breath sounds, scattered rhonchi Cardiovascular: Rate/Rhythm: regular rate and regular rhythm Gastrointestinal (Abdomen): normal bowel sounds, soft, nontender, no hepatosplenomegaly Musculoskeletal: no cyanosis or clubbing, extremities motor strength 5/5 Neurologic: PERRL, EOMI, accommodation nl, no face palsy, no dysarthria Psychiatric: A+Ox3, euthymic affect Results & Data Results & Data Vital Signs (Past 12 Hours) Vital Signs Temp Pulse Resp BP Pulse Ox O2 Del Method O2 Flow Rate 10/19/24 10:00 76 18 131/79 93 10/19/24 09:43 78 18 92 Nasal Cannula 2 10/19/24 09:31 82 10/19/24 09:30 76 16 136/75 94 10/19/24 09:18 37.1 C 74 18 137/77 94 Room Air 10/19/24 09:12 79 20 137/77 93 Laboratory Results Abnormal lab results 10/19/24 Range/Units 09:15 Lymph # (Auto) 0.81 L (1.20-3.40) K/uL SARS-CoV-2 (PCR) DETECTED A (NotDetected) Influenza A (H3) PCR DETECTED A (NotDetected) Diagnostic Findings XR chest 1V portable CLINICAL HISTORY: weakness COMPARISON STUDY: Chest CT March 24, 2020. Chest radiograph September 29, 2023. FINDINGS: Postoperative findings within the spine are incidentally noted. Lung volumes are normal. Lungs are clear. There is no pneumothorax or pleural effusion. Cardiac size is normal. Mediastinal contours are normal. There is no evidence for pulmonary edema. IMPRESSION: No acute cardiopulmonary findings. CT lumbar spine wo con CLINICAL HISTORY: L low back pain, L sciatica TECHNIQUE: Multidetector row helical CT of the lumbar spine was performed without administration of intravenous contrast. Coronal and sagittal r eformations were obtained. Automated dose lowering techniques and/or adjustment according to patient size were utilized for this exam. CT DOSE: 742.73 mGy.cm Comparison: None available at the time of this dictation. FINDINGS: For counting purposes, the last complete intervertebral disc space is considered L5-S1. No acute fractures are identified. Vertebral body heights and disk spaces are we ll maintained. Vertebral body alignment is within normal limits. Surrounding soft tissues are unremarkable. IMPRESSION: No evidence of acute bony injury. Code Status & VTE Plan Code Status Full code (4) COPD (chronic obstructive pulmonary disease) COPD type: chronic bronchitis Chronic bronchitis type: unspecified Qualified Code(s): J42 - Unspecified chronic bronchitis
--- NOTE | 2024-10-19 12:54 | Emergency Department Note ---
Impression & Plan COVID-19, Acute respiratory failure with hypoxia, Influenza A, Low back pain, DDD (degenerative disc disease), lumbar ED Provider Note NAME: ÁLVARO RIVERA AGE: 59 SEX: Female INFORMANT: Patient ED PROVIDER(S): Víctor Bearden MD CHIEF COMPLAINT: Back pain and shortness of breath PLAN: Disposition: Admitted Outpatient prescription management: none Referral: None MEDICAL DECISION MAKING: Patient presented because of back pain and shortness of breath. She was treated with IV Dilaudid. She was current supplemental oxygen. BioFire testing revealed the presence of influenza as well as COVID-19. The patient was treated with a DuoNeb and with steroids. Patient was also given oral Tamiflu. She was reassessed and was hemodynamically stable. CT imaging of the L-spine does reveal some disc herniations. Patient does not have any signs of cord compression at this time but will need further evaluation and management in the hospital. [facility] Case was discussed and diagnostics were reviewed. Patient was evaluated in the ER and admitted for further management. Care/management discussed with: none Level of care consideration(s): After review of the information above and other included data, I feel the patient requires escalation of care to admission Triage Nursing notes: reviewed and agree them. Vital Signs: reviewed and remarkable for hypoxia Additional History obtained from: none Chronic Medical/Social Conditions affecting care: COPD Prior/ Outside/ External records reviewed: none Differential Diagnosis: Reactive airway disease, pneumonia, pneumothorax, COPD, CHF, infections, cardiac ischemia, pulmonary embolism, musculoskeletal, gastrointestinal, as well as other pathologies. Diagnostics, independently interpreted by me: ECG: Twelve-lead ECG was normal sinus rhythm at 75 bpm. Incomplete right bundle salvador block without acute ischemic change noted. Cardiac Monitoring: Cardiac monitoring ordered by me: The patient was placed on continuous cardiac monitoring and observed. It revealed a normal sinus rhythm at 74 beats per minute without ectopy or evidence of dysrhythmia. Medical decision rules: none Imaging studies: Chest x-ray reveals findings because of the COPD. CT scan of the lumbar spine reveals degenerative disc disease. HPI: 59 year old Female arrives for evaluation of back pain and flulike symptoms. Patient notes having back pain over the last week. She is also feeling under the weather and notes chills, nausea, significant cough and congestion. Family members have been sick with multiple respiratory issues including COVID-19. Patient does have a history of COPD. Does not normally wear oxygen but noted her pulse oximetry at home was in the 80s. She felt worse today and EMS was summoned. She was found to be 85% on room air. She responded well to nasal cannula oxygen. Patient states the pain does radiate down her left leg. Denies any saddle anesthesia or bowel or bladder incontinence. Pt denies LOC, headache, fevers, night sweats, diaphoresis, visual changes, neck pain, chest pain, vomiting, abdominal pain, melena, hematochezia, urinary symptoms, numbness, focal weakness, lymphadenopathy, rash, or other complaints.. PAST MEDICAL HISTORY: See Below, COPD PAST SURGICAL HISTORY: See Below, SOCIAL HISTORY: See Below, smoker HOME MEDICATIONS: See Below ALLERGIES: See Below VITALS: See Below PHYSICAL EXAMINATION: GENERAL: Awake, alert, dyspneic-appearing, in no distress HENT: Normocephalic, atraumatic. Oropharynx unremarkable. EYES: Normal conjunctiva. Sclera non-icteric. NECK: Inspection normal. Non-tender. Supple. No nuchal rigidity. FROM. No masses. RESPIRATORY: Scattered wheezes. No rales. Increased respiratory effort. CARDIAC: Normal rate. Normal rhythm. No murmurs. No rubs. Extremities warm and well perfused. Pulses equal. No JVD. GI: Soft, non-distended. No tenderness to palpation. No rebound or guarding. No masses. RECTAL: Deferred. MUSCULOSKELETAL: Atraumatic. Chest examination reveals no tenderness. The back is symmetrical on inspection without obvious abnormality. There is no CVA tenderness to palpation. No joint edema. LOWER EXTREMITIES: Calves are equal size bilaterally and non-tender. No edema. No discoloration. NEURO: Normal sensorium. No sensory or motor deficits noted. SKIN: No rash or jaundice noted. PROCEDURES: none CRITICAL CARE: I have personally spent 35 minutes of critical care time in the direct management of this patient. This includes bedside care, interpretation of diagnostic studies, and testing, discussion with consultants, patient, and family members, and other required patient management activities. These minutes are in excess of all separately billable procedures. OBSERVATION NOTE: none Past Med/Surg History Problem List (Updated 10/19/24 @ 12:49 by Lin Villa MD) Low back pain Influenza A Acute respiratory failure with hypoxia COVID-19 virus infection (Acute) COVID-19 (Acute) Person under investigation for COVID-19 (Acute) Dyspnea Nonproductive cough Tobacco use COPD (chronic obstructive pulmonary disease) (Acute) Bipolar disorder (Chronic) Crohns disease (Chronic) History of neck pain (Chronic) Hypothyroidism (Chronic) Cervical spinal cord compression Medical History Tobacco use disorder Snoring Sleep disorder Regional enteritis Pulmonary nodule Pneumonia Pharyngitis Fatigue COPD, moderate Cigarette smoker Cigarette nicotine dependence Chronic pain Bronchiolitis Benign neoplasm of colon Asthma Anxiety disorder, unspecified Alcohol abuse Abnormal CAT scan COVID-19 Tobacco use COPD (chronic obstructive pulmonary disease) Social History Smoking Status: Current some day smoker Tobacco Type: Cigarettes Cigarettes Per Day: 8; Second Hand Exposure: No; Do You Dip or Chew Tobacco: No; Tobacco Cessation Education Requested by Patient: No Hx Alcohol Use: No Hx Substance Use: No Preferred Language: Libyan Ceiling Insulation Blower Required: No Beliefs That Will Affect Care: None Current Living Situation: Spouse Other Information That Helps Us Care for You: No Feels Safe at Home: Yes Safety Concerns: Feels Safe At This Time Allergies Allergies Allergy/AdvReac Type Severity Reaction Status Date / Time kiwi Allergy Severe hives, Verified 08/08/21 15:34 rash, swelling of throat and lips oxycodone Allergy Intermediate FACE ITCHY Verified 08/08/21 15:34 pneumococcal vaccine Allergy Unknown unknown Verified 08/08/21 15:34 Home Meds Home Medications Medication Instructions Recorded Confirmed alprazolam 0.5 mg tablet (Xanax) 0.5 mg PO HS 04/18/19 10/19/24 bupropion HCl 150 mg tablet,12 hr 150 mg PO BID 04/18/19 10/19/24 sustained-release estradiol 1 mg tablet (Estrace) 1 mg PO QAM 04/18/19 10/19/24 levothyroxine 75 mcg tablet 75 mcg PO QAM 04/18/19 10/19/24 pantoprazole 40 mg tablet,delayed 40 mg PO QAM 04/18/19 10/19/24 release aspirin 81 mg tablet,delayed 81 mg PO QAM 09/17/20 10/19/24 release cholecalciferol (vitamin D3) 25 25 mcg PO QAM 09/17/20 10/19/24 mcg (1,000 unit) tablet (Vitamin D3) cyanocobalamin (vitamin B-12) 1,000 mcg PO QAM 09/17/20 10/19/24 1,000 mcg tablet (Vitamin B-12) tiotropium bromide 2.5 2 puff inhalation QAM 09/17/20 10/19/24 mcg/actuation mist for inhalation (Spiriva Respimat) montelukast 10 mg tablet 10 mg PO HS 08/08/21 10/19/24 (Singulair) Infusion 1 dose IV UD 10/19/24 10/19/24 fluticasone furoate 100 1 inh inhalation QAM 10/19/24 10/19/24 mcg-vilanterol 25 mcg/dose inhalation powder (Breo Ellipta) Results & Data (ED) Vital Signs Vital Signs - 24 hr 10/19/24 09:12 10/19/24 09:18 10/19/24 09:30 Temperature 37.1 C Temperature Source Oral Pulse Rate 79 74 76 Pulse Rhythm Respiratory Rate 20 18 16 Respiratory Effort / Characteristics Non-Labored Respiratory Depth Normal Blood Pressure 137/77 137/77 136/75 Blood Pressure Mean 97 97 112 Pulse Oximetry 93 94 94 Oxygen Delivery Method Room Air Oxygen Flow Rate Sepsis Recent Fever Within 48 Hours No Sepsis New/Unexplained Change in Mental Status N/A Sepsis Action Taken by Nursing No Action Required 10/19/24 09:31 10/19/24 09:43 10/19/24 10:00 Temperature Temperature Source Pulse Rate 82 78 76 Pulse Rhythm Regular Respiratory Rate 18 18 Respiratory Effort / Characteristics Respiratory Depth Blood Pressure 131/79 Blood Pressure Mean 99 Pulse Oximetry 92 93 Oxygen Delivery Method Nasal Cannula Oxygen Flow Rate 2 Sepsis Recent Fever Within 48 Hours Sepsis New/Unexplained Change in Mental Status Sepsis Action Taken by Nursing 10/19/24 11:00 10/19/24 11:30 10/19/24 12:00 Temperature Temperature Source Pulse Rate 90 84 89 Pulse Rhythm Respiratory Rate 15 15 21 Respiratory Effort / Characteristics Respiratory Depth Blood Pressure 139/74 123/87 131/68 Blood Pressure Mean 96 96 87 Pulse Oximetry 91 94 91 Oxygen Delivery Method Oxygen Flow Rate Sepsis Recent Fever Within 48 Hours Sepsis New/Unexplained Change in Mental Status Sepsis Action Taken by Nursing Laboratory Data 10/19/24 09:15 10/19/24 09:15 Lab Results 10/19/24 Range/Units 09:15 WBC 6.19 (4.8-10.8) K/ul RBC 4.38 (4.20-5.40) M/uL Hgb 13.4 (12.0-16.0) g/dl Hct 41.3 (37.0-47.0) % MCV 94.3 (80.0-100.0) fL MCH 30.6 (25.0-34.0) pg MCHC 32.4 (32.0-36.0) g/dL RDW Std Deviation 44.3 (36.4-46.3) fL RDW Coeff of Madyson 12.8 (11.5-14.5) % Plt Count 250 (130-400) K/uL MPV 9.5 (9.4-12.4) fL Immature Gran % (Auto) 0.3 % Neut % (Auto) 78.7 % Lymph % (Auto) 13.1 % Maury % (Auto) 7.4 % Eos % (Auto) 0.2 % Baso % (Auto) 0.3 % Neut # (Auto) 4.87 (1.40-6.50) K/uL Lymph # (Auto) 0.81 L (1.20-3.40) K/uL Maury # (Auto) 0.46 (0.11-0.59) K/uL Eos # (Auto) 0.01 (0.00-0.50) K/uL Baso # (Auto) 0.02 (0.00-0.20) K/uL Immature Gran # (Auto) 0.02 (0.01-0.20) K/uL Sodium 138 (136-145) mmol/L Potassium 3.9 (3.5-5.1) mmol/L Chloride 101 (98-107) mmol/L Carbon Dioxide 31 (21-32) mmol/L Anion Gap 6 (3-11) BUN 15 (6-23) mg/dl Creatinine 1.07 (0.6-1.2) mg/dl Est Cr Clr Drug Dosing 48.3 ml/min eGFR 59.47 BUN/Creatinine Ratio 14.0 (10-20) Glucose 93 (70-99(Fasting)) mg/dl Calcium 8.8 (8.6-10.3) mg/dl Magnesium 1.9 (1.7-2.4) mg/dl Total Bilirubin 0.3 (0.2-1.0) mg/dl AST 21 (13-39) U/L ALT 12 (7-52) U/L Alkaline Phosphatase 58 (34-104) U/L Troponin I High Sens 3.5 (0-14) pg/ml B-Natriuretic Peptide 23 (0-100) pg/ml Total Protein 7.7 (6.0-8.3) gm/dl Albumin 4.3 (3.4-5.0) gm/dl Globulin 3.4 (2.5-4.0) gm/dl Albumin/Globulin Ratio 1.3 (0.9-2) TSH 0.737 (0.300-4.500) uIu/ml Adenovirus (PCR) Not Detected (NotDetected) B. pertussis DNA (PCR) Not Detected (NotDetected) B.parapertussis DNA PCR Not Detected (NotDetected) C. pneumoniae DNA (PCR) Not Detected (NotDetected) Coronavirus OC43 (PCR) Not Detected (NotDetected) Coronavirus HKU1 (PCR) Not Detected (NotDetected) Coronavirus 229E (PCR) Not Detected (NotDetected) SARS-CoV-2 (PCR) DETECTED A (NotDetected) Coronavirus NL63 (PCR) Not Detected (NotDetected) Human Metapneumovir PCR Not Detected (NotDetected) Influenza A (H3) PCR DETECTED A (NotDetected) Influenza Type B (PCR) Not Detected (NotDetected) M. pneumoniae (PCR) Not Detected (NotDetected) Parainfluenza 1 (PCR) Not Detected (NotDetected) Parainfluenza 2 (PCR) Not Detected (NotDetected) Parainfluenza 3 (PCR) Not Detected (NotDetected) Parainfluenza 4 (PCR) Not Detected (NotDetected) RSV (PCR) Not Detected (NotDetected) Entero/Rhino (PCR) Not Detected (NotDetected) Administered Medications Gabapentin (Gabapentin 300 Mg Cap) 300 mg PO BID [facility] Stop: 11/18/24 14:18 Last Admin: 10/19/24 14:58 Dose: 300 mg Documented By: RICKY Discontinued Medications Albuterol (Albut/Ipratrop 3mg/0.5mg Neb 3 Ml Vial) 3 ml NEB NOW STA; Protocol Stop: 10/19/24 09:58 Last Admin: 10/19/24 10:29 Dose: 3 ml Documented By: ANT Hydromorphone HCl (Hydromorphone Inj 0.5 Mg/0.5 Ml Syr) 0.25 mg IV Q15M PRN PRN Reason: Pain Stop: 11/02/24 09:56 Last Admin: 10/19/24 11:21 Dose: 0.25 mg Documented By: ANT Lidocaine (Lidocaine 5% 1 Patch) 1 patch TD NOW STA Stop: 10/19/24 14:20 Last Admin: 10/19/24 14:57 Dose: 1 patch Documented By: RICKY Methylprednisolone (Methylprednisolone 125 Mg/2 Ml Vial) 125 mg IV NOW STA Stop: 10/19/24 09:58 Last Admin: 10/19/24 10:29 Dose: 125 mg Documented By: ANT Oseltamivir Phosphate (Oseltamivir Phosphate 75 Mg Cap) 75 mg PO NOW STA; Protocol Stop: 10/19/24 10:45 Last Admin: 10/19/24 11:21 Dose: 75 mg Documented By: ANT Imaging Data Radiologist's Impression: Chest X-Ray 10/19/24 09:37 XR chest 1V portable CLINICAL HISTORY: weakness COMPARISON STUDY: Chest CT March 24, 2020. Chest radiograph September 29, 2023. FINDINGS: Postoperative findings within the spine are incidentally noted. Lung volumes are normal. Lungs are clear. There is no pneumothorax or pleural effusion. Cardiac size is normal. Mediastinal contours are normal. There is no evidence for pulmonary edema. IMPRESSION: No acute cardiopulmonary findings. ACT 112: Negative or not required by law. Electronically signed by: Enio Tolliver M.D. 10/19/2024 10:[address] 10/19/24 09:57 CT lumbar spine wo con CLINICAL HISTORY: L low back pain, L sciatica TECHNIQUE: Multidetector row helical CT of the lumbar spine was performed without administration of intravenous contrast. Coronal and sagittal reformations were obtained. Automated dose lowering techniques and/or adjustment according to patient size were utilized for this exam. CT DOSE: 742.73 mGy.cm Comparison: None available at the time of this dictation. FINDINGS: For counting purposes, the last complete intervertebral disc space is considered L5-S1. No acute fractures are identified. Vertebral body heights and disk spaces are well maintained. Vertebral body alignment is within normal limits. Surrounding soft tissues are unremarkable. IMPRESSION: No evidence of acute bony injury. ACT 112: Negative or not required by law. Electronically signed by: Jerardo Hsu M.D. 10/19/2024 10:32 AM Discharge Plan Visit Data Chief Complaint: Back Injury/Pain ED Provider: Víctor Bearden Discharge Problem: COVID-19, Acute respiratory failure with hypoxia, Influenza A, Low back pain, DDD (degenerative disc disease), lumbar Patient Disposition: Admitted As Inpatient
[2024-10-19] MEDS ORDERED: ALBUTEROL 0.083% NEBU SOLN 3 ML VIAL NEB PRN (14:19)
[2024-10-19] MEDS ORDERED: ACETAMINOPHEN 325 MG TAB PO PRN (14:19)
[2024-10-19] MEDS ORDERED: BENZONATATE 100 MG CAPSULE PO PRN (14:19)
[2024-10-19] MEDS: LIDOCAINE 5% 1 PATCH TD STA (14:57)
[2024-10-19] MEDS: GABAPENTIN 300 MG CAP PO SCH (14:58)
[2024-10-19 20:13] LABS: Appearance Urine Cloudy (Clear); Bacteria Urine Automated 3+ (None Seen); Bilirubin Urine Negative (Negative); Blood Urine Negative (Negative); Cast Urine Automated 0-2 /lpf (0-2); Color Urine Yellow; Glucose Urine UA Negative (Negative); Ketones Urine Negative (Negative); Leukocyte Esterase Urine 2+ (Negative); Nitrite Urine Negative (Negative); Protein Urine Negative (Negative); RBC Urine Automated 0-2 /hpf (0-2); Specific Gravity Urine 1.023 (1.000-1.030); Urobilinogen Urine Negative (Negative)
[2024-10-19] MEDS: GADOBUTROL 65ML VIAL IV ONE (20:28)
[2024-10-19] MEDS: MONTELUKAST SODIUM 10 MG TABLET PO SCH (20:54)
[2024-10-19] MEDS: buPROPion SR 150 MG TABCR PO SCH (20:54)
[2024-10-19] MEDS: guaiFENesin 600 MG TABCR PO SCH (20:54)
[2024-10-19] MEDS: ALPRAZolam 0.5 MG TABLET PO SCH (21:09)
[2024-10-19] MEDS: OSELTAMIVIR PHOSPHATE SUSP 30 MG/5 ML UDP PO SCH (21:09)
--- NOTE | 2024-10-19 23:18 | Magnetic Resonance Report ---
Exam(s): MRI L SPINE W/WO Contrast IV Amt: 5.6CC GADAVIST EXAM: MR Lumbar Spine Without and With Intravenous Contrast CLINICAL HISTORY: Reason for exam: Worsening radiculopathic pain. TECHNIQUE: Magnetic resonance images of the lumbar spine without and with intravenous contrast in multiple planes. CONTRAST: Patient received 5.6CC GADAVIST of IV contrast COMPARISON: Prior CT scan of the lumbar spine from October 19, 2024. FINDINGS: This study is limited secondary to motion artifact. Vertebrae: There are 5 lumbar type vertebral bodies with a mild generalized curved to the right and normal lumbar lordosis. There is normal vertebral body height and alignment. The bone marrow signal is heterogeneous with reactive endplate changes. No acute fracture. Spinal cord: The conus is normal size, shape and signal characteristics, terminating at L2-3. No abnormal enhancement. Soft tissues: Unremarkable moderate atrophy of the iliopsoas, paraspinous intraspinous musculature. The aorta and IVC flow voids are intact. The rigid kidneys are unremarkable. DISCS/SPINAL CANAL/NEURAL FORAMINA: L1-L2: There is mild disc degeneration with annular disc bulge asymmetric to the right flattening the ventral thecal sac. L2-L3: There is mild disc degeneration with a no disc bulge causing a mild subarticular recess stenosis with disc extending to the neural foramina without evidence of impingement or significant stenosis. L3-L4: There is mild disc degeneration with annular disc bulge and superimposed crania dissecting left disc extrusion measuring 13.0 mm (CC) by 4.8 mm (AP) posteriorly displacing and impinging the transiting left L3 nerve root in the subarticular recess. There is disc and osteophyte extending to the neural foramina without evidence of impingement or significant stenosis. L4-L5: Moderate disc degeneration with annular disc bulge causing a mild subarticular recess stenosis with disc and osteophyte extending to the neural foramina causing a mild right stenosis without evidence of neural impingement.. L5-S1: Moderate disc degeneration with annular disc bulge causing a mild left subarticular recess stenosis with disc and osteophyte extending to the neural foramina causing a moderately severe right and mild left stenosis with impingement of the right L5 nerve root ganglion. IMPRESSION: Mild disc degeneration at L3-4 with annular disc bulge and superimposed left cranially dissecting disc extrusion impinging the transiting left L3 nerve root in the subarticular recess. Electronically signed by: Adia Fitzgerald MD 10/19/24 23:17 PM
[2024-10-20 07:03] LABS: Hematocrit (blood only) 35.3 % (37.0-47.0); Hemoglobin 11.9 g/dl (12.0-16.0); Mean Corpuscular Hgb Conc 33.7 g/dL (32.0-36.0); Mean Corpuscular Volume 91.9 fL (80.0-100.0); Mean Platelet Volume 9.4 fL (9.4-12.4); Platelet Count 236 K/uL (130-400); RDW Coefficient of Variation 12.9 % (11.5-14.5); RDW Standard Deviation 42.9 fL (36.4-46.3); Red Blood Count 3.84 M/uL (4.20-5.40); White Blood Count 8.66 K/ul (4.8-10.8)
[2024-10-20 07:18] LABS: BUN Creatinine Ratio 16.5 (10-20); Calcium 8.5 mg/dl (8.6-10.3); Creatinine Clr Calc Pharmacy 48.8 ml/min; Potassium 4.1 mmol/L (3.5-5.1)
[2024-10-20] MEDS: dexAMETHasone 1 MG TAB PO SCH (07:48)
[2024-10-20] MEDS: estradioL 1 MG TAB PO SCH (07:48)
[2024-10-20] MEDS: ASPIRIN 81 MG ECTAB PO SCH (07:50)
[2024-10-20] MEDS: CYANOCOBALAMIN (B-12) 500 MCG TABLET PO SCH (07:50)
[2024-10-20] MEDS: CHOLECALCIFEROL 25 MCG (1000 UNITS) TAB PO SCH (07:50)
[2024-10-20] MEDS: PANTOprazole 40 MG TAB PO SCH (07:51)
[2024-10-20] MEDS: FLUTICASONE/VILANTEROL 100/25MCG 14 PUFFS/INHALER INH SCH (07:51)
[2024-10-20] MEDS: LEVOTHYROXINE SODIUM 75 MCG TABLET PO SCH (07:51)
[2024-10-20] MEDS: UMECLIDINIUM BROMIDE 62.5MCG/BLISTER 7 PUFFS/INHALER INH SCH (07:52)
[2024-10-20] MEDS: AZITHROMYCIN 250 MG TAB PO ONE (08:32)
[2024-10-20] MEDS ORDERED: dexAMETHasone**PF** 10 MG/ML VIAL IV SCH (10:15)
[2024-10-20] MEDS: ALBUT/IPRATROP 3MG/0.5MG NEB 3 ML VIAL NEB SCH (12:45)
[2024-10-20] MEDS: dexAMETHasone 6 MG in SYRINGE 0 ML IV ONE (15:21)
--- NOTE | 2024-10-20 16:48 | Hospitalist Progress Note ---
Date of Service October 20, 2024 Assessment & Plan (1) Acute respiratory failure with hypoxia: (2) COVID-19 virus infection: (3) Influenza A: (4) COPD (chronic obstructive pulmonary disease): (5) Low back pain: (6) Hypothyroidism: Plan Ms. Yin is a 59-year-old woman with history of COPD, Crohn's disease, hypothyroidism who presented to ED with concerns mostly notable for back pain, however, was found to have acute hypoxic resp failure with COVID/influenza a on [employer]fire. CXR without signs of pneumonia or infilatrates. MRI of lumbar spine with DJD and disc bulge. Exam without neurologic deficit. Pain seemingly resolved (iso IV steroids) and no radiculopathy noted. Patient dose report cold like symptoms feel worse today, but denies SOB--just notes fatigue and dry cough. #Acute hypoxic resp failure 2/2 viral infection/copd #COVID infection (symptoms >48 hours) #Influenza A with 4 days of cough. Patient positive sick contacts Chest x-ray did not show any acute abnormality. Continue IV decadron 6mg x 10 days for hypoxia iso COVID outside of onset benefit for remdesivir Continue tamiflu Continue neb treatments Continue oxygen supplementation and wean as tolerated #Acute exacerbation of COPD (chronic obstructive pulmonary disease): Continue inhalers. Azithromycin iso of above for exacerbation Monitor #Abnormal UA #Asymptomatic bacteruria culture with <1000 colonies asymptomatic #Low back pain: #Lumbar DJD Reviewed epic chart with note from PCP in July noted in low back pain. MRI with herniation, symptoms resolved give IV steroid would benefit from OP pain clinic increased home Gabapentin to 300 twice daily PT/OT # Hypothyroidism: Continue home levothyroxine. Code status: Full DVT ppx: hep sq Admission and Anticipated Discharge Date Admission Date: October 19, 2024 Subjective NAEO Reports resolution of back pain Denies SOB necessarily, but does report feeling malaise today--states cough is dry with no productive output Physical Exam Constitutional: WD/WN, vitals as above Respiratory: scattered expiratory wheezes Cardiovascular: RRR, no murmur, no edema Musculoskeletal: no cyanosis or clubbing, extremities motor strength 5/5 Results & Data Results & Data Vital Signs (Past 12 Hours) Vital Signs Temp Pulse Pulse Resp BP Pulse Ox O2 Del Method 10/20/24 14:40 36.8 C 81 17 111/67 93 Nasal Cannula 10/20/24 14:16 83 10/20/24 12:45 80 20 90 Nasal Cannula 10/20/24 11:22 37.3 C 80 16 108/69 94 Nasal Cannula 10/20/24 07:59 36.9 C 84 17 117/62 89 L Nasal Cannula 10/20/24 07:40 Nasal Cannula 10/20/24 06:55 83 O2 Flow Rate 10/20/24 14:40 3 10/20/24 14:16 10/20/24 12:45 2 10/20/24 11:22 4 10/20/24 07:59 4 10/20/24 07:40 3 10/20/24 06:55 Laboratory Results Short CBC 10/20/24 Range/Units 06:43 WBC 8.66 (4.8-10.8) K/ul Hgb 11.9 L (12.0-16.0) g/dl Hct 35.3 L (37.0-47.0) % Plt Count 236 (130-400) K/uL BMP 10/20/24 06:43 Sodium 136 Potassium 4.1 Chloride 100 Carbon Dioxide 30 BUN 16 Creatinine 0.97 Glucose 90 Calcium 8.5 L Urine 10/19/24 Range/Units 19:47 Urine Color Yellow Urine Appearance Cloudy A (Clear) Urine pH 5.0 (4.5-7.5) Ur Specific [place] 1.023 (1.000-1.030) Urine Protein Negative (Negative) Urine Glucose (UA) Negative (Negative) Medications Administered Home Medications Medication Instructions Recorded Confirmed Last Taken alprazolam 0.5 mg tablet (Xanax) 0.5 mg PO HS 04/18/19 10/19/24 08/07/21 bupropion HCl 150 mg tablet,12 hr 150 mg PO BID 04/18/19 10/19/24 08/08/21 sustained-release estradiol 1 mg tablet (Estrace) 1 mg PO QAM 04/18/19 10/19/24 08/08/21 levothyroxine 75 mcg tablet 75 mcg PO QAM 04/18/19 10/19/24 08/08/21 pantoprazole 40 mg tablet,delayed 40 mg PO QAM 04/18/19 10/19/24 08/08/21 release aspirin 81 mg tablet,delayed 81 mg PO QAM 09/17/20 10/19/24 08/08/21 release cholecalciferol (vitamin D3) 25 25 mcg PO QAM 09/17/20 10/19/24 08/08/21 mcg (1,000 unit) tablet (Vitamin D3) cyanocobalamin (vitamin B-12) 1,000 mcg PO QAM 09/17/20 10/19/24 08/08/21 1,000 mcg tablet (Vitamin B-12) tiotropium bromide 2.5 2 puff inhalation QAM 09/17/20 10/19/24 08/08/21 mcg/actuation mist for inhalation (Spiriva Respimat) montelukast 10 mg tablet 10 mg PO HS 08/08/21 10/19/24 08/07/21 (Singulair) Infusion 1 dose IV UD 10/19/24 10/19/24 Unknown fluticasone furoate 100 1 inh inhalation QAM 10/19/24 10/19/24 Unknown mcg-vilanterol 25 mcg/dose inhalation powder (Breo Ellipta) Active Medications Generic Name Dose Route Start Last Admin Trade Name Freq PRN Reason Stop Dose Admin Albuterol 3 ml 10/20/24 13:00 10/20/24 12:45 Albut/Ipratrop 3mg/0.5mg Neb 3 Ml Vial NEB 11/19/24 12:59 3 ml Q6R ROBYN Administration Protocol Alprazolam 0.5 mg 10/19/24 21:00 10/19/24 21:09 Alprazolam 0.5 Mg Tablet PO 11/18/24 20:59 0.5 mg HS ROBYN Administration Aspirin 81 mg 10/20/24 09:00 10/20/24 07:50 Aspirin 81 Mg Ectab PO 11/19/24 08:59 81 mg QAM ROBYN Administration Bupropion HCl 150 mg 10/19/24 21:00 10/20/24 07:50 Bupropion Sr 150 Mg Tabcr PO 11/18/24 20:59 150 mg BID ROBYN Administration Cyanocobalamin 1,000 mcg 10/20/24 09:00 10/20/24 07:50 Cyanocobalamin (B-12) 500 Mcg Tablet PO 11/19/24 08:59 1,000 mcg QAM ROBYN Administration Estradiol 1 mg 10/20/24 09:00 10/20/24 07:48 Estradiol 1 Mg Tab PO 11/19/24 08:59 1 mg QAM ROBYN Administration Fluticasone/Vilanterol 1 puffs 10/20/24 09:00 10/20/24 07:51 Fluticasone/Vilanterol 100/25mcg 14 Puffs/Inhaler INH 11/19/24 08:59 1 puffs QAM ROBYN Administration Gabapentin 300 mg 10/19/24 14:19 10/20/24 07:50 Gabapentin 300 Mg Cap PO 11/18/24 14:18 300 mg BID ROBYN Administration Guaifenesin 1,200 mg 10/19/24 21:00 10/20/24 07:49 Guaifenesin 600 Mg Tabcr PO 11/18/24 20:59 1,200 mg Q12 ROBYN Administration Levothyroxine Sodium 75 mcg 10/20/24 09:00 10/20/24 07:51 Levothyroxine Sodium 75 Mcg Tablet PO 11/19/24 08:59 75 mcg QAM ROBYN Administration Miscellaneous 1 each 10/19/24 21:00 10/19/24 21:09 Remove Lidoderm Patch N/A 11/18/24 20:59 1 each DAILY@2100 ROBYN Administration Montelukast Sodium 10 mg 10/19/24 21:00 10/19/24 20:54 Montelukast Sodium 10 Mg Tablet PO 11/18/24 20:59 10 mg HS ROBYN Administration Oseltamivir Phosphate 30 mg 10/19/24 21:00 10/20/24 07:57 Oseltamivir Phosphate Susp 30 Mg/5 Ml Udp PO 10/24/24 20:59 30 mg BID ROBYN Administration Protocol Pantoprazole Sodium 40 mg 10/20/24 09:00 10/20/24 07:51 Pantoprazole 40 Mg Tab PO 11/19/24 08:59 40 mg QAM ROBYN Administration Umeclidinium Dougherty 1 puffs 10/20/24 09:00 10/20/24 07:52 Umeclidinium Dougherty 62.5mcg/Blister 7 Puffs/Inhaler INH 11/19/24 08:59 1 puffs QAM ROBYN Administration Vitamin D 25 mcg 10/20/24 09:00 10/20/24 07:50 Cholecalciferol 25 Mcg (1000 Units) Tab PO 11/19/24 08:59 25 mcg QAM ROBYN Administration (4) COPD (chronic obstructive pulmonary disease) COPD type: chronic bronchitis Chronic bronchitis type: unspecified Qualified Code(s): J42 - Unspecified chronic bronchitis
[2024-10-21] MEDS: AZITHROMYCIN 250 MG TAB PO SCH (07:48)
[2024-10-21] MEDS: dexAMETHasone 6 MG in SYRINGE 0 ML IV SCH (08:14)
--- NOTE | 2024-10-21 14:43 | Hospitalist Progress Note ---
Date of Service October 21, 2024 Assessment & Plan (1) Acute respiratory failure with hypoxia: (2) COVID-19 virus infection: (3) Influenza A: (4) COPD (chronic obstructive pulmonary disease): (5) Low back pain: (6) Hypothyroidism: Plan Ms. Yin is a 59-year-old woman with history of COPD, Crohn's disease, hypothyroidism who presented to ED with concerns mostly notable for back pain, however, was found to have acute hypoxic resp failure with COVID/influenza a on [employer]. Acute hypoxic resp failure due to viral infection/COPD exacerbation COVID-19 infection Influenza A infection Acute COPD exacerbation --CXR:No acute cardiopulmonary findings. + sick contacts -[employer] positive for COVID-19, influenza A Continue Tamiflu, dexamethasone, azithromycin Supplemental oxygen to maintain saturations Given COPD, maintain saturations 88 to 92% Continue nebs, home inhalers May need 2 step prior to discharge Abnormal UA Asymptomatic bacteruria culture with <1000 colonies asymptomatic Urine culture negative Low back pain: Lumbar DJD Reviewed epic chart with note from PCP in July noted in low back pain. MRI with herniation, symptoms resolved give IV steroid Increased home Gabapentin to 300 twice daily PT/OT Advised to follow-up with orthopedic spine as outpatient Hypothyroidism: Continue home levothyroxine. DVT Px: Heparin SQ Admission and Anticipated Discharge Date Admission Date: October 19, 2024 Subjective Patient is seen and examined at bedside Reports cough with yellowish expectoration Denies any dyspnea, chest pain, nausea, vomiting, abdominal pain Requiring supplemental oxygen to maintain saturation Discussed with patient's family at bedside Review of Systems Review of Systems: All systems reviewed & are unremarkable except as noted in Subjective Physical Exam Physical Exam: Physical Exam: Vitals signs as noted above General Appearance:Thin, no apparent distress Head: normocephalic, Atraumatic Eyes: normal inspection, EOMI Neck: supple, Trachea midline Respiratory/Chest: Decreased breath sounds, scattered rhonchi, No accessory muscle use Cardiovascular: S1, S2, No murmur Abdomen/GI:Soft, Non tender, Bowel sounds present Extremities/Musculoskeletal:normal inspection, no edema Neurologic/Psych:AAOX3, grossly no focal neurological deficits Skin: normal color, warm Results & Data Results & Data Vital Signs (Past 12 Hours) Vital Signs Temp Pulse Pulse Resp BP Pulse Ox O2 Del Method 10/21/24 13:10 81 18 91 Nasal Cannula 10/21/24 08:06 Nasal Cannula 10/21/24 07:08 36.7 C 84 18 104/67 90 Nasal Cannula 10/21/24 07:08 83 18 93 Nasal Cannula 10/21/24 07:00 62 10/21/24 03:49 36.4 C L 78 18 109/65 92 Nasal Cannula O2 Flow Rate 10/21/24 13:10 3 10/21/24 08:06 3 10/21/24 07:08 3 10/21/24 07:08 2 10/21/24 07:00 10/21/24 03:49 3 (4) COPD (chronic obstructive pulmonary disease) COPD type: chronic bronchitis Chronic bronchitis type: unspecified Qualified Code(s): J42 - Unspecified chronic bronchitis
[2024-10-21] MEDS: HEPARIN SOD 5,000 UNIT/0.5 ML VIAL SQ SCH (20:23)
[2024-10-22 06:31] LABS: BUN Creatinine Ratio 22.2 (10-20); Calcium 8.8 mg/dl (8.6-10.3); Creatinine Clr Calc Pharmacy 58.4 ml/min; Potassium 4.2 mmol/L (3.5-5.1)
[2024-10-22 07:24] VITALS: TEMP 98.4
--- NOTE | 2024-10-22 11:46 | Hospitalist Progress Note ---
Date of Service October 22, 2024 Assessment & Plan (1) Acute respiratory failure with hypoxia: (2) COVID-19 virus infection: (3) Influenza A: (4) COPD (chronic obstructive pulmonary disease): (5) Low back pain: (6) Hypothyroidism: Plan Ms. Yin is a 59-year-old woman with history of COPD, Crohn's disease, hypothyroidism who presented to ED with concerns mostly notable for back pain, however, was found to have acute hypoxic resp failure with COVID/influenza a on biofire. Acute hypoxic resp failure due to viral infection/COPD exacerbation COVID-19 infection Influenza A infection Acute COPD exacerbation --CXR:No acute cardiopulmonary findings. + sick contacts -[employer] positive for COVID-19, influenza A Continue Tamiflu, dexamethasone, azithromycin Supplemental oxygen to maintain saturations Given COPD, maintain saturations 88 to 92% Continue nebs, home inhalers 2 Step: Did not qualify for supplemental oxygen Plan to discharge home on prednisone taper course Abnormal UA Asymptomatic bacteruria culture with <1000 colonies asymptomatic Urine culture negative Low back pain: Lumbar DJD Reviewed epic chart with note from PCP in July noted in low back pain. MRI with herniation, symptoms resolved give IV steroid Increased home Gabapentin to 300 twice daily PT/OT Advised to follow-up with orthopedic spine as outpatient Hypothyroidism: Continue home levothyroxine. DVT Px: Heparin SQ Admission and Anticipated Discharge Date Admission Date: October 19, 2024 Subjective Patient is seen and examined at bedside States feeling a lot better today Cough continues to improve No new complaints Eager to get discharged Denies any dyspnea, chest pain, nausea, vomiting, abdominal pain Had 2 step prior to discharge Plan to be discharged home today Review of Systems Review of Systems: All systems reviewed & are unremarkable except as noted in Subjective Physical Exam Physical Exam: Physical Exam: Vitals signs as noted above General Appearance:Thin, no apparent distress Head: normocephalic, Atraumatic Eyes: normal inspection, EOMI Neck: supple, Trachea midline Respiratory/Chest: Decreased breath sounds, CTA, No accessory muscle use Cardiovascular: S1, S2, No murmur Abdomen/GI:Soft, Non tender, Bowel sounds present Extremities/Musculoskeletal:normal inspection, no edema Neurologic/Psych:AAOX3, grossly no focal neurological deficits Skin: normal color, warm Results & Data Results & Data Vital Signs (Past 12 Hours) Vital Signs Temp Pulse Pulse Pulse Resp Resp Resp 10/22/24 09:43 73 85 20 16 10/22/24 09:08 10/22/24 07:24 36.9 C 90 18 10/22/24 07:00 77 18 BP Pulse Ox Pulse Ox Pulse Ox O2 Del Method O2 Flow Rate 10/22/24 09:43 111 H 91 10/22/24 09:08 Nasal Cannula 3 10/22/24 07:24 118/7 L 92 Nasal Cannula 3 10/22/24 07:00 91 Nasal Cannula 3 Laboratory Results [facility] 10/22/24 05:10 Sodium 139 Potassium 4.2 Chloride 101 Carbon Dioxide 31 BUN 18 Creatinine 0.81 Glucose 84 Calcium 8.8 (4) COPD (chronic obstructive pulmonary disease) COPD type: chronic bronchitis Chronic bronchitis type: unspecified Qualified Code(s): J42 - Unspecified chronic bronchitis
--- NOTE | 2024-10-22 12:01 | Discharge Summary ---
Date of Service October 22, 2024 Admission HPI Per Admitting Provider 59-year-old woman with history of COPD, Crohn's disease, hypothyroidism who presents with 4 days of cough. Patient reports dry cough for the past 4 days, Reports chronic intermittent low back pain radiating to his left leg that is an ongoing for over 2 months but current episode started 4 days ago and has been worsening. Reports some upper abdominal pain associated with coughing. Reports sore throat. Denies any shortness of breath or chest pain. Denies nausea, vomiting, fever or chills Reports generalized weakness. Reports sick contacts Denied lower extremity, saddle anesthesia ER physician noted she was hypoxic in 80s on room air Patient smokes about 8 cigarettes/day. Denies alcohol or illicit drug use Admission Exam Per Admitting Provider Constitutional: + well hydrated; no acute distress Eyes: PERRL, conjunctivae normal, anicteric sclerae ENMT: external ear and nose normal, oropharynx normal Respiratory: On nasal cannula, not in resp distress, diminished breath sounds, scattered rhonchi Cardiovascular: Rate/Rhythm: regular rate and regular rhythm Gastrointestinal (Abdomen): normal bowel sounds, soft, nontender, no hepatosplenomegaly Musculoskeletal: no cyanosis or clubbing, extremities motor strength 5/5 Neurologic: PERRL, EOMI, accommodation nl, no face palsy, no dysarthria Psychiatric: A+Ox3, euthymic affect Principal Diagnosis Acute hypoxic respiratory failure COVID-19 infection Influenza A Acute COPD exacerbation Lumbar degenerative disc disease Discharge Data Allergies Allergy/AdvReac Type Severity Reaction Status Date / Time kiwi Allergy Severe hives, Verified 08/08/21 15:34 rash, swelling of throat and lips oxycodone Allergy Intermediate FACE ITCHY Verified 08/08/21 15:34 pneumococcal vaccine Allergy Unknown unknown Verified 08/08/21 15:34 Procedures Performed Laboratory Results WBC 8.66 K/ul (4.8-10.8) 10/20/24 06:43 RBC 3.84 M/uL (4.20-5.40) L 10/20/24 06:43 Hgb 11.9 g/dl (12.0-16.0) L 10/20/24 06:43 Hct 35.3 % (37.0-47.0) L 10/20/24 06:43 MCV 91.9 fL (80.0-100.0) 10/20/24 06:43 MCH 31.0 pg (25.0-34.0) 10/20/24 06:43 MCHC 33.7 g/dL (32.0-36.0) 10/20/24 06:43 RDW Std Deviation 42.9 fL (36.4-46.3) 10/20/24 06:43 RDW Coeff of Madyson 12.9 % (11.5-14.5) 10/20/24 06:43 Plt Count 236 K/uL (130-400) 10/20/24 06:43 MPV 9.4 fL (9.4-12.4) 10/20/24 06:43 Immature Gran % (Auto) 0.3 % 10/19/24 09:15 Neut % (Auto) 78.7 % 10/19/24 09:15 Lymph % (Auto) 13.1 % 10/19/24 09:15 [place] % (Auto) 7.4 % 10/19/24 09:15 Eos % (Auto) 0.2 % 10/19/24 09:15 Baso % (Auto) 0.3 % 10/19/24 09:15 Neut # (Auto) 4.87 K/uL (1.40-6.50) 10/19/24 09:15 Lymph # (Auto) 0.81 K/uL (1.20-3.40) L 10/19/24 09:15 [place] # (Auto) 0.46 K/uL (0.11-0.59) 10/19/24 09:15 Eos # (Auto) 0.01 K/uL (0.00-0.50) 10/19/24 09:15 Baso # (Auto) 0.02 K/uL (0.00-0.20) 10/19/24 09:15 Immature Gran # (Auto) 0.02 K/uL (0.01-0.20) 10/19/24 09:15 Sodium 139 mmol/L (136-145) 10/22/24 05:10 Potassium 4.2 mmol/L (3.5-5.1) 10/22/24 05:10 Chloride 101 mmol/L (98-107) 10/22/24 05:10 Carbon Dioxide 31 mmol/L (21-32) 10/22/24 05:10 Anion Gap 7 (3-11) 10/22/24 05:10 BUN 18 mg/dl (6-23) 10/22/24 05:10 Creatinine 0.81 mg/dl (0.6-1.2) 10/22/24 05:10 Est Cr Clr Drug Dosing 58.4 ml/min 10/22/24 05:10 eGFR 83.05 10/22/24 05:10 BUN/Creatinine Ratio 22.2 (10-20) H 10/22/24 05:10 Glucose 84 mg/dl (70-99(Fasting)) 10/22/24 05:10 Calcium 8.8 mg/dl (8.6-10.3) 10/22/24 05:10 Magnesium 1.9 mg/dl (1.7-2.4) 10/19/24 09:15 Total Bilirubin 0.3 mg/dl (0.2-1.0) 10/19/24 09:15 AST 21 U/L (13-39) 10/19/24 09:15 ALT 12 U/L (7-52) 10/19/24 09:15 Alkaline Phosphatase 58 U/L (34-104) 10/19/24 09:15 Troponin I High Sens 3.5 pg/ml (0-14) 10/19/24 09:15 B-Natriuretic Peptide 23 pg/ml (0-100) 10/19/24 09:15 Total Protein 7.7 gm/dl (6.0-8.3) 10/19/24 09:15 Albumin 4.3 gm/dl (3.4-5.0) 10/19/24 09:15 Globulin 3.4 gm/dl (2.5-4.0) 10/19/24 09:15 Albumin/Globulin Ratio 1.3 (0.9-2) 10/19/24 09:15 Procalcitonin < 0.02 ng/ml (0-0.5) 10/22/24 05:10 TSH 0.737 uIu/ml (0.300-4.500) 10/19/24 09:15 Urine Color Yellow 10/19/24 19:47 Urine Appearance Cloudy (Clear) A 10/19/24 19:47 Urine pH 5.0 (4.5-7.5) 10/19/24 19:47 Ur Specific [place] 1.023 (1.000-1.030) 10/19/24 19:47 Urine Protein Negative (Negative) 10/19/24 19:47 Urine Glucose (UA) Negative (Negative) 10/19/24 19:47 Urine Ketones Negative (Negative) 10/19/24 19:47 Urine Blood Negative (Negative) 10/19/24 19:47 Urine Nitrite Negative (Negative) 10/19/24 19:47 Urine Bilirubin Negative (Negative) 10/19/24 19:47 Urine Urobilinogen Negative (Negative) 10/19/24 19:47 Ur Leukocyte Esterase 2+ (Negative) H 10/19/24 19:47 Urine WBC (Auto) 6-10 /hpf (0-5) H 10/19/24 19:47 Urine RBC (Auto) 0-2 /hpf (0-2) 10/19/24 19:47 U Hyaline Cast (Auto) 0-2 /lpf (0-2) 10/19/24 19:47 U Epithel Cells (Auto) 11-20 /hpf (0-2) H 10/19/24 19:47 Urine Bacteria (Auto) 3+ (None Seen) H 10/19/24 19:47 Adenovirus (PCR) Not Detected (NotDetected) 10/19/24 09:15 B. pertussis DNA (PCR) Not Detected (NotDetected) 10/19/24 09:15 B.parapertussis DNA PCR Not Detected (NotDetected) 10/19/24 09:15 C. pneumoniae DNA (PCR) Not Detected (NotDetected) 10/19/24 09:15 Coronavirus OC43 (PCR) Not Detected (NotDetected) 10/19/24 09:15 Coronavirus HKU1 (PCR) Not Detected (NotDetected) 10/19/24 09:15 Coronavirus 229E (PCR) Not Detected (NotDetected) 10/19/24 09:15 SARS-CoV-2 (PCR) DETECTED (NotDetected) A 10/19/24 09:15 Coronavirus NL63 (PCR) Not Detected (NotDetected) 10/19/24 09:15 Human Metapneumovir PCR Not Detected (NotDetected) 10/19/24 09:15 Influenza A (H3) PCR DETECTED (NotDetected) A 10/19/24 09:15 Influenza Type B (PCR) Not Detected (NotDetected) 10/19/24 09:15 M. pneumoniae (PCR) Not Detected (NotDetected) 10/19/24 09:15 Parainfluenza 1 (PCR) Not Detected (NotDetected) 10/19/24 09:15 Parainfluenza 2 (PCR) Not Detected (NotDetected) 10/19/24 09:15 Parainfluenza 3 (PCR) Not Detected (NotDetected) 10/19/24 09:15 Parainfluenza 4 (PCR) Not Detected (NotDetected) 10/19/24 09:15 RSV (PCR) Not Detected (NotDetected) 10/19/24 09:15 Entero/Rhino (PCR) Not Detected (NotDetected) 10/19/24 09:15 Impressions Chest X-Ray 10/19/24 09:37 XR chest 1V portable CLINICAL HISTORY: weakness COMPARISON STUDY: Chest CT March 24, 2020. Chest radiograph September 29, 2023. FINDINGS: Postoperative findings within the spine are incidentally noted. Lung volumes are normal. Lungs are clear. There is no pneumothorax or pleural effusion. Cardiac size is normal. Mediastinal contours are normal. There is no evidence for pulmonary edema. IMPRESSION: No acute cardiopulmonary findings. ACT 112: Negative or not required by law. Electronically signed by: Enio Tolliver M.D. 10/19/2024 10:[address] 10/19/24 09:57 CT lumbar spine wo con CLINICAL HISTORY: L low back pain, L sciatica TECHNIQUE: Multidetector row helical CT of the lumbar spine was performed without administration of intravenous contrast. Coronal and sagittal reformations were obtained. Automated dose lowering techniques and/or adjustment according to patient size were utilized for this exam. CT DOSE: 742.73 mGy.cm Comparison: None available at the time of this dictation. FINDINGS: For counting purposes, the last complete intervertebral disc space is considered L5-S1. No acute fractures are identified. Vertebral body heights and disk spaces are well maintained. Vertebral body alignment is within normal limits. Surrounding soft tissues are unremarkable. IMPRESSION: No evidence of acute bony injury. ACT 112: Negative or not required by law. Electronically signed by: Jerardo Hsu M.D. 10/19/2024 10:32 AM Lumbar Spine MRI 10/19/24 14:19 Exam(s): MRI L SPINE W/WO Contrast IV Amt: 5.6CC GADAVIST EXAM: MR Lumbar Spine Without and With Intravenous Contrast CLINICAL HISTORY: Reason for exam: Worsening radiculopathic pain. TECHNIQUE: Magnetic resonance images of the lumbar spine without and with intravenous contrast in multiple planes. CONTRAST: Patient received 5.6CC GADAVIST of IV contrast COMPARISON: Prior CT scan of the lumbar spine from October 19, 2024. FINDINGS: This study is limited secondary to motion artifact. Vertebrae: There are 5 lumbar type vertebral bodies with a mild generalized curved to the right and normal lumbar lordosis. There is normal vertebral body height and alignment. The bone marrow signal is heterogeneous with reactive endplate changes. No acute fracture. Spinal cord: The conus is normal size, shape and signal characteristics, terminating at L2-3. No abnormal enhancement. Soft tissues: Unremarkable moderate atrophy of the iliopsoas, paraspinous intraspinous musculature. The aorta and IVC flow voids are intact. The rigid kidneys are unremarkable. DISCS/SPINAL CANAL/NEURAL FORAMINA: L1-L2: There is mild disc degeneration with annular disc bulge asymmetric to the right flattening the ventral thecal sac. L2-L3: There is mild disc degeneration with a no disc bulge causing a mild subarticular recess stenosis with disc extending to the neural foramina without evidence of impingement or significant stenosis. L3-L4: There is mild disc degeneration with annular disc bulge and superimposed crania dissecting left disc extrusion measuring 13.0 mm (CC) by 4.8 mm (AP) posteriorly displacing and impinging the transiting left L3 nerve root in the subarticular recess. There is disc and osteophyte extending to the neural foramina without evidence of impingement or significant stenosis. L4-L5: Moderate disc degeneration with annular disc bulge causing a mild subarticular recess stenosis with disc and osteophyte extending to the neural foramina causing a mild right stenosis without evidence of neural impingement.. L5-S1: Moderate disc degeneration with annular disc bulge causing a mild left subarticular recess stenosis with disc and osteophyte extending to the neural foramina causing a moderately severe right and mild left stenosis with impingement of the right L5 nerve root ganglion. IMPRESSION: Mild disc degeneration at L3-4 with annular disc bulge and superimposed left cranially dissecting disc extrusion impinging the transiting left L3 nerve root in the subarticular recess. Electronically signed by: Adia Fitzgerald MD 10/19/24 23:17 PM Ordered Studies 10/19/24 09:57 CT lumbar spine wo con Stat 10/19/24 14:19 MRI Lumbar Spine [MR lumbar spine wo/w con] Urgent Hospital Course (1) Acute respiratory failure with hypoxia: (2) COVID-19 virus infection: (3) Influenza A: (4) COPD (chronic obstructive pulmonary disease): (5) Low back pain: (6) Hypothyroidism: Plan Ms. Yin is a 59-year-old woman with history of COPD, Crohn's disease, hypothyroidism who presented to ED with concerns mostly notable for back pain, however, was found to have acute hypoxic resp failure with COVID/influenza a on biofire. Acute hypoxic resp failure due to viral infection/COPD exacerbation COVID-19 infection Influenza A infection Acute COPD exacerbation --CXR:No acute cardiopulmonary findings. + sick contacts -BioFire positive for COVID-19, influenza A Continue Tamiflu, dexamethasone, azithromycin Supplemental oxygen to maintain saturations Given COPD, maintain saturations 88 to 92% Continue nebs, home inhalers 2 Step: Did not qualify for supplemental oxygen Plan to discharge home on prednisone taper course Abnormal UA Asymptomatic bacteruria culture with <1000 colonies asymptomatic Urine culture negative Low back pain: Lumbar DJD Reviewed epic chart with note from PCP in July noted in low back pain. MRI with herniation, symptoms resolved give IV steroid Increased home Gabapentin to 300 twice daily PT/OT Advised to follow-up with orthopedic spine as outpatient Hypothyroidism: Continue home levothyroxine. DVT Px: Heparin SQ Total Time Total Time Spent Total Time Spent (In Minutes): 54 minutes Discharge Plan Discharge Items Patient Disposition: Home - Self-Care Reason For Visit: COUGH AND BACK PAIN Discharge Diagnosis: Acute hypoxic respiratory failure COVID-19 infection Influenza A Acute COPD exacerbation Lumbar degenerative disc disease Activity: Per Instructions section Exercise/Sports: Wait until after follow-up appointment Non-emergency contact: Primary Care Provider Call non-emergency contact if: you have any medication questions, your symptoms worsen, your pain is concerning for you and you have a fever Follow-up/Referrals: Smiley Brooke M.D. [Primary Care Provider] - (Date & Time 10/26/2024 4:00 PM Provider Smiley Travis MD Department Family Medicine [facility] ) Diet: Heart Healthy Addtl Attending Provider Instructions: Follow-up with your primary care physician on 10/26/2024 4:00 PM Consider following with orthopedic spine surgeon for further evaluation of lumbar disc disease as advised. Complete the prednisone tapering course, Tamiflu and antibiotic as prescribed Prednisone tapering course Start taking prednisone 30 mg daily for 2 days, then 20 mg daily for 2 days, then 10 mg daily for 2 days and stop. -- Quit smoking tobacco as advised. Seek immediate medical attention if your symptoms reoccur or worsen Please take all medications as instructed on discharge list below. Please call if you have any questions or problems. You can reach a [facility] hospitalist on duty at [facility] 24 hours a day by calling [phone] Pending Studies at Discharge: No Stand-Alone Forms: My [facility], Smoking Cessation Medications and DC Order Prescriptions: New azithromycin 250 mg Tablet 250 mg PO QAM Qty: 2 0RF gabapentin 300 mg Capsule 300 mg PO BID Qty: 30 0RF oseltamivir [Tamiflu] 30 mg capsule 30 mg PO BID 2 Days Qty: 4 0RF prednisone 10 mg tablet 10 mg PO DIRECTED Qty: 12 0RF Rx Instructions: Start taking prednisone 30 mg daily for 2 days, then 20 mg daily for 2 days, then 10 mg daily for 2 days and stop. Continued bupropion HCl 150 mg tablet sustained-release 12 hr 150 mg PO BID levothyroxine 75 mcg tablet 75 mcg PO QAM alprazolam [Xanax] 0.5 mg tablet 0.5 mg PO HS estradiol [Estrace] 1 mg tablet 1 mg PO QAM pantoprazole 40 mg tablet,delayed release (DR/EC) 40 mg PO QAM cyanocobalamin (vitamin B-12) [Vitamin B-12] 1,000 mcg Tablet 1,000 mcg PO QAM aspirin 81 mg Tablet,Delayed Release (Dr/Ec) 81 mg PO QAM cholecalciferol (vitamin D3) [Vitamin D3] 25 mcg (1,000 unit) Tablet 25 mcg PO QAM Spiriva Respimat 2.5 mcg/actuation mist 2 puff inhalation QAM Rx Instructions: INHALE TWO PUFFS BY MOUTH EVERY DAY montelukast [Singulair] 10 mg tablet 10 mg PO HS fluticasone furoate-vilanterol [Breo Ellipta] 100-25 mcg/dose blister with device 1 inh INHALATION QAM Infusion 1 dose IV UD Rx Instructions: per pt she's on an infusion but it's sure if it's Remicade or not Discharge Orders: Discharge Order (Routine); Ordered 10/22/24 Ordered By: Grady Sumner Admission Data Admit Date/Time: 10/19/24 12:06 Attending Provider: Grady Sumner Admit Provider: Lin Villa I. Primary Care Provider: Smiley Brooke
[2024-10-22 12:08] VITALS: BP 126/66; PULSE 90; RESP 18; O2SAT 92
== END 2024-10-22 13:53 | disposition home or self-care (01) | DRG 177 ==
LOC: ED 09:01 → 2W 12:06 → SUATTDRO 12:06 → 2W 17:54
DX: K50.90 Crohn's disease, unspecified, without complications; E03.9 Hypothyroidism, unspecified; J96.01 Acute respiratory failure with hypoxia; J10.1 Influenza due to other identified influenza virus with other respiratory manifestations; Z88.5 Allergy status to narcotic agent; R82.71 Bacteriuria; M51.360 Other intervertebral disc degeneration, lumbar region with discogenic back pain only; Z79.890 Hormone replacement therapy; Z79.82 Long term (current) use of aspirin; R53.1 Weakness; J44.1 Chronic obstructive pulmonary disease with (acute) exacerbation; F31.9 Bipolar disorder, unspecified; F17.210 Nicotine dependence, cigarettes, uncomplicated; M51.16 Intervertebral disc disorders with radiculopathy, lumbar region; U07.1 COVID-19

== ENCOUNTER 2024-12-25 11:14 | Inpatient (IN) ==
--- NOTE | 2024-12-25 11:59 | Emergency Department Note ---
Impression & Plan Acute hypoxic respiratory failure, Respiratory syncytial virus (RSV) ED Provider Note NAME: ÁLVARO RIVERA AGE: 59 SEX: F : 1965 ARRIVES VIA: Walk-In INFORMANT: Patient ED PROVIDER(S): Uziel Perkins DO CHIEF COMPLAINT: Cough, congestion and shortness of breath HPI: Patient is a 59-year-old female with a past medical history of hypoxic respiratory failure, COPD Recurrence who presents to the ER for shortness of breath, cough, congestion, and runny nose. She notes symptoms initially started on Saturday. She denies any headache or change in vision. No chest pain but does admit to shortness of breath. No fevers. She has been using nebs at home. She notes her pulse ox with rest has been about 85%. No dysuria, urgency, or frequency. No other exacerbating or remitting factors. ADDITIONAL HISTORY OBTAINED: Per HPI Chronic Medical/Social Conditions Affecting Care: Per HPI PAST MEDICAL HISTORY:See Below PAST SURGICAL HISTORY:See Below FAMILY HISTORY:See Below SOCIAL HISTORY:See Below HOME MEDICATIONS:See Below ALLERGIES:See Below VITALS:See Below PHYSICAL EXAMINATION: GENERAL: Sitting up in bed, alert, well appearing, well nourished, no distress, non-toxic EYE EXAM: normal conjunctiva. OROPHARYNX: no exudate, no erythema, lips, buccal mucosa, and tongue normal and mucous membranes are moist NECK: supple, no nuchal rigidity, no adenopathy, non-tender LUNGS: Diffuse wheezing bilaterally. Normal chest wall mechanics HEART: no murmurs, S1 normal and S2 normal ABDOMEN: abdomen soft, non-tender, normo-active bowel sounds, no masses, no rebound or guarding. UPPER EXTREMITIES: upper extremities are grossly normal. LOWER EXTREMITIES: No pitting edema. NEURO EXAM: Normal sensorium, cranial nerves II-XII grossly intact, normal speech, no gross weakness of arms, no gross weakness of legs. MEDICAL DECISION MAKING: Patient is a 59-year-old female who presents ER for the below stated complaint. IV was established and blood work was obtained. Labs show no significant leukocytosis or anemia. BMP along with LFTs bilirubins unremarkable. Pro-Gerry was normal. Patient was positive for RSV. She was hypoxic and constantly placed on 2 L nasal cannula. She was given neb treatments and steroids. She was updated bedside. Discussed case with the hospitalist admitted for further workup of her acute hypoxia secondary to RSV and COPD. Chest x-ray does show likely atelectasis in the right lower lobe. Did not cover with antibiotics at this time. Will defer to the hospitalist as I favor this is all consistent with RSV and a COPD exacerbation. Consults/Care Managements Discussions: Per [facility] Triage Nursing notes reviewed. Limited review of prior medical records performed Vital Signs: reviewed and remarkable for htn Differential diagnosis: Differential diagnoses includes but is not limited to pneumonia, bronchitis, COPD/Asthma exacerbation, pneumothorax, pulmonary embolism, congestive heart failure, acute coronary syndrome ER treatment provided: See below Diagnostics interpreted by me include EKG and cardiac monitoring as listed below: -Cardiac Monitoring: An order was placed for continuous cardiac monitoring. The monitor shows a rate of 90 with sinus rhythm. -ECG: Sinus rhythm rate 87 Normal axis No PVCs QTc 447 -Laboratory studies:Interpreted by me as stated above in MDM and shown below. Imaging studies: Xrays: As interpreted by me: Portable AP upright 1 view of the chest shows questionable right lower lobe opacity versus atelectasis CTs show: none Procedures:none Critical Care: I have personally spent 45 minutes of critical care time in the direct management of this patient. This includes bedside care, interpretation of diagnostic studies, and testing, discussion with consultants, patient, and family members, and other required patient management activities. This 45 minutes is in excess of all separately billable procedures. Past Med/Surg History Problem List (Updated 12/25/24 @ 16:31 by Uziel Perkins DO) Respiratory syncytial virus (RSV) (Acute) Acute hypoxic respiratory failure (Acute) RSV bronchitis Influenza A Acute respiratory failure with hypoxia COVID-19 virus infection (Acute) COVID-19 (Acute) Person under investigation for COVID-19 (Acute) Dyspnea Nonproductive cough Tobacco use COPD (chronic obstructive pulmonary disease) (Acute) Bipolar disorder (Chronic) Crohns disease (Chronic) History of neck pain (Chronic) Hypothyroidism (Chronic) Cervical spinal cord compression Medical History Tobacco use disorder Snoring Sleep disorder Regional enteritis Pulmonary nodule Pneumonia Pharyngitis Fatigue COPD, moderate Cigarette smoker Cigarette nicotine dependence Chronic pain Bronchiolitis Benign neoplasm of colon Asthma Anxiety disorder, unspecified Alcohol abuse Abnormal CAT scan Social History Smoking Status: Current every day smoker Tobacco Type: Cigarettes Cigarettes Per Day: 8; Second Hand Exposure: No; Do You Dip or Chew Tobacco: No; Hx Alcohol Use: No Hx Substance Use: No Preferred Language: Kenyan Communication Ability: Effective Sweatband Shaper Required: No Beliefs That Will Affect Care: None Current Living Situation: Significant Other Current Living Situation Comment: Erik Other Information That Helps Us Care for You: No Feels Safe at Home: Yes Safety Concerns: Feels Safe At This Time Assistive Devices: Denture - Upper and Glasses Assistive Devices Comment: partial upper Allergies Allergies Allergy/AdvReac Type Severity Reaction Status Date / Time kiwi Allergy Severe hives, Verified 08/08/21 15:34 rash, swelling of throat and lips oxycodone Allergy Intermediate FACE ITCHY Verified 08/08/21 15:34 pneumococcal vaccine Allergy Unknown unknown Verified 08/08/21 15:34 Home Meds Home Medications Medication Instructions Recorded Confirmed alprazolam 0.5 mg tablet (Xanax) 0.5 mg PO 04/18/19 12/25/24 bupropion HCl 150 mg tablet,12 hr 150 mg PO BID 04/18/19 12/25/24 sustained-release estradiol 1 mg tablet (Estrace) 1 mg PO QAM 04/18/19 12/25/24 levothyroxine 75 mcg tablet 75 mcg PO QAM 04/18/19 12/25/24 pantoprazole 40 mg tablet,delayed 40 mg PO QAM 04/18/19 12/25/24 release aspirin 81 mg tablet,delayed 81 mg PO 09/17/20 12/25/24 release cholecalciferol (vitamin D3) 25 25 mcg PO QAM 09/17/20 12/25/24 mcg (1,000 unit) tablet (Vitamin D3) cyanocobalamin (vitamin B-12) 1,000 mcg PO QAM 09/17/20 12/25/24 1,000 mcg tablet (Vitamin B-12) tiotropium bromide 2.5 2 puff inhalation [facility] 09/17/20 12/25/24 mcg/actuation mist for inhalation (Spiriva Respimat) montelukast 10 mg tablet 10 mg PO 08/08/21 12/25/24 (Singulair) Infusion 1 dose IV 10/19/24 12/25/24 fluticasone furoate 100 1 inh inhalation HS 10/19/24 12/25/24 mcg-vilanterol 25 mcg/dose inhalation powder (Breo Ellipta) atorvastatin 40 mg tablet 40 mg PO QAM 12/25/24 12/25/24 Results & Data (ED) Vital Signs Vital Signs - 24 hr 12/25/24 11:17 12/25/24 11:27 12/25/24 12:18 Temperature 35.9 C L 36.8 C Temperature Source Temporal Artery Scan Oral Pulse Rate 88 Pulse Rate [Apical] Pulse Rate [Exercises] Pulse Strength [Apical] Respiratory Rate 18 Respiratory Rate [Exercises] Respiratory Effort / Characteristics Non-Labored Spontaneous Respiratory Depth Normal Respiratory Pattern Blood Pressure 147/84 H Blood Pressure [Right Arm] Blood Pressure Mean 105 Blood Pressure Mean [Right Arm] Pulse Oximetry 90 Pulse Oximetry [Exercises] Oxygen Delivery Method Room Air Room Air Sepsis Recent Fever Within 48 Hours No Sepsis New/Unexplained Change in Mental Status No Sepsis Action Taken by Nursing No Action Required 12/25/24 12:26 12/25/24 12:28 12/25/24 13:20 Temperature Temperature Source Pulse Rate 77 Pulse Rate [Apical] 74 Pulse Rate [Exercises] 91 H Pulse Strength [Apical] Normal Respiratory Rate 19 Respiratory Rate [Exercises] 24 Respiratory Effort / Characteristics Non-Labored Spontaneous Respiratory Depth Normal Respiratory Pattern Regular Blood Pressure Blood Pressure [Right Arm] 131/91 Blood Pressure Mean Blood Pressure Mean [Right Arm] 104 Pulse Oximetry 99 Pulse Oximetry [Exercises] 88 L Oxygen Delivery Method Room Air Sepsis Recent Fever Within 48 Hours Sepsis New/Unexplained Change in Mental Status Sepsis Action Taken by Nursing Laboratory Data 12/25/24 11:30 12/25/24 11:30 Lab Results 12/25/24 12/25/24 12/25/24 Range/Units 11:23 11:30 11:40 WBC 10.76 (4.8-10.8) K/ul RBC 4.10 L (4.20-5.40) M/uL Hgb 12.8 (12.0-16.0) g/dl Hct 38.3 (37.0-47.0) % MCV 93.4 (80.0-100.0) fL MCH 31.2 (25.0-34.0) pg MCHC 33.4 (32.0-36.0) g/dL RDW Std Deviation 43.8 (36.4-46.3) fL RDW Coeff of Madyson 12.7 (11.5-14.5) % Plt Count 316 (130-400) K/uL MPV 9.8 (9.4-12.4) fL Immature Gran % (Auto) 0.3 % Neut % (Auto) 64.5 % Lymph % (Auto) 26.9 % [place] % (Auto) 7.5 % Eos % (Auto) 0.4 % Baso % (Auto) 0.4 % Neut # (Auto) 6.95 H (1.40-6.50) K/uL Lymph # (Auto) 2.89 (1.20-3.40) K/uL [place] # (Auto) 0.81 H (0.11-0.59) K/uL Eos # (Auto) 0.04 (0.00-0.50) K/uL Baso # (Auto) 0.04 (0.00-0.20) K/uL Immature Gran # (Auto) 0.03 (0.01-0.20) K/uL Sodium 139 (136-145) mmol/L Potassium 3.7 (3.5-5.1) mmol/L Chloride 106 (98-107) mmol/L Carbon Dioxide 28 (21-32) mmol/L Anion Gap 5 (3-11) BUN 14 (6-23) mg/dl Creatinine 1.10 (0.6-1.2) mg/dl Est Cr Clr Drug Dosing 43.0 ml/min eGFR 57.52 BUN/Creatinine Ratio 12.7 (10-20) Glucose 100 H (70-99(Fasting)) mg/dl Calcium 9.4 (8.6-10.3) mg/dl Total Bilirubin 0.6 (0.2-1.0) mg/dl AST 17 (13-39) U/L ALT 13 (7-52) U/L Alkaline Phosphatase 71 (34-104) U/L Total Protein 7.3 (6.0-8.3) gm/dl Albumin 4.2 (3.4-5.0) gm/dl Globulin 3.1 (2.5-4.0) gm/dl Albumin/Globulin Ratio 1.4 (0.9-2) Procalcitonin < 0.02 (0-0.5) ng/ml SARS-CoV-2 (PCR) NEGATIVE (Negative) Influenza Type A (PCR) Negative (Neg) Influenza Type B (PCR) Negative (Neg) RSV (RT-PCR) Positive A (Neg) Administered Medications Discontinued Medications Albuterol (Albut/Ipratrop 3mg/0.5mg Neb 3 Ml Vial) 9 ml NEB NOW STA; Protocol Stop: 12/25/24 11:56 Last Admin: 12/25/24 12:16 Dose: 9 ml Documented By: DS Methylprednisolone (Methylprednisolone 125 Mg/2 Ml Vial) 40 mg IV NOW STA Stop: 12/25/24 11:56 Last Admin: 12/25/24 12:16 Dose: 40 mg Documented By: DS Imaging Data Radiologist's Impression: Chest X-Ray 12/25/24 11:21 XR chest 1V not portable CLINICAL HISTORY: SOB COMPARISON STUDY: 09/29/2023 FINDINGS: Heart size and pulmonary vasculature are normal. There is interval stranding opacity medial right lung base. No effusion or consolidation otherwise. IMPRESSION: Early pneumonia versus atelectasis medial right lung base. ACT 112: Negative or not required by law. Electronically signed by: Vamsi Rodriguez M.D. 12/25/2024 12:03 PM Discharge Plan Visit Data Chief Complaint: Shortness of Breath/Dyspnea Stated Complaint: TROUBLE BREATHING ED Provider: Uziel Perkins Discharge Problem: Acute hypoxic respiratory failure, Respiratory syncytial virus (RSV) Patient Disposition: Admitted As Inpatient Discharge Instructions Interventions: ED Discharge Assessment Last Done: 12/25/24 15:31 Discharge Problem: Respiratory syncytial virus (RSV) Qualifiers: RSV infection type: acute bronchitis Qualified Code(s): J20.5 - Acute bronchitis due to respiratory syncytial virus
--- NOTE | 2024-12-25 12:04 | XRay Report ---
XR chest 1V not portable CLINICAL HISTORY: SOB COMPARISON STUDY: 09/29/2023 FINDINGS: Heart size and pulmonary vasculature are normal. There is interval stranding opacity medial right lung base. No effusion or consolidation otherwise. IMPRESSION: Early pneumonia versus atelectasis medial right lung base. ACT 112: Negative or not required by law. Electronically signed by: Vamsi Rodriguez M.D. 12/25/2024 12:03 PM
[2024-12-25 12:09] LABS: Influenza A virus by PCR Negative (Neg); Influenza B virus by PCR Negative (Neg); RSV by PCR Positive (Neg); SARS CoV2 RNA(COVID-19) Ceph NEGATIVE (Negative)
[2024-12-25 12:09] LABS: Basophils # (auto) 0.04 K/uL (0.00-0.20); Basophils % (auto) 0.4 %; Eosinophils # (auto) 0.04 K/uL (0.00-0.50); Eosinophils % (auto) 0.4 %; Hematocrit (blood only) 38.3 % (37.0-47.0); Hemoglobin 12.8 g/dl (12.0-16.0); Immature Granulocytes # (auto) 0.03 K/uL (0.01-0.20); Immature Granulocytes % (auto) 0.3 %; Lymphocytes # (auto) 2.89 K/uL (1.20-3.40); Lymphocytes % (auto) 26.9 %; Mean Corpuscular Hemoglobin 31.2 pg (25.0-34.0); Mean Corpuscular Hgb Conc 33.4 g/dL (32.0-36.0); Mean Corpuscular Volume 93.4 fL (80.0-100.0); Mean Platelet Volume 9.8 fL (9.4-12.4); Monocytes # (auto) 0.81 K/uL (0.11-0.59); Monocytes % (auto) 7.5 %; Neutrophils # (auto) 6.95 K/uL (1.40-6.50); Neutrophils % (auto) 64.5 %; Platelet Count 316 K/uL (130-400); RDW Coefficient of Variation 12.7 % (11.5-14.5); RDW Standard Deviation 43.8 fL (36.4-46.3); White Blood Count 10.76 K/ul (4.8-10.8)
[2024-12-25] MEDS: ALBUT/IPRATROP 3MG/0.5MG NEB 3 ML VIAL NEB STA (12:16)
[2024-12-25] MEDS: methylPREDNISolone 125 MG/2 ML VIAL IV STA (12:16)
[2024-12-25 12:18] LABS: Albumin Globulin Ratio 1.4 (0.9-2); Albumin Level 4.2 gm/dl (3.4-5.0); BUN Creatinine Ratio 12.7 (10-20); Bilirubin,Total 0.6 mg/dl (0.2-1.0); Calcium 9.4 mg/dl (8.6-10.3); Globulin 3.1 gm/dl (2.5-4.0); Potassium 3.7 mmol/L (3.5-5.1); Total Protein 7.3 gm/dl (6.0-8.3)
--- NOTE | 2024-12-25 13:51 | History & Physical Report ---
Date of Service December 25, 2024 Assessment & Plan (1) Hypoxia: (2) COPD exacerbation: (3) RSV bronchitis: Plan This is a 59-year-old woman with history of COPD, Crohn's disease, hypothyroidism who presents with 4 days of cough. #Hypoxia #COPD Exac #RSV Positive admit to med/surg continue O2 supplementation, titrate to keep between 90-92% budesonide/formoterol nebs IV solumedrol 40mg TID Azithromycin Muccinex Duoneb, ISP, Flutter valve #Crohn's Disease: remicade infusion [id number], no acute flare #Hypothyroidism: continue Synthroid #DVT ppx: SQ Lovenox FULL CODE PCP: Smiley Mast Dispo: admit Pt was seen and examined in collaboration with Dr. Sumner, please see addendum I spent a total of 55 minutes coordinating, documenting and providing care for this patient excluding time spent in the performance of separately billed services or time spent by another provider/QHP. Pt was seen and examined in collaboration with Dr. Sumner, please see addendum History of Present Illness Chief Complaint: Cough x 4 days. Primary Care Provider: Smiley Mast MD This is a 59-year-old woman with history of COPD, Crohn's disease, hypothyroidism who presents with 4 days of cough. She has hx of COPD and was last hospitalized at the end of 2023 with COPD exac in setting of influenza A and COVID-19. She states she has sick contacts with her grandson who had a viral illness 2 weeks ago. She developed cough, sinus congestion and rhinorrhea 4 days ago. Her cough continues to worsen. It is very productive of thick brown sputum. She reports worsening SOB with exertion which is what prompted her to come to the ED. Her appetite has been good. She has felt chilled but denies any docum ented fever or sweats. She further denies any chest pain, palps, hemoptysis, n/v/d, abd pain or change in her bowel/urinary habits. In ED she tested + for RSV. She was hypoxic requiring 2L satting at 91%. She received IV solumedrol and nebulizer treatment. Her CXR showed RLL Atelectasis vs PNA. Allergies Allergy/AdvReac Type Severity Reaction Status Date / Time ghulam Allergy Severe hives, Verified 08/08/21 15:34 rash, swelling of throat and lips oxycodone Allergy Intermediate FACE ITCHY Verified 08/08/21 15:34 pneumococcal vaccine Allergy Unknown unknown Verified 08/08/21 15:34 Home Medications Medication Instructions Recorded Confirmed Type alprazolam 0.5 mg tablet (Xanax) 0.5 mg PO HS 04/18/19 12/25/24 History bupropion HCl 150 mg tablet,12 hr 150 mg PO BID 04/18/19 12/25/24 History sustained-release estradiol 1 mg tablet (Estrace) 1 mg PO QAM 04/18/19 12/25/24 History levothyroxine 75 mcg tablet 75 mcg PO QAM 04/18/19 12/25/24 History pantoprazole 40 mg tablet,delayed 40 mg PO QAM 04/18/19 12/25/24 History release aspirin 81 mg tablet,delayed 81 mg PO HS 09/17/20 12/25/24 History release cholecalciferol (vitamin D3) 25 25 mcg PO QAM 09/17/20 12/25/24 History mcg (1,000 unit) tablet (Vitamin D3) cyanocobalamin (vitamin B-12) 1,000 mcg PO QAM 09/17/20 12/25/24 History 1,000 mcg tablet (Vitamin B-12) tiotropium bromide 2.5 2 puff inhalation QA 09/17/20 12/25/24 History mcg/actuation mist for inhalation (Spiriva Respimat) montelukast 10 mg tablet 10 mg PO HS 08/08/21 12/25/24 History (Singulair) Infusion 1 dose IV UD 10/19/24 12/25/24 History fluticasone furoate 100 1 inh inhalation HS 10/19/24 12/25/24 History mcg-vilanterol 25 mcg/dose inhalation powder (Breo Ellipta) atorvastatin 40 mg tablet 40 mg PO QAM 12/25/24 12/25/24 History Past Med/Surg History Problem List (Updated 12/25/24 @ 16:31 by Uziel Perkins DO) Respiratory syncytial virus (RSV) (Acute) Acute hypoxic respiratory failure (Acute) RSV bronchitis Influenza A Acute respiratory failure with hypoxia COVID-19 virus infection (Acute) COVID-19 (Acute) Person under investigation for COVID-19 (Acute) Dyspnea Nonproductive cough Tobacco use COPD (chronic obstructive pulmonary disease) (Acute) Bipolar disorder (Chronic) Crohns disease (Chronic) History of neck pain (Chronic) Hypothyroidism (Chronic) Cervical spinal cord compression Medical History Tobacco use disorder Snoring Sleep disorder Regional enteritis Pulmonary nodule Pneumonia Pharyngitis Fatigue COPD, moderate Cigarette smoker Cigarette nicotine dependence Chronic pain Bronchiolitis Benign neoplasm of colon Asthma Anxiety disorder, unspecified Alcohol abuse Abnormal CAT scan Social History Smoking Status: Current every day smoker Tobacco Type: Cigarettes Cigarettes Per Day: 8; Second Hand Exposure: No; Do You Dip or Chew Tobacco: No; Hx Alcohol Use: No Hx Substance Use: No Preferred Language: Indonesian Communication Ability: Effective Flyer Repairer Required: No Beliefs That Will Affect Care: None Current Living Situation: Significant Other Current Living Situation Comment: Erik Other Information That Helps Us Care for You: No Feels Safe at Home: Yes Safety Concerns: Feels Safe At This Time Assistive Devices: Denture - Upper and Glasses Assistive Devices Comment: partial upper Review of Systems Review of Systems: All systems reviewed & are unremarkable except as noted in HPI & below Physical Exam Physical Exam: Constitutional: WD/WN, vitals as above, NAD, sitting up in bed, pleasant, conversing easily Head: Normocephalic, Atraumatic Eyes: PERRL, conjunctivae normal, anicteric sclerae ENMT: external ear and nose normal, oropharynx normal Neck: trachea midline, no thyromegaly normal visual inspection Respiratory: decreased bs at bases, deep insp results in coughing fit, no significant wheezing throughout, no rales/rhonchi noted. 2L of O2 91%, no access muscle use Cardiovascular: RRR, no murmur, no edema Vessels: no JVD or carotid bruit Chest: normal inspection of chest Abdomen: normal bowel sounds, soft, nontender, no hepatosplenomegaly Musculoskeletal: no cyanosis or clubbing, extremities motor strength 5/5 Skin: no rashes, warm and dry normal turgor Neurologic: no face palsy, no dysarthria CN's II-XI intact bilaterally and moves all extremities Psychiatric: A+Ox3, euthymic affect : deferred to hearing to look into that other consult was in our Results & Data Results & Data Vital Signs (Past 12 Hours) Vital Signs Temp Pulse Pulse Resp BP BP Pulse Ox 12/25/24 12:28 77 12/25/24 12:26 74 19 131/91 99 12/25/24 12:18 36.8 C 12/25/24 11:27 12/25/24 11:17 35.9 C L 88 18 147/84 H 90 O2 Del Method 12/25/24 12:28 12/25/24 12:26 12/25/24 12:18 12/25/24 11:27 Room Air 12/25/24 11:17 Room Air Laboratory Results I have independently reviewed and interpreted patient's admitting labs including CBC, CMP, resp biofire Diagnostic Findings Chest X-Ray 12/25/24 11:21 XR chest 1V not portable CLINICAL HISTORY: SOB COMPARISON STUDY: 09/29/2023 FINDINGS: Heart size and pulmonary vasculature are normal. There is interval stranding opacity medial right lung base. No effusion or consolidation otherwise. IMPRESSION: Early pneumonia versus atelectasis medial right lung base. ACT 112: Negative or not required by law. Electronically signed by: Vamsi Rodriguez M.D. 12/25/2024 12:03 PM Medications Administered Medication List Discontinued Medications Albuterol (Albut/Ipratrop 3mg/0.5mg Neb 3 Ml Vial) 9 ml NEB NOW STA; Protocol Stop: 12/25/24 11:56 Last Admin: 12/25/24 12:16 Dose: 9 ml Documented By: CORIE Methylprednisolone (Methylprednisolone 125 Mg/2 Ml Vial) 40 mg IV NOW STA Stop: 12/25/24 11:56 Last Admin: 12/25/24 12:16 Dose: 40 mg Documented By: CORIE ECG Additional Comments: I have independently reviewed and interpreted patient's admitting EKG which revealed: 87 nsr, qtc 447ms COVID-19 Results Results COVID-19 Adm Lab Results: RBC 4.10 M/uL (4.20-5.40) L 12/25/24 WBC 10.76 K/ul (4.8-10.8) 12/25/24 Hgb 12.8 g/dl (12.0-16.0) 12/25/24 Hct 38.3 % (37.0-47.0) 12/25/24 Plt Count 316 K/uL (130-400) 12/25/24 Neutrophils (%) (Auto) 64.5 % 12/25/24 Lymphocytes (%) (Auto) 26.9 % 12/25/24 Monocytes # (Auto) 0.81 K/uL (0.11-0.59) H 12/25/24 Eosinophils # (Auto) 0.04 K/uL (0.00-0.50) 12/25/24 Immature Granulocyte % (Auto) 0.3 % 12/25/24 Neutrophils # (Auto) 6.95 K/uL (1.40-6.50) H 12/25/24 Lymphocytes # (Auto) 2.89 K/uL (1.20-3.40) 12/25/24 Monocytes # (Auto) 0.81 K/uL (0.11-0.59) H 12/25/24 Eosinophils # (Auto) 0.04 K/uL (0.00-0.50) 12/25/24 Basophils # (Auto) 0.04 K/uL (0.00-0.20) 12/25/24 Immature Granulocyte # (Auto) 0.03 K/uL (0.01-0.20) 5 Na 139 mmol/L (136-145) 12/25/24 K 3.7 mmol/L (3.5-5.1) 12/25/24 Cl 106 mmol/L (98-107) 12/25/24 CO2 28 mmol/L (21-32) 12/25/24 Anion Gap 5 (3-11) 12/25/24 BUN 14 mg/dl (6-23) 12/25/24 Creatinine 1.10 mg/dl (0.6-1.2) 12/25/24 BUN/Creatinine Ratio 12.7 (10-20) 12/25/24 Glucose Level 100 mg/dl (70-99(Fasting)) H 12/25/24 Ca 9.4 mg/dl (8.6-10.3) 12/25/24 Total Bilirubin 0.6 mg/dl (0.2-1.0) 12/25/24 AST/SGOT 17 U/L (13-39) 12/25/24 ALT/SGPT 13 U/L (7-52) 12/25/24 Alkaline Phosphatase 71 U/L (34-104) 12/25/24 Total Protein 7.3 gm/dl (6.0-8.3) 12/25/24 Albumin 4.2 gm/dl (3.4-5.0) 12/25/24 Globulin 3.1 gm/dl (2.5-4.0) 12/25/24 Albumin/Globulin Ratio 1.4 (0.9-2) 12/25/24 Procalcitonin < 0.02 ng/ml (0-0.5) 12/25/24 COVID-19 PCR NEGATIVE (Negative) 12/25/24 Influenza Virus Type A (PCR) Negative (Neg) 12/25/24 Influenza Virus Type B (PCR) Negative (Neg) 12/25/24 Chest X-Ray 12/25/24 Code Status & VTE Plan Code Status FULL CODE VTE Prophylaxis Plan VTE Prophylaxis will be ordered: Yes Supervising Physician Co-Signing Physician Notes Patient is a 59-year-old female with history of Crohn's disease, COPD, hypothyroidism and other medical problems presents with history of worsening cough, sinus congestion, rhinitis, shortness of breath since 4 days duration. Admits to have sick contact with grandson with viral infection 2 weeks ago. She denies any chest pain, fever, chills. Please review HPI for complete details of presentation. I personally reviewed blood work and imaging studies. Procalcitonin normal. Serology positive for RSV. Chest x-ray showed findings suggestive of possible pneumonia versus atelectasis right lung base. Physical Exam: Vitals signs as noted above General Appearance: Thin, frail, no apparent distress Head: normocephalic, Atraumatic Eyes: normal inspection, EOMI Neck: supple, Trachea midline Respiratory/Chest: Decreased breath sounds, + scattered rhonchi, No accessory muscle use Cardiovascular: S1, S2, No murmur Abdomen/GI:Soft, Non tender, Bowel sounds present Extremities/Musculoskeletal:normal inspection, no edema Neurologic/Psych:AAOX3, grossly no focal neurological deficits Skin: normal color, warm Acute COPD exacerbation Secondary to RSV infection Hypoxia secondary to above Agree with nebs, Solu-Medrol, azithromycin Supplemental oxygen as needed I personally interviewed and examined the patient at bedside. I have reviewed the advanced practitioner's documentation on the date of service referred in note and agree with plan. Patient's care is coordinated with Gina Espinoza. Please refer to the documentation above for details of patient's presentation and for discussion of other issues. I spent a total [id number] coordinating, documenting, and providing care for this patient excluding time spent in the performance of separately billed services or time spent by another provider/QHP.
[2024-12-25] MEDS ORDERED: FAMOTIDINE 20 MG TAB PO PRN (16:07)
[2024-12-25] MEDS ORDERED: ONDANSETRON INJ 2 MG/ML 2 ML VIAL IV PRN (16:07)
[2024-12-25] MEDS: AZITHROMYCIN 250 MG TAB PO ONE (16:57)
[2024-12-25] MEDS ORDERED: methylPREDNISolone 125 MG/2 ML VIAL IV SCH (20:00)
--- OUTSIDE RECORDS SUMMARY | 2024-12-25 20:12 | External Medical Summary | Summary of Care ---
Author Name Unknown Organization [facility] Address [address] [place] [address] Phone [phone] Care Team Providers Care Aeronautical Design Engineer Name Role Phone Smiley Travis MD Primary Care Pr ovider Reason for Referral * Evaluate & Treat - Unlimited Visits (Within 10 days (routine)) - Authorized Specialty Diagnoses / Procedures Referred By Ange t Referred To Contact Neuro/Ortho Surgery - Spine. / Neurological Surgery Diagnoses Lumbar radiculopathy Smiley Travis MD [address] [place] [address] [place] [phone] Phone: tel: fax: Referral ID Status Reason Start Date Expiration Date Visits Requested Visits Authorized [id number] Authorized Specialty Services Required 12/21/[phone] Question Answer Referral Priority Within 10 days (routine) Where should this appointment be scheduled? [facility] spine region: Back - Thoracic/Lumbar Do you have any recent complete loss of bladder or bowel function? No Comments L spine MRI at [facility] 10/22/24 showed L3/4 disc bulge with L dissecting extrusion impinging L L3 nerve root Reason for Visit * Reason Comments Re-Check Encounter Details Date Type Department Care Team (Latest Contact Info) Description 12/21/2024 2:40 PM EST Office Visit Family Medicine [address] [place] [address] Smiley Travis MD [address] [place] [address] [place] [phone] Lumbar radiculopathy*; Crohn's disease of both small and large intestine without complication (HCC); Bipolar 1 disorder (HCC); COPD, group B, by GOLD 2017 classification ([facility]); Stage 3a chronic kidney disease (HCC); Family history of breast cancer; Hyperlipidemia with target LDL less than 100; Tobacco use disorder; Pneumococcal vaccination declined Allergies Active Allergy Reactions Criticality Noted Date [...] as of this encounter (statuses as of 12/21/2024) Medications EPINEPHrine 0.15 MG/0.3ML Injection Solution Auto-injector [...] 8 weeks. 2 Each 7 021 Active Ventolin HFA 108 (90 Base) MCG/ACT [...] Aerosol SolutionIndicatio ns:COPD, severity to be determined ([facility]) Inhale 2 Puffs by mouth daily. 4 g 5 024 Active Fluticasone Propionate 50 MCG/ACT Nasal Suspension (Flonase)Indicati ons:Nasal obstruction Administer 2 Sprays into each nostril in the morning. 9.9 mL 1 024 Active Naproxen 500 MG Oral Tablet (Naprosyn)Indicat ions:Acute left-sided low back pain with left-sided sciatica TAKE ONE TABLET BY MOUTH TWICE A DAY NEEDED FOR PAIN. TAKE WITH FOOD. 90 Tablet 024 Active Estradiol 1 MG Oral Tablet (Estrace)Indicati ons:Menopause TAKE ONE TABLET BY MOUTH IN THE MORNING 90 Tablet 024 Active Ondansetron HCl 4 MG Oral Tablet Take 1 Tablet by mouth every 6 hours as needed for Nausea. 30 Tablet 025 Active Breo Ellipta 100-25 MCG/ACT Inhalation Aerosol Powder Breath Activated (fluticasone furoate-vilantero l) Inhale 1 Puff by mouth in the morning. 60 Blister Dosing Unit 2 025 Active buPROPion HCl ER (SR) 150 MG Oral Tablet Extended Release 12 Hour (Wellbutrin SR)Indications:Bi polar 1 disorder (HCC) take 1 tablet by mouth in the morning and before bedtime. 60 Tablet 3 025 Active ALPRAZolam 0.5 MG Oral Tablet (xaNAX)Indication s:Persistent insomnia,Anxiety Take 1 Tablet by mouth at bedtime as needed for Sleep. 30 Tablet 025 Active Atorvastatin Calcium 40 MG Oral Tablet (Lipitor) Take 1 Tablet by mouth in the morning. 90 Tablet 3 025 Active Cyclobenzaprine HCl 5 MG Oral Tablet (Flexeril)Indicat ions:Acute left-sided low back pain with left-sided sciatica Take 1 Tablet by mouth 3 times a day as needed for Pain or Muscle spasms. 30 Tablet 024 2024 Discontinued documented as of this encounter (statuses as of 12/21/2024) Active Problems Problem Noted Date Diagnosed Date Gastroesophageal reflux disease 09/14/2024 Left cervical radiculopathy 09/14/2024 Hot flash, menopausal 04/20/2024 COPD, group [...] as of this encounter (statuses as of 12/21/2024) Resolved Problems Problem Noted Date Diagnosed Date Resolved Date Cervical spinal cord compression 09/14/2024 10/26/2024 COPD, group A, by GOLD 2017 classification 03/04/2023 03/11/2024 Overview: Per COPD GOLD Classification Digital mucinous cyst of finger of left hand 06/25/2022 Acute bronchitis 04/14/2021 06/25/2022 Kidney disease, [...] as of this encounter (statuses as of 12/21/2024) Immunizations Name Administration Dates Next Due PPD 10/07/2021,08/01/2016,02/05/2014 Pneumococcal Polysaccharide PPV23 (Pneumovax) 05/04/2015 TDAP, Age 7 and older, IM (Adacel) 05/12/2020, documented as of this encounter Social History Tobacco Use Types Packs/Day Years Used Date Smoking Tobacco: Every Day Cigarettes 1 49.1 Started: 1975 Smokeless Tobacco: Never Comments:18. Less [...] Sign Reading Time Taken Comments Blood Pressure 130/76 12/21/2024 2:31 PM EST Pulse 84 12/21/2024 2:31 PM EST Temperature 36.4 C (97.5 F) 12/21/2024 2:31 PM ES T Respiratory Rate - - Oxygen Saturation 90% 12/21/2024 2:31 PM EST Inhaled Oxygen Concentration - - Weight 56.3 kg (124 lb 1.6 oz) 12/21/2024 2:31 P M EST Height 157.5 cm (5' 2") 12/21/2024 2:31 PM EST Body Mass Index 22.7 12/21/2024 2:31 PM EST documented in this encounter Progress Notes * Smiley Travis MD - 12/21/2024 2:39 PM EST Images from the original note were not included. History of Present Illness Adriel Yin is a 59 year old female that presents for Re-Check History of Present Illness The patient, with a history of spine issues and titanium plates in her neck, presents with debilitating back pain due to protruding L3 and L4 discs. The pain radiates down her legs, particularly the left one. The patient was hospitalized for acute hypoxia and had an MRI of her back. The patient hasseen spine specialists in the past and is open to seeing one again for her current issue. The patient also expresses concern about her dense breasts and the risk of breast cancer, given herfamily history. She has regular mammograms but is worried about the effectiveness of this screeningmethod due to her dense breast tissue. The patient's cholesterol levels are slightly elevated, with an LDL level of 150. She has not been on cholesterol medication in the past but is open to starting it. The patient is a smoker and acknowledges the health risks associated with this habit. However, she is not ready to quit at this time. The 10-year ASCVD risk score (Moraima VENTURA, et al., 2019) is: 7.3% Values used to calculate the score: Age: 59 years Sex: Female Is Non- : No Diabetic: No Tobacco smoker: Yes Systolic Blood Pressure: 130 mmHg Is BP treated: No HDL Cholesterol: 62 mg/dL Total Cholesterol: 231 mg/dL Physical Exam BP 130/76 | Pulse 84 | Temp 97.5 F (36.4 C) (Infrared ) | Ht 5' 2" (1.575 m) | Wt 124 lb 1.6 oz(56.3 kg) | SpO2 90% | BMI 22.70 kg/m | BSA 1.57 m Physical Exam Vitals and nursing note reviewed. Constitutional: General: She is not in acute distress. HENT: Head: Normocephalic and atraumatic. Mouth/Throat: Mouth: Mucous membranes are moist. Eyes: Extraocular Movements: Extraocular movements intact. Neck: Thyroid: No thyromegaly. Cardiovascular: Rate and Rhythm: Normal rate and regular rhythm. Pulmonary: Breath sounds: Normal breath sounds. No wheezing or rhonchi. Abdominal: General: Bowel sounds are normal. There is no distension. Palpations: Abdomen is soft. Tenderness: There is no abdominal tenderness. Musculoskeletal: General: Normal range of motion. Cervical back: Normal range of motion and neck supple. Right lower leg: No edema. Left lower leg: No edema. Lymphadenopathy: Cervical: No cervical adenopathy. Upper Body: Right upper body: No supraclavicular adenopathy. Left upper body: No supraclavicular adenopathy. Skin: General: Skin is warm and dry. Findings: No lesion or rash. Neurological: General: No focal deficit present. Mental Status: She is alert and oriented to person, place, and time. Psychiatric: Mood and Affect: Mood normal. Behavior: Behavior normal. Lspine MRI at [facility] showed L3/4 disc bulge with L dissecting extrusion impinging L L3 nerve root I have reviewed most recent labs UDS, Lipid Panel, Hemoglobin A1C, and TSH Assessment and Plan Assessment & Plan Lumbar Disc Protrusion Severe, debilitating pain radiates down the legs, especially the left, without numbness, weakness, or bowel/bladder symptoms. There is a prior history of cervical spine surgery. Referral to a mgmt specialist for further evaluation and management. Hyperlipidemia Total cholesterol is slightly elevated, with LDL significantly elevated at 150 (goal <100). No prior history of cholesterol-lowering medication. Start Atorvastatin 10mg, half tablet for one week, then increase to a full tablet daily. Check lipid panel in 6 months. Breast Cancer Risk Dense breast tissue on mammogram and a family history of breast cancer in a sister and aunt raise concerns about detection. Reach out to breast specialists to discuss potential for MRI screening. Tobacco Use Continued smoking with acknowledgment of risks, but no interest in cessation at this time. No changes to plan; risks are understood. General Health Maintenance Order routine labs including CBC, CMP, and follow-up cholesterol in 6 months. Discussed pneumonia vaccine, which was declined. Mammogram is up to date with compliance in annual screenings. Follow-up in 6 months, sooner if any issues arise. Lumbar radiculopathy - SPINE SURGERY REFERRAL OP Crohn's disease of both small and large intestine without complication (HCC) On remicade, to continue Bipolar 1 disorder (HCC) Stable on meds, to continue COPD, group B, by GOLD 2017 classification (HCC) On Breo, spiriva, and ventolin PRN Stage 3a chronic kidney disease (HCC) Check CMP with next labs prior to next visit. Family hx of breast CA Recent mammogram neg. She is intersted in possible breast MRI, half sister had breast cancer. Will explore options Tobacco use Declines cessation counseling. Declines all vaccines Wrap-Up Follow Up: Return in about 6 months (around 06/20/2025). Time: I spent a total of 20-29 minutes (exact time 24 mins) on the date of service in preparation, delivery, and documentation of the care provided to Adriel Yin excluding any time spent in the performance of separately billed services. Text in this note was generated using an ambient documentation service. I discussed the use of a device to record and summarize our discussion today. All persons present during the encounter consented to its use. documented in this encounter Nursing Notes * Nina Ray CMA - 12/21/2024 2:31 PM EST 3 month f/u. Pt reports has no complaints since BREEZY. Reports asked for referral to spinal doctor after she had CT in hospital and it some bulging disc's documented in this encounter Plan of Treatment Upcoming Encounters Date Type Department Care Team (Late st Contact Info) Description 12/28/2024 10:30 AM EST Hem/Onc Treatment Hematology/Oncolog [place], [place] [address] [place] [phone] Tamia, Chair 8 Hem Onc Scenery [address] [place] [address] 01/11/2025 3:00 PM EDT Office Visit Gastroenterology, [facility] [address] [place] [address] Aleksander Diaz CRNP [address] [place] [address] 01/27/2025 2:30 PM EDT Office Visit Gynecology/Obstetr ics [facility] [address] [place] [address] Faby Peralta CRNP [address] [place] [address] 02/26/2025 3:30 PM EDT Office Visit Orthopaedics Spine Surgery [facility] [address] [place] [phone] Chad Degroot MD [address] [place] [address] 03/08/2025 12:30 PM EDT Office Visit Pulmonary Medicine, [facility] [address] [place] [address] Mason Petersen MD [address] [place] [address] 04/19/2025 8:30 AM EDT Hospital Encounter ENDO [facility], Endoscopy Room [facility] [address] [place] [phone] Ramona King, DO [address] [place] [address] 04/19/2025 8:30 AM EDT - 04/19/2025 9:00 AM EDT Surgery ENDO [facility], Endoscopy Room [facility] [address] [place] [phone] Ramona King, DO [address] [place] [address] COLONOSCOPY FLEXIBLE PROXIMAL DIAGNOSTIC 06/21/2025 12:20 PM EDT Office Visit [address] [place] [address] Smiley Travis MD [address] [place] [address] [place] [phone] Scheduled Orders Name Type Priority Associated Diagnoses Orde r Schedule LIPID PANEL WITH DIRECT LDL IF TG IS HIGH Lab Routine Hyperlipidemia with target LDL less than 100 Expected: 06/22/2025 (Approximate), Expires: 12/21/2025 COMPREHENSIVE METABOLIC PANEL Lab Routine Stage 3a chronic kidney disease (HCC) Expected: 06/22/2025 (Approximate), Expires: 01/18/2026 CBC WITH WBC DIFFERENTIAL Lab Routine Stage 3a chronic kidney disease (HCC) Expected: 06/22/2025 (Approximate), Expires: 12/21/2025 Scheduled Procedures Name Priority Associated Diagnoses Date/Ti me COLONOSCOPY FLEXIBLE PROXIMA L DIAGNOSTIC Recall Crohn's colitis (HCC) 04/19/2025 8:30 AM EDT Scheduled Referrals Name Type Priority Associated Diagnoses Orde r Schedule SPINE SURGERY REFERRAL OP Referral Within 10 days (routine) Lumbar radiculopathy Ordered: 12/21/2024 Health Maintenance Due Date Last Done Comments DISCUSS TOBACCO CESSATION (REFER TO SMARTSET #4365) 1964 COVID-19 Vaccine (#1) 1969 Zoster Vaccines (1 of 2) 1983 Cologuard 2009 Fecal Occult Blood Test 2009 Sigmoidoscopy 2009 Pneumococcal Vaccine: 50+ Years (2 of 2 - PCV) 05/04/2016 05/04/2015 Colonoscopy 12/05/2022 12/05/2020, 05/2021, 11/28/2018, Additional history exists Colorectal Cancer Screening 12/05/2022 Influenza Vaccine (FLU shot) (#1) 2024 GFR 10/20/2024 04/20/2024, 03/2023, 09/24/2022, Additional history exists Albumin/Creatinine Ratio 04/20/2025 024, 09/02/2023, 12/25/2021 TSH 04/20/2025 04/20/2024, 03/2023, 10/30/2021, Additional history exists CKD HGB USE SMARTSET 87123 09/14/202509/14, 09/14/2024, 09/02/2023, Additional history exists CKD PHOS USE SMARTSET 52139 09/14/202508/28, 09/02/2023, 04/26/2021 Mammogram 11/09/2025 11/09/2024, 01/2023, 09/30/2023, Additional history exists O2 ASSESSMENT COMPLETED IN PAST YEAR FOR COPD 12/21/2025 12/21/2024 Lipid Panel 04/20/2029 04/20/2024, 05/2019, 04/09/2014, Additional [...] on patient's age to complete this topic Meningitis B Vaccine (Bexsero/Trumemba) Aged Out No longer eligible based on patient's age to complete this topic documented as of this encounter Medical Devices Not on filedocumented as of this encounter Visit Diagnoses Diagnosis Lumbar radiculopathy- Primary Thoracic or lumbosacral neuritis or radiculitis, unspecified Crohn's disease of both small and large intestine without complication (HCC) Regional enteritis of small intestine with large intestine Bipolar 1 disorder (HCC) Bipolar I disorder, most recent episode (or current) unspecified COPD, group B, by GOLD 2017 classification (HCC) Stage 3a chronic kidney disease (HCC) Family history of breast cancer Family history of malignant neoplasm of breast Hyperlipidemia with target LDL less than 100 Other and unspecified hyperlipidemia Tobacco use disorder Pneumococcal vaccination declined Crohn's colitis (HCC) Regional enteritis of large intestine documented in this encounter Advance Directives Documents on File Type Date Recorded 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
--- OUTSIDE RECORDS SUMMARY | 2024-12-25 20:12 | External Medical Summary | Summary of Care ---
Author Name Unknown Organization [facility] Address [address] [facility] [place] [address] Phone [phone] Care Team Providers Care Managed Care Provider Name Role Phone Smiley Travis MD Primary Care Pr ovider Reason for Visit * Reason Comments Medication Administration Avsola infusio n * Episode Based Medications (Routine) - Authorized Specialty Diagnoses / Procedures Referred By Ange t Referred To Contact Diagnoses Crohn's disease of small intestine without complication (HCC) Procedures MA INJ. AVSOLA, 10 MG Ramona King, DO [address] [place] [address] Phone: tel: fax: Hematology/Oncology Treatment, [place] DEPT CLOSED - 09/10/23 [address] [place] [address] Phone: tel: fax: Referral ID Status Reason Start Date Expiration Date V isits Requested Visits Authorized [id number] Authorized 08/14/2024 08/14/2025 99 99 Encounter Details Date Type Department Care Team (Latest Contact Info) Description 11/02/2024 9:30 AM EST Hem/Onc Treatment Hematology/Oncology Treatment, [place] [address] [place] [address] Tamia, Chair 7 Hem Onc Scenery [address] [place] [address] Crohn's disease of small intestine without complication [...] as of this encounter (statuses as of 12/08/2024) Medications EPINEPHrine 0.15 MG/0.3ML Injection Solution Auto-injector [...] by mouth daily. 4 g 5 Active Cyclobenzaprine HCl 5 MG Oral Tablet [...] PAIN. TAKE WITH FOOD. 90 Tablet Active Estradiol 1 MG Oral Tablet (Estrace)Indicati ons:Menopause TAKE ONE TABLET BY MOUTH IN THE MORNING 90 Tablet Active Ondansetron HCl 4 MG Oral Tablet Take 1 Tablet by mouth every 6 hours as needed for Nausea. 30 Tablet 024 2024 Discontinued(R efill) Fluticasone Furoate-Vilantero l 100-25 MCG/ACT Inhalation Aerosol Powder Breath Activated (BREO ellipta) Inhale 1 Puff by mouth in the morning. 60 Blister Dosing Unit 2 024 2024 Discontinued buPROPion HCl ER (SR) 150 MG Oral Tablet Extended Release 12 Hour (Wellbutrin SR)Indications:Bi polar 1 disorder (HCC) take 1 tablet by mouth in the morning and before bedtime. 60 Tablet 1 024 2024 Discontinued ALPRAZolam 0.5 MG Oral Tablet (xaNAX)Indication s:Persistent insomnia,Anxiety Take 1 Tablet by mouth at bedtime as needed for Sleep. 30 Tablet 024 2024 Discontinued(R efill) documented as of this encounter (statuses as of 12/08/2024) Active Problems Problem Noted Date Diagnosed Date [...] as of this encounter (statuses as of 12/08/2024) Resolved Problems Problem Noted Date Diagnosed Date [...] as of this encounter (statuses as of 12/08/2024) Immunizations Name Administration Dates Next Due PPD [...] Sign Reading Time Taken Comments Blood Pressure 100/69 11/02/2024 10:03 AM EST Pulse 76 11/02/2024 10:03 AM EST Temperature 36.2 C (97.2 F) 11/02/2024 10:[address] Respiratory Rate 18 11/02/2024 10:03 AM EST Oxygen Saturation 91% 11/02/2024 10:03 AM EST Inhaled Oxygen Concentration - - Weight - - Height - - Body Mass Index - - documented in this encounter Nursing Notes * Luci Paz RN - 11/02/2024 1:08 PM EST Infusion complete. Patient tolerated well. Patient with no complaints. Patient not staying for 30 minute observation period. IV site removed. Goals: Patient will remain free from injury. Possible barriers to meeting goals: ambulating with IV pole Stability of the patient: Moderately stable - low risk of patient condition declining or worsening Summary regarding today's goals: Met: Patient remained free from harm/injury during treatment. Patient left facility in stable condition. * Luci Paz RN - 11/02/2024 10:04 AM EST Chair 8, patient here for Avsola infusion. IV started without difficulty, patient tolerated well. Safety and Risk for Injury Patient will remain free from injury. Ensure appropriate safety devices are available. Provide and maintain safe environment. Patient instructed on use of heat and massage functions where applicable. Patient shown how to operate the heat function of the chair and to alert nursing staff if the chair feels too warm. Patient instructed on the risk of potential perez while using the heat function. documented in this encounter Plan of Treatment Upcoming Encounters Date Type Department Care Team (Latest Contact Info) Description 12/21/2024 2:40 PM EST Office Visit Family Medicine [address] [phone] Smiley Travis MD [address] [place] [address] [place] [phone] 12/28/2024 10:30 AM EST Hem/Onc Treatment Hematology/Oncology Treatment, [place] [address] [facility] [place] [phone] Chair Tamia 8 Hem Onc Scenery [address] [facility] [place] [address] 01/11/2025 3:00 PM EDT Office Visit Gastroenterology, [facility] [address] [place] [address] Aleksander Diaz CRNP [address] [place] [address] 01/27/2025 2:30 PM EDT Office Visit Gynecology/Obstetri [facility] [address] [place] [address] Faby Peralta CRNP [address] [place] [address] 03/08/2025 12:30 PM EDT Office Visit Pulmonary Medicine, [facility] [address] [place] [address] Mason Petersen MD [address] [place] [address] 04/19/2025 8:30 AM EDT Hospital Encounter ENDO [facility], Endoscopy Room [facility] [address] [place] [phone] Ramona Knig, DO [address] [place] [address] 04/19/2025 8:30 AM EDT - 04/19/2025 9:00 AM EDT Surgery ENDO [facility], Endoscopy Room [facility] [address] [place] [phone] Ramona King, DO [address] [place] [address] COLONOSCOPY FLEXIBLE PROXIMAL DIAGNOSTIC Scheduled Procedures Name Priority Associated Diagnoses Date/Ti me COLONOSCOPY FLEXIBLE PROXIMA L DIAGNOSTIC Recall Crohn's colitis (HCC) 04/19/2025 8:30 AM EDT Health Maintenance Due Date Last Done Comments [...] (FLU shot) (#1) 2024 GFR 10/20/2024 04/20/2024, 0 03/2023, 09/24/2022, Additional history exists Albumin/Creatinine Ratio 04/20/2025 024, 09/02/2023, 12/25/2021 TSH 04/20/2025 04/20/2024, 03/2023, 10/30/2021, Additional history exists CKD HGB USE SMARTSET 46950 09/14/202509/14, 09/14/2024, 09/02/2023, Additional history exists CKD PHOS USE SMARTSET 03999 09/14/202508/28, 09/02/2023, 04/26/2021 O2 ASSESSMENT COMPLETED IN PAST YEAR FOR COPD 11/02/2025 11/02/2024 Mammogram 11/09/2025 11/09/2024, 120 01/2023, 09/30/2023, Additional history exists Lipid Panel 04/20/2029 04/20/2024, 070 05/2019, 04/09/2014, [...] (HCC)- Primary Regional enteritis of small intestine Crohn's colitis (HCC) Regional enteritis of large intestine documented in this encounter Administered Medications Inactive Administered Medications - up to 3 most recent administrations Medication Order MAR Action Action Date Dose Rate Site Acetaminophen (Tylenol) tab 650 mg 650 mg, Oral, ONCE, On Sat11/02/24 at 1100, For 1 dose, Maximum of 4 grams (4000 mg) per day.Indications:Crohn's disease of small intestine without complication (HCC) Given 11/02/2024 10:01 AM EST 650 mg inFLIXimab-axxq (Avsola) 270 mg in NSS 250 mL infusion 270 mg (rounded from 271 mg = 5 mg/kg 54.2 kg Treatment plan Recorded weight), Intravenous, MUST BE INFUSED THROUGH A 0.22 MICRON [...] = remaining volume, ONCE, 1 dose, On Sat11/02/24 at 1130Indications:Crohn's disease of small intestine without complication (HCC) Rate Change 11/02/2024 12:15 PM EST 250 mL/hr Rate Change 11/02/2024 11:46 AM EST 150 mL/hr Rate Change 11/02/2024 11:28 AM EST 80 mL/hr NSS infusion 500 mL, Intravenous, at 50 mL/hr, CONTINUOUS, Starting on Sat11/02/24 at 1100, Until Sat11/02/24 at 1712Indications:Crohn's disease of small intestine without complication (HCC) Continue on Pump 11/02/2024 12:47 PM EST 250 mL/hr Start Infusion 11/02/2024 10:00 AM EST 500 mL 50 mL/hr documented in this encounter Advance Directives Documents on File Type Date Recorded 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
--- OUTSIDE RECORDS SUMMARY | 2024-12-25 20:13 | External Medical Summary ---
Author Name Unknown Address Unknown Organization [id number]:[facility] [place] [address] [place] [address] Laboratory Report Ordering Provider Test Date Status CANDYFCO LUIGI 10/26/2024 16:41:00 Final Drugs that require complianc e testing:

Benzodiazepines
Alprazolam: Quantity 0.5 mh Date/Time of last Dose PM

Cutoff Concentrations:
Drug Level
Alpha-Hydroxyalprazolam 10 ng/mL
7-Aminoclonazepam 20 ng/mL
Nordiazepam 20 ng/mL
Oxazepam 20 ng/mL
Temazepam 20 ng/mL
Lorazepam 10 ng/mL

This test was developed and its performance characteristics determined by [employer]. It has not been cleared or approved by the [place] Food and Drug Administration. Observation Date Value Abnormality Reference (Units) Status METHODOLOGY 10/26/2024 16:41:00 LC-MS/MS Final Alpha hydroxyalprazolam cutoff [Mass/volume] in Urine for Confirmatory method 10/26/2024 16:41:00 321 Above high normal Negative (ng/mL) Final 7-Aminoclonazepam [Mass/volume] in Urine by Confirmatory method 10/26/2024 16:41:00 Negative Negative Final Nordiazepam cutoff [Mass/volume] in Urine for Confirmatory method 10/26/2024 16:41:00 Negative Negative Final Oxazepam cutoff [Mass/volume] in Urine for Confirmatory method 10/26/2024 16:41:00 Negative Negative Final Temazepam cutoff [Mass/volume] in Urine for Confirmatory method 10/26/2024 16:41:00 Negative Negative Final LORazepam cutoff [Mass/volume] in Urine for Confirmatory method 10/26/2024 16:41:00 Negative Negative Final Performing Location [facility] [place] [facility] [address] [place] [address]
--- OUTSIDE RECORDS SUMMARY | 2024-12-25 20:13 | External Medical Summary | Summary of Care ---
Author Name Unknown Organization [facility] Address [address] [facility] [place] [address] Phone [phone] Care Team Providers Care Silk Washing Machine Operator Name Role Phone Smiley Travis MD Primary Care Pr ovider Reason for Visit * Reason Comments Medication Administration Avsola infusio n * Episode Based Medications (Routine) - Authorized Specialty Diagnoses / Procedures Referred By Ange t Referred To Contact Diagnoses Crohn's disease of small intestine without complication (HCC) Procedures OH INJ. AVSOLA, 10 MG Ramona King, DO [address] [place] [address] Phone: tel: fax: Hematology/Oncology Treatment, [place] DEPT CLOSED - 09/10/23 [address] [place] [address] Phone: tel: fax: Referral ID Status Reason Start Date Expiration Date V isits Requested Visits Authorized [id number] Authorized 08/14/2024 08/14/2025 99 99 Encounter Details Date Type Department Care Team (Latest Contact Info) Description 11/02/2024 9:30 AM EST Hem/Onc Treatment Hematology/Oncology Treatment, [place] [address] [place] [address] Tamia, Chair 7 Hem Onc Scenery [address] [place] [address] Crohn's disease of small intestine [...] as of this encounter (statuses as of 11/02/2024) Medications EPINEPHrine 0.15 MG/0.3ML Injection Solution Auto-injector [...] bedtime. 60 Tablet 1 09/02/20 24 Active Estradiol 1 MG Oral Tablet (Estrace)Indicatio ns:Menopause TAKE ONE TABLET BY MOUTH IN THE MORNING 90 Tablet 10/05/20 24 Active ALPRAZolam 0.5 MG Oral Tablet (xaNAX)Indications :Persistent insomnia,Anxiety Take 1 Tablet by mouth at bedtime as needed for Sleep. 30 Tablet 10/26/20 24 Active documented as of this encounter (statuses as of 11/02/2024) Active Problems Problem Noted Date Diagnosed Date [...] as of this encounter (statuses as of 11/02/2024) Resolved Problems Problem Noted Date Diagnosed Date [...] as of this encounter (statuses as of 11/02/2024) Immunizations Name Administration Dates Next Due PPD [...] Department Care Team (Latest Contact Info) Description 11/09/2024 2:30 PM EST Imaging Radiology [address] [place] [address] 12/14/2024 12:40 PM EST [address] [place] [phone] Randal Franco MD [address] [place] [address] [place] [address] 12/21/2024 2:40 PM EST Office Visit [address] [place] [phone] Smiley Travis MD [address] [place] [address] [place] [phone] 12/28/2024 10:30 AM EST Hem/Onc Treatment Hematology/Oncology Treatment, [place] [address] [place] [phone] Tamia, Chair 8 Hem Onc Scenery [address] [place] [address] 01/27/2025 2:30 PM EDT Office Visit Gynecology/Obstetri [facility] [address] [place] [address] Faby Peralta CRNP [address] [place] [address] 03/08/2025 12:40 PM EDT Office Visit Pulmonary Medicine, [facility] [address] [place] [address] Mason Petersen MD [address] [place] [address] 04/19/2025 8:30 AM EDT Hospital Encounter ENDO OSSC, Endoscopy Room [facility] [address] [place] [phone] Ramona King, DO [address] [place] [address] 04/19/2025 8:30 AM EDT - 04/19/2025 9:00 AM EDT Surgery ENDO OSSC, Endoscopy Room [facility] [address] [place] [phone] Ramona King, DO [address] [place] [address] COLONOSCOPY FLEXIBLE PROXIMAL DIAGNOSTIC Scheduled Procedures Name [...] Additional history exists CKD HGB USE SMARTSET 84147 09/14/202509/14, 09/14/2024, 09/02/2023, Additional history exists CKD PHOS USE SMARTSET 03431 09/14/202508/28, 09/02/2023, 04/26/2021 O2 ASSESSMENT COMPLETED IN PAST YEAR FOR COPD 11/02/2025 11/02/2024 Lipid Panel 04/20/2029 04/20/2024, 07/0 05/2019, 04/09/2014, [...] small intestine Screening mammogram for breast cancer Crohn's colitis (HCC) Regional enteritis of large intestine documented in this encounter Administered Medications Active Administered Medications - up to 3 most recent administrations Medication Order MAR Action Action Date Dose Rate Site diphenhydrAMINE (Benadryl) inj 50 mg 50 mg, IV Push, ONCE PRN Other, Hypersensitivity Reaction, Starting on Sat11/02/24 at 0955, Until Sat11/03/24 at 0954, For 24 hoursIndications:Crohn's disease of small intestine without complication (HCC) EPINEPHrine 1 MG/ML inj 0.3 mg 0.3 mg, Intramuscular, ONCE PRN Other, Hypersensitivity Reaction or Anaphylaxis, Starting on Sat11/02/24 at 0955, Until Sat11/03/24 at 0954, For 24 hoursIndications:Crohn's disease of small intestine without complication (HCC) hEParin 100 UNIT/ML Lock Flush inj 500 Units 500 Units (5 mL), IV Lock, PRN Other, IV Flush, Starting on Sat11/02/24 at 0955, Until Sat11/03/24 at 0954, For 24 hours, Do not flush if lock, PICC, or central line not in place; IV infusing or unable to flush.Indications:Crohn's disease of small intestine without complication (HCC) Hydrocortisone Sod Suc (PF) (Solu-Cortef) inj 100 mg 100 mg, IV Push, ONCE PRN Other, Hypersensitivity Reaction, Starting on Sat11/02/24 at 0955, Until Sat11/03/24 at 0954, For 24 hoursIndications:Crohn's disease of small intestine without complication (HCC) NSS infusion 500 mL, Intravenous, at 50 mL/hr, CONTINUOUS, Starting on Sat11/02/24 at 1100, Until Sat11/02/24 at 2058Indications:Crohn's disease of small intestine without complication (HCC) Continue on Pump 11/02/2024 12:47 PM EST 250 mL/hr Start Infusion 11/02/2024 10:00 AM EST 500 mL 50 mL/hr sodium chloride 0.9 % flush central line 10 mL 10 mL, IV Push, PRN Other, IV Flush, Starting on Sat11/02/24 at 0955, Until Sat11/03/24 at 0954, For 24 hours, Do not flush if lock, PICC, or central line not in place; IV infusing or unable to flush.Indications:Crohn's disease of small intestine without complication (HCC) Inactive Administered Medications - up to 3 [...] Change 11/02/2024 11:28 AM EST 80 mL/hr documented in this encounter Advance Directives Documents on File Type Date Recorded Patient Band Booker Expl anation Advance Directives and Living Will 04/02/2017 ADVANCE DIRECTIVE RELEASE OF RECS TO [employer] - Care Teams Silk Washing Machine Operator Relationship Specialty Start Date End Date Smiley Travis MD [address] [place] [address] [place] [phone] PCP - General Family Medicine 08/24/24 documented as of this encounter
--- OUTSIDE RECORDS SUMMARY | 2024-12-25 20:13 | External Medical Summary | Summary of Care ---
Author Name Unknown Organization [facility] Address [address] [place] [address] Phone [phone] Care Team Providers Care Franchise Sales Representative Name Role Phone Candy Soto MD Primary Care Pr ovider Reason for Visit * Reason Onset Date Comments Medication Refill 11/29/2024 Encounter Details Date Type Department Care Team (Late st Contact Info) Description 11/29/2024 Refill Family Medicine [address] [phone] Candy Soto MD [address] [place] [phone] Persistent insomnia; Anxiety Allergies Active Allergy Reactions [...] as of this encounter (statuses as of 12/01/2024) Medications EPINEPHrine 0.15 MG/0.3ML Injection Solution Auto-injector [...] weeks. 2 Each 7 09/20/20 21 Active Ventolin HFA 108 (90 Base) MCG/ACT [...] daily. 4 g 5 08/05/20 24 Active Cyclobenzaprine HCl 5 MG Oral [...] WITH FOOD. 90 Tablet 08/24/20 24 Active Estradiol 1 MG Oral Tablet (Estrace)Indicatio ns:Menopause TAKE ONE TABLET BY MOUTH IN THE MORNING 90 Tablet 10/05/20 24 Active Ondansetron HCl 4 MG Oral Tablet Take 1 Tablet by mouth every 6 hours as needed for Nausea. 30 Tablet 11/11/19 25 Active Breo Ellipta 100-25 MCG/ACT Inhalation Aerosol Powder Breath Activated (fluticasone furoate-vilanterol ) Inhale 1 Puff by mouth in the morning. 60 Blister Dosing Unit 2 11/23/19 25 Active buPROPion HCl ER (SR) 150 MG Oral Tablet Extended Release 12 Hour (Wellbutrin SR)Indications:Bip olar 1 disorder (HCC) take 1 tablet by mouth in the morning and before bedtime. 60 Tablet 3 11/24/19 25 Active ALPRAZolam 0.5 MG Oral Tablet (xaNAX)Indications :Persistent insomnia,Anxiety Take 1 Tablet by mouth at bedtime as needed for Sleep. 30 Tablet 12/01/19 25 Active ALPRAZolam 0.5 MG Oral Tablet (xaNAX)Indications :Persistent insomnia,Anxiety Take 1 Tablet by mouth at bedtime as needed for Sleep. 30 Tablet 10/26/20 24 025 Discontin ued(Refil l) documented as of this encounter (statuses as of 12/01/2024) Active Problems Problem Noted Date Diagnosed Date [...] as of this encounter (statuses as of 12/01/2024) Resolved Problems Problem Noted Date Diagnosed Date [...] term Anal fissure 07/20/2003 12/16/2017 Asthma exacerbation 06/24/20 10 Regional enteritis 4 documented as of this encounter (statuses as of 12/01/2024) Immunizations Name Administration Dates Next Due PPD [...] Telephone Encounter - Candy Soto MD - 12/01/2024 9:28 AM ESTSigned Prescriptions: Disp Refills ALPRAZolam 0.5 MG Oral Tablet (xaNAX) 30 Tab*0 Sig: Take 1 Tablet by mouth at bedtime as needed for Sleep.Authorizing Provider: CANDY SOTO-------- * Telephone Encounter - Candy Soto MD - 12/01/2024 9:28 AM EST Refilled * Telephone Encounter - Candy Soto MD - 12/01/2024 9:27 AM EST PDMP reviewed. On retirement, ok to refill. * Telephone Encounter - Amanda Valentine [facility] - 12/01/2024 6:46 AM EST Pending Prescriptions: Disp Refills ALPRAZolam 0.5 MG Oral Tablet (xaNAX) 30 Tab*0 Sig: Take 1 Tablet by mouth at bedtime as needed for Sleep. * Telephone Encounter - Amanda Valentine [facility] - 12/01/2024 6:45 AM EST I have reviewed the patients controlled substance dispensing history in the Prescription Drug Monitoring Program in compliance with the [facility] regulations before prescribing a controlled substance. PDMP checked on 12/01/2024. Pending Prescriptions: Disp Refills ALPRAZolam 0.5 MG Oral Tablet (xaNAX) 30 Tab*0 Sig: Take 1 Tablet by mouth at bedtime as needed for Sleep. Last Visit: 10/26/2024 (in office), 08/15/2021 (telemedicine) Next Visit: 12/14/2024 Date medication was last filled: 10/26/23 Date medication is due for refill: 11/24/24 Pharmacy: [id number] Is this request for a controlled substance? Yes and Urine Drug Screen Not completed Toxicology results: Results for orders placed or performed in visit on 10/26/24 PAIN MANAGEMENT DRUG PANEL, URINE Result Value Amphetamines Screen, U Refer to confirmation results (A) Benzodiazepines Screen, U Refer to confirmation results (A) Cannabinoids Screen, U Negative Cocaine Metabolite Screen, U Negative Fentanyl Screen, U Negative Hydrocodone Screen, U Negative Methadone Metabolite Screen, U Negative Morphine/Codeine Screen, U Negative Oxycodone Screen, U Negative Specimen Validity Interpretation Normal Creatinine, U 358 Narrative Cutoff Concentrations: Drug Level Amphetamines 500 ng/mL Benzodiazepines 100 ng/mL Cannabinoids 50 ng/mL Cocaine Metabolite 150 ng/mL Fentanyl 1 ng/mL Hydrocodone / Hydromorphone 300 ng/mL Methadone Metabolite 100 ng/mL Morphine / Codeine 300 ng/mL Oxycodone / Oxymorphone 100 ng/mL Screening results are presumptive and can only be used for medical purposes. Confirmatory testing is available upon request. *Note: Due to a large number of results and/or encounters for the requested time period, some results have not been displayed. A complete set of results can be found in Results Review. Please approve if appropriate. Thank you, Amanda Valentine, PharmD Clinical Pharmacist [facility] ([facility]) [phone] 12/01/2024, 6:45 AM documented in this encounter Plan of Treatment Upcoming Encounters Date Type Department Care Team (Latest Contact Info) Description 12/14/2024 12:40 PM EST Office Visit [address] [phone] Randal Franco MD [address] [place] [address] [place] [address] 12/21/2024 2:40 PM EST Office Visit [address] [phone] Candy Soto MD [address] [place] [address] [place] [phone] 12/28/2024 10:30 AM EST Hem/Onc Treatment Hematology/Oncology Treatment, [address] [phone] Tamia, Chair 8 Hem Onc Scenery [address] [place] [address] 01/11/2025 3:00 PM EDT Office Visit Gastroenterology, [facility] [address] [place] [address] Aleksander Diaz CRNP [address] [place] [address] 01/27/2025 2:30 PM EDT Office Visit Gynecology/Obstetri [facility] [address] [place] [address] Faby Peralta CRNP [address] [place] [address] 03/08/2025 12:30 PM EDT Office Visit Pulmonary Medicine, [facility] [address] [place], [place] [address] Mason Petersen MD [address] [place] [address] 04/19/2025 8:30 AM EDT Hospital Encounter ENDO OSS, Endoscopy Room [facility] [address] [place] [phone] Ramona King, DO [address] [place] [address] 04/19/2025 8:30 AM EDT - 04/19/2025 9:00 AM EDT Surgery ENDO OSSC, Endoscopy Room [facility] [address] [place] [phone] Ramona King, DO [address] [place] [address] COLONOSCOPY FLEXIBLE PROXIMAL DIAGNOSTIC Scheduled Procedures Name Priority Associated Diagnoses Date/Ti vt COLONOSCOPY FLEXIBLE PROXIMA L DIAGNOSTIC Recall Crohn's colitis (HCC) 04/19/2025 8:30 AM EDT Health Maintenance Due Date Last Done Comments DISCUSS TOBACCO CESSATION (REFER TO SMARTSET #7676) 1964 COVID-19 Vaccine (#1) 1969 Zoster Vaccines [...] Additional history exists CKD HGB USE SMARTSET 66194 09/14/202509/14, 09/14/2024, 09/02/2023, Additional history exists CKD PHOS USE SMARTSET 73664 09/14/202508/28, 09/02/2023, 04/26/2021 O2 ASSESSMENT COMPLETED IN PAST YEAR FOR COPD 11/02/2025 11/02/2024 Mammogram 11/09/2025 11/09/2024, 1201/2023, 09/30/2023, Additional history exists Lipid Panel 04/20/2029 [...] or maintaining sleep Anxiety Anxiety state, unspecified Crohn's colitis (HCC) Regional enteritis of large intestine documented in this encounter Advance Directives Documents on File Type Date Recorded Patient Toolroom Checker Expl anation Advance Directives and Living Will 04/02/2017 ADVANCE DIRECTIVE RELEASE OF RECS TO [employer] - Care Teams Franchise Sales Representative Relationship Specialty Start Date End Date Candy Soto MD [address] [place] [address] [place] [phone] PCP - General Family Medicine 08/24/24 documented as of this encounter
--- OUTSIDE RECORDS SUMMARY | 2024-12-25 20:13 | External Medical Summary | Summary of Care ---
Author Name Unknown Organization [facility] Address [address] [place] [address] Phone [phone] Care Team Providers Care Manufacturing Production Manager Name Role Phone Smiley [place] MD Primary Care Pr ovider Encounter Details Date Type Department Care Team (Late st Contact Info) Description 11/19/2024 Population Health External Data Unspecified Department Allergies Active Allergy Reactions Criticality Noted Date [...] as of this encounter (statuses as of 11/19/2024) Medications EPINEPHrine 0.15 MG/0.3ML Injection Solution Auto-injector [...] for Sleep. 30 Tablet 10/26/20 24 Active Ondansetron HCl 4 MG Oral Tablet Take 1 Tablet by mouth every 6 hours as needed for Nausea. 30 Tablet 11/11/19 25 Active documented as of this encounter (statuses as of 11/19/2024) Active Problems Problem Noted Date Diagnosed Date [...] as of this encounter (statuses as of 11/19/2024) Resolved Problems Problem Noted Date Diagnosed Date [...] as of this encounter (statuses as of 11/19/2024) Immunizations Name Administration Dates Next Due PPD [...] Description 12/14/2024 12:40 PM EST Office Visit [address] [place] [phone] Randal Franco MD [address] [place] [address] [place] [address] 12/21/2024 2:40 PM EST [address] [phone] Smiley [place] MD [address] [place] [address] [place] [phone] 12/28/2024 10:30 AM EST Hem/Onc Treatment Hematology/[address], [address] [phone] Tamia, Chair 8 Hem Onc [address] [address] 01/11/2025 3:00 PM EDT Office Visit Gastroenterology, [facility] [address] [place] [address] Aleksander Diaz CRNP [address] [place] [address] 01/27/2025 2:30 PM EDT Office Visit Gynecology/Obstetri [facility] [address] [place] [address] Faby Peralta CRNP [address] [place] [address] 03/08/2025 12:30 PM EDT Office Visit Pulmonary Medicine, [facility] [address] [place] [address] Mason Petersen MD [address] [place] [address] 04/19/2025 8:30 AM EDT Hospital Encounter ENDO [facility], Endoscopy Room [facility] [address] [place] [phone] Ramona King, [address] [place] [address] 04/19/2025 8:30 AM EDT - 04/19/2025 9:00 AM EDT Surgery ENDO O[facility]C, Endoscopy Room [facility] [address] [place] [phone] Ramona King, [address] [place] [address] COLONOSCOPY FLEXIBLE PROXIMAL DIAGNOSTIC Scheduled Procedures Name Priority Associated Diagnoses Date/Ti me COLONOSCOPY FLEXIBLE PROXIMA L DIAGNOSTIC Recall Crohn's colitis (HCC) 04/19/2025 8:30 AM EDT Health Maintenance Due Date Last Done Comments DISCUSS TOBACCO CESSATION (REFER TO SMARTSET #6551) 1965 COVID-19 Vaccine (#1) 1969 Zoster Vaccines (1 of 2) 1983 Cologuard 2009 Fecal Occult Blood Test 2009 Sigmoidoscopy 2009 Pneumococcal Vaccine: 50+ Years (2 of 2 - PCV) 05/04/2016 05/04/2015 Colonoscopy 12/05/2022 12/05/2020, 02/05/2021, 11/28/2018, Additional history exists Colorectal Cancer Screening 12/05/2022 Influenza Vaccine (FLU shot) (#1) 2024 GFR 10/20/2024 04/20/2024, 110 03/2023, 09/24/2022, Additional history exists Albumin/Creatinine Ratio 04/20/2025 024, 09/02/2023, 12/25/2021 TSH 04/20/2025 04/20/2024, 110 03/2023, 10/30/2021, Additional history exists CKD HGB USE SMARTSET 57732 09/14/202509/14, 09/14/2024, 09/02/2023, Additional history exists CKD PHOS USE SMARTSET 98062 09/14/202508/28, 09/02/2023, 04/26/2021 O2 ASSESSMENT COMPLETED IN [...] Documents on File Type Date Recorded Patient Animal Researcher Expl anation Advance Directives and Living Will 04/02/2017 ADVANCE DIRECTIVE RELEASE OF RECS TO [employer] - Care Teams Manufacturing Production Manager Relationship Specialty Start Date End Date Smiley [place] MD [address] [place] [address] [place] [phone] PCP - General Family Medicine 08/24/24 documented as of this encounter
--- OUTSIDE RECORDS SUMMARY | 2024-12-25 20:13 | External Medical Summary | Summary of Care ---
Author Name Unknown Organization [facility] Address [address] [place] [place] [address] Phone [phone] Care Team Providers Care Health Care Specialist Name Role Phone Smiley Travis MD Primary Care Pr ovider Reason for Visit * Reason Onset Date Comments Hospital Follow-Up Hospital Follow-Up 10/26/2024 Encounter Details Date Type Department Care Team (Late st Contact Info) Description 10/26/2024 4:00 PM EST Office Visit Family Medicine [address] [phone] Smiley Travis MD [address] [place] [address] [place] [phone] Hospital discharge follow-up*; History of 2019 novel coronavirus disease (COVID-19); Hx of influenza; Persistent insomnia; Anxiety; Other care home (current) drug therapy; Tobacco use disorder Allergies Active Allergy Reactions [...] as of this encounter (statuses as of 10/26/2024) Medications EPINEPHrine 0.15 MG/0.3ML Injection Solution Auto-injector [...] for Sleep. 30 Tablet 10/26/20 24 Active ALPRAZolam 0.5 MG Oral Tablet (xaNAX)Indications :Persistent insomnia,Anxiety Take 1 Tablet by mouth at bedtime as needed for Sleep. 30 Tablet 09/23/20 24 024 Discontin ued(Refil l) documented as of this encounter (statuses as of 10/26/2024) Active Problems Problem Noted Date Diagnosed Date [...] as of this encounter (statuses as of 10/26/2024) Resolved Problems Problem Noted Date Diagnosed Date [...] as of this encounter (statuses as of 10/26/2024) Immunizations Name Administration Dates Next Due PPD 10/07/2021,08/01/2016,02/05/2014 Pneumococcal Polysaccharide PPV23 (Pneumovax) 05/04/2015 TDAP, Age 7 and older, IM (Adacel) 05/12/2020, documented as of this encounter Social History Tobacco Use Types Packs/Day Years Used Date Smoking Tobacco: Every Day Cigarettes 1 49 Started: 1975 Smokeless Tobacco: Never Tobacco Cessation:Ready to Q uit: Not Asked; Counseling Given: Not Answered Comments:18. Less than 1 ppd 09/20 Alcohol [...] Sign Reading Time Taken Comments Blood Pressure 90/58 10/26/2024 3:59 PM EST Pulse 92 10/26/2024 3:59 PM EST Temperature 36.9 C (98.4 F) 10/26/2024 3:59 PM ES T Respiratory Rate - - Oxygen Saturation 88% 10/26/2024 3:59 PM EST Inhaled Oxygen Concentration - - Weight 54.7 kg (120 lb 8 oz) 10/26/2024 3:59 PM EST Height 157.5 cm (5' 2") 10/26/2024 3:59 PM EST Body Mass Index 22.04 10/26/2024 3:59 PM EST documented in this encounter Patient Instructions * Patient Instructions* Smiley Travis MD - 10/26/2024 4:05 PM EST Taking Medicine Safely Medicine is given to help treat or prevent illness. But if you don't take it correctly, it might not help. It might even harm you. Your doctor or pharmacist can help you learn the right way to take your medicine. Listed below are some tips to help you take medicine safely. Safety Tips Have a routine for taking each medicine. Make it part of something you do each day, such as brushing your teeth or eating a meal. When you go to the hospital or your doctor's office, bring all your current medicines in their original boxes or bottles. If you can't do that, bring an up-to-date list of your medicines. Do not stop taking a prescription medicine unless your doctor tells you to. Doing so could make your condition worse. Do not share medicines. Let your doctor and pharmacist know of any allergies you have. Taking prescription medicines with alcohol, street drugs, herbs, supplements, or even some bozk-gix-johbmov medicines can be harmful. Talk to your doctor or pharmacist before using any of these things while taking a prescription medicine. When filling your prescriptions, try using the same pharmacy for all your medicines. If not, let the pharmacist know what medicines you are already on. Keep medicines out of the reach of children and pets. Do not use medicine that has or that doesn't look or smell right. Get rid of it properly. To find out the right way to get rid of medicine: Call your [facility] or [facility]'s household trash and recycling service and ask if a drug take-back program is available in your community. Call your local pharmacy and ask the right way to get rid of the medicine. Go to http://www.fda.gov/ForConsumers/ConsumerUpdates/cdc942703 to learn how to get rid of medicines safely. Using Generic Medicines Medicines have brand names and generic (chemical) names. When a medicine is first made, it is sold only under its brand name. Later, it can be made and sold as a generic. Generic medicines cost less than brand-name medicines and most work just as well. Most people can use the generic medicine instead of the brand-name medicine, unless their doctor says otherwise. 4279-5813 Yehuda Díaz, [address] [place] [address], [place] [address]. All rights reserved. This information is not intended as a substitute for professional medical care. Always follow your healthcare professional's instructions. documented in this encounter Progress Notes * Smiley Travis MD - 10/26/2024 4:04 PM EST SUBJECTIVE: Adriel Yin is a 59 year old female. Chief Complaint Patient presents with Hospital Follow-Up Hospital Follow-Up Recent Admission: Patient was recently admitted to [facility] on 10/19. The date of discharge was 10/22. Discharge report received and reviewed. + for flu and COVID. Treated with tamiflu, azithro, prednisone. Was on O2 by [place]. Went in initially for back pain. Increased gabapentin while inpatient. HPI: Feeling tired since discharge. Sleeping mostly. States that she didn't much respiratory symptoms, maybe started a week prior to admission. Given tamiflu, prednisone taper (2 more days), azithro.Breathing is ok. O2 sat around 90%. Uses her breo nightly, hasn't needed albuterol. Not drinking or eating much at home, low appetite. No home services needed. The 10-year ASCVD risk score (Moraima DK, et al., 2019) is: 3.6% Values used to calculate the score: Age: 59 years Sex: Female Is Non- : No Diabetic: No Tobacco smoker: Yes Systolic Blood Pressure: 90 mmHg Is BP treated: No HDL Cholesterol: 62 mg/dL Total Cholesterol: 231 mg/dL Patient Active Problem List Diagnosis Hypoactive sexual desire disorder Thrombosed external hemorrhoids REG ENTERIT SM-LG INTEST Postinflammatory pulmonary fibrosis (HCC) Acquired hypothyroidism Bipolar 1 disorder (HCC) Tobacco use disorder Tattoo Menopause Alcohol abuse, in remission Borderline personality disorder (HCC) Persistent insomnia Stage 3a chronic kidney disease Crohn's disease of small intestine without complication (HCC) Nasal polyps COPD, group B, by GOLD 2017 classification ([facility]) Hot flash, menopausal Gastroesophageal reflux disease Left cervical radiculopathy Current Outpatient Medications Medication Sig Dispense Refill EPINEPHrine 0.15 MG/0.3ML Injection Solution Auto-injector Inject 0.15 mg into a large muscle as needed for Anaphylaxis (severe allergic reaction). For a severe reaction: Inject in outer thigh following instructions on package and go to the Emergency room. Cyanocobalamin (VITAMIN B-12) 1000 MCG Tablet Take 1 Tab by mouth daily. 30 Tab 5 Cholecalciferol (VITAMIN D-3) 25 MCG (1000 UT) Capsule Take 3 Capsules by mouth in the morning. Aspirin 81 MG Oral Tablet Delayed Release Take 1 Tablet by mouth at bedtime. inFLIXimab 100 MG Intravenous Solution Reconstituted (Remicade) Infuse 160mg via IV weeks 0, 2, 6, then every 8 weeks. 2 Each 7 Ondansetron HCl 4 MG Oral Tablet Take 1 Tablet by mouth every 6 hours as needed for Nausea. 30 Tablet 0 Ventolin HFA 108 (90 Base) MCG/ACT Inhalation Aerosol Solution Inhale 2 Puffs by mouth every 4 hours as needed for Cough, Shortness of Breath or Wheezing. 18 g 3 Levothyroxine Sodium 75 MCG Oral Tablet (Levoxyl) TAKE ONE TABLET BY MOUTH EVERY DAY at least 30 minutes before breakfast or other medications 90 Tablet 3 Pantoprazole Sodium 40 MG Oral Tablet Delayed Release (Protonix) TAKE ONE TABLET BY MOUTH EVERY DAY90 Tablet 3 Montelukast Sodium 10 MG Oral Tablet (Singulair) TAKE ONE TABLET BY MOUTH AT BEDTIME 90 Tablet 3 Spiriva Respimat 2.5 MCG/ACT Inhalation Aerosol Solution Inhale 2 Puffs by mouth daily. 4 g 5 Fluticasone Furoate-Vilanterol 100-25 MCG/ACT Inhalation Aerosol Powder Breath Activated (BREO ellipta) Inhale 1 Puff by mouth in the morning. 60 Blister Dosing Unit 2 Cyclobenzaprine HCl 5 MG Oral Tablet (Flexeril) Take 1 Tablet by mouth 3 times a day as needed for Pain or Muscle spasms. 30 Tablet 0 Fluticasone Propionate 50 MCG/ACT Nasal Suspension (Flonase) Administer 2 Sprays into each nostril in the morning. 9.9 mL 1 Naproxen 500 MG Oral Tablet (Naprosyn) TAKE ONE TABLET BY MOUTH TWICE A DAY NEEDED FOR PAIN. TAKE WITH FOOD. 90 Tablet 0 buPROPion HCl ER (SR) 150 MG Oral Tablet Extended Release 12 Hour (Wellbutrin SR) take 1 tablet by mouth in the morning and before bedtime. 60 Tablet 1 ALPRAZolam 0.5 MG Oral Tablet (xaNAX) Take 1 Tablet by mouth at bedtime as needed for Sleep. 30 Tablet 0 Estradiol 1 MG Oral Tablet (Estrace) TAKE ONE TABLET BY MOUTH IN THE MORNING 90 Tablet 0 No current facility-administered medications for this visit. Current and discharge medications have been reconciled. Review of patient's allergies indicates: Allergen Reactions Kiwi Extract Almost anaphylaxis Other reaction(s): hives, rash, swelling of throat and lips Other Reaction(s): Shortness of Breath Gastrointestinal, Shortness of Breath Gastrointestinal Oxycodone Other reaction(s): FACE ITCHY Oxycodone-Acetaminophen Other reaction(s): itchy Percocet [Oxycodone-Acetaminophen] itchy Pneumococcal Vaccine Other reaction(s): unknown Prevnar [Pneumococcal 13-Carey Conj Vacc] Sore arm,"deathly sick" Had all the side effects OBJECTIVE: BP 80/52 | Pulse 92 | Temp 98.4 F (36.9 C) (Tympanic) | Ht 5' 2" (1.575 m) | Wt 120 lb 8 oz (54.7 kg) | SpO2 88% | BMI 22.04 kg/m | BSA 1.55 m Repeat BP 90/82 PHYSICAL EXAM: BP 90/58 | Pulse 92 | Temp 98.4 F (36.9 C) (Tympanic) | Ht 5' 2" (1.575 m) | Wt 120 lb 8 oz (54.7 kg) | SpO2 88% | BMI 22.04 kg/m | BSA 1.55 m General: alert, healthy, and no distress Head: Normocephalic Neck: supple, no adenopathy, thyroid normal size, non-tender, without nodularity Heart: regular rate & rhythm, no murmur, and no gallops Lungs: expiratory wheezes bilaterally Abdomen: abdomen soft, non-tender, normal bowel sounds, and no masses or organomegaly Extremities: no edema or erythemaless than 2 second capillary refill, no joint deformities, effusion, or inflammation ASSESSMENT: Hospital discharge follow-up (Primary); History of 2019 novel coronavirus disease (COVID-19); Hx ofinfluenza - DISCH MED RECON CUR MED LIS Feeling ok but tired. Discussed taking it easy as flu and covid take awhile to recover from sometimes. Take it easy for a few days. Drink plenty of fluids. Avoid tobacco use. Persistent insomnia; Anxiety - ALPRAZolam 0.5 MG Oral Tablet (xaNAX); Take 1 Tablet by mouth at bedtime as needed for Sleep. - PAIN MANAGEMENT DRUG PANEL, URINE; Future; Expected date: 10/26/2024 Completed Med agreement today, given urine sample for UDS. Refilled xanax. Other parts counterman (current) drug therapy - PAIN MANAGEMENT DRUG PANEL, URINE; Future; Expected date: 10/26/2024 Tobacco use disorder Encouraged cessation, she declines assistance at this time PLAN: Follow up in 2 month(s) as scheduled I spent a total of 20-29 minutes (exact time 21 mins) minutes on the date of service in preparation, delivery, and documentation of the care provided to Adriel Yin excluding any time spent in performance of separately billed services. Smiley Mast MD documented in this encounter Nursing Notes * Nina Ray CMA - 10/26/2024 4:04 PM EST Pt report was in hospital for Flu and covid which sent her into respiratory failure. Pt reports okay since d/c just tired a lot. Bp Low and O2 level low documented in this encounter Plan of Treatment Upcoming Encounters Date Type Department Care Team (Latest Contact Info) Description 11/02/2024 9:30 AM EST Hem/Onc Treatment Hematology/Oncology Treatment, [address] [place] [phone] Tamia, Chair 7 Hem Onc [facility] [address] [facility] [place] [address] 11/09/2024 2:30 PM EST Imaging Radiology [address] [place] [address] 12/14/2024 12:40 PM EST Office Visit Family Medicine [address] [place] [phone] Randal Franco MD [address] [place] [address] [place] [address] 12/21/2024 2:40 PM EST Office Visit Family Medicine [address] [place] [phone] Smiley Travis MD [address] [place] [address] [place] [phone] 01/27/2025 2:30 PM EDT Office Visit Gynecology/Obstetri [facility] [address] [place] [address] Faby Peralta CRNP [address] [place] [address] 03/08/2025 12:40 PM EDT Office Visit Pulmonary Medicine, [facility] [address] [place] [address] [facility] [address] [facility] [address] 04/19/2025 8:30 AM EDT Hospital Encounter ENDO [facility], Endoscopy Room [facility] [address] [place] [phone] Ramona King DO [address] [place] [address] 04/19/2025 8:30 AM EDT - 04/19/2025 9:00 AM EDT Surgery ENDO [facility], Endoscopy Room [facility] [address] [place] [phone] Ramona King, [address] [place] [address] COLONOSCOPY FLEXIBLE PROXIMAL DIAGNOSTIC Scheduled Orders Name Type Priority Associated Diagnoses Orde r Schedule PAIN MANAGEMENT DRUG PANEL, URINE Lab Routine Persistent insomnia Anxiety Other parts counterman (current) drug therapy Expected: 10/26/2024 (Approximate), Expires: 10/26/2025 Scheduled Procedures Name Priority Associated Diagnoses Date/Ti me COLONOSCOPY FLEXIBLE PROXIMA L DIAGNOSTIC Recall Crohn's colitis (HCC) 04/19/2025 8:30 AM EDT Health Maintenance Due Date Last Done Comments DISCUSS TOBACCO CESSATION (REFER TO SMARTSET #4271) 1965 COVID-19 Vaccine (#1) 1969 Zoster Vaccines [...] Additional history exists CKD HGB USE SMARTSET 09395 09/14/202509/14, 09/14/2024, 09/02/2023, Additional history exists CKD PHOS USE SMARTSET 49208 09/14/202508/28, 09/02/2023, 04/26/2021 O2 ASSESSMENT COMPLETED IN PAST YEAR FOR COPD 10/26/2025 10/26/2024 Lipid Panel 04/20/2029 04/20/2024, 07/0 05/2019, 04/09/2014, [...] as of this encounter Visit Diagnoses Diagnosis Hospital discharge follow-up- Primary Other follow-up examination History of 2018 novel coronavirus disease (COVID-19) Hx of influenza Personal history of other infectious and parasitic disease Persistent insomnia Persistent disorder of initiating or maintaining sleep Anxiety Anxiety state, unspecified Other parts counterman (current) drug therapy Tobacco use disorder Screening mammogram for breast cancer Crohn's colitis (HCC) Regional enteritis of large intestine documented in this encounter Advance Directives Documents on File Type Date Recorded Patient Financial Representative Expl anation Advance Directives and Living Will 04/02/2017 ADVANCE DIRECTIVE RELEASE OF RECS TO [employer] - Care Teams Health Care Specialist Relationship Specialty Start Date End Date Smiley Travis MD [address] [place] [address] [place] [phone] PCP - General Family Medicine 08/24/24 documented as of this encounter
--- OUTSIDE RECORDS SUMMARY | 2024-12-25 20:13 | External Medical Summary | Summary of Care ---
Author Name Unknown Organization [facility] Address [address] [facility] [place] [address] Phone [phone] Care Team Providers Care Bridge/Structure Inspection Team Leader Name Role Phone Smiley Travis MD Primary Care Pr ovider Encounter Details Date Type Department Care Team (Late st Contact Info) Description 12/01/2024 Orders Only Gastroenterology, [facility] [address] [facility] [place] [address] Ramona King, [address] [place] [address] Allergies Active Allergy Reactions Criticality Noted Date [...] Description 12/14/2024 12:40 PM EST Office Visit Family [address] [place] [phone] Randal Franco MD [address] [place] [address] [place] [address] 12/21/2024 2:40 PM EST Office Visit Family [address] [place] [phone] Smiley Travis MD [address] [place] [address] [place] [phone] 12/28/2024 10:30 AM EST Hem/Onc Treatment Hematology/Oncology Treatment, [place] [address] [facility] [place] [phone] Tamia, Chair 8 Hem Onc [facility] [address] [facility] [place] [address] 01/11/2025 3:00 PM EDT Office Visit Gastroenterology, [facility] [address] [facility] [place] [address] Aleksander Diaz CRNP [address] [place] [address] 01/27/2025 2:30 PM EDT Office Visit Gynecology/Obstetri [facility] [address] [place] [address] Faby Peralta CRNP [address] [place] [address] 03/08/2025 12:30 PM EDT Office Visit Pulmonary Medicine, [facility] [address] [place] [address] Mason Petersen MD [address] [place] [address] 04/19/2025 8:30 AM EDT Hospital Encounter ENDO [facility], Endoscopy Room [facility] [address] [place] [phone] Ramona King DO [address] [place] [address] 04/19/2025 8:30 AM EDT - 04/19/2025 9:00 AM EDT Surgery ENDO [facility], Endoscopy Room [facility] [address] [place] [phone] Ramona King DO [address] [place] [address] COLONOSCOPY FLEXIBLE PROXIMAL DIAGNOSTIC Scheduled Procedures Name [...] Additional history exists CKD HGB USE SMARTSET 94884 09/14/202509/14, 09/14/2024, 09/02/2023, Additional history exists CKD PHOS USE SMARTSET 74624 09/14/202508/28, 09/02/2023, 04/26/2021 O2 ASSESSMENT COMPLETED IN PAST YEAR FOR COPD 11/02/2025 11/02/2024 Mammogram 11/09/2025 11/09/2024, 01/2023, 09/30/2023, Additional history exists Lipid Panel [...] Documents on File Type Date Recorded Patient Sales Training Manager Expl anation Advance Directives and Living Will 04/02/2017 ADVANCE DIRECTIVE RELEASE OF RECS TO [employer] - Care Teams Bridge/Structure Inspection Team Leader Relationship Specialty Start Date End Date Smiley Travis MD [address] [place] [address] [place] [phone] PCP - General Family Medicine 08/24/24 documented as of this encounter
--- OUTSIDE RECORDS SUMMARY | 2024-12-25 20:13 | External Medical Summary | Summary of Care ---
Author Name Unknown Organization [facility] Address [address] [place] [address] Phone [phone] Care Team Providers Care Nurse Quality Name Role Phone Smiley Travis MD Primary Care Pr ovider Reason for Visit * Reason Onset Date Comments Medication Refill 10/25/2024 Encounter Details Date Type Department Care Team (Late st Contact Info) Description 10/25/2024 Refill Family Medicine [address] [phone] Smiley Travis MD [address] [place] [phone] Persistent insomnia; Anxiety Allergies Active Allergy [...] for Sleep. 30 Tablet 09/23/20 24 Active Estradiol 1 MG Oral Tablet (Estrace)Indicatio ns:Menopause TAKE ONE TABLET BY MOUTH IN THE MORNING 90 Tablet 10/05/20 24 Active documented as of this encounter [...] encounter Miscellaneous Notes * Telephone Encounter - Nina Ray CMA - 10/26/2024 4:06 PM EST Seen in office today documented in this encounter Plan of Treatment Upcoming Encounters Date Type Department Care Team (Latest Contact Info) Description 11/02/2024 9:30 AM EST Hem/Onc Treatment Hematology/Oncology Treatment, [address] [place] [phone] Tamia, Chair 7 Hem Onc [facility] [address] 11/09/2024 2:30 PM EST Imaging Radiology [address] [place] [address] 12/14/2024 12:40 PM EST Office Visit Family Medicine [address] [place] [phone] Randal Franco MD [address] [place] [address] [place] [address] 12/21/2024 2:40 PM EST Office Visit Family Medicine [address] [place] [phone] Smiley [place] MD [address] [place] [address] [place] [phone] 01/27/2025 2:30 PM EDT Office Visit Gynecology/Obstetri [facility] [address] [place] [address] Faby Peralta CRNP [address] [place] [address] 03/08/2025 12:40 PM EDT Office Visit Pulmonary Medicine, [facility] [address] [place] [address] Mason Petersen [facility] [address] [facility] [address] 04/19/2025 8:30 AM EDT Hospital Encounter [facility], Endoscopy Room [facility] [address] [place] [phone] Ramona King DO [address] [place] [address] 04/19/2025 8:30 AM EDT - 04/19/2025 9:00 AM EDT Surgery [facility]O [facility], Endoscopy Room [facility] [address] [place] [phone] Ramona King DO [address] [place] [address] COLONOSCOPY FLEXIBLE PROXIMAL DIAGNOSTIC Scheduled Procedures Name Priority Associated Diagnoses Date/Ti me COLONOSCOPY FLEXIBLE PROXIMA L DIAGNOSTIC Recall Crohn's colitis (HCC) 04/19/2025 8:30 AM EDT Health Maintenance Due Date Last Done Comments DISCUSS TOBACCO CESSATION (REFER TO SMARTSET #8950) 1965 COVID-19 Vaccine (#1) 1969 Zoster Vaccines [...] Additional history exists CKD HGB USE SMARTSET 46334 09/14/202509/14, 09/14/2024, 09/02/2023, Additional history exists CKD PHOS USE SMARTSET 66096 09/14/202508/28, 09/02/2023, 04/26/2021 O2 ASSESSMENT COMPLETED IN PAST YEAR FOR COPD 10/26/2025 10/26/2024 Lipid Panel 04/20/2029 04/20/2024, 05/2019, 04/09/2014, Additional [...] state, unspecified Screening mammogram for breast cancer Crohn's colitis (HCC) Regional enteritis of large intestine documented in this encounter Advance Directives Documents on File Type Date Recorded Patient Octave Board Assembler Expl anation Advance Directives and Living Will 04/02/2017 ADVANCE DIRECTIVE RELEASE OF RECS TO [employer] - Care Teams Nurse Quality Relationship Specialty Start Date End Date Smiley [place] MD [address] [place] [address] [place] [phone] PCP - General Family Medicine 08/24/24 documented as of this encounter
--- OUTSIDE RECORDS SUMMARY | 2024-12-25 20:13 | External Medical Summary | Summary of Care ---
Author Name Unknown Organization [facility] Address [address] [place] [address] Phone [phone] Care Team Providers Care Brass Sorter Name Role Phone Smiley Travis MD Primary Care Pr ovider Reason for Visit * Reason Onset Date Comments Order Request 11/30/2024 SCP for inflixim ab due 12/28/24 Encounter Details Date Type Department Care Team (Late st Contact Info) Description 11/30/2024 Telephone Hematology Oncology [facility] [address] [place] [address] Ramona King, DO [address] [place] [address] Order Request (SCP for infliximab due 12/28/24) Allergies Active Allergy Reactions Criticality Noted Date [...] as of this encounter (statuses as of 11/30/2024) Medications EPINEPHrine 0.15 MG/0.3ML Injection Solution Auto-injector [...] bedtime. 60 Tablet 3 11/24/19 25 Active documented as of this encounter (statuses as of 11/30/2024) Active Problems Problem Noted Date Diagnosed Date [...] as of this encounter (statuses as of 11/30/2024) Resolved Problems Problem Noted Date Diagnosed Date [...] as of this encounter (statuses as of 11/30/2024) Immunizations Name Administration Dates Next Due PPD [...] encounter Miscellaneous Notes * Telephone Encounter - Zeke Monte austin - 11/30/2024 11:51 AM EST SCP placed. * Telephone Encounter - Myla Barrera RN - 11/30/2024 11:08 AM EST Adriel will be due for infliximab on December 28. We will need a new SCP as the current plan is complete. Thank you. Myla Barrera FIRE ASSISTANT [facility] [phone] documented in this encounter Plan of Treatment Upcoming Encounters Date Type Department Care Team (Latest Contact Info) Description 12/14/2024 12:40 PM EST Office Visit Family Medicine [address] [place] [phone] Randal Franco MD [address] [place] [address] [place] [phone] 12/21/2024 2:40 PM EST Office Visit Family Medicine [address] [place] [phone] Smiley Travis MD [address] [place] [address] [place] [phone] 12/28/2024 10:30 AM EST Hem/Onc Treatment Hematology/Oncology [address], [address] [phone] Tamia, Chair 8 Hem Onc [facility] [address] [place] [address] 01/11/2025 3:00 PM EDT Office Visit Gastroenterology, [facility] [address] [place] [address] Aleksander Diaz CRNP [address] [place] [address] 01/27/2025 2:30 PM EDT Office Visit Gynecology/Obstetri [facility] [address] [place] [address] Faby Peralta CRNP [address] [place] [address] 03/08/2025 12:30 PM EDT Office Visit Pulmonary Medicine, [facility] [address] [place] [address] Mason Petersen MD [address] [place] [address] 04/19/2025 8:30 AM EDT Hospital Encounter ENDO [facility], Endoscopy Room [facility] [address] [place] [phone] Ramona King DO [address] [place] [address] 04/19/2025 8:30 AM EDT - 04/19/2025 9:00 AM EDT Surgery ENDO [facility], Endoscopy Room [facility] [address] [place] [phone] Ramona King DO [address] [place] [address] COLONOSCOPY FLEXIBLE PROXIMAL DIAGNOSTIC Scheduled Procedures Name Priority Associated Diagnoses Date/Ti me COLONOSCOPY FLEXIBLE PROXIMA L DIAGNOSTIC Recall Crohn's colitis (HCC) 04/19/2025 8:30 AM EDT Health Maintenance Due Date Last Done Comments DISCUSS TOBACCO CESSATION (REFER TO SMARTSET #8863) 1964 COVID-19 Vaccine (#1) 1969 Zoster Vaccines [...] Additional history exists CKD HGB USE SMARTSET 88314 09/14/202509/14, 09/14/2024, 09/02/2023, Additional history exists CKD PHOS USE SMARTSET 90390 09/14/202508/28, 09/02/2023, 04/26/2021 O2 ASSESSMENT COMPLETED IN [...] disease of small intestine without complication (HCC) Regional enteritis of small intestine Crohn's colitis (HCC) Regional enteritis of large intestine documented in this encounter Advance Directives Documents on File Type Date Recorded 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
--- OUTSIDE RECORDS SUMMARY | 2024-12-25 20:13 | External Medical Summary | Summary of Care ---
Author Name Unknown Organization [facility] Address [address] [facility] [place] [address] Phone [phone] Care Team Providers Care Kiln Tester Name Role Phone Smiley Travis MD Primary Care Pr ovider Reason for Visit * Reason Comments Medication Administration Avsola infusio n * Episode Based Medications (Routine) - Authorized Specialty Diagnoses / Procedures Referred By Ange t Referred To Contact Diagnoses Crohn's disease of small intestine without complication (HCC) Procedures UT INJ. AVSOLA, 10 MG Ramona King, DO [address] [place] [address] Phone: tel: fax: Hematology/Oncology Treatment, [place] DEPT CLOSED - 09/10/23 [address] [place] [address] Phone: tel: fax: Referral ID Status Reason Start Date Expiration Date V isits Requested Visits Authorized [id number] Authorized 08/14/2024 08/14/2025 99 99 Encounter Details Date Type Department Care Team (Latest Contact Info) Description 11/02/2024 9:30 AM EST Hem/Onc Treatment Hematology/Oncology Treatment, [place] [address] [place] [address] Tamia, Chair 7 Hem Onc [address] [place] [address] Crohn's disease of small intestine [...] 2:40 PM EST Office Visit Family Medicine [address] [phone] Smiley Travis MD [address] [place] [address] [place] [phone] 12/28/2024 10:30 AM EST Hem/Onc Treatment Hematology/Oncology Treatment, [place] 200 [facility] [place] [phone] Chair Tamia 8 Hem Onc Scenery 200 [facility] [place] [address] 01/11/2025 3:00 PM EDT Office Visit Gastroenterology, [facility] [address] [place], [place] [address] Aleksander Diaz CRNP [address] [place] [address] 01/27/2025 2:30 PM EDT Office Visit Gynecology/Obstetri [facility] [address] [place] [address] Faby Peralta CRNP [address] [place] [address] 03/08/2025 12:30 PM EDT Office Visit Pulmonary Medicine, [facility] [address] [place] [address] Mason Petersen MD [address] [place] [address] 04/19/2025 8:30 AM EDT Hospital Encounter ENDO [facility], Endoscopy Room [facility] [address] [place] [address] Ramona King, DO [address] [place] [address] 04/19/2025 8:30 AM EDT - 04/19/2025 9:00 AM EDT Surgery ENDO [facility], Endoscopy Room [facility] [address] [place] [phone] Ramona King, DO [address] [place] [address] COLONOSCOPY FLEXIBLE PROXIMAL DIAGNOSTIC Scheduled Procedures Name [...] Additional history exists CKD HGB USE SMARTSET 80464 09/14/202509/14, 09/14/2024, 09/02/2023, Additional history exists CKD PHOS USE SMARTSET 97342 09/14/202508/28, 09/02/2023, 04/26/2021 O2 ASSESSMENT COMPLETED IN [...] Documents on File Type Date Recorded 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
--- OUTSIDE RECORDS SUMMARY | 2024-12-25 20:13 | External Medical Summary | Summary of Care ---
Author Name Unknown Organization [facility] Address [address] [place] [address] Phone [phone] Care Team Providers Care Model And Mold Maker Plaster Name Role Phone mSiley Travis MD Primary Care Pr ovider Reason for Visit * Reason Comments eRx-Medication Refill Encounter Details Date Type Department Care Team (Late st Contact Info) Description 11/30/2024 Refill Family Medicine [address] [phone] Smiley Travis MD [address] [place] [phone] Persistent insomnia; Anxiety Allergies Active Allergy [...] encounter Miscellaneous Notes * Telephone Encounter - Casey Canseco RPh - 12/01/2024 8:26 AM EST Refused Prescriptions: Disp Refills ALPRAZolam 0.5 MG Oral Tablet (xaNAX) 30 Tab*0 Sig: Take 1 Tablet by mouth at bedtime as needed for Sleep.Refused By: JUVENCIO KAUR for Refusal: Duplicate Request documented in this encounter Plan of Treatment Upcoming Encounters Date Type Department Care Team (Latest Contact Info) Description 12/14/2024 12:40 PM EST Office Visit Family Medicine [address] [place] [phone] Randal Franco MD [address] [place] [address] [place] [phone] 12/21/2024 2:40 PM EST Office Visit Family Medicine [address] [place] [phone] Smiley Travis MD [address] [place] [address] [place] [phone] 12/28/2024 10:30 AM EST Hem/Onc Treatment Hematology/Oncology Treatment, [address] [place] [phone] Tamia, Chair 8 Hem Onc [facility] 200 [facility] [place] [address] 01/11/2025 3:00 PM EDT Office Visit Gastroenterology, [facility] [address] [place] [address] Aleksander Diaz CRNP [address] [place] [address] 01/27/2025 2:30 PM EDT Office Visit Gynecology/Obstetri [facility] [address] [place] [address] Faby Peralta CRNP [address] [place] [address] 03/08/2025 12:30 PM EDT Office Visit Pulmonary Medicine, [facility] [address] [place] [address] Mason Petersen MD [address] [place] [address] 04/19/2025 8:30 AM EDT Hospital Encounter ENDO [facility], Endoscopy Room [facility] [address] [place] [phone] Ramona King DO [address] [place] [address] 04/19/2025 8:30 AM EDT - 04/19/2025 9:00 AM EDT Surgery ENDO [facility], Endoscopy Room [facility] [address] [place] [phone] Ramona King, [address] [place] [address] COLONOSCOPY FLEXIBLE PROXIMAL DIAGNOSTIC Scheduled Procedures Name Priority Associated Diagnoses Date/Ti me COLONOSCOPY FLEXIBLE PROXIMA L DIAGNOSTIC Recall Crohn's colitis (HCC) 04/19/2025 8:30 AM EDT Health Maintenance Due Date Last Done Comments DISCUSS TOBACCO CESSATION (REFER TO SMARTSET #2811) 1964 COVID-19 Vaccine (#1) 1969 Zoster Vaccines [...] 04/20/20252 024, 09/02/2023, 12/25/2021 TSH 04/20/2025 04/20/2024, 110 03/2023, 10/30/2021, Additional history exists CKD HGB USE SMARTSET 00322 09/14/202509/14, 09/14/2024, 09/02/2023, Additional history exists CKD PHOS USE SMARTSET 38025 09/14/202508/28, 09/02/2023, 04/26/2021 O2 ASSESSMENT COMPLETED IN [...] Documents on File Type Date Recorded Patient 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
--- OUTSIDE RECORDS SUMMARY | 2024-12-25 20:13 | External Medical Summary | Summary of Care ---
Author Name Unknown Organization [facility] Address [address] [place] [address] Phone [phone] Care Team Providers Care Senior Software Qa Engineer Name Role Phone Candy Travis MD Primary Care Pr ovider Reason for Visit * Reason Onset Date Comments Medication Refill 11/10/2024 Encounter Details Date Type Department Care Team (Late st Contact Info) Description 11/10/2024 Refill Family Medicine [address] [phone] Brianna Blum MD [address] [place] [address] Allergies Active Allergy Reactions Criticality Noted Date [...] as of this encounter (statuses as of 11/11/2024) Medications EPINEPHrine 0.15 MG/0.3ML Injection Solution Auto-injector [...] for Nausea. 30 Tablet 11/11/19 25 Active Ondansetron HCl 4 MG Oral Tablet Take 1 Tablet by mouth every 6 hours as needed for Nausea. 30 Tablet 11/15/19 24 025 Discontin ued(Refil l) documented as of this encounter (statuses as of 11/11/2024) Active Problems Problem Noted Date Diagnosed Date [...] as of this encounter (statuses as of 11/11/2024) Resolved Problems Problem Noted Date Diagnosed Date [...] as of this encounter (statuses as of 11/11/2024) Immunizations Name Administration Dates Next Due PPD [...] Telephone Encounter - Candy Travis MD - 11/11/2024 9:48 AM ESTSigned Prescriptions: Disp Refills Ondansetron HCl 4 MG Oral Tablet 30 Tab*0 Sig: Take 1 Tablet by mouth every 6 hours as needed for Nausea. Authorizing Provider: CANDY TRAVIS * Telephone Encounter - Alena Masterson [facility] - 11/11/2024 9:42 AM EST Pending Prescriptions: Disp Refills Ondansetron HCl 4 MG Oral Tablet 30 Tab*0 Sig: Take 1 Tablet bymouth every 6 hours as needed for Nausea. documented in this encounter Plan of Treatment Upcoming Encounters Date Type Department Care Team (Latest Contact Info) Description 12/14/2024 12:40 PM EST Office Visit Family Medicine [address] [phone] Randal Franco MD [address] [place] [address] [place] [address] 12/21/2024 2:40 PM EST Office Visit Family Medicine [address] [place] [phone] Candy Travis MD [address] [place] [address] [place] [phone] 12/28/2024 10:30 AM EST Hem/Onc Treatment Hematology/Oncology Treatment, [address] [place] [phone] Tamia, Chair 8 Hem Onc [address] [place] [address] 01/27/2025 2:30 PM EDT Office Visit Gynecology/Obstetri [facility] [address] [place] [address] Faby Peralta CRNP [address] [place] [address] 03/08/2025 12:40 PM EDT Office Visit Pulmonary Medicine, [facility] [address] [place] [address] Mason Petersen MD [address] [facility] [place] [address] 04/19/2025 8:30 AM EDT Hospital Encounter [facility]O [facility], Endoscopy Room [facility] [address] [place], [place] [phone] Ramona King, DO [address] [place] [address] 04/19/2025 8:30 AM EDT - 04/19/2025 9:00 AM EDT Surgery ENDO [facility], Endoscopy Room [facility] [address] [place] [phone] Ramona King, DO [address] [place] [address] COLONOSCOPY FLEXIBLE PROXIMAL DIAGNOSTIC Scheduled Procedures Name Priority Associated Diagnoses Date/Ti me COLONOSCOPY FLEXIBLE PROXIMA L DIAGNOSTIC Recall Crohn's colitis (HCC) 04/19/2025 8:30 AM EDT Health Maintenance Due Date Last Done Comments DISCUSS TOBACCO CESSATION (REFER TO SMARTSET #9431) 1965 COVID-19 Vaccine (#1) 1969 Zoster Vaccines (1 of 2) 1983 Cologuard 2009 Fecal Occult Blood Test 2009 Sigmoidoscopy 2009 Pneumococcal Vaccine: 50+ Years (2 of 2 - PCV) 05/04/2016 05/04/2015 Colonoscopy 12/05/2022 12/05/2020, 0 05/2021, 11/28/2018, Additional history exists Colorectal Cancer Screening 12/05/2022 Influenza Vaccine (FLU shot) (#1) 2024 GFR 10/20/2024 04/20/2024, 0 03/2023, 09/24/2022, Additional history exists Albumin/Creatinine Ratio 04/20/202504/20/2 024, 09/02/2023, 12/25/2021 TSH 04/20/2025 04/20/2024, 0 03/2023, 10/30/2021, Additional history exists CKD HGB USE SMARTSET 23680 09/14/202509/14, 09/14/2024, 09/02/2023, Additional history exists CKD PHOS USE SMARTSET 66752 09/14/202508/28, 09/02/2023, 04/26/2021 O2 ASSESSMENT COMPLETED IN [...] Documents on File Type Date Recorded Patient 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
--- OUTSIDE RECORDS SUMMARY | 2024-12-25 20:13 | External Medical Summary | Summary of Care ---
Author Name Unknown Organization [facility] Address [address] [facility] [place] [address] Phone [phone] Care Team Providers Care Community Association Manager Name Role Phone Smiley Travis MD Primary Care Pr ovider Reason for Visit * Reason Onset Date Comments Hospital Follow-Up Hospital Follow-Up 10/26/2024 Encounter Details Date Type Department Care Team (Late st Contact Info) Description 10/26/2024 4:00 PM EST Office Visit Family Medicine [address] [phone] Smiley Travis MD [address] [place] [address] [place] [phone] Hospital discharge follow-up*; History of 2019 novel coronavirus disease (COVID-19); Hx of influenza; Persistent insomnia; Anxiety; Other [place] [facility] (current) drug therapy; Tobacco use disorder Allergies [...] street drugs, herbs, supplements, or even some puhu-jgy-iisuktv medicines can be harmful. Talk to your [...] to get rid of medicine: Call your [facility] or [facility]'s household trash and recycling service and ask if a drug take-back program is available in your community. Call your local pharmacy and ask the right way to get rid of the medicine. Go to http://www.fda.gov/ForConsumers/ConsumerUpdates/vjs618945 to learn how to get rid of [...] brand-name medicine, unless their doctor says otherwise. [phone] Yehuda Díaz, [address] [place] [address], [place] [address]. All rights reserved. This information is not intended as a substitute for professional medical care. Always follow your healthcare professional's instructions. documented in this encounter Progress Notes * Smiley Tarvis MD - 10/26/2024 4:04 PM EST SUBJECTIVE: Adriel Yin is a 59 year old female. Chief Complaint Patient presents with Hospital Follow-Up Hospital Follow-Up Recent Admission: Patient was recently admitted to [facility] on 10/19. The date of discharge was 10/22. Discharge report received and reviewed. + for flu and COVID. Treated with tamiflu, azithro, prednisone. Was on O2 by [place]. Went in initially for back pain. Increased [...] COPD, group B, by GOLD 2017 classification ([facility]) Hot flash, menopausal Gastroesophageal reflux disease Left [...] urine sample for UDS. Refilled xanax. 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 - PAIN MANAGEMENT DRUG [...] 9:30 AM EST Hem/Onc Treatment Hematology/Oncology Treatment, [address] [place] [phone] Tamia, Chair 7 Hem Onc [facility] [address] [place] [address] 11/09/2024 2:30 PM EST Imaging Radiology [address] [place] [address] 12/14/2024 12:40 PM EST Office Visit Family Medicine [address] [place] [phone] Randal Franco MD [address] [place] [address] [place] [address] 12/21/2024 2:40 PM EST Office Visit Family Medicine [address] [place] [phone] Smiley Travis MD [address] [place] [address] [place] [phone] 01/27/2025 2:30 PM EDT Office Visit Gynecology/Obstetri [facility] [address] [place] [address] Faby Peralta CRNP [address] [place] [address] 03/08/2025 12:40 PM EDT Office Visit Pulmonary Medicine, [facility] [address] [place] [address] Mason Petersen MD [address] [facility] [place] [address] 04/19/2025 8:30 AM EDT Hospital Encounter ENDO [facility], Endoscopy Room [facility] [address] [place] [phone] Ramona King, DO [address] [place] [address] 04/19/2025 8:30 AM EDT - 04/19/2025 9:00 AM EDT Surgery [facility], Endoscopy Room [facility] [address] [place] [phone] Ramona King, DO [address] [place] [address] COLONOSCOPY FLEXIBLE PROXIMAL DIAGNOSTIC Pending Results Name Type Priority Associated Diagnoses Date /Time PAIN MANAGEMENT DRUG PANEL, URINE Lab Routine Persistent insomnia Anxiety Other [place] [facility] (current) drug therapy 10/26/2024 4:41 PM EST EXTRA URINE ALIQUOT Lab Routine Persistent insomnia Anxiety Other [place] [facility] (current) drug therapy 10/26/2024 4:41 PM EST Scheduled Orders Name Type Priority Associated Diagnoses Orde r Schedule PAIN MANAGEMENT DRUG PANEL, URINE Lab Routine Persistent insomnia Anxiety Other [place] [facility] (current) drug therapy Expected: 10/26/2024 (Approximate), Expires: 10/26/2025 Scheduled Procedures Name Priority Associated Diagnoses Date/Ti me COLONOSCOPY FLEXIBLE PROXIMA L DIAGNOSTIC Recall Crohn's colitis (HCC) 04/19/2025 8:30 AM EDT Health Maintenance Due Date Last Done Comments DISCUSS TOBACCO CESSATION (REFER TO SMARTSET #8684) 1965 COVID-19 Vaccine (#1) 1969 Zoster Vaccines [...] Additional history exists CKD HGB USE SMARTSET 00382 09/14/202509/14, 09/14/2024, 09/02/2023, Additional history exists CKD PHOS USE SMARTSET 15506 09/14/202508/28, 09/02/2023, 04/26/2021 O2 ASSESSMENT COMPLETED IN [...] maintaining sleep Anxiety Anxiety state, unspecified 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
--- OUTSIDE RECORDS SUMMARY | 2024-12-25 20:13 | External Medical Summary | Summary of Care ---
Author Name Unknown Organization [facility] Address [address] [facility] [place] [address] Phone [phone] Care Team Providers Care Schedule Hanger Name Role Phone Smiley Travis MD Primary Care Pr ovider Reason for Visit * Reason Comments Medication Administration Avsola infusio n * Episode Based Medications (Routine) - Authorized Specialty Diagnoses / Procedures Referred By Ange t Referred To Contact Diagnoses Crohn's disease of small intestine without complication (HCC) Procedures RI INJ. AVSOLA, 10 MG Ramona King, DO [address] [place] [address] Phone: tel: fax: Hematology/Oncology Treatment, [place] DEPT CLOSED - 09/10/23 [address] [place] [address] Phone: tel: fax: Referral ID Status Reason Start Date Expiration Date V isits Requested Visits Authorized [id number] Authorized 08/14/2024 08/14/2025 99 99 Encounter Details Date Type Department Care Team (Latest Contact Info) Description 11/02/2024 9:30 AM EST Hem/Onc Treatment Hematology/Oncology Treatment, [place] [address] [place] [address] Tamia, Chair 7 Hem Onc Scenery [address] [place] [address] Crohn's disease of small intestine [...] 2:40 PM EST Office Visit Family Medicine [address] [phone] Smiley Travis MD [address] [place] [address] [place] [phone] 12/28/2024 10:30 AM EST Hem/Onc Treatment Hematology/Oncology Treatment, [place] [address] [facility] [place] [phone] Chair Tamia 8 Hem Onc Scenery 200 [facility] [place] [address] 01/11/2025 3:00 PM EDT Office Visit Gastroenterology, [facility] [address] [place], [place] [address] Aleksander Diaz CRNP [address] [place] [address] 01/27/2025 2:30 PM EDT Office Visit Gynecology/Obstetri [facility] [address] [place] [address] Faby Peralta CRNP [address] [place] [address] 03/08/2025 12:30 PM EDT Office Visit Pulmonary Medicine, [facility] [address] [place] [address] Mason Petersen MD [address] [place] [address] 04/19/2025 8:30 AM EDT Hospital Encounter ENDO [facility], Endoscopy Room [facility] [address] [place] [phone] Ramona King, DO [address] [place] [address] 04/19/2025 8:30 AM EDT - 04/19/2025 9:00 AM EDT Surgery ENDO [facility], Endoscopy Room [facility] [address] [place] [phone] Ramona King, DO [address] [place] [address] COLONOSCOPY FLEXIBLE PROXIMAL DIAGNOSTIC Scheduled Procedures Name [...] Additional history exists CKD HGB USE SMARTSET 30351 09/14/202509/14, 09/14/2024, 09/02/2023, Additional history exists CKD PHOS USE SMARTSET 80680 09/14/202508/28, 09/02/2023, 04/26/2021 O2 ASSESSMENT COMPLETED IN [...] Documents on File Type Date Recorded 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
--- OUTSIDE RECORDS SUMMARY | 2024-12-25 20:14 | External Medical Summary ---
Author Name Unknown Address Unknown Organization [id number]:LABORATORY [facility] - [address] [facility] [address] Laboratory Report Ordering Provider Test Date Status FCO GUPTA LUIGI 10/26/2024 16:41:00 Final Drugs that require complianc e testing:

Benzodiazepines
Alprazolam: Quantity 0.5 mh Date/Time of last Dose PM

Cutoff Concentrations:
Drug Level
Amphetamines 500 ng/mL
Benzodiazepines 100 ng/mL
Cannabinoids 50 ng/mL
Cocaine Metabolite 150 ng/mL
Fentanyl 1 ng/mL
Hydrocodone / Hydromorphone 300 ng/mL
Methadone Metabolite 100 ng/mL
Morphine / Codeine 300 ng/mL
Oxycodone / Oxymorphone 100 ng/mL

Screening results are presumptive and can only be used for medical purposes. Confirmatory testing is available upon request. Observation Date Value Abnormality Reference (Units) Status Amphetamines, Urine screen 10/26/2024 16:41:00 Refer to confirmation results Abnormal Negative Final Benzodiazepines, Urine screen 10/26/2024 16:41:00 Refer to confirmation results Abnormal Negative Final Cannabinoids, Urine screen 10/26/2024 16:41:00 Negative Negative Final Cocaine Metabolite, Urine screen 10/26/2024 16:41:00 Negative Negative Final fentaNYL [Presence] in Urine by Screen method 10/26/2024 16:41:00 Negative Negative Final HYDROcodone [Presence] in Urine by Screen method 10/26/2024 16:41:00 Negative Negative Final 9-Ihtkxwuddc-3,5-Dime thyl-3,3-Diphenylpyrr olidine (EDDP) [Presence] in Urine 10/26/2024 16:41:00 Negative Negative Final Opiates, Urine screen 10/26/2024 16:41:00 Negative Negative Final oxyCODONE [Presence] in Urine by Screen method 10/26/2024 16:41:00 Negative Negative Final FORENSIC VALID INTERPRETATION 10/26/2024 16:41:00 Normal Final Creatinine, Urine 10/26/2024 16:41:00 358 (mg/dL) Final Performing Location LABORATORY [facility] - [facility] [address] [facility] [address]
--- OUTSIDE RECORDS SUMMARY | 2024-12-25 20:14 | External Medical Summary ---
Author Name Unknown Address Unknown Organization [id number]:LABORATORY [address] [facility] [address] Laboratory Report Ordering Provider Test Date Status FCO GUPTA LUIGI 10/26/2024 16:41:00 Final Drugs that require complianc e testing:

Benzodiazepines
Alprazolam: Quantity 0.5 mh Date/Time of last Dose PM

Cutoff Concentrations:
Drug Level
Amphetamine 50 ng/mL
Methamphetamine 50 ng/mL
Phentermine 50 ng/mL
Pseudoephedrine 50 ng/mL
MDMA/Ecstasy 50 ng/mL

This test was developed and its performance characteristics determined by [employer]. It has not been cleared or approved by the [place] Food and Drug Administration. Observation Date Value Abnormality Reference (Units ) Status METHODOLOGY 10/26/2024 16:41:00 LC-MS/MS Final Methamphetamine, Urine confirmatory 10/26/2024 16:41:00 Negative Negative Final Phentermine cutoff [Mass/volume] in Urine for Confirmatory method 10/26/2024 16:41:00 Negative Negative Final PSEUDOEPHEDRINE CONFIRMATION, U (CATEGORY) 10/26/2024 16:41:00 Negative Negative Final 2-Paudswiaxm-3,5-Dimethyl -3,3-Diphenylpyrrolidine (EDDP) [Mass/volume] in Urine by Confirmatory method 10/26/2024 16:41:00 Negative Negative Final Amphetamines, Urine screen 10/26/2024 16:41:00 Negative Negative Final Performing Location LABORATORY [place] [address] [facility] [address]
[2024-12-25] MEDS: BUDESONIDE 0.5 MG/2 ML VIAL (PULMICORT) NEB SCH (21:06)
[2024-12-25] MEDS: FORMOTEROL 20 MCG/2 ML VIAL NEB SCH (21:06)
[2024-12-25] MEDS: ALBUT/IPRATROP 3MG/0.5MG NEB 3 ML VIAL NEB SCH (21:06)
[2024-12-25] MEDS: ASPIRIN 81 MG ECTAB PO SCH (21:18)
[2024-12-25] MEDS: methylPREDNISolone 40 MG in SYRINGE 0 ML IV SCH (21:18)
[2024-12-25] MEDS: ALPRAZolam 0.5 MG TABLET PO SCH (21:18)
[2024-12-25] MEDS: MONTELUKAST SODIUM 10 MG TABLET PO SCH (21:19)
[2024-12-25] MEDS: buPROPion SR 150 MG TABCR PO SCH (21:19)
[2024-12-25] MEDS: ENOXAPARIN INJ 40 MG/0.4 ML SYR SQ SCH (21:19)
[2024-12-25] MEDS: guaiFENesin 600 MG TABCR PO SCH (21:19)
[2024-12-25] MEDS: ACETAMINOPHEN 325 MG TAB PO PRN (21:24)
--- NOTE | 2024-12-25 21:45 | Electrocardiogram Report ---
Test Reason : Blood Pressure : */* mmHG Vent. Rate : 87 BPM Atrial Rate : 87 BPM P-R Int : 146 ms QRS Dur : 100 ms QT Int : 372 ms P-R-T Axes : 77 54 73 degrees QTcB Int : 447 ms Normal sinus rhythm Normal ECG When compared with ECG of 19-Oct-2024 09:13, No significant change was found Confirmed by Unruly Hall ([id number]) on 12/25/2024 9:45:35 PM Referred By: Confirmed By: Unruly Hall
[2024-12-26] MEDS: LEVOTHYROXINE SODIUM 75 MCG TABLET PO SCH (06:09)
[2024-12-26 07:29] LABS: Basophils # (auto) 0.01 K/uL (0.00-0.20); Basophils % (auto) 0.1 %; Hematocrit (blood only) 34.9 % (37.0-47.0); Hemoglobin 11.6 g/dl (12.0-16.0); Immature Granulocytes # (auto) 0.06 K/uL (0.01-0.20); Immature Granulocytes % (auto) 0.5 %; Lymphocytes # (auto) 0.96 K/uL (1.20-3.40); Lymphocytes % (auto) 8.6 %; Mean Corpuscular Hemoglobin 30.9 pg (25.0-34.0); Mean Corpuscular Hgb Conc 33.2 g/dL (32.0-36.0); Mean Corpuscular Volume 92.8 fL (80.0-100.0); Mean Platelet Volume 9.4 fL (9.4-12.4); Monocytes # (auto) 0.17 K/uL (0.11-0.59); Monocytes % (auto) 1.5 %; Neutrophils # (auto) 10.02 K/uL (1.40-6.50); Neutrophils % (auto) 89.3 %; Platelet Count 290 K/uL (130-400); RDW Coefficient of Variation 12.3 % (11.5-14.5); Red Blood Count 3.76 M/uL (4.20-5.40); White Blood Count 11.22 K/ul (4.8-10.8)
--- NOTE | 2024-12-26 07:35 | Hospitalist Progress Note ---
Date of Service December 26, 2024 Assessment & Plan (1) Hypoxia: (2) COPD exacerbation: (3) RSV bronchitis: Plan This is a 59-year-old woman with history of COPD, Crohn's disease, hypothyroidism who presents with 4 days of cough and found to have acute hypoxic respiratory failure iso RSV and COPD exacerbation #Acute hypoxic respiratory failure #Acute COPD exacerbation #RSV URI admit to med/surg continue O2 supplementation, titrate to keep between 90-92% budesonide/formoterol nebs xopenex prn continue home inhalers and montelukast add claritin IV solumedrol 40mg reduced to q12h continue with azithromycin Duoneb, ISP, Flutter valve hypertonic nebs to aid in clearance #Crohn's Disease: remicade infusion [id number], no acute flare #Hypothyroidism: continue Synthroid #DVT ppx: SQ Lovenox FULL CODE PCP: Smiley Mast likely 2 days Admission and Anticipated Discharge Date Admission Date: December 25, 2024 Subjective Reports subject improvement, however, still with dyspnea with minimal exertion and reports tight chest denies any fever, but reports continued cough and thick sputum difficult to expectorate Physical Exam Constitutional: WD/WN, vitals as above Respiratory: diffuse rhonchi and expiratory wheezing Cardiovascular: RRR, no murmur, no edema Results & Data Results & Data Vital Signs (Past 12 Hours) Vital Signs Temp Pulse Resp BP Pulse Ox O2 Del Method O2 Flow Rate 12/26/24 07:08 36.5 C 84 20 122/65 93 Nasal Cannula 3 12/26/24 00:28 78 17 91 Nasal Cannula 3 12/25/24 21:25 Nasal Cannula 2 12/25/24 21:08 94 H 17 91 Nasal Cannula 3 12/25/24 20:07 37.0 C 18 116/64 91 Nasal Cannula 2 Laboratory Results Short CBC 12/26/24 Range/Units 06:55 WBC 11.22 H (4.8-10.8) K/ul Hgb 11.6 L (12.0-16.0) g/dl Hct 34.9 L (37.0-47.0) % Plt Count 290 (130-400) K/uL BMP 12/26/24 06:55 Sodium 137 Potassium 3.8 Chloride 105 Carbon Dioxide 24 BUN 18 Creatinine 1.06 Glucose 189 H Calcium 8.7 Medications Administered Home Medications Medication Instructions Recorded Confirmed Last Taken alprazolam 0.5 mg tablet (Xanax) 0.5 mg PO 04/18/19 12/25/24 08/07/21 bupropion HCl 150 mg tablet,12 hr 150 mg PO BID 04/18/19 12/25/24 12/25/24 sustained-release estradiol 1 mg tablet (Estrace) 1 mg PO QA 04/18/19 12/25/24 12/25/24 levothyroxine 75 mcg tablet 75 mcg PO QA 04/18/19 12/25/24 12/25/24 pantoprazole 40 mg tablet,delayed 40 mg PO QA 04/18/19 12/25/24 12/25/24 release aspirin 81 mg tablet,delayed 81 mg PO 09/17/20 12/25/24 08/08/21 release cholecalciferol (vitamin D3) 25 25 mcg PO [facility] 09/17/20 12/25/24 12/25/24 mcg (1,000 unit) tablet (Vitamin D3) cyanocobalamin (vitamin B-12) 1,000 mcg PO [facility] 09/17/20 12/25/24 12/25/24 1,000 mcg tablet (Vitamin B-12) tiotropium bromide 2.5 2 puff inhalation [facility] 09/17/20 12/25/24 12/25/24 mcg/actuation mist for inhalation (Spiriva Respimat) montelukast 10 mg tablet 10 mg PO 08/08/21 12/25/24 08/07/21 (Singulair) Infusion 1 dose IV UD 10/19/24 12/25/24 Unknown fluticasone furoate 100 1 inh inhalation 10/19/24 12/25/24 12/25/24 mcg-vilanterol 25 mcg/dose inhalation powder (Breo Ellipta) atorvastatin 40 mg tablet 40 mg PO [facility] 12/25/24 12/25/24 12/25/24 Active Medications Generic Name Dose Route Start Last Admin Trade Name Freq PRN Reason Stop Dose Admin Acetaminophen 650 mg 12/25/24 16:07 12/25/24 21:24 Acetaminophen 325 Mg Tab PO 01/24/25 16:06 650 mg Q4H PRN Administration Pain or Fever Alprazolam 0.5 mg 12/25/24 21:00 12/25/24 21:18 Alprazolam 0.5 Mg Tablet PO 01/24/25 20:59 0.5 mg HS ROBYN Administration Aspirin 81 mg 12/25/24 21:00 12/25/24 21:18 Aspirin 81 Mg Ectab PO 01/24/25 20:59 81 mg HS ROBYN Administration Atorvastatin Calcium 40 mg 12/26/24 09:00 12/26/24 09:53 Atorvastatin 40 Mg Tab PO 01/25/25 08:59 40 mg QAM ROBYN Administration Azithromycin 250 mg 12/26/24 09:00 12/26/24 09:53 Azithromycin 250 Mg Tab PO 12/29/24 09:01 250 mg QAM ROBYN Administration Budesonide 0.5 mg 12/25/24 19:00 12/26/24 08:17 Budesonide 0.5 Mg/2 Ml Vial (Pulmicort) NEB 01/24/25 18:59 0.5 mg BIDR ROBYN Administration Bupropion HCl 150 mg 12/25/24 21:00 12/26/24 09:53 Bupropion Sr 150 Mg Tabcr PO 01/24/25 20:59 150 mg BID ROBYN Administration Cyanocobalamin 1,000 mcg 12/26/24 09:00 12/26/24 09:54 Cyanocobalamin (B-12) 500 Mcg Tablet PO 01/25/25 08:59 1,000 mcg QAM ROBYN Administration Enoxaparin Sodium 40 mg 12/25/24 21:00 12/25/24 21:19 Enoxaparin Inj 40 Mg/0.4 Ml Syr SQ 01/24/25 20:59 40 mg HS ROBYN Administration Estradiol 1 mg 12/26/24 09:00 12/26/24 09:53 Estradiol 1 Mg Tab PO 01/25/25 08:59 1 mg QAM ROBYN Administration Formoterol Fumarate 20 mcg 12/25/24 19:00 12/26/24 08:18 Formoterol 20 Mcg/2 Ml Vial NEB 01/24/25 18:59 20 mcg BIDR ROBYN Administration Guaifenesin 1,200 mg 12/25/24 21:00 12/26/24 09:53 Guaifenesin 600 Mg Tabcr PO 01/24/25 20:59 1,200 mg Q12 ROBYN Administration Methylprednisolone 40 mg/ 0.64 mls @ 1.5 mls/min 12/25/24 20:00 12/26/24 04:58 Syringe IV 01/24/25 19:59 1.5 mls/min Q8H ROBYN Administration Lactobacillus Acidophilus 1,250 mg 12/26/24 09:00 12/26/24 09:54 Advanced Probiotic 625 Mg Capsule PO 01/25/25 08:59 1,250 mg DAILY ROBYN Administration Levothyroxine Sodium 75 mcg 12/26/24 06:30 12/26/24 06:09 Levothyroxine Sodium 75 Mcg Tablet PO 01/25/25 06:29 75 mcg DAILYBB ROBYN Administration Montelukast Sodium 10 mg 12/25/24 21:00 12/25/24 21:19 Montelukast Sodium 10 Mg Tablet PO 01/24/25 20:59 10 mg HS ROBYN Administration Pantoprazole Sodium 40 mg 12/26/24 09:00 12/26/24 09:54 Pantoprazole 40 Mg Tab PO 01/25/25 08:59 40 mg QAM ROBYN Administration Sodium Chloride 4 ml 12/26/24 08:40 12/26/24 09:21 Sodium Chlor 7% 4 Ml Neb NEB 01/25/25 08:39 4 ml BIDR ROBYN Administration Vitamin D 25 mcg 12/26/24 09:00 12/26/24 09:53 Cholecalciferol 25 Mcg (1000 Units) Tab PO 01/25/25 08:59 25 mcg QAM ROBYN Administration
[2024-12-26 07:48] LABS: Calcium 8.7 mg/dl (8.6-10.3); Creatinine Clr Calc Pharmacy 44.6 ml/min; Magnesium 1.9 mg/dl (1.7-2.4); Potassium 3.8 mmol/L (3.5-5.1)
[2024-12-26] MEDS ORDERED: ALBUT/IPRATROP 3MG/0.5MG NEB 3 ML VIAL NEB PRN (08:39)
[2024-12-26] MEDS: SODIUM CHLOR 7% 4 ML NEB NEB SCH (09:21)
[2024-12-26] MEDS: ATORVASTATIN 40 MG TAB PO SCH (09:53)
[2024-12-26] MEDS: CHOLECALCIFEROL 25 MCG (1000 UNITS) TAB PO SCH (09:53)
[2024-12-26] MEDS: estradioL 1 MG TAB PO SCH (09:53)
[2024-12-26] MEDS: AZITHROMYCIN 250 MG TAB PO SCH (09:53)
[2024-12-26] MEDS: CYANOCOBALAMIN (B-12) 500 MCG TABLET PO SCH (09:54)
[2024-12-26] MEDS: PANTOprazole 40 MG TAB PO SCH (09:54)
[2024-12-26] MEDS: ADVANCED PROBIOTIC 625 MG CAPSULE PO SCH (09:54)
[2024-12-26] MEDS ORDERED: LEVALBUTEROL 1.25 MG/3 ML NEB NEB PRN (13:01)
[2024-12-26] MEDS: FLUTICASONE/VILANTEROL 200/25MCG 14 PUFFS/INHALER INH SCH (13:52)
[2024-12-26] MEDS: LORATADINE 10 MG TAB PO SCH (13:53)
[2024-12-26] MEDS: UMECLIDINIUM BROMIDE 62.5MCG/BLISTER 7 PUFFS/INHALER INH SCH (13:53)
[2024-12-26] MEDS: methylPREDNISolone 40 MG in SYRINGE 0 ML IV SCH (17:59)
[2024-12-26] MEDS: MELATONIN 3 MG TAB PO PRN (21:50)
[2024-12-27 07:06] LABS: Hematocrit (blood only) 33.5 % (37.0-47.0); Mean Corpuscular Hemoglobin 30.9 pg (25.0-34.0); Mean Corpuscular Hgb Conc 32.8 g/dL (32.0-36.0); Mean Corpuscular Volume 94.1 fL (80.0-100.0); Mean Platelet Volume 9.5 fL (9.4-12.4); Platelet Count 320 K/uL (130-400); RDW Coefficient of Variation 12.3 % (11.5-14.5); RDW Standard Deviation 42.7 fL (36.4-46.3); Red Blood Count 3.56 M/uL (4.20-5.40); White Blood Count 16.09 K/ul (4.8-10.8)
[2024-12-27 07:21] LABS: BUN Creatinine Ratio 25.3 (10-20); Calcium 8.6 mg/dl (8.6-10.3); Magnesium 1.7 mg/dl (1.7-2.4); Phosphorus 3.6 mg/dl (2.5-4.9); Potassium 4.3 mmol/L (3.5-5.1)
[2024-12-27] MEDS: MAGNESIUM SULFATE / D5W 1 GM/100 ML BAG IV ONE (09:27)
--- NOTE | 2024-12-27 14:36 | Hospitalist Progress Note ---
Date of Service December 27, 2024 Assessment & Plan (1) Hypoxia: (2) COPD exacerbation: (3) RSV bronchitis: Plan This is a 59-year-old woman with history of COPD, Crohn's disease, hypothyroidism who presented with 4 days of cough and found to have acute hypoxic respiratory failure iso RSV and COPD exacerbation Patient is improving but still requiring oxygen at this time. She expressed desire to not discharge with oxygen. Discussed 2 step will be necessary prior to dispo. Will continue another day of IV steroid and transition to po in am with plans to assess ability to wean off of oxygen #Acute hypoxic respiratory failure #Acute COPD exacerbation #RSV URI admit to med/surg continue O2 supplementation, titrate to keep between 90-92% budesonide/formoterol nebs xopenex prn continue home inhalers and montelukast add claritin Iv solumedrol transitioned to prednisone continue with azithromycin Duoneb, ISP, Flutter valve hypertonic nebs to aid in clearance #Crohn's Disease: remicade infusion f2erwpn, no acute flare #Hypothyroidism: continue Synthroid #DVT ppx: SQ Lovenox FULL CODE PCP: Smiley Mast potentially dispo tomorrow Admission and Anticipated Discharge Date Admission Date: December 25, 2024 Subjective Reports subjective improvement overall cough much improved however still present reports some RICO and still requiring 2 L NC Physical Exam Constitutional: WD/WN, vitals as above Respiratory: RLL wheezing, improved aeration from day prior Cardiovascular: RRR, no murmur, no edema Gastrointestinal (Abdomen): normal bowel sounds, soft, nontender, no hepatosplenomegaly Results & Data Results & Data Vital Signs (Past 12 Hours) Vital Signs Temp Pulse Resp BP Pulse Ox O2 Del Method O2 Flow Rate 12/27/24 13:34 Nasal Cannula 2 12/27/24 09:11 93 Nasal Cannula 2 12/27/24 08:00 74 16 96 Nasal Cannula 3 12/27/24 07:05 36.6 C 75 18 114/62 95 Nasal Cannula 3 Laboratory Results Short CBC 12/27/24 Range/Units 06:29 WBC 16.09 H (4.8-10.8) K/ul Hgb 11.0 L (12.0-16.0) g/dl Hct 33.5 L (37.0-47.0) % Plt Count 320 (130-400) K/uL BMP 12/27/24 06:29 Sodium 138 Potassium 4.3 Chloride 106 Carbon Dioxide 28 BUN 23 Creatinine 0.91 Glucose 147 H Calcium 8.6 Medications Administered Home Medications Medication Instructions Recorded Confirmed Last Taken alprazolam 0.5 mg tablet (Xanax) 0.5 mg PO 04/18/19 12/25/24 08/07/21 bupropion HCl 150 mg tablet,12 hr 150 mg PO BID 04/18/19 12/25/24 12/25/24 sustained-release estradiol 1 mg tablet (Estrace) 1 mg PO QA 04/18/19 12/25/24 12/25/24 levothyroxine 75 mcg tablet 75 mcg PO [facility] 04/18/19 12/25/24 12/25/24 pantoprazole 40 mg tablet,delayed 40 mg PO [facility] 04/18/19 12/25/24 12/25/24 release aspirin 81 mg tablet,delayed 81 mg PO 09/17/20 12/25/24 08/08/21 release cholecalciferol (vitamin D3) 25 25 mcg PO [facility] 09/17/20 12/25/24 12/25/24 mcg (1,000 unit) tablet (Vitamin D3) cyanocobalamin (vitamin B-12) 1,000 mcg PO [facility] 09/17/20 12/25/24 12/25/24 1,000 mcg tablet (Vitamin B-12) tiotropium bromide 2.5 2 puff inhalation [facility] 09/17/20 12/25/24 12/25/24 mcg/actuation mist for inhalation (Spiriva Respimat) montelukast 10 mg tablet 10 mg PO 08/08/21 12/25/24 08/07/21 (Singulair) Infusion 1 dose IV UD 10/19/24 12/25/24 Unknown fluticasone furoate 100 1 inh inhalation 10/19/24 12/25/24 12/25/24 mcg-vilanterol 25 mcg/dose inhalation powder (Breo Ellipta) atorvastatin 40 mg tablet 40 mg PO [facility] 12/25/24 12/25/24 12/25/24 Active Medications Generic Name Dose Route Start Last Admin Trade Name Freq PRN Reason Stop Dose Admin Acetaminophen 650 mg 12/25/24 16:07 12/26/24 21:50 Acetaminophen 325 Mg Tab PO 01/24/25 16:06 650 mg Q4H PRN Administration Pain or Fever Alprazolam 0.5 mg 12/25/24 21:00 12/26/24 19:58 Alprazolam 0.5 Mg Tablet PO 01/24/25 20:59 0.5 mg HS ROBYN Administration Aspirin 81 mg 12/25/24 21:00 12/26/24 19:50 Aspirin 81 Mg Ectab PO 01/24/25 20:59 81 mg HS ROBYN Administration Atorvastatin Calcium 40 mg 12/26/24 09:00 12/27/24 09:20 Atorvastatin 40 Mg Tab PO 01/25/25 08:59 40 mg QAM ROBYN Administration Azithromycin 250 mg 12/26/24 09:00 12/27/24 09:21 Azithromycin 250 Mg Tab PO 12/29/24 09:01 250 mg QAM ROBYN Administration Budesonide 0.5 mg 12/25/24 19:00 12/27/24 07:58 Budesonide 0.5 Mg/2 Ml Vial (Pulmicort) NEB 01/24/25 18:59 0.5 mg BIDR ROBYN Administration Bupropion HCl 150 mg 12/25/24 21:00 12/27/24 09:20 Bupropion Sr 150 Mg Tabcr PO 01/24/25 20:59 150 mg BID ROBYN Administration Cyanocobalamin 1,000 mcg 12/26/24 09:00 12/27/24 09:21 Cyanocobalamin (B-12) 500 Mcg Tablet PO 01/25/25 08:59 1,000 mcg QAM ROBYN Administration Enoxaparin Sodium 40 mg 12/25/24 21:00 12/26/24 19:50 Enoxaparin Inj 40 Mg/0.4 Ml Syr SQ 01/24/25 20:59 40 mg HS ROBYN Administration Estradiol 1 mg 12/26/24 09:00 12/27/24 09:20 Estradiol 1 Mg Tab PO 01/25/25 08:59 1 mg QAM ROBYN Administration Formoterol Fumarate 20 mcg 12/25/24 19:00 12/27/24 07:58 Formoterol 20 Mcg/2 Ml Vial NEB 01/24/25 18:59 20 mcg BIDR ROBYN Administration Guaifenesin 1,200 mg 12/25/24 21:00 12/27/24 09:21 Guaifenesin 600 Mg Tabcr PO 01/24/25 20:59 1,200 mg Q12 ROBYN Administration Methylprednisolone 40 mg/ 0.64 mls @ 1.5 mls/min 12/26/24 18:00 12/27/24 05:44 Syringe IV 12/27/24 22:59 1.5 mls/min Q12H ROBYN Administration Lactobacillus Acidophilus 1,250 mg 12/26/24 09:00 12/27/24 09:21 Advanced Probiotic 625 Mg Capsule PO 01/25/25 08:59 1,250 mg DAILY ROBYN Administration Levothyroxine Sodium 75 mcg 12/26/24 06:30 12/27/24 05:45 Levothyroxine Sodium 75 Mcg Tablet PO 01/25/25 06:29 75 mcg DAILYBB ROBYN Administration Loratadine 10 mg 12/26/24 13:15 12/27/24 09:21 Loratadine 10 Mg Tab PO 01/25/25 13:14 10 mg QAM ROBYN Administration Melatonin 6 mg 12/25/24 21:00 12/26/24 21:50 Melatonin 3 Mg Tab PO 01/24/25 20:59 6 mg HS PRN Administration Sleep Montelukast Sodium 10 mg 12/25/24 21:00 12/26/24 19:52 Montelukast Sodium 10 Mg Tablet PO 01/24/25 20:59 10 mg HS ROBYN Administration Pantoprazole Sodium 40 mg 12/26/24 09:00 12/27/24 09:20 Pantoprazole 40 Mg Tab PO 01/25/25 08:59 40 mg QAM ROBYN Administration Umeclidinium [place] 1 puffs 12/26/24 13:15 12/27/24 09:22 Umeclidinium [place] 62.5mcg/Blister 7 Puffs/Inhaler INH 01/25/25 13:14 1 puffs DAILY ROBYN Administration Vitamin D 25 mcg 12/26/24 09:00 12/27/24 09:20 Cholecalciferol 25 Mcg (1000 Units) Tab PO 01/25/25 08:59 25 mcg QAM ROBYN Administration
[2024-12-27] MEDS: FLUTICASONE/VILANTEROL 200/25MCG 14 PUFFS/INHALER INH SCH (20:36)
[2024-12-28 07:59] VITALS: BP 117/72; TEMP 97.7
[2024-12-28 08:22] LABS: Creatinine Clr Calc Pharmacy 49.8 ml/min
[2024-12-28] MEDS: predniSONE 20 MG TAB PO SCH (08:32)
[2024-12-28 08:54] VITALS: PULSE 87; RESP 17; O2SAT 95
--- NOTE | 2024-12-28 10:24 | Discharge Summary ---
Discharge Summary Date of Service December 28, 2024 Principal Dx & Hospital Course #1 = Principal Diagnosis (1) Hypoxia: (2) COPD exacerbation: (3) RSV bronchitis: Plan This is a 59-year-old woman with history of COPD, Crohn's disease, hypothyroidism who presented with 4 days of cough and found to have acute hypoxic respiratory failure iso RSV and COPD exacerbation Patient is improving but still requiring oxygen at this time. She expressed desire to not discharge with oxygen. On day of discharge, 2 step was negative. Patient was reporting feeling well and without concerns, ambulating without SOB. Patient reports eagerness for discharge. #Acute hypoxic respiratory failure resolved #Acute COPD exacerbation #RSV URI continue home inhalers and montelukast continue claritin Iv solumedrol transitioned to prednisone continue with azithromycin x2 days and 3 days pred #Crohn's Disease: remicade infusion [id number], no acute flare #Hypothyroidism: continue Synthroid Notes For Next Care Provider Medication Changes From Visit Start claritin 10mg daily prednisone 40mg x 3 more days azithromycin 250mg x 2 days Admission HPI Per Admitting Provider This is a 59-year-old woman with history of COPD, Crohn's disease, hypothyroidism who presents with 4 days of cough. She has hx of COPD and was last hospitalized at the end of 2023 with COPD exac in setting of influenza A and COVID-19. She states she has sick contacts with her grandson who had a viral illness 2 weeks ago. She developed cough, sinus congestion and rhinorrhea 4 days ago. Her cough continues to worsen. It is very productive of thick brown sputum. She reports worsening SOB with exertion which is what prompted her to come to the ED. Her appetite has been good. She has felt chilled but denies any documented fever or sweats. She further denies any chest pain, palps, hemoptysis, n/v/d, abd pain or change in her bowel/urinary habits. In ED she tested + for RSV. She was hypoxic requiring 2L satting at 91%. She received IV solumedrol and nebulizer treatment. Her CXR showed RLL Atelectasis vs PNA. Admission Exam Per Admitting Provider Head: Normocephalic, Atraumatic Eyes: PERRL, conjunctivae normal, anicteric sclerae ENMT: external ear and nose normal, oropharynx normal Neck: trachea midline, no thyromegaly normal visual inspection Respiratory: decreased bs at bases, deep insp results in coughing fit, no sig nificant wheezing throughout, no rales/rhonchi noted. 2L of O2 91%, no access muscle use Cardiovascular: RRR, no murmur, no edema Vessels: no JVD or carotid bruit Chest: normal inspection of chest Abdomen: normal bowel sounds, soft, nontender, no hepatosplenomegaly Musculoskeletal: no cyanosis or clubbing, extremities motor strength 5/5 Skin: no rashes, warm and dry normal turgor Neurologic: no face palsy, no dysarthria CN's II-XI intact bilaterally and moves all extremities Psychiatric: A+Ox3, euthymic affect : deferred to hearing to look into that other consult was in our Discharge Exam Constitutional WD/WN, vitals as above Respiratory normal respiratory effort, lungs clear to auscultation Cardiovascular RRR, no murmur, no edema Gastrointestinal (Abdomen) normal bowel sounds, soft, nontender, no hepatosplenomegaly Musculoskeletal no cyanosis or clubbing, extremities motor strength 5/5 Updated Medication List Medication Instructions Recorded Confirmed Type alprazolam 0.5 mg tablet (Xanax) 0.5 mg PO HS 04/18/19 12/25/24 History bupropion HCl 150 mg tablet,12 hr 150 mg PO BID 04/18/19 12/25/24 History sustained-release estradiol 1 mg tablet (Estrace) 1 mg PO QAM 04/18/19 12/25/24 History levothyroxine 75 mcg tablet 75 mcg PO QAM 04/18/19 12/25/24 History pantoprazole 40 mg tablet,delayed 40 mg PO QAM 04/18/19 12/25/24 History release aspirin 81 mg tablet,delayed 81 mg PO HS 09/17/20 12/25/24 History release cholecalciferol (vitamin D3) 25 25 mcg PO QAM 09/17/20 12/25/24 History mcg (1,000 unit) tablet (Vitamin D3) cyanocobalamin (vitamin B-12) 1,000 mcg PO QAM 09/17/20 12/25/24 History 1,000 mcg tablet (Vitamin B-12) tiotropium bromide 2.5 2 puff inhalation QAM 09/17/20 12/25/24 History mcg/actuation mist for inhalation (Spiriva Respimat) montelukast 10 mg tablet 10 mg PO HS 08/08/21 12/25/24 History (Singulair) Infusion 1 dose IV UD 10/19/24 12/25/24 History fluticasone furoate 100 1 inh inhalation HS 10/19/24 12/25/24 History mcg-vilanterol 25 mcg/dose inhalation powder (Breo Ellipta) atorvastatin 40 mg tablet 40 mg PO QAM 12/25/24 12/25/24 History L.acidop,casei,lactis,rham-B.lact,waylon 1 cap PO DAILY 30 days #30 caps 12/28/24 Rx 625 mg (10 billion cell) capsule (Advanced Probiotic) azithromycin 250 mg tablet 250 mg PO QAM 2 days #2 tabs 12/28/24 Rx guaifenesin 600 mg tablet, 1,200 mg (2 x 600 mg) PO Q12 7 12/28/24 Rx extended release 12 hr (Mucinex) days #28 tabs loratadine 10 mg tablet (Wal-itin) 10 mg PO QAM 30 days #30 tabs 12/28/24 Rx prednisone 20 mg tablet 40 mg (2 x 20 mg) PO QAM 3 days #6 12/28/24 Rx tabs Hospital Stay Data Consultations 12/25/24 13:34 ED Decision to Admit Stat Pending Results Patient Have Any Pending Studies at Discharge: No Discharge Instructions Given to Patient (Per Discharging Provider) You were admitted for RSV and COPD exacerbation You improved notably with IV steroids and nebulizers You will continue the follwing: Prednisone 40mg for three more days Azithromycin 250mg for two more days Mucinex two times daily for a week Consider starting Claritin 10mg daily indefinitely to aid with seasonal allergies and flares Consider a probiotic daily Total Time Total Time Spent Total Time Spent (In Minutes): 45
== END 2024-12-28 10:44 | disposition home or self-care (01) | DRG 189 ==
LOC: ED 11:14 → 3W 13:43 → SUATTDRO 13:43 → 3W 15:31